=== PATIENT | male | born 1940 | race Caucasian/White ===

== ENCOUNTER 2016-10-07 08:18 | Outpatient (CLI) | payer MEDICARE, OTHER | END 2016-10-07 08:19 | disposition home or self-care (01) | DX: C61 Malignant neoplasm of prostate (principal); C79.51 Secondary malignant neoplasm of bone ==

== ENCOUNTER 2017-02-26 13:52 | Outpatient (CLI) | payer MEDICARE, OTHER ==
[2017-02-26] MEDS ORDERED: ALBUTEROL NEB 2.5 MG/3 ML INH ONE (14:07)
== END 2017-02-26 13:53 | disposition home or self-care (01) ==
LOC: RT 13:52
PROVIDERS: ATTEND Internal Medicine
DX: J45.909 Unspecified asthma, uncomplicated (principal)
CPT/HCPCS: 94060; J7613

== ENCOUNTER 2018-04-28 12:23 | Emergency (ER) | payer MEDICARE, OTHER ==
[2018-04-28 13:50] LABS: BILIRUBIN,URINE NEGATIVE (NEGATIVE); GLUCOSE, URINE (UA) NEGATIVE (NEGATIVE); KETONES,URINE (UA) NEGATIVE (NEGATIVE); LEUKOCYTE ESTERASE, URINE NEGATIVE (NEGATIVE); NITRITE,URINE NEGATIVE (NEGATIVE); OCCULT BLOOD,URINE LARGE (NEGATIVE); PROTEIN,URINE NEGATIVE (NEGATIVE); UROBILINOGEN,URINE 0.2 (NORMAL) E.U./dL (NORMAL)
[2018-04-28 13:52] LABS: CLARITY,URINE CLOUDY (CLEAR)
[2018-04-28 14:04] LABS: BACTERIA,URINE Rare /HPF (None Seen); RBC,URINE TNTC /HPF (0-5); SQUAMOUS EPITHELIAL CELL,UR NONE SEEN (<= Few)
[2018-04-28 14:28] LABS: BASOPHILS % (AUTO) 0.2 %; EOSINOPHILS # (AUTO) 0.7 10^3/uL (0.0-0.7); EOSINOPHILS % (AUTO) 9.5 %; LYMPHOCYTES % (AUTO) 29.6 %; MEAN CORPUSCULAR HEMOGLOBIN 33.1 pg (27.0-31.0); MEAN CORPUSCULAR HGB CONC 35.4 g/dL (32.0-36.0); MEAN CORPUSCULAR VOLUME 93.4 fL (80.0-94.0); MONOCYTES # (AUTO) 0.5 10^3/uL (0.0-1.0); MONOCYTES % (AUTO) 7.1 %; NEUTROPHILS # (AUTO) 3.7 10^3/uL (1.5-6.6); NEUTROPHILS % (AUTO) 53.6 %; PLT - PLATELET COUNT 291 10^3/uL (130-450); RED BLOOD COUNT 4.23 10^6/uL (4.70-6.10); RED CELL DISTRIBUTION WIDTH 13.7 % (12.0-15.0); WHITE BLOOD COUNT 6.9 x10^3/uL (4.8-10.8)
[2018-04-28 14:40] LABS: ALBUMIN 4.2 g/dL (3.2-5.5); ALBUMIN/GLOBULIN RATIO 1.2 (1.0-2.2); BILIRUBIN,TOTAL 0.7 mg/dL (0.2-1.0); CALCIUM 10.3 mg/dL (8.5-10.3); CREATININE 0.9 mg/dL (0.6-1.2); TOTAL PROTEIN 7.6 g/dL (6.7-8.2)
--- NOTE | 2018-04-28 15:35 | ED Physician Documentation ---
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 denies: Dysuria Musculoskeletal: denies: Back pain Endocrine: denies: Easy bruising / bleeding Immunocompromised: denies: Immunocompromised PD PAST MEDICAL HISTORY - Past Medical History Cardiovascular: Hypertension, High cholesterol Respiratory: Asthma Musculoskeletal: Gout - Past Surgical History Past Surgical History: Yes - Present Medications Home Medications: Ambulatory Orders Medication Instructions Recorded Confirmed Travoprost [Travatan Z] 1 drop OP DAILY 12/06/15 02/18/18 Aspirin [Adult Low Dose Aspirin EC] 1 tab PO DAILY 02/18/18 02/18/18 - Allergies Allergies/Adverse Reactions: Allergies Allergy/AdvReac Type Severity Reaction Status Date / Time No Known Drug Allergies Allergy Verified 04/28/18 12:29 - Social History Does the pt smoke?: No Smoking Status: Never smoker Does the pt drink ETOH?: Yes Does the pt have substance abuse?: No - Immunizations Immunizations are current?: Yes PD ED PE NORMAL - Vitals Vital signs reviewed: Yes - Cardiac Cardiac: RRR - Respiratory Respiratory: No respiratory distress - Abdomen Abdomen: Soft, Non tender - Male Male : Other (nl external) - Derm Derm: Normal color - Neuro Neuro: Alert and oriented X 3, No motor deficit Results - Vitals Vitals: Vital Signs - 24 hr 04/28/18 04/28/18 12:25 18:31 Temperature 36.1 C L 36.9 C Heart Rate 92 68 Respiratory 18 24 Rate Blood Pressure 132/87 H 129/80 O2 Saturation 97 96 Oxygen O2 Source Room air - Labs Labs: Laboratory Tests 04/28/18 04/28/18 04/28/18 12:45 14:21 14:21 WBC 6.9 RBC 4.23 L Hgb 14.0 Hct 39.5 L MCV 93.4 MCH 33.1 H MCHC 35.4 RDW 13.7 Plt Count 291 MPV 7.0 L Neut # (Auto) 3.7 Lymph # (Auto) 2.0 Moffat # (Auto) 0.5 Eos # (Auto) 0.7 Baso # (Auto) 0.0 Absolute Nucleated RBC 0.00 Nucleated RBC % 0.0 Sodium 136 Potassium 4.0 Chloride 101 Carbon Dioxide 26 Anion Gap 9.0 BUN 15 Creatinine 0.9 Estimated GFR (MDRD) 82 L Glucose 100 Calcium 10.3 Total Bilirubin 0.7 AST 27 ALT 26 Alkaline Phosphatase 53 Total Protein 7.6 Albumin 4.2 Globulin 3.4 Albumin/Globulin Ratio 1.2 Lipase 31 Urine Color YELLOW Urine Clarity CLOUDY Urine pH 6.0 Ur Specific Sheldon 1.020 Urine Protein NEGATIVE Urine Glucose (UA) NEGATIVE Urine Ketones NEGATIVE Urine Occult Blood LARGE H Urine Nitrite NEGATIVE Urine Bilirubin NEGATIVE Urine Urobilinogen 0.2 (NORMAL) Ur Leukocyte Esterase NEGATIVE Urine RBC TNTC H Urine WBC 0-3 Ur Squamous Epith Cells NONE SEEN Urine Bacteria Rare Ur Microscopic Review INDICATED Urine Culture Comments NOT INDICATED - Rads (name of study) CT AP Radiology: See rad report (aortic valve calcification, 4.5 cm ascedning aortic aneurysm is unchanged, gallstones, no hydro, no renal ureteral stones, no renal masses, renal cysts, lynn, gas in bladder (2/2 lynn placement) diverticulosis , multiple blastic bone lesions again noted, new retroperitoneal lymphadenopathy concerning for mets) PD MEDICAL DECISION MAKING - ED course ED course: cath placed and bladder irrigated clear pt able to urinate CT shows no stones or renal and bladder mass will dc to follow up with [facility] and referral [facility] for consideration of cystoscopy - Sepsis Event Vital Signs: Vital Signs - 24 hr 04/28/18 04/28/18 12:25 18:31 Temperature 36.1 C L 36.9 C Heart Rate 92 68 Respiratory 18 24 Rate Blood Pressure 132/87 H 129/80 O2 Saturation 97 96 Oxygen O2 Source Room air Departure - Departure Disposition: 01 Home, Self Care Clinical Impression: Painless hematuria Condition: Good Instructions: ED Hematuria Follow-Up: ANDREW BROWN [Primary Care Provider] - [facility] [Provider Group] Comments: The urine showed blood but no infection The CT scan did not show any kidney stones or abdominal aneurysm There is a thoracic aortic aneurysm but that is not new and would not cause blood in the urine. The radiologist also noted a calcified heart valve, diverticulosis, gallstones, kidney cysts, and cancer that has spread to the bones and perhaps the lymph nodes. But nothing to clearly explain the blood in the urine. You need to follow up with a urologist for consideration of a scope of your bladder
[2018-04-28] MEDS ORDERED: LIDOCAINE 2% URO-JET 5 ML SYRINGE UR STA (15:54)
[2018-04-28] MEDS ORDERED: IOPAMIDOL-300 100 ML VIAL ONE (16:20)
[2018-04-28] MEDS ORDERED: IOPAMIDOL-300 100 ML VIAL IVP ONE (16:53)
--- NOTE | 2018-04-28 17:19 | CT Report ---
Reason: prostate cancer painless hematuria Procedure Date: 04/28/2018 Accession Number: [id number] / [id number] Procedure: CT - Abdomen/Pelvis W/ CPT Code: FULL RESULT: EXAM: CT ABDOMEN AND PELVIS EXAM DATE: 04/28/2018 04:51 PM. CLINICAL HISTORY: Prostate cancer, painless hematuria. COMPARISONS: Abdomen/pelvis with contrast/ 07/12/2017 10:47 AM. TECHNIQUE: Routine helical CT imaging was performed through the abdomen and pelvis. IV contrast: Isovue 300 100 mL. Enteric contrast: No. Reconstructions: Coronal and sagittal. In accordance with CT protocol optimization, one or more of the following dose reduction techniques were utilized for this exam: automated exposure control, adjustment of mA and/or KV based on patient size, or use of iterative reconstructive technique. FINDINGS: Lung bases: Coronary artery Calcification. Areas of pleural-based calcification seen posteriorly on the right side. Aortic valve calcification. Aneurysmal dilatation of the ascending thoracic aorta measuring 4.5 cm, unchanged. Mild bibasilar scarring or atelectasis. Liver: Fatty liver suspected. Gallbladder: Increased density in the gallbladder, could represent small gallstones versus dense sludge. Bile ducts: Unremarkable. Pancreas: Unremarkable. Spleen: Unremarkable. Adrenals: Unremarkable. Kidneys: No hydronephrosis. No urinary tract calculi are seen. No solid renal masses are seen. Left parapelvic renal cysts. Bowel: Moderate sigmoid and mild descending colon diverticulosis. The appendix appears normal. No free fluid or free air. No acute bowel findings are seen. A couple of calcified nodules are seen anteriorly in the abdomen. Pelvis: The bladder is decompressed with a Sorenson catheter in place. There is gas in the bladder. Prostate has been removed. Small fat-containing left inguinal hernia. Vascular structures: No acute findings. New retroperitoneal periaortic lymphadenopathy with left periaortic lymphadenopathy measuring 1.2 cm at the level of the kidneys. Aortocaval lymphadenopathy measures 1.4 cm at the level of the kidneys. Bones: Multiple blastic bone metastasis are again seen in the pelvic bones, right proximal femur, spine and right rib. IMPRESSION: 1. Aortic valve calcification. Aneurysmal dilatation of the ascending thoracic aorta measuring 4.5 cm, unchanged. 2. Increased density in the gallbladder, could represent small gallstones versus dense sludge. 3. No hydronephrosis. No urinary tract calculi are seen. No solid renal masses are seen. Left parapelvic renal cysts. 4. The bladder is decompressed with Sorenson catheter in place. There is gas in the bladder. 5. Moderate sigmoid and mild descending colon diverticulosis. 6. Multiple blastic bone metastasis again noted. 7. New retroperitoneal lymphadenopathy most concerning for metastasis. 8. See above. RADIA
[2018-04-28 18:32] VITALS: BP 129/80
== END 2018-04-28 18:46 | disposition home or self-care (01) ==
LOC: ED 12:23
DX: R31.9 Hematuria, unspecified (principal); C61 Malignant neoplasm of prostate; C79.51 Secondary malignant neoplasm of bone; R59.0 Localized enlarged lymph nodes; K57.90 Diverticulosis of intestine, part unspecified, without perforation or abscess without bleeding; K80.80 Other cholelithiasis without obstruction; N28.1 Cyst of kidney, acquired; I35.8 Other nonrheumatic aortic valve disorders; I10 Essential (primary) hypertension; E78.00 Pure hypercholesterolemia, unspecified; Z90.79 Acquired absence of other genital organ(s); Z92.3 Personal history of irradiation; Z79.82 Long term (current) use of aspirin
CPT/HCPCS: 36415; 74177; 80053; 81001; 83690; 85025; 99283; Q9967; 81003; 87086

== ENCOUNTER 2018-07-08 07:07 | Outpatient (CLI) | payer MEDICARE, OTHER ==
[2018-07-08] MEDS ORDERED: IOPAMIDOL-300 100 ML VIAL ONE (07:16)
[2018-07-08] MEDS ORDERED: IOPAMIDOL-300 100 ML VIAL IVP ONE (08:18)
--- NOTE | 2018-07-08 13:14 | CT Report ---
Reason: GROSS HEMATURIA Procedure Date: 07/08/2018 Accession Number: [id number] / [id number] Procedure: CT - IVP CPT Code: FULL RESULT: EXAM: CT ABDOMEN AND PELVIS WITHOUT AND WITH CONTRAST (CT IVP) EXAM DATE: 07/08/2018 07:51 AM. CLINICAL HISTORY: Gross hematuria. History of prostate cancer. COMPARISONS: ABDOMEN/PELVIS W/ 04/28/2018 4:47 PM. TECHNIQUE: Routine helical imaging was performed through the kidneys, ureters and bladder in the precontrast, postcontrast and delayed phase. IV Contrast: Isovue 300 100 mL. Reconstructions: Coronal and sagittal. In accordance with CT protocol optimization, one or more of the following dose reduction techniques were utilized for this exam: automated exposure control, adjustment of mA and/or KV based on patient size, or use of iterative reconstructive technique. FINDINGS: Lung Bases: Unremarkable. Right Kidney/Ureter: No stones, hydronephrosis, or masses. Left Kidney/Ureter: The left distal ureter is not opacified from the level of the pelvic inlet to the bladder. At the level of the urethral valve there is mild asymmetric thickening of the left aspect near the bladder trigone. No stones, hydronephrosis. Other Solid Organs: The liver, spleen, pancreas, gallbladder, and adrenal glands are unremarkable.The bile ducts are unremarkable with the exception of small gallbladder calculi versus vicarious contrast excretion. Peritoneal Cavity/Bowel: Normal. No free fluid, free air or adenopathy. No masses. Bowel loops are unremarkable. Pelvic Organs: No bladder calculi are identified. Asymmetric thickening of the bladder wall as described in relation to the left ureteral insertion, see left kidney. Vasculature: Abdominal atherosclerosis as well as coronary vascular calcifications. Bones: Sclerosis of the right hemisacrum, left iliac wing and portions of the right iliac wing and right femoral neck are most compatible with osteoblastic metastases. Similar sclerotic foci also seen in the axial skeleton elsewhere. Other: None. IMPRESSION: Recommend direct visualization of the bladder by cystoscopy to clarify the asymmetric thickening of the left bladder base near the insertion of the left ureter. RADIA
== END 2018-07-08 07:08 | disposition home or self-care (01) ==
LOC: DI 07:07
PROVIDERS: ATTEND Urology
DX: N32.89 Other specified disorders of bladder (principal); R31.0 Gross hematuria
CPT/HCPCS: 74178; Q9967

== ENCOUNTER 2018-08-05 09:19 | Outpatient (CLI) | payer MEDICARE, OTHER ==
--- NOTE | 2018-08-06 08:15 | Nuclear Medicine Report ---
Reason: METASTIC PROSTATE CA Procedure Date: 08/05/2018 Accession Number: [id number] / [id number] Procedure: NM - Bone Whole Body CPT Code: FULL RESULT: EXAM: BONE SCAN EXAM DATE: 08/05/2018 01:34 PM. CLINICAL HISTORY: Metastatic PROSTATE CA. COMPARISON: CHEST W08/04/2018 1:31 PM ABDOMEN/PELVIS W08/04/2018 1:31 PM BONE WHOLE BODY 10/09/2016 12:28 PM ABDOMEN/PELVIS W07/12/2017 10:47 AM. TECHNIQUE: Following the intravenous administration of 29.9 mCi of technetium 99m MDP and an appropriate delay, a whole-body scan was performed in anterior and posterior projections. Site-specific spot views of the region of interest were obtained in various projections. FINDINGS: Normal renal radiotracer uptake and bladder activity. Normal soft tissue activity. Overall normal osseous uptake. There are multiple new skeletal foci suspicious for metastatic disease. Bilateral rib lesions most conspicuous at the left sixth and right ninth ribs posteriorly. There are new foci of uptake in the mid thoracic and lower lumbar spine most conspicuous at T10 and at L4 and L5. There is new multifocal uptake in the right pelvis most conspicuous at the periacetabular ilium, and in the right proximal femur. No focal uptake at the right humeral neck is additionally suspicious for metastatic disease. Previously identified uptake in the left hemipelvis has moderately decreased. There is similar mild uptake at the shoulders and increased uptake at the knees bilaterally and left mid and forefoot likely degenerative. IMPRESSION: 1. There is evidence of interval progression of osseous metastatic disease, as described above. RADIA
== END 2018-08-05 09:20 | disposition home or self-care (01) ==
LOC: DI 09:19
PROVIDERS: ATTEND Internal Medicine
DX: C61 Malignant neoplasm of prostate (principal); C79.51 Secondary malignant neoplasm of bone
CPT/HCPCS: 78306

== ENCOUNTER 2018-09-22 08:44 | Day surgery (SDC) | payer MEDICARE, OTHER ==
[~2018-09-22 08:44] MED LIST: ceFAZolin 2 GM/50 ML 2 GM/50 ML BAG IV ONE
[2018-09-22] MEDS ORDERED: IOTHALAMATE MEGLUMINE 50 ML VIAL IVP ONE ×2 (08:45→12:49)
[2018-09-22] MEDS ORDERED: LACTATED RINGERS 1,000 ML IV ONE ×2 (09:19→12:52)
--- NOTE | 2018-09-22 09:33 | ANESTHESIA ---
Pre-Anesthesia VS, & Labs - Diagnosis metastatic prostate cancer - Procedure portacath placement Vital Signs: Temp Pulse Resp BP Pulse Ox 36.5 C 77 16 136/77 H 98 09/22/18 08:58 09/22/18 08:58 09/22/18 08:58 09/22/18 08:58 09/22/18 08:58 Height 5 ft 11 in Weight (kg) 84.7 kg Body Mass Index 25.8 - NPO >8 hours Home Medications and Allergies Travoprost [Travatan Z] 1 drop OP DAILY 12/06/15 Oxycontin. 1 tab ORAL DAILY PRN 08/12/18 Allergies/Adverse Reactions: Allergies Allergy/AdvReac Type Severity Reaction Status Date / Time No Known Drug Allergies Allergy Verified 04/28/18 12:29 Anes History & Medical History - Medical History Cardiovascular: reports: Hypertension, High cholesterol Pulmonary: reports: Asthma Gastrointestinal: reports: Other Urinary: reports: Other Musculoskeletal: reports: Osteoarthritis, Chronic back pain, Other Skin: reports: None Smoking Status: Never smoker - Surgical History General: Other Urologic: Prostatic surgery Orthopedic: Arthroscopic surgery, Spine surgery Exam General: Alert Dental: WNL Mouth Opening: Greater than 4 Fingerbreadths Neck Mobility: Normal Mallampati classification: II Thyromental Distance: greater than 6 cm Respiratory: Decreased breath sounds Cardiovascular: Regular rate, Normal S1, Normal S2 Mental/Cognitive Status: Alert/Oriented X3 Plan Anesthesia Type: General (backup), MAC Consent for Procedure(s) Verified and Reviewed: Yes Code Status: Attempt Resuscitation ASA classification: 3-Severe systemic disease Is this case an emergency?: No
[2018-09-22] MEDS ORDERED: IPRATROPIUM/ALBUTEROL 3 ML NEB INH ONE (09:39)
[2018-09-22] MEDS ORDERED: BUPIVACAINE 0.5% PF 30 ML VIAL ONE (10:02)
[2018-09-22] MEDS ORDERED: BUPIVACAINE 0.5% PF 30 ML VIAL SUBQ ONE (11:08)
[2018-09-22] MEDS ORDERED: LIDOCAINE-MPF 2% 5 ML VIAL IM ONE (11:37)
[2018-09-22] MEDS ORDERED: KETAMINE 500 MG/10 ML VIAL IVP ONE (11:37)
[2018-09-22] MEDS ORDERED: PROPOFOL 1000 MG/100 ML IV ONE (11:37)
[2018-09-22] MEDS ORDERED: GLYCOPYRROLATE 1 MG/5 ML VIAL IVP ONE (11:37)
[2018-09-22] MEDS ORDERED: SODIUM CHLORIDE 0.9% 10 ML VIAL IV ONE (11:37)
[2018-09-22] MEDS ORDERED: MIDAZOLAM 2 MG/2 ML VIAL IVP ONE (11:37)
[2018-09-22] MEDS ORDERED: HYDROmorphone 0.5 MG/0.5 ML SYRINGE IVP PRN (13:43)
[2018-09-22] MEDS ORDERED: HYDROcod/ACETAM 5/325 MG TABLET PO PRN (13:43)
[2018-09-22] MEDS ORDERED: ONDANSETRON 4 MG/2 ML VIAL IVP PRN (13:43)
--- NOTE | 2018-09-22 14:07 | OPERATIVE REPORT ---
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 - Other Other Information/Narrative: OPERATIVE DESCRIPTION/REPORT: After verbal and written informed consent was obtained detailing the risks of infection, bleeding requiring transfusion with its risks, nerve injury, and , and after I met with the patient confirming the surgery and the site of the surgery, the patient was brought to the operative suite and placed supine on the operating table. Great care was taken to avoid pressure points to prevent pressure necrosis or nerve injury. Monitoring devices were applied along with TEDs and pneumatic compressive stockings (to prevent DVT). The patient received preoperative antibiotics for surgical prophylaxis. Sterling Jesus CRNA sedated and anesthetized the patient for the entire procedure. The patient was prepped and draped in the usual sterile manner. A "time in" then confirmed that the patient was identified with 3 identifiers (name, date and medical record number), the history and physical was in the chart, the signed consent confirming the procedure was in the chart, the patient was in the correct position, the aforementioned prophylactic measures were in place or given, we had the correct personnel and equipment to complete the procedure and that anesthesia, surgery and nursing were given an opportunity to express any concerns. With the agreement of everyone in the room, we proceeded with the ope ration. After the LEFT subclavian region was anesthetized using % marcaine and the patient placed in Trendelenberg position, an [employer] Smartport kit (see operative record for catalog number and lot number) was opened. Numerous passes of the finder needle chest underneath the clavicle in order to minimize the risk of pneumothorax failed to localize the subclavian vein. Of note, the patient had a Port-A-Cath previously placed on the left-hand side. At no point in time did I get any venous return. At this point I obtained an ultrasound to look to see if I could localize the subclavian vein and despite ultrasound guidance I could not. I abandoned the left-hand side as a viable option and switched over to the right-hand side. On the right hand side the finder needle was inserted into the subclavian vein taking great care to place it just under the clavicle in order to minimize the risk of pneumothorax. When good venous blood return was obtained, the wire was placed through the needle and into the vein without difficulty. Despite placing the wire to the normal length, no cardiac irritability was noted. Below and lateral to the needle insertion site, the area was anesthetized again using % marcaine and a transverse incision was made just large enough to accommodate the port. This incision was taken down to the fascia using sharp dissection and the area for the port was created using blunt downward dissection. Meticulous hemostasis was obtained using Bovie electrocautery. A knife was inserted along the wire to widen the insertion site and this was further dilated using a Vera. The port was flushed with heparinized saline and placed in the pouch and the catheter was then passed to the needle opening using the passer. The catheter was then measured against the patients anterior chest and cut so that the tip would lie 2 cm below the manubrial-sternal junction. The port was secured to the fascia using a 3-0 Prolene on the side of the opening of the port. The catheter was then wiped and wrapped with a heparinized soaked 4x4. The dilator and sheath were then carefully inserted over the wire and the dilator and wire withdrawn. Upon removal of the wire it had a odd configuration and I ordered and obtained a chest x-ray which showed that the sheath was doubled back onto itself. This clearly would not allow for placement of the catheter and I called for fluoroscopic guidance. With fluoroscopy the sheath was brought back until it was straight and the wire was reintroduced through the sheath and each manipulation of the wire had the tip of the wire going into the patient's right neck. Despite having the patient's head rotated to the right, having the patient's had lay on his right shoulder, twirling of the wire I was unable to get the wire to go down. To summarize, glidewires, a different kit with different stainless steel wire, an introducer kit with a different wire and needle all could not place the wire down towards the heart/vena cava. To be clear there was no significant difficulty accessing the subclavian vein it was that despite every effort the wire could not be placed into the vena cava. At this point I began a suspect a obstruction or stenosis at the superior vena cava and obtained Conray diluted 50-50 with saline. 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 At this point time I consulted my radiology colleague, Dr. Manuel Wells, who came in to the operating room at which time I repeated placement of the wire, placement of the dilator, and the venogram. 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 I asked Dr. Wells if we had the equipment in order to accomplish this goal and he stated that we do not. Although I considered placement of the Port-A-Cath in the femoral region this is not preferred and I opted to terminate the procedure and send the patient to a hospital setting where they have interventional radiology with endovascular expertise. The port that had been placed was removed as well as the catheter attached to it. The subcutaneous tissue was approximated using 3-0 Vicryl and the skin incisions were approximated with 4-0 Monocryl in a subcuticular fashion. The skin prep was washed off and prepped with benzoin. Steristrips were applied. At this point a time out was performed that confirmed that all the counts were correct, the procedure that was performed, the blood loss, the IV fluids administered, and the patients condition. A dressing was placed on the wound. Having tolerated the procedure well, the patient was taken to short stay in good and stable condition. A chest x-ray was ordered to ensure that there was no pneumothorax. [employer] disclaimer: This document was created in part using voice recognition technology. Because of the inherent limitations of the system ([employer]'s [employer] user manual states that the licensee understands that speech recognition is a statistical process and that recognition errors are inherent in the process), occasional same sounding word substitutions and grammatical errors do occur and persist despite proofreading. Please read this document for context.
--- NOTE | 2018-09-22 14:12 | XRAY Report ---
Reason: rule out pneumothorax Procedure Date: 09/22/2018 Accession Number: [id number] / [id number] Procedure: XR - Chest 1 View X-Ray CPT Code: 02514 FULL RESULT: EXAM: CHEST RADIOGRAPHY EXAM DATE: 09/22/2018 01:41 PM. CLINICAL HISTORY: Rule out pneumothorax. COMPARISON: Chest with contrast 08/04/2018 1:31 PM. TECHNIQUE: 1 view. FINDINGS: Lungs/Pleura: Lungs are emphysematous with a paucity of lung markings at the apices. Exclusion of small pneumothorax at the lung apex is difficult. There is no tension and no large pneumothorax. No pleural effusion. No pulmonary consolidation. Mediastinum: Within exam limitations, the cardiomediastinal contour is normal. Other: There is a thin linear 1.5 cm man-made structure projecting over the medial head of the right clavicle, not seen on prior CT. Contrast is seen in the soft tissues of the right neck. IMPRESSION: No sizable pneumothorax. Correlate 1.5 cm thin linear man-made structure projecting over the medial head of the clavicle to possible items external to the patient to exclude foreign body. CRITICAL RESULT: The findings were discussed with Dr. Chang on 09/22/2018 at 2:10 PM. RADIA
[2018-09-22 14:36] VITALS: BP 126/91
--- NOTE | 2018-09-22 15:32 | XRAY Report ---
Reason: PORTOCATH PLACEMENT Procedure Date: 09/22/2018 Accession Number: [id number] / [id number] Procedure: FL - OR C-Arm Procedure CPT Code: FULL RESULT: EXAM: FLUOROSCOPIC GUIDANCE EXAM DATE: 09/22/2018 01:31 PM. CLINICAL HISTORY: Port-A-Cath placement. COMPARISON: None. 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 IMPRESSION: Fluoroscopic guidance provided for port placement. Total fluoroscopy time: 7 minutes 32 seconds. Number of images: 111. RADIA
== END 2018-09-22 08:45 | disposition home or self-care (01) ==
LOC: SDS 08:44
PROVIDERS: ATTEND Surgery
PROC: 0JH60WZ Insertion of Totally Implantable Vascular Access Device into Chest Subcutaneous Tissue and Fascia, Open Approach (ICD-10-PCS; principal; 2018-09-22 10:00)
DX: C61 Malignant neoplasm of prostate (principal); I87.1 Compression of vein; I10 Essential (primary) hypertension; Z87.891 Personal history of nicotine dependence
CPT/HCPCS: 36561; 71045; C1788; J0690; J7120; Q9961

== ENCOUNTER 2019-01-13 09:08 | Outpatient (CLI) | payer MEDICARE, OTHER ==
[2019-01-13] MEDS ORDERED: IOVERSOL 320 100 ML VIAL IVP ONE (12:21)
[2019-01-13] MEDS ORDERED: IOVERSOL 320 50 ML VIAL PO ONE (12:21)
--- NOTE | 2019-01-13 13:04 | CT Report ---
Reason: PROSTATE CANCER Procedure Date: 01/13/2019 Accession Number: [id number] / [id number] Procedure: CT - CHEST W CPT Code: FULL RESULT: EXAM: CT CHEST EXAM DATE: 01/13/2019 11:11 AM. CLINICAL HISTORY: PROSTATE CANCER. COMPARISONS: CHEST W/ 08/04/2018 1:31 PM. TECHNIQUE: Routine helical CT imaging was performed through the chest. IV contrast: 100 cc of Optiray 320 contrast. Reconstructions: Coronal and sagittal. In accordance with CT protocol optimization, one or more of the following dose reduction techniques were utilized for this exam: automated exposure control, adjustment of mA and/or KV based on patient size, or use of iterative reconstructive technique. FINDINGS: Lungs/Pleura: Stable pattern of bilateral upper lobe panacinar and centrilobular emphysema. No nodules, bronchial thickening, consolidation, or edema. Pulmonary vasculature is normal. No pericardial or pleural effusion. No pneumothorax. Stable thin calcific pleural plaquing both posterior hemithoraces right greater than left. Mediastinum: No adenopathy or masses. Stable three-vessel coronary artery calcium. 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 Stable calcifications of the aortic valve cusps. 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 Majority of existing bony metastases have shown variable increase in extent of metastases, and there are scattered new metastases (reference L1 vertebral body where there are three new 5 mm lesions). Visualized Abdomen: Unremarkable. Abdominal pelvic CT dictated separately. Other: None. IMPRESSION: 1. Interval progression of osseous metastases as described. 2. No evidence of visceral metastases. 3. Stable exam findings of emphysema. 4. Stable fusiform aneurysmal dilatation of the aortic root and diffuse atherosclerotic ectasia of the remaining thoracic aorta. 4. Significant three-vessel coronary artery calcium. RADIA
--- NOTE | 2019-01-13 14:03 | CT Report ---
Reason: PROSTATE CANCER Procedure Date: 01/13/2019 Accession Number: [id number] / [id number] Procedure: CT - Abdomen/Pelvis W CPT Code: FULL RESULT: EXAM: CT ABDOMEN AND PELVIS EXAM DATE: 01/13/2019 11:11 AM. CLINICAL HISTORY: Prostate cancer. COMPARISONS: ABDOMEN/PELVIS W/ 08/04/2018 1:31 PM. TECHNIQUE: Routine helical CT imaging was performed through the abdomen and pelvis. IV contrast: 100 mL of Optiray 320 contrast.. Enteric contrast: 50 mL of Optiray 320 contrast. Reconstructions: Coronal and sagittal. In accordance with CT protocol optimization, one or more of the following dose reduction techniques were utilized for this exam: automated exposure control, adjustment of mA and/or KV based on patient size, or use of iterative reconstructive technique. FINDINGS: Lung Bases: Dictated separately. Emphysema again noted. Liver: Normal. No masses. Gallbladder/Bile Ducts: Stable dependent radiodense fluid-fluid level presumably radiodense sludge or small gravel-like stones. No wall thickening or CT evidence of acute cholecystitis. Spleen: Normal. Pancreas: Normal. Adrenal Glands: Normal. Kidneys: Normal. No masses or hydronephrosis. Peritoneal Cavity/Bowel: Stable appearance to diminished volume in calcified anterior peritoneal nodules, reference series 4 images 34 and 40 respectively. Interval resolution of previously described retroperitoneal adenopathy. Sigmoid colonic diverticulosis without evidence of diverticulitis. No free fluid, free air or adenopathy. No masses or acute inflammatory process. The appendix is well visualized and normal. Pelvic Organs: Normal. The bladder and visualized pelvic organs are within normal limits. Vasculature: No aneurysms or other significant abnormality. Bones: Slight interval progression of extent and number of osteoblastic metastases. Reference: There are 3 new 5 mm metastases in L1. Majority of other previously present osseous metastases have increased slightly in extent/size. Other: Stable fat-containing left inguinal hernia. IMPRESSION: 1. Interval resolution of previous retroperitoneal lymphadenopathy. 2. Mild interval progression of osseous metastases. 3. Stable gravel-like cholelithiasis versus radiodense sludge. No CT evidence of cholecystitis. 4. Sigmoid diverticulosis without evidence of diverticulitis. RADIA
--- NOTE | 2019-01-13 17:54 | Nuclear Medicine Report ---
Reason: PROSTATE CANCER Procedure Date: 01/13/2019 Accession Number: [id number] / [id number] Procedure: NM - Bone Whole Body CPT Code: FULL RESULT: EXAM: BONE SCAN EXAM DATE: 01/13/2019 04:15 PM. CLINICAL HISTORY: PROSTATE CANCER. COMPARISON: BONE SCAN 08/05/2018 12:58 PM ABDOMEN/PELVIS W/ 01/13/2019 11:11 AM CHEST W01/13/2019 11:11 AM. TECHNIQUE: Following the intravenous administration of 30.3 mCi of technetium 99m MDP and an appropriate delay, a whole-body scan was performed in anterior and posterior projections. Site-specific spot views of the region of interest were obtained in various projections. FINDINGS: Normal renal radiotracer uptake and bladder activity. Normal soft tissue activity. Overall normal osseous uptake. As before, there are multiple foci of uptake in the axial and proximal appendicular skeleton, most of which correspond to sclerotic lesions by CT, likely metastatic. Multiple rib lesions are less conspicuous for example at the left posterior sixth rib and right posterior ninth rib. There is increased extent and intensity of uptake at the right posterior ilium and/or sacrum. There is new focal uptake at the right posterior lower lumbar spine approximately L5, suspicious for metastasis. There is similar intensity however increased extent of uptake at the right proximal femur. There is increased extent of uptake at the periacetabular right ilium. IMPRESSION: 1. There is evidence of mixed interval disease progression, as described above. RADIA
== END 2019-01-13 09:09 | disposition home or self-care (01) ==
LOC: DI 09:08
PROVIDERS: ATTEND Orthopaedic Surgery
DX: C61 Malignant neoplasm of prostate (principal); C79.51 Secondary malignant neoplasm of bone; J43.9 Emphysema, unspecified; Q25.43 Congenital aneurysm of aorta; I77.810 Thoracic aortic ectasia; K57.30 Diverticulosis of large intestine without perforation or abscess without bleeding
CPT/HCPCS: 36415; 71260; 74177; 78306; 82565; Q9967

== ENCOUNTER 2019-03-05 14:27 | Emergency (ER) | payer MEDICARE, OTHER ==
--- NOTE | 2019-03-05 14:44 | ED Physician Documentation ---
History of Present Illness - Stated complaint Stated Complaint: PORT COMPLICATIONS - Chief complaint Chief Complaint: General - History obtained from History obtained from: Patient, Family () - History of Present Illness Timing: Yesterday (78-year-old gentleman with metastatic prostate cancer presents with pain and swelling to a right chest wall port that is about 6 months old. No fevers.) Review of Systems Constitutional: denies: Fever, Chills Respiratory: denies: Dyspnea, Cough GI: denies: Abdominal Pain PD PAST MEDICAL HISTORY - Past Medical History Cardiovascular: Hypertension, High cholesterol Respiratory: Asthma GI: Other : Other HEENT: None Psych: Anxiety Musculoskeletal: Osteoarthritis, Chronic back pain, Other Derm: None - Past Surgical History Past Surgical History: Yes General: Other Ortho: Arthroscopic surgery, Spine surgery - Present Medications Home Medications: Ambulatory Orders Medication Instructions Recorded Confirmed Travoprost [Travatan Z] 1 drop OP DAILY 12/06/15 02/17/19 Oxycontin. 1 tab ORAL DAILY PRN 08/12/18 02/17/19 LORazepam [Lorazepam] 0.5 mg PO Q6H PRN #30 tablet 09/21/18 02/17/19 dexAMETHasone [Dexamethasone] 8 mg PO DAILY #30 tablet 09/21/18 02/17/19 Prednisone 5 mg PO DAILY #42 tablet 09/23/18 02/17/19 Gabapentin 100 mg PO DAILY 10/14/18 02/17/19 Lidocaine/Prilocain 2.5% Cream 1 inch TOP PRN PRN #1 tube 10/14/18 02/17/19 [Emla 2.5% Cream] Polyethylene Glycol 3350 [Miralax] 17 gm PO DAILY 10/14/18 02/17/19 Omeprazole 20 mg PO DAILY 10/29/18 02/17/19 Loratadine/Pseudoephedrine 1 tab PO DAILY PRN 01/20/19 02/17/19 [Claritin-D 24 Hour Tablet] Melatonin 1 mg PO DAILY 01/20/19 02/17/19 Oxycodone HCl 10 mg PO Q4H PRN 01/20/19 02/17/19 Cephalexin [Keflex] 500 mg PO Q6H #28 capsule 03/05/19 Sulfamethoxazole/Trimethoprim 1 each PO BID #14 tablet 03/05/19 [Sulfamethoxazole-Tmp Ds Tablet] - Allergies Allergies/Adverse Reactions: Allergies Allergy/AdvReac Type Severity Reaction Status Date / Time No Known Drug Allergies Allergy Verified 03/05/19 14:33 - Social History Does the pt smoke?: No Smoking Status: Never smoker Does the pt drink ETOH?: Yes Does the pt have substance abuse?: No - Immunizations Immunizations are current?: Yes PD ED PE NORMAL - Vitals Vital signs reviewed: Yes - General General: Alert and oriented X 3, No acute distress - Derm Derm: Other (Right chest wall port with pretty clear infection, it looks like a deep kind of purulent blister over it and then about 3 cm of surrounding redness.) - Neuro Neuro: Alert and oriented X 3, Normal speech Results - Vitals Vitals: Vital Signs - 24 hr 03/05/19 03/05/19 14:31 14:51 Temperature 35.7 C L 98.4 C H Heart Rate 78 97 Respiratory 16 17 Rate Blood Pressure 125/83 H 129/81 H O2 Saturation 98 98 Oxygen O2 Source Room air PD MEDICAL DECISION MAKING - ED course ED course: Dr Chang Evaluated the patient and actually felt like it was a chest wall abscess that may or may not be related to the port and his plan was to do an I&D and place him on antibiotics with close follow-up but not to remove the port at this juncture. - Consults Consults: Consulted (name) (Dr Chang personal chef surgeon, will com in to take port out.) Departure - Departure Clinical Impression: Chest wall abscess Condition: Good Record reviewed to determine appropriate education?: Yes Health Concerns: chest wall infection Plan of Treatment: Incision and drainage done by the surgeon. Placed on antibiotics and a culture was obtained. Return in 2 days for wound check. Sooner if worse or if running a fever. Care Goals: improve infection Assessment: as above Instructions: ED Abscess IandD Prescriptions: Cephalexin [Keflex] 500 mg PO Q6H #28 capsule Sulfamethoxazole/Trimethoprim [Sulfamethoxazole-Tmp Ds Tablet] 1 each PO BID #14 tablet
[2019-03-05] MEDS ORDERED: LIDOCAINE 1%-EPI 1:100000 20 ML MDV SUBQ STA (14:46)
[2019-03-05] MEDS ORDERED: cephALEXin 250 MG CAPSULE PO STA (15:36)
[2019-03-05] MEDS ORDERED: SULFAMETH/TRIMETH DS 800/160 MG TABLET PO STA (15:36)
[2019-03-05 16:43] VITALS: BP 125/81
--- NOTE | 2019-03-05 23:17 | CONSULTATION NOTE ---
Referring Provider Name of Referring Provider:: Dr. Donavon Zaldivar Consult Date: 03/05/19 Chief Complaint - Chief Complaint Chief Complaint: Pain, swelling, and drainage on right chest wallI was called for a Port-A- History of Present Illness - Admitted From Admitted From:: Not admitted. - History Obtained From Records Reviewed: Yes History obtained from: Patient, family, chart, Dr. Zaldivar Exam Limitations: None - History of Present Illness HPI Comment/Other: This pleasant 78-year-old male was evaluated in room 9 at [facility]'s emergency department at the request of Dr. Shreyas Zaldivar. He is known to me as he has stage IV prostate cancer and has asked to place a Port-A-Cath placement in him which I was unable to place due to anatomic considerations (central venous stenosis). He was sent I believe to [place] to have interventional radiology place the port. He now presents with pain swelling and drainage from his right chest wall. History - Past Medical History Cardiovascular: reports: Hypertension, High cholesterol Respiratory: reports: Asthma GI: reports: Other : reports: Other HEENT: reports: None Psych: reports: Anxiety Musculoskeletal: reports: Osteoarthritis, Chronic back pain, Other Derm: reports: None MRSA Hx?: No - Past Surgical History General: reports: Other Ortho: reports: Arthroscopic surgery, Spine surgery Meds/Allgy - Home Medications Home Medications: Ambulatory Orders Medication Instructions Recorded Confirmed Travoprost [Travatan Z] 1 drop OP DAILY 12/06/15 02/17/19 Oxycontin. 1 tab ORAL DAILY PRN 08/12/18 02/17/19 LORazepam [Lorazepam] 0.5 mg PO Q6H PRN #30 tablet 09/21/18 02/17/19 dexAMETHasone [Dexamethasone] 8 mg PO DAILY #30 tablet 09/21/18 02/17/19 Prednisone 5 mg PO DAILY #42 tablet 09/23/18 02/17/19 Gabapentin 100 mg PO DAILY 10/14/18 02/17/19 Lidocaine/Prilocain 2.5% Cream 1 inch TOP PRN PRN #1 tube 10/14/18 02/17/19 [Emla 2.5% Cream] Polyethylene Glycol 3350 [Miralax] 17 gm PO DAILY 10/14/18 02/17/19 Omeprazole 20 mg PO DAILY 10/29/18 02/17/19 Loratadine/Pseudoephedrine 1 tab PO DAILY PRN 01/20/19 02/17/19 [Claritin-D 24 Hour Tablet] Melatonin 1 mg PO DAILY 01/20/19 02/17/19 Oxycodone HCl 10 mg PO Q4H PRN 01/20/19 02/17/19 Cephalexin [Keflex] 500 mg PO Q6H #28 capsule 03/05/19 Sulfamethoxazole/Trimethoprim 1 each PO BID #14 tablet 03/05/19 [Sulfamethoxazole-Tmp Ds Tablet] - Allergies Allergies/Adverse Reactions: Allergies Allergy/AdvReac Type Severity Reaction Status Date / Time No Known Drug Allergies Allergy Verified 03/05/19 14:33 Review of Systems - Other Findings Other Findings: I did not perform a review of systems as it is not pertinent to today's issues. Exam - Vital Signs Reviewed Vital Signs: Yes Vital Signs: Vital Signs x48h Temp Pulse Resp BP Pulse Ox 03/05/19 16:42 36.7 C 65 17 125/81 H 96 - Physical Exam General Appearance: positive: No acute distress Eyes Bilateral: positive: No lid inflammation, Conjunctivae nml, No scleral icterus ENT: positive: No signs of dehydration Neck: positive: Thyroid nml Comments/Other: There is no place above to comment on the thorax. There is a pointing abscess with fluctuance in the right chest wall that is approximately 2 inches below his Port-A-Cath. The area of his Port-A-Cath appears to be completely clean without erythema. There is absolutely no relation of this abscess to his Port-A-Cath. It is not from an access site. Incision and drainage of this abscess is clearly indicated although the etiology is unclear. Conclusion/Plan - Diagnosis Diagnosis: Right chest wall abscess that is NOT in continuity with the right Port-A-Cath - Plan Plan: Incision and drainage of the abscess with cultures and packing, afterwards the patient is to be placed on antibiotics that would cover skin mir (likely a combination of Keflex and Bactrim to cover "garden-variety" MRSA) This can and will be done in the emergency room with the patient following up for wound care.
--- NOTE | 2019-03-05 23:27 | OPERATIVE REPORT ---
Operative Report - General Procedure Date: 03/12/19 Planned Procedure: Incision, drainage and culture of right chest wall abscess Pre-Op Diagnosis: Right chest wall abscess Procedure Performed: Incision, drainage, and culture of right chest wall abscess Post Op Diagnosis: Same - Procedure Note Primary Surgeon: Jamar Chang MD Anesthesia Provider: None Anesthesia Technique: Local (10 mL of 1% lidocaine) IV Fluids (mL): 0 Estimated Blood Loss (mL): 0 Drain/Tube Type: Other (The wound was packed with quarter inch gauze soaked in Betadine since iodophor gauze could not be found.) Complications: None. - Other Other Information/Narrative: OPERATIVE DESCRIPTION/REPORT: After verbal and written informed consent was obtained detailing the risks of infection (arguably already present), and , and after I explained exactly what I was about to do, a timein was done to ensure that we had the right patient, equipment, and personnel to perform this procedure. Please note the patient's son was in the room for the procedure. Everyone was given an opportunity to express any concerns. With the agreement of everyone in the room, we proceeded with the procedure. The area overlying the fluctuance and in continuity with the draining purulence was anesthetized using 1% lidocaine. With the area insensate, a transverse incision was made overlying the abscess and dissection down to the abscess cavity was completed using a combination of scalpel and iris scissors. Additional numbing medication needed to be injected. Upon entering the abscess cavity there was copious amount of white pus that was not particularly foul- smelling. A culture was taken of this and sent for aerobic and anaerobic culture. With the pus removed, the wound was explored with a Vera and I could not find any fistula or attachment to the Port-A-Cath site. With the abscess completely drained, I packed the cavity with quarter inch gauze that I soaked in Betadine as quarter inch iodophor gauze was unavailable. Excellent hemostasis was noted. A dressing was applied over this. The patient tolerated the procedure well and was instructed to remove the packing tomorrow and shower at least daily with soap and water having soap and water run through the wound. I would prefer if he washed the area twice a day and I explained this to him. He is to return to the emergency room on Friday for a wound check. Hever disclaimer: This document was created in part using voice recognition technology. Because of the inherent limitations of the system ([employer]'s [employer] user manual states that the licensee understands that speech recognition is a statistical process and that recognition errors are inherent in the process), occasional same sounding word substitutions and grammatical errors do occur and persist despite proofreading. Please read this document for context.
== END 2019-03-05 16:20 | disposition home or self-care (01) ==
LOC: ED 14:27
DX: L02.213 Cutaneous abscess of chest wall (principal); C61 Malignant neoplasm of prostate; C79.9 Secondary malignant neoplasm of unspecified site; I10 Essential (primary) hypertension
CPT/HCPCS: 10061; 87070; 87181; 87205; 99283; 99284

== ENCOUNTER 2019-03-06 07:04 | Outpatient (CLI) | payer MEDICARE, OTHER | END 2019-03-06 07:05 | disposition critical access hospital (66) | LOC: EMS 07:04 | PROVIDERS: ATTEND Surgery | DX: R53.1 Weakness (principal); S00.01XA Abrasion of scalp, initial encounter; W06.XXXA Fall from bed, initial encounter; Y92.003 Bedroom of unspecified non-institutional (private) residence as the place of occurrence of the external cause | CPT/HCPCS: A0425; A0429 ==

== ENCOUNTER 2019-03-06 07:10 | Inpatient (IN) | payer MEDICARE, OTHER ==
[2019-03-06 08:06] LABS: BASOPHILS # (AUTO) 0.1 10^3/uL (0.0-0.1); BASOPHILS % (AUTO) 0.7 %; LYMPHOCYTES # (AUTO) 0.2 10^3/uL (1.5-3.5); LYMPHOCYTES % (AUTO) 1.6 %; MEAN CORPUSCULAR HEMOGLOBIN 31.5 pg (27.0-31.0); MEAN CORPUSCULAR HGB CONC 31.9 g/dL (32.0-36.0); MEAN CORPUSCULAR VOLUME 98.9 fL (80.0-94.0); MEAN PLATELET VOLUME 8.9 fL (7.4-11.4); MONOCYTES # (AUTO) 0.4 10^3/uL (0.0-1.0); MONOCYTES % (AUTO) 3.3 %; NEUTROPHILS # (AUTO) 11.3 10^3/uL (1.5-6.6); NEUTROPHILS % (AUTO) 93.5 %; PLT - PLATELET COUNT 254 10^3/uL (130-450); RED BLOOD COUNT 3.49 10^6/uL (4.70-6.10); RED CELL DISTRIBUTION WIDTH 19.5 % (12.0-15.0); WHITE BLOOD COUNT 12.1 x10^3/uL (4.8-10.8)
[2019-03-06 08:12] LABS: ALBUMIN 3.6 g/dL (3.2-5.5); ALBUMIN/GLOBULIN RATIO 1.2 (1.0-2.2); BILIRUBIN,TOTAL 0.6 mg/dL (0.2-1.0); CALCIUM 8.9 mg/dL (8.5-10.3); CREATININE 1.1 mg/dL (0.6-1.2); TOTAL PROTEIN 6.5 g/dL (6.7-8.2)
[2019-03-06] MEDS ORDERED: SODIUM CHLORIDE 0.9% 1,000 ML IV ONE ×2 (08:21→17:02)
[2019-03-06] MEDS ORDERED: ceFAZolin 2 GM in SODIUM CHLORIDE 0.9% 100ML 100 ML IV STA (08:21)
[2019-03-06] MEDS ORDERED: VANCOMYCIN INJ 1.25 GM in SODIUM CHLORIDE 0.9% 250 ML IV SCH (08:22)
--- NOTE | 2019-03-06 08:25 | XRAY Report ---
Reason: syncope/tachycardia Procedure Date: 03/06/2019 Accession Number: [id number] / [id number] Procedure: XR - Chest 1 View X-Ray CPT Code: 86805 FULL RESULT: EXAM: CHEST RADIOGRAPHY EXAM DATE: 03/06/2019 08:09 AM. CLINICAL HISTORY: Syncope/tachycardia. COMPARISON: CHEST 1 VIEW 09/22/2018 1:41 PM. TECHNIQUE: 1 view. FINDINGS: Lungs/Pleura: Diminished lung volumes with crowding of pulmonary vessels. Right basilar atelectasis. Mediastinum: Atherosclerotic aortic calcifications. Other: Right chest Port-A-Cath with tip overlying cavoatrial junction. [place] overlie right upper lung. IMPRESSION: 1. Poor inspiration with right basilar atelectasis. 2. No pneumothorax. RADIA
[2019-03-06] MEDS ORDERED: IOVERSOL 320 100 ML VIAL IVP ONE ×2 (08:42→09:06)
--- NOTE | 2019-03-06 09:12 | ED Physician Documentation ---
PD HPI ALTERED MENTAL STATUS - Stated complaint Stated Complaint: GLF - Chief complaint Chief Complaint: Neuro - History obtained from History obtained from: Patient, Family (son) - History of Present Illness Timing - onset: Today, Last night (The patient had been up and ambulatory and is typical state of health over the last several days up until yesterday when he was having some redness pain and swelling on the right chest wall. He was seen here in the ER with a incision and drainage of a cutaneous abscess. It was near the site of his IV port on the chest wall. Surgery was consulted and they felt it was not at the port itself had the drainage of it and started on Keflex and Bactrim. The patient's son states the patient became generally weaker last night and more so into today with some confusion and inability to stand or walk on his own. The chest wall area was not draining significantly. There was was feeling of some fever this morning. There is no vomiting or diarrhea. He did f all getting out of bed this morning with abrasions on the left knee in the back of the head. He denies any headache however.) Timing - details: Abrupt onset (just since yesterday), Still present Associated symptoms: Fever, General weakness (just onset last evening into today). No: Dyspnea, Cough, Urinary sx Review of Systems Constitutional: reports: Fever (low grade at home, just overnight and today), Chills, Myalgias Nose: denies: Rhinorrhea / runny nose, Congestion Throat: denies: Sore throat Cardiac: denies: Chest pain / pressure, Palpitations, Pedal edema, Calf pain Respiratory: reports: Dyspnea. denies: Cough, Wheezing GI: denies: Abdominal Pain, Nausea, Vomiting, Diarrhea : denies: Dysuria, Frequency Skin: reports: Rash, Lesions Musculoskeletal: denies: Neck pain, Back pain Neurologic: reports: Generalized weakness, Near syncope, Confused, Head injury. denies: Focal weakness, Numbness, Syncope, Headache Endocrine: denies: Weight loss, Easy bruising / bleeding Immunocompromised: denies: Immunocompromised PD PAST MEDICAL HISTORY - Past Medical History Cardiovascular: Hypertension, High cholesterol Respiratory: Asthma GI: Other : Other HEENT: None Psych: Anxiety Musculoskeletal: Osteoarthritis, Chronic back pain, Other Derm: None - Past Surgical History Past Surgical History: Yes General: Other Ortho: Arthroscopic surgery, Spine surgery - Present Medications Home Medications: Ambulatory Orders Medication Instructions Recorded Confirmed LORazepam [Lorazepam] 0.5 mg PO Q6H PRN #30 tablet 09/21/18 03/06/19 Gabapentin 100 mg PO DAILY 10/14/18 03/06/19 Omeprazole 20 mg PO QDAC 10/29/18 03/06/19 Loratadine/Pseudoephedrine 1 tab PO DAILY PRN 01/20/19 03/06/19 [Claritin-D 24 Hour Tablet] Melatonin 5 mg PO QPM PRN 01/20/19 03/06/19 Cephalexin [Keflex] 500 mg PO Q6H #28 capsule 03/05/19 03/06/19 Hemp Oil 1,000 mg PO . DIRECTED PRN 03/06/19 Ondansetron [Ondansetron Odt] 4 mg PO Q4H PRN 03/06/19 03/06/19 Oxycodone HCl 10 mg PO Q4H PRN 03/06/19 03/06/19 Polyethylene Glycol 3350 [Miralax] 17 gm PO DAILY 03/06/19 03/06/19 Prednisone 5 mg PO [id number] 03/06/19 03/06/19 Prochlorperazine Maleate 10 mg PO Q6H PRN 03/06/19 03/06/19 Sulfamethoxazole/Trimethoprim 1 tab PO [id number] 03/06/19 03/06/19 [Sulfamethoxazole-Tmp Ds Tablet] Travoprost 0.004% Ophth Drops 1 drops EACHEYE QPM 03/06/19 03/06/19 [Travatan Z] dexAMETHasone [Dexamethasone] 8 mg PO Q3D 03/06/19 03/06/19 - Allergies Allergies/Adverse Reactions: Allergies Allergy/AdvReac Type Severity Reaction Status Date / Time No Known Drug Allergies Allergy Verified 03/05/19 14:33 - Living Situation Living Situation: reports: With family Living Arrangement: reports: At home (uses cane or sometimes walker) - Social History Does the pt smoke?: No Smoking Status: Never smoker Does the pt drink ETOH?: Yes Does the pt have substance abuse?: No - Immunizations Immunizations are current?: Yes PD ED PE NORMAL - Vitals Vital signs reviewed: Yes - General General: No acute distress, Well developed/nourished. No: Alert and oriented X 3 (somewhat somnolent and confused; unusual for patient according to son. ) - HEENT HEENT: Pharynx benign, Other (abrasions of scalp with local swelling in occiputal area. ) - Neck Neck: Supple, no meningeal sign, No bony TTP, No adenopathy - Cardiac Cardiac: No murmur, No rub, Strong equal pulses. No: RRR (regular but tachycardic. ) - Respiratory Respiratory: Clear bilaterally - Abdomen Abdomen: Soft, Non tender - Male Male : Deferred - Rectal Rectal: Deferred - Back Back: No CVA TTP, No spinal TTP - Derm Derm: Normal color, Warm and dry, Other (There are right anterior chest wall shows a subcutaneous port in place. Below and slightly lateral to that is a open wound status post incision and drainage with packing in place. The packing is removed and the base of the area is in the subcutaneous tissue without foreign body and no pus at this time. There is minimal surrounding redness. It is minimally tender.) - Extremities Extremities: No tenderness to palpate, Normal ROM s pain, No edema, No calf tenderness / cord - Neuro Neuro: online marketing manager 2-12 intact, No motor deficit, Normal speech Eye Opening: Spontaneous Motor: Obeys Commands Verbal: Confused GCS Score: 14 Results - Vitals Vitals: Vital Signs - 24 hr 03/06/19 03/06/19 03/06/19 07:15 09:12 09:30 Temperature 37.4 C 37.4 C Heart Rate 117 H 117 H 103 H Respiratory 36 H 30 H 28 H Rate Blood Pressure 107/75 118/63 97/63 O2 Saturation 95 03/06/19 03/06/19 10:00 10:30 Temperature Heart Rate 103 H 95 Respiratory 30 H 29 H Rate Blood Pressure 112/60 151/26 H O2 Saturation 96 97 Oxygen O2 Source Room air - Labs Labs: Laboratory Tests 03/06/19 03/06/19 03/06/19 07:35 07:35 07:35 WBC 12.1 H RBC 3.49 L Hgb 11.0 L Hct 34.5 L MCV 98.9 H MCH 31.5 H MCHC 31.9 L RDW 19.5 H Plt Count 254 MPV 8.9 Neut # (Auto) 11.3 H Lymph # (Auto) 0.2 L Hemphill # (Auto) 0.4 Eos # (Auto) 0.0 Baso # (Auto) 0.1 Absolute Nucleated RBC 0.02 Nucleated RBC % 0.2 Sodium 136 Potassium 4.0 Chloride 101 Carbon Dioxide 21 Anion Gap 14.0 H BUN 12 Creatinine 1.1 Estimated GFR (MDRD) 65 L Glucose 158 H Lactic Acid Calcium 8.9 Magnesium Total Bilirubin 0.6 AST 21 ALT 16 Alkaline Phosphatase 70 Troponin I < 0.04 Total Protein 6.5 L Albumin 3.6 Globulin 2.9 Albumin/Globulin Ratio 1.2 Lipase 23 03/06/19 03/06/19 07:35 07:35 WBC RBC Hgb Hct MCV MCH MCHC RDW Plt Count MPV Neut # (Auto) Lymph # (Auto) Hemphill # (Auto) Eos # (Auto) Baso # (Auto) Absolute Nucleated RBC Nucleated RBC % Sodium Potassium Chloride Carbon Dioxide Anion Gap BUN Creatinine Estimated GFR (MDRD) Glucose Lactic Acid 3.6 H* Calcium Magnesium 1.9 Total Bilirubin AST ALT Alkaline Phosphatase Troponin I Total Protein Albumin Globulin Albumin/Globulin Ratio Lipase - Rads (name of study) chest CT Radiology: Prelim report reviewed, Discussed with rads (There are no signs of pneumonia. The chest wall abscess appears adequately drained. There is no surrounding extension of fluid. The radiologist said there is 2 small pulmonary emboli that were actually present on a CT scan from December so seem stable/chronic. Same for small clot present on tip of port catheter. ), See rad report PD MEDICAL DECISION MAKING - ED course Complexity details: reviewed old records, reviewed results (The CT scan was reviewed and I talked with the radiologist about it. No signs of lung abscess or deeper infection aside from the cutaneous abscess drained yesterday. He said he thinks it looks inferior to the port site. He does say there were 2 small pulmonary emboli present that were visible on a CT scan in December. However I looked at the report from December and specifically that the pulmonary vasculature was read as normal at that time so consider the inter-reader reliability. The patient is not on any blood thinners.), re-evaluated patient, considered differential (Consider spread of infection from the abscess to bacteremic with some indications of sepsis given tachycardia and altered mentation and weakness. Will check blood count and lactate. Give some IV fluids. Will give get some blood cultures and he has been on oral antibiotics since yesterday. Consider the possibility of side effects to the antibiotics though it was Keflex and Mike trim and less side effects potential cognitively.), d/w patient Departure - Departure Disposition: 66 [facility] DC/Xfer Clinical Impression: Generalized weakness, Chest wall abscess Sepsis Qualifiers: Sepsis type: sepsis due to unspecified organism Qualified Code(s): A41.9 - Sepsis, unspecified organism Pulmonary embolism Qualifiers: Pulmonary embolism type: unspecified Chronicity: chronic Acute cor pulmonale presence: without acute cor pulmonale Qualified Code(s): I27.82 - Chronic pulmonary embolism Condition: Stable Record reviewed to determine appropriate education?: Yes Discharge Date/Time: 03/06/19 11:20
--- NOTE | 2019-03-06 09:19 | CT Report ---
Reason: fall and struck head this morning Procedure Date: 03/06/2019 Accession Number: [id number] / [id number] Procedure: CT - HEAD WO CPT Code: FULL RESULT: EXAM: CT HEAD EXAM DATE: 03/06/2019 08:50 AM. CLINICAL HISTORY: Fall and struck head this morning. COMPARISON: None. TECHNIQUE: Multiaxial CT images were obtained from the foramen magnum to the vertex. Reformats: Sagittal and coronal. IV contrast: None. In accordance with CT protocol optimization, one or more of the following dose reduction techniques were utilized for this exam: automated exposure control, adjustment of mA and/or KV based on patient size, or use of iterative reconstructive technique. 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 No hemorrhage. Preserved glover-white differentiation. Chronic small vessel ischemic changes. Extraaxial Spaces: Normal for age. No subdural or epidural collections identified. Ventricles: Normal in size and position. Sinuses and Orbits: Cataract extractions. Bones: No evidence of fracture or calvarial defect. Other: None. IMPRESSION: 1. No acute intracranial process. 2. 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
--- NOTE | 2019-03-06 09:36 | CT Report ---
Reason: chest wall abscess around port Procedure Date: 03/06/2019 Accession Number: [id number] / [id number] Procedure: CT - CHEST W CPT Code: FULL RESULT: EXAM: CT CHEST EXAM DATE: 03/06/2019 09:05 AM. CLINICAL HISTORY: Chest wall abscess around port. COMPARISONS: CHEST W/ 01/13/2019 11:11 AM CHEST W/ 08/04/2018 1:31 PM. TECHNIQUE: Routine helical CT imaging was performed through the chest. IV contrast: 80 mL Optiray 320. Reconstructions: Coronal and sagittal. In accordance with CT protocol optimization, one or more of the following dose reduction techniques were utilized for this exam: automated exposure control, adjustment of mA and/or KV based on patient size, or use of iterative reconstructive technique. FINDINGS: Lungs/Pleura: No effusions. Saber-sheath trachea. Airways wall thickening. Severe centrilobular emphysema. Mosaic attenuation. Posterior dependent subsegmental atelectasis. Pleural parenchymal calcifications. Pulmonary embolism present. For example, filling defect/pulmonary embolism in the right lower lobe pulmonary artery, series 3, axial image 30. For example, filling defect/pulmonary embolism in the right upper lobe anterior segmental pulmonary artery, series 3, axial image 27. Mediastinum: 3 vessel coronary artery atherosclerotic calcifications. Aortic valve calcifications. Heart is normal in size. No pericardial effusion. Dilatation of the ascending thoracic aorta measuring 4.8 cm, unchanged. Enlarged main pulmonary artery measuring 3.8 cm. No mediastinal or hilar lymphadenopathy. Right-sided Port-A-Cath with the catheter tip in the superior vena cava. Bones: Widespread blastic osseous metastatic disease, unchanged. Visualized Abdomen: Hepatic steatosis. Small gallstones. Moderate pancreatic atrophy. Subcentimeter left adrenal nodule, stable. Other: Right-sided Port-A-Cath. Inferior to the Port-A-Cath is a large soft tissue defect in the chest wall, series 3, axial image 10, with some surrounding inflammation, without a fluid collection, with the defect extending into the subcutaneous tissues IMPRESSION: 1. Soft tissue defect with surrounding inflammation in the chest wall, inferior to the Port-A-Cath, without an abscess seen, consistent with I and D of abscess. 2. Pulmonary embolism present 3. Stable blastic osseous metastatic disease. 4. Airways disease and emphysema. 5. Stable dilatation of the ascending thoracic aorta. 6. Enlarged main pulmonary artery, can be seen with pulmonary artery hypertension [facility] The call report notification system was initiated by Dr. Aftab Rankin at 09:29 AM on 03/06/2019. The above call report findings were discussed with Jamar Pinto by Dr. Aftab Rankin at 09:35 AM on 03/06/2019. ADDENDUM: 03/06/19 10:09 In addition, some nonocclusive thrombus is seen along the port catheter in the internal jugular vein, series 3, axial image 1, that is similar to prior
[2019-03-06] MEDS ORDERED: VANCOMYCIN INJ 1 GM, VANCOMYCIN INJ 500 MG in SODIUM CHLORIDE 0.9% 500 ML IV ONE (10:00)
[2019-03-06] MEDS ORDERED: ONDANSETRON 4 MG/2 ML VIAL IVP PRN (10:36)
[2019-03-06] MEDS ORDERED: SODIUM CHLORIDE FLUSH 0.9% 10 ML SYRINGE IVP PRN (10:36)
--- NOTE | 2019-03-06 10:38 | HISTORY & PHYSICAL EXAMINATION ---
Chief Complaint - Chief Complaint Chief Complaint: fall, weakness, fevers History of Present Illness - Admitted From Admitted From:: ED - History Obtained From Records Reviewed: yes History obtained from: chart review, patient Exam Limitations: none - History of Present Illness HPI Comment/Other: Genaro Shahid is a 78-year old Jehovah Witness, male with a past medical history of hypertension, hyperlipidemia, low extremity edema, hearing loss, castration- resistant metastatic prostate cancer, TURBT and resection of bladder tumors, hematuria, urinary incontinence, anemia, low back pain, asthma, CVA with slight right sided weakness, osteoarthritis, osteonecrosis of the jaw, aortic valve calcification, 4.5 cm ascending aortic aneurysm, gallstones, diverticulosis, multiple blastic bone lesions, retro-peritoneal lymphadenopathy, status post chemo/radiation treatments, anxiety, and depression. The patient had been up and about, in his typical state of health over the last several days up until yesterday when he was having some redness pain/swelling on the right chest wall. He was seen in the ED for an incision and drainage of a cutaneous abscess. It was located near the site of his chemotherapy IV port on the chest wall. Surgery, Dr. Hernandez, was consulted, who felt it was not at the port itself, performed an I & D, and started on Keflex/Bactrim. The patient's son, Owen, states the patient became generally weaker last night. He also noted more confusion with more difficulty with standing or walking on his own. The patient had the feeling of some fevers with chills this morning at home but denied vomiting, diarrhea, chest pain, hallucinations, syncope, a new rash or shortness of breath. He attempted to get out of bed this morning, and fell on the floor next to the bed, and suffered an abrasion to his left knee, and on the back of the head. He denies any headaches. Upon arrival to the ED, he is tachycardic, with rates in the 120's, increased respiratory rate at 36, initially afebrile, but after arriving to the nursing floor had a temp of 39.1 C and became hypotensive with a blood pressure of 98/54. Labs show an elevated WBC count of 12.1, macrocytic anemia with an H/H of 11.0/34.5, MCV of 98.9, neut # of 11.3, electrolytes show an elevated anion gap of 14.0, GFR 65, glucose 158, normal troponin of 0.04, low protein of 6.5, an elevated lactic acid of 3.6, magnesium of 1.9, with no other lab abnormalities. He has been admitted for inpatient treatment of IV antibiotics, symptom management. I will alert the [facility] oncology clinic on Friday of his hospital stay. 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 He is to [place]. They had 6 boys who were born and raised in [place]. They retired in [place], and moved to [place] when they both were less healthy to be near their children and grandchildren. The patient denies the use of alcohol or illicit drug use. He admit to smoking from age 15- 26. He wishes to be a DNR. - Substance History Use: Uses substance without health or social issues: NONE Abuse: Recurrent use of substance despite neg consequences: NONE Dependence: Experiences withdrawal or developed tolerances: NONE - POLST Patient has POLST: No POLST Status: DNR Meds/Allgy - Home Medications Home Medications: Ambulatory Orders Medication Instructions Recorded Confirmed LORazepam [Lorazepam] 0.5 mg PO Q6H PRN #30 tablet 09/21/18 03/06/19 Gabapentin 100 mg PO DAILY 10/14/18 03/06/19 Omeprazole 20 mg PO QDAC 10/29/18 03/06/19 Loratadine/Pseudoephedrine 1 tab PO DAILY PRN 01/20/19 03/06/19 [Claritin-D 24 Hour Tablet] Melatonin 5 mg PO QPM PRN 01/20/19 03/06/19 Cephalexin [Keflex] 500 mg PO Q6H #28 capsule 03/05/19 03/06/19 Hemp Oil 1,000 mg PO . DIRECTED PRN 03/06/19 Ondansetron [Ondansetron Odt] 4 mg PO Q4H PRN 03/06/19 03/06/19 Oxycodone HCl 10 mg PO Q4H PRN 03/06/19 03/06/19 Polyethylene Glycol 3350 [Miralax] 17 gm PO DAILY 03/06/19 03/06/19 Prednisone 5 mg PO [id number] 03/06/19 03/06/19 Prochlorperazine Maleate 10 mg PO Q6H PRN 03/06/19 03/06/19 Sulfamethoxazole/Trimethoprim 1 tab PO [id number] 03/06/19 03/06/19 [Sulfamethoxazole-Tmp Ds Tablet] Travoprost 0.004% Ophth Drops 1 drops EACHEYE QPM 03/06/19 03/06/19 [Travatan Z] dexAMETHasone [Dexamethasone] 8 mg PO Q3D 03/06/19 03/06/19 - Allergies Allergies/Adverse Reactions: Allergies Allergy/AdvReac Type Severity Reaction Status Date / Time No Known Drug Allergies Allergy Verified 03/05/19 14:33 Review of Systems - Constitutional Constitutional: reports: Fatigue, Fever, Chills, Malaise, Weakness, Poor appetite, Diaphoresis, Weight loss - Eyes Eyes: reports: Vision loss, Corrective lenses - Ears, Nose & Throat Ears, Nose & Throat: reports: Hearing loss, Hearing aids, Postnasal drainage - Cardiovascular Cariovascular: reports: Chest pain, Edema, Lightheadedness, Decr. exercise tolerance, Orthopnea - Respiratory Respiratory: reports: Cough, Snoring, Orthopnea, SOB at rest, SOB with exertion - Gastrointestinal Gastrointestinal: reports: Abdominal distention, Change in bowel habits, Nausea, Reflux/heartburn, Bloating, Poor appetite - Genitourinary Genitourinary: reports: Dysuria, Frequency, Nocturia - Musculoskeletal Musculoskeletal: reports: Stiffness, Limited range of motion, Muscle weakness - Integumentary Integumentary: reports: Lesions, Dryness - Neurological Neurological: reports: General weakness, Numbness, Memory problems, Pre-existing deficit, Abnormal gait, Incoordination - Psychiatric Psychiatric: reports: Depression, Anxiety - Hematologic/Lymphatic Hematologic/Lymphatic: reports: Recurrent infections - All Other Systems All Other Systems: reports: Reviewed and negative Prior Level of Functionality: Independent at home, no recent fall prior to this episode. Minimal use of walker or cane. Exam - Vital Signs Reviewed Vital Signs: Yes Vital Signs: Vital Signs x48h Temp Pulse Resp BP Pulse Ox 03/06/19 09:12 117 H 30 H 118/63 03/06/19 07:15 37.4 C 117 H 36 H 107/75 95 - Physical Exam General Appearance: positive: Moderate distress, Lethargic Eyes Bilateral: positive: No lid inflammation. negative: No scleral icterus ENT: positive: Pharyngeal erythema (pale tongue), Dry mucous membranes Neck: positive: No JVD, Trachea midline, Lymphadenopathy (R), Lymphadenopathy (L), Stiff neck Respiratory: positive: Chest non-tender, No respiratory distress, Other (diminished, with scattered crackles) Cardiovascular: positive: No gallop, Irregularly irregular, Tachycardia, Systolic murmur, Decreased pulse(s) Peripheral Pulses: positive: 1+ Abdomen: positive: Tenderness, Guarding, Hepatomegaly, Abnml bowel sounds, Other (rounded, soft) Back: positive: Nml inspection Skin: positive: No rash, Warm, Dry, Pallor, Other (bronze, pale New open wound to right chest as a consequence of 7/5 I & D) Extremities: positive: Non-tender, Pedal edema, Joint swelling, Other (muscle atrophy, chronic BLE edema) Neurologic/Psychiatric: positive: Disoriented to time, Weakness, Sensory loss, Slurred/abnml speech (Sluggish), Depressed mood/affect, Other (baseline early dementia) Reflexes: Bicep (R): 1+, Bicep (L): 2+ Sepsis Event Note (H) - Evaluation Current Stage of Sepsis: Sepsis Possible source of Sepsis: positive: Skin/soft tissue - Sepsis Criteria Sepsis Criteria: Recorded Temperature greater than 38.3C or Less than 36C, Recorded Heart Rate greater than 90 bpm, Recorded Respiratory Rate greater than 20, Respiratory: Increasing oxygen requirements, WBC count greater than 12,000 or less than 4000, VIDEO SPECIALIST: altered consciousness (unrelated to primary neuro pathology), SBP less than 90 mmHg, Renal: urine output less than 0.5ml/kg/hr for 2 hours or creatinine gr, Metabolic: lactate > 2 mmol/L Conclusion/Plan - Problem List (1) Sepsis Conclusion/Plan: - Patient meets sepsis criteria based on criteria of elevated lactic acid, WBC count, AMS, hypotension, and tachycardia Plan: Continue with NS bolus, continuous IV fluids, Cefepime, vanco, recheck la ctic acid Qualifiers: Sepsis type: sepsis due to unspecified organism Qualified Code(s): A41.9 - Sepsis, unspecified organism (2) Staphylococcus aureus infection Conclusion/Plan: - Preliminary wound culture results from 03/05 are growing staph aureus Plan: Continue to treat in the setting of sepsis based on criteria of elevated lactic acid, WBC count, AMS, hypotension, and tachycardia (3) Chest wall abscess Conclusion/Plan: - Patient was seen in the ED in which a wound culture was obtained - Preliminary results show staph aureus - Was sent home on Keflex/Bactrim Plan: Continue Cefepime, now with the addition of vanco based on sepsis criteria (4) Fall Conclusion/Plan: - Patient and family deny a prior fall before today - Profound weakness with worsening gait in the past 24 hours - Poor appetite, weight loss, mild confusion as per family Plan: PT evaluation prior to discharge, treat illness, fall precautions Qualifiers: Encounter type: initial encounter Qualified Code(s): W19.XXXA - Unspecified fall, initial encounter (5) Fever Conclusion/Plan: - Temp max after arriving to the nursing floor was 39.1 C - Rigors and chills on re-exam - Treating with tylenol, sepsis criteria Plan: Continue to monitor, treat symptoms (6) Generalized weakness Conclusion/Plan: - Worsening weakness, leading to a fall - Contributing factor of acute illness, possible sepsis Plan: Continue with bedrest, PT to evaluate prior to discharge (7) Pulmonary embolism Conclusion/Plan: - Patient was anti-coagulated in the past, but stopped after coughing up blood - Patient does not wish to re-start blood thinners - Imaging on this admission shows stable, chronic PEs Plan: Continue to monitor for worsening SOB, or bleeding Qualifiers: Pulmonary embolism type: unspecified Chronicity: chronic Acute cor pulmonale presence: without acute cor pulmonale Qualified Code(s): I27.82 - Chronic pulmonary embolism (8) Prostate cancer Conclusion/Plan: - Initially diagnosed about 10 years ago - Recent rubia mets - Now on chronic oxycodone at home, continued here Plan: Obtain PSA as per oncology follow up, insert indwelling lynn for sepsis, monitor for hematuria (9) Refusal of blood transfusions as patient is Caodaism Conclusion/Plan: - 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 Plan: - Lab Results Lab results reviewed: Yes Jose Manuel Bones: 03/06/19 07:35 03/06/19 07:35 - Diagnostic Imaging Results Diagnostic Imaging Results: positive: Final report reviewed Core Measures - Anticipated LOS I expect patient to be DC'd or transferred within 96 hours.: Yes - DVT/VTE - Prophylaxis VTE/DVT Device ordered at admit?: Yes VTE/DVT Prophylaxis med ordered at admit?: Yes - Stroke - Rehab Assessment Rehab services assessment to be ordered?: No Not Ordered - Medical Reason: Contraindicated - AMI - Statin at Admit Aspirin Prescribed on Admit: Yes
[2019-03-06] MEDS: SODIUM CHLORIDE 0.9% 1,000 ML IV SCH ×2 (11:51→21:18)
[2019-03-06] MEDS ORDERED: CARBOXYMETHYLCELLULOSE OPHTH DROPS EACHEYE PRN (12:29)
[2019-03-06] MEDS: CEFEPIME 2 GM in SODIUM CHLORIDE 0.9% MINIBAG 100 ML IV SCH (15:41)
[2019-03-06] MEDS: ACETAMINOPHEN 325 MG TABLET PO PRN ×2 (15:42→20:43)
[2019-03-06] MEDS: SACCHAROMYCES BOULARDII 250 MG CAPSULE PO SCH (16:58)
[2019-03-06] MEDS ORDERED: LIDOCAINE 2% URO-JET 5 ML SYRINGE UR PRN (17:02)
[2019-03-06] MEDS: SODIUM CHLORIDE FLUSH 0.9% 10 ML SYRINGE IVP SCH (17:14)
[2019-03-06 17:28] LABS: INR 1.4 (0.8-1.2); PT - PROTHROMBIN TIME 15.5 secs (9.9-12.6)
[2019-03-06 17:47] LABS: BILIRUBIN,URINE NEGATIVE (NEGATIVE); GLUCOSE, URINE (UA) NEGATIVE (NEGATIVE); KETONES,URINE (UA) NEGATIVE (NEGATIVE); LEUKOCYTE ESTERASE, URINE NEGATIVE (NEGATIVE); NITRITE,URINE NEGATIVE (NEGATIVE); OCCULT BLOOD,URINE NEGATIVE (NEGATIVE); PROTEIN,URINE TRACE mg/dL (NEGATIVE); UROBILINOGEN,URINE 0.2 (NORMAL) E.U./dL (NORMAL)
[2019-03-06 17:56] LABS: BACTERIA,URINE None Seen /HPF (None Seen); CLARITY,URINE CLEAR (CLEAR); RBC,URINE None Seen /HPF (0-5); SQUAMOUS EPITHELIAL CELL,UR NONE SEEN (<= Few)
[2019-03-06] MEDS ORDERED: LORazepam 0.5 MG TABLET PO PRN (18:25)
[2019-03-06] MEDS ORDERED: oxyCODONE 5 MG TABLET PO PRN (18:25)
[2019-03-06] MEDS ORDERED: MELATONIN 5 MG PO PRN (18:25)
[2019-03-06] MEDS ORDERED: IBUPROFEN 400 MG TABLET PO PRN (20:57)
[2019-03-06] MEDS: TRAVOPROST 0.004% OPHTH DROPS 2.5 ML EACHEYE SCH (20:59)
[2019-03-06] MEDS ORDERED: APIXABAN 5 MG TABLET PO SCH (21:00)
--- NOTE | 2019-03-06 23:42 | MISCELLANEOUS PROVIDER NOTE ---
Miscellaneous Provider Note - - Note: I was notified by Samara Jackson that this very pleasant 78-year-old male was admitted to the hospital with sepsis following my incision and drainage of his right chest wall abscess last night. I decided to see him urgently and came into the hospital where the CT scan shows that there the abscess has been drained and on physical examination of this is consistent with a drained abscess with the very beginning of granulation tissue. There is no surrounding erythema. There is no surrounding ecchymosis. There is no fluctuance and there is no indication that there is an undrained component of the abscess. This is not contiguous with the Port-A-Cath. I explained to the patient that again the Port-A-Cath may need to be removed but at this point time the abscess appears to be separate from the Port-A-Cath.
[2019-03-07] MEDS ORDERED: ACETAMINOPHEN 1,000 MG/100 ML 100 ML IV ONE (00:08)
[2019-03-07] MEDS: SODIUM CHLORIDE FLUSH 0.9% 10 ML SYRINGE IVP SCH ×3 (03:13→21:26)
[2019-03-07] MEDS: CEFEPIME 2 GM in SODIUM CHLORIDE 0.9% MINIBAG 100 ML IV SCH ×2 (03:39→16:14)
[2019-03-07 05:48] LABS: BASOPHILS % (AUTO) 0.6 %; EOSINOPHILS % (AUTO) 0.1 %; HGB - HEMOGLOBIN 9.5 g/dL (14.0-18.0); LYMPHOCYTES # (AUTO) 0.1 10^3/uL (1.5-3.5); LYMPHOCYTES % (AUTO) 1.2 %; MEAN CORPUSCULAR HGB CONC 31.4 g/dL (32.0-36.0); MONOCYTES # (AUTO) 0.3 10^3/uL (0.0-1.0); MONOCYTES % (AUTO) 3.7 %; NEUTROPHILS # (AUTO) 6.4 10^3/uL (1.5-6.6); NEUTROPHILS % (AUTO) 93.7 %; PLT - PLATELET COUNT 217 10^3/uL (130-450); RED BLOOD COUNT 3.06 10^6/uL (4.70-6.10); WHITE BLOOD COUNT 6.8 x10^3/uL (4.8-10.8)
[2019-03-07 05:51] LABS: INR 1.4 (0.8-1.2); PT - PROTHROMBIN TIME 15.9 secs (9.9-12.6)
[2019-03-07 06:00] LABS: ALBUMIN 2.9 g/dL (3.2-5.5); ALBUMIN/GLOBULIN RATIO 1.1 (1.0-2.2); BILIRUBIN,TOTAL 0.9 mg/dL (0.2-1.0); CALCIUM 7.9 mg/dL (8.5-10.3); CREATININE 0.9 mg/dL (0.6-1.2); MAGNESIUM 1.8 mg/dL (1.7-2.8); TOTAL PROTEIN 5.5 g/dL (6.7-8.2)
[2019-03-07] MEDS ORDERED: ALBUTEROL NEB 2.5 MG/3 ML INH PRN (06:19)
[2019-03-07] MEDS: SODIUM CHLORIDE 0.9% 1,000 ML IV SCH (06:36)
[2019-03-07] MEDS: PANTOPRAZOLE 40 MG TABLET PO SCH (06:48)
[2019-03-07] MEDS ORDERED: IOVERSOL 320 100 ML VIAL IVP ONE (07:28)
[2019-03-07] MEDS: VANCOMYCIN INJ 1 GM, VANCOMYCIN INJ 500 MG in SODIUM CHLORIDE 0.9% 500 ML IV SCH ×2 (08:56→21:18)
[2019-03-07] MEDS: SACCHAROMYCES BOULARDII 250 MG CAPSULE PO SCH ×2 (08:56→16:59)
[2019-03-07] MEDS: POLYETHYLENE GLYCOL 3350 17 GM PACKET PO SCH (08:57)
--- NOTE | 2019-03-07 08:58 | CT Report ---
Reason: Hx of prostate cancer. Assess for mets Procedure Date: 03/07/2019 Accession Number: [id number] / [id number] Procedure: CT - Abdomen/Pelvis W CPT Code: FULL RESULT: EXAM: CT ABDOMEN AND PELVIS EXAM DATE: 03/07/2019 08:28 AM. CLINICAL HISTORY: Hx of prostate cancer. Assess for mets. COMPARISONS: ABDOMEN/PELVIS W/ 01/13/2019 11:11 AM CHEST W/ 03/06/2019 8:54 AM. TECHNIQUE: Routine helical CT imaging was performed through the abdomen and pelvis. IV contrast: OPTI 320 90ML. Enteric contrast: No. Reconstructions: Coronal and sagittal. In accordance with CT protocol optimization, one or more of the following dose reduction techniques were utilized for this exam: automated exposure control, adjustment of mA and/or KV based on patient size, or use of iterative reconstructive technique. FINDINGS: Lung Bases: Subsegmental atelectasis at the lung bases. Small airways wall thickening at the lung bases with small amount of air trapping. Coronary artery atherosclerotic calcifications. Aortic valve calcifications with dilatation of the ascending thoracic aorta measuring 4.8 cm. Liver: Hepatic steatosis. Gallbladder/Bile Ducts: Small cholelithiasis. No gallbladder wall thickening. No surrounding inflammation. Spleen: Normal. Pancreas: Mild atrophy. No ductal dilatation. No mass. Adrenal Glands: Normal. Kidneys: Mild prominence to the left renal pelvis with increased attenuation, suspect related to residual contrast in the collecting system from yesterday's CT. No hydronephrosis. No solid mass. Peritoneal Cavity/Bowel: Colonic diverticulosis. Gas and fluid in the colonic lumen. Pelvic Organs: Prostatectomy. Sorenson in the bladder. Bladder is collapsed. Gas in the bladder lumen is likely iatrogenic. Right Vasectomies seen. Vasculature: No aneurysms or other significant abnormality. Bones: Widespread blastic osseous metastatic disease, unchanged Other: Fat-containing left inguinal hernia. IMPRESSION: 1. Stable widespread blastic osseous metastatic disease. 2. Prostatectomy. 3. Colonic diverticulosis RADIA
[2019-03-07] MEDS ORDERED: POLYETHYLENE GLYCOL 3350 17 GM PACKET PO SCH (09:00)
[2019-03-07] MEDS ORDERED: VANCOMYCIN PER PHARMACY 10 GM in SODIUM CHLORIDE 0.9% 250 ML IV SCH (10:00)
--- NOTE | 2019-03-07 10:57 | ADVANCE CARE PLANNING NOTE ---
Advance Care Planning - Date/Time Date: 03/06/19 Time: 17:00 - Purpose of encounter Text: To establish goals of care while in the hospital, and next site of care which will benefit the whole family. - Parties in attendance Parties in attendance: The patient- Genaro Shahid, his son- Owen, and myself- OPAL Stanley - Decisional capacity Decisional capacity of: The patient is usually decisional, but this evening is has confusion/altered mental status related to this acute illness. His son, Owen (1 of 6 sons) seems to have his best interest in mind and can speak for his father. - Subjective/Patient's story Subjective/Patient's story: Owen, the patient's son helped with this document and spoke for his father: The patient raised his 6 sons in [place] with his Helene, who he still lives with. After [facility], he and Helene moved to [place]. About 10 years ago, he was first diagnosed with Prostate cancer. He has lived on [facility] to be closer to family for the past 3 years to get family support as his cancer progressed. His quality of life lately has been poor. Many days he feels tired, weak, and also does not sleep well. He has not had multiple falls, but yesterday it was the last straw when he fell out of bed. Luckily, his family was visiting out of town and was able to be supportive during the start of this illness, but normally it is just the patient and his . The patient's son, Owen fears that after the family is done with their visit, the support at home will be much less. He states that his mother is in no shape to take on any caretaking responsibilities as she has her own health struggles. Owen is happy to have a meeting on Friday with a tentative time of 0900 AM which will include the patient, some of his siblings and the patient's , Helene with Josie Bhatt if her schedule allows. - Objective/Medical story Objective/Medical Story: Genaro Shahid is a 78-year old Jehovah Witness, male with a past medical history of hypertension, hyperlipidemia, low extremity edema, hearing loss, castration- resistant metastatic prostate cancer, TURBT and resection of bladder tumors, hematuria, urinary incontinence, anemia, low back pain, asthma, CVA with slight right sided weakness, osteoarthritis, osteonecrosis of the jaw, aortic valve calcification, 4.5 cm ascending aortic aneurysm, gallstones, diverticulosis, multiple blastic bone lesions, retro-peritoneal lymphadenopathy, status post chemo/radiation treatments, anxiety, and depression. The patient had been up and about, in his typical state of health over the last several days up until yesterday when he was having some redness pain/swelling on the right chest wall. He was seen in the ED for an incision and drainage of a cutaneous abscess. It was located near the site of his chemotherapy IV port on the chest wall. Surgery, Dr. Hernandez, was consulted, who felt it was not at the port itself, performed an I & D, and started on Keflex/Bactrim. The patient's son, Owen, states the patient became generally weaker last night. He also noted more confusion with more difficulty with standing or walking on his own. The patient had the feeling of some fevers with chills this morning at home but denied vomiting, diarrhea, chest pain, hallucinations, syncope, a new rash or shortness of breath. He attempted to get out of bed this morning, and fell on the floor next to the bed, and suffered an abrasion to his left knee, and on the back of the head. He denies any headaches. Upon arrival to the ED, he is tachycardic, with rates in the 120's, increased respiratory rate at 36, initially afebrile, but after arriving to the nursing floor had a temp of 39.1 C and became hypotensive with a blood pressure of 98/54. Labs show an elevated WBC count of 12.1, macrocytic anemia with an H/H of 11.0/34.5, MCV of 98.9, neut # of 11.3, electrolytes show an elevated anion gap of 14.0, GFR 65, glucose 158, normal troponin of 0.04, low protein of 6.5, an elevated lactic acid of 3.6, magnesium of 1.9, with no other lab abnormalities. He has been admitted for inpatient treatment of IV antibiotics, symptom management. I will alert the [facility] oncology clinic on Friday of his hospital stay. The patient's son Owen confirmed his father's wishes of DNR/DNI including answering 4 questions; Intubation- NO, shocking- NO, CPR/chest compressions- NO, and cardiac medications- NO in response to resuscitation attempts in the event of natural . - Goals of Care Goals of care determinations: If occurs, goals of cares will be altered. If the patient sustains harm from a fall or injury while in the hospital, this may also alter his goals of care. - Plan Plan: Treat acute illness/sepsis Await blood cultures Plan for a Palliative care meeting with a tenative time of 0900 AM on Friday with Josie Bhatt to discuss next best plan of action Obtain a PSA blood level Maintain DNR status - Code Status Code Status: Do Not Attempt Resuscitation - Time Spent on Advance Care Planning Time spent on advance care plannin
--- NOTE | 2019-03-07 11:10 | PROVIDER PROGRESS NOTE ---
Subjective - Prog Note Date Prog Note Date: 03/07/19 Prog Note Time: 11:08 - Subjective Pt reports feeling: Improved Subjective: Genaro has no complaints, and his son, Owen has been given a medical update. Current Medications - Current Medications Current Medications: Active Medications: Acetaminophen (Tylenol) 650 mg PO Q4HR PRN Albuterol 2.5 mg INH RTQ4H PRN Carboxymethylcellulose (Refresh 1% Ophth Drops) 1 drops EACHEYE Q4HR PRN Cefepime HCl 2 gm/ Sodium (Chloride) 100 mls @ 200 mls/hr IV Q12H [facility] Vancomycin HCl 1 gm/Vancomycin HCl 500 mg/ Sodium Chloride 500 mls @ 335 mls/hr IV Q12H CHIP Ibuprofen (Motrin) 400 mg PO Q6HR PRN Lidocaine HCl (Xylocaine Uro-Jet 2%) 2.5 ml UR Q6H PRN Lorazepam (Ativan) 0.5 mg PO Q6H PRN Non-Formulary Medication (Melatonin [Melatonin 5 mg PO QPM PRN Ondansetron HCl (Zofran Inj) 4 mg IVP Q6HR PRN Oxycodone HCl (Roxicodone) 10 mg PO Q4H PRN Pantoprazole Sodium (Protonix) 40 mg PO QDAC CHIP Polyethylene Glycol (Miralax) 17 gm PO DAILY [facility] Saccharomyces Boulardii (Florastor) 250 mg PO BIDWM CHIP Travoprost (Travatan Z) 1 drops EACHEYE QPM [facility] HOME meds: Gabapentin 100 mg PO DAILY 10/14/18 Omeprazole 20 mg PO QDAC 10/29/18 Loratadine/Pseudoephedrine [Claritin-D 24 Hour Tablet] 1 tab PO DAILY PRN 01/20/19 Melatonin 5 mg PO QPM PRN 01/20/19 Hemp Oil 1,000 mg PO . DIRECTED PRN 03/06/19 Ondansetron [Ondansetron Odt] 4 mg PO Q4H PRN 03/06/19 Oxycodone HCl 10 mg PO Q4H PRN 03/06/19 Polyethylene Glycol 3350 [Miralax] 17 gm PO DAILY 03/06/19 Prednisone 5 mg PO QDX21D 03/06/19 Prochlorperazine Maleate 10 mg PO Q6H PRN 03/06/19 Sulfamethoxazole/Trimethoprim [Sulfamethoxazole-Tmp Ds Tablet] 1 tab PO BIDX7D 03/06/19 Travoprost 0.004% Ophth Drops [Travatan Z] 1 drops EACHEYE QPM 03/06/19 dexAMETHasone [Dexamethasone] 8 mg PO Q3D 03/06/19 Objective - Vital Signs/Intake & Output Reviewed Vital Signs: Yes Vital Signs: Vital Signs x48h Temp Pulse Resp BP Pulse Ox 03/07/19 08:41 36.3 C L 91 18 98/57 L 96 03/07/19 05:00 37.3 C 82 16 97/61 97 03/07/19 03:38 37.1 C Intake & Output: Intake & Output 03/04/19 03/05/19 03/06/19 03/07/19 23:59 23:59 23:59 23:59 Intake Total 3785.000 1932.667 Output Total 725 1200 Balance 3060.000 732.667 - Objective General Appearance: positive: Mild distress, Lethargic Eyes: OU Conjunctivae pale ENT: positive: Pharynx nml, Dry mucous membranes, Other ([place]) Neck: positive: Thyroid nml, No JVD Respiratory: positive: Chest non-tender, No respiratory distress, Rhonchi Cardiovascular: positive: No gallop, Irregularly irregular, Systolic murmur, Decreased pulse(s) Peripheral Pulses: 1+ Radial (R), 1+ Radial (L) Abdomen: positive: Non-tender, Nml bowel sounds, Hepatomegaly Back: positive: Nml inspection Skin: positive: No rash, Warm, Dry, Other (bronze) Extremities: positive: Non-tender, Full ROM, Pedal edema, Joint swelling Neurologic/Psychiatric: positive: Disoriented to time, Weakness, Sensory loss, Slurred/abnml speech, Depressed mood/affect, Other (baseline early dementia) Reflexes: Bicep (R): 2+, Bicep (L): 2+ - Lab Results Fish Bones: 03/07/19 05:30 03/07/19 05:30 Other Labs: Lab Results x24hrs 03/07/19 03/07/19 03/07/19 Range/Units 05:30 05:30 05:30 WBC (4.8-10.8) x10^3/uL RBC (4.70-6.10) 10^6/uL Hgb (14.0-18.0) g/dL Hct (42.0-52.0) % MCV (80.0-94.0) fL MCH (27.0-31.0) pg MCHC (32.0-36.0) g/dL RDW (12.0-15.0) % Plt Count (130-450) 10^3/uL MPV (7.4-11.4) fL Neut # (Auto) (1.5-6.6) 10^3/uL Lymph # (Auto) (1.5-3.5) 10^3/uL Crisp # (Auto) (0.0-1.0) 10^3/uL Eos # (Auto) (0.0-0.7) 10^3/uL Baso # (Auto) (0.0-0.1) 10^3/uL Absolute Nucleated RBC x10^3/uL Nucleated RBC % /100WBC PT (9.9-12.6) secs INR (0.8-1.2) Sodium 134 L (135-145) mmol/L Potassium 3.6 (3.5-5.0) mmol/L Chloride 103 (101-111) mmol/L Carbon Dioxide 21 (21-32) mmol/L Anion Gap 10.0 (6-13) BUN 13 (6-20) mg/dL Creatinine 0.9 (0.6-1.2) mg/dL Estimated GFR (MDRD) 82 L (>89) Glucose 117 H (70-100) mg/dL Lactic Acid 1.8 (0.5-2.2) mmol/L Calcium 7.9 L (8.5-10.3) mg/dL Magnesium 1.8 (1.7-2.8) mg/dL Total Bilirubin 0.9 (0.2-1.0) mg/dL AST 42 (10-42) IU/L ALT 21 (10-60) IU/L Alkaline Phosphatase 56 (42-121) IU/L Troponin I (<0.49) ng/mL C-Reactive Protein (0-1.0) mg/dL Total Protein 5.5 L (6.7-8.2) g/dL Albumin 2.9 L (3.2-5.5) g/dL Globulin 2.6 (2.1-4.2) g/dL Albumin/Globulin Ratio 1.1 (1.0-2.2) TSH 0.79 (0.34-5.60) uIU/mL Urine Color Urine Clarity (CLEAR) Urine pH (5.0-7.5) PH Ur Specific Effie (1.002-1.030) Urine Protein (NEGATIVE) mg/dL Urine Glucose (UA) (NEGATIVE) mg/dL Urine Ketones (NEGATIVE) mg/dL Urine Occult Blood (NEGATIVE) Urine Nitrite (NEGATIVE) Urine Bilirubin (NEGATIVE) Urine Urobilinogen (NORMAL) E.U./dL Ur Leukocyte Esterase (NEGATIVE) Urine RBC (0-5) /HPF Urine WBC (0-3) /HPF Ur Squamous Epith Cells (<= Few) Urine Bacteria (None Seen) /HPF Urine Culture Comments 03/07/19 03/07/19 03/06/19 Range/Units 05:30 05:30 22:45 WBC 6.8 (4.8-10.8) x10^3/uL RBC 3.06 L (4.70-6.10) 10^6/uL Hgb 9.5 L (14.0-18.0) g/dL Hct 30.3 L (42.0-52.0) % MCV 99.0 H (80.0-94.0) fL MCH 31.0 (27.0-31.0) pg MCHC 31.4 L (32.0-36.0) g/dL RDW 20.0 H (12.0-15.0) % Plt Count 217 (130-450) 10^3/uL MPV 9.0 (7.4-11.4) fL Neut # (Auto) 6.4 (1.5-6.6) 10^3/uL Lymph # (Auto) 0.1 L (1.5-3.5) 10^3/uL Crisp # (Auto) 0.3 (0.0-1.0) 10^3/uL Eos # (Auto) 0.0 (0.0-0.7) 10^3/uL Baso # (Auto) 0.0 (0.0-0.1) 10^3/uL Absolute Nucleated RBC 0.00 x10^3/uL Nucleated RBC % 0.0 /100WBC PT 15.9 H (9.9-12.6) secs INR 1.4 H (0.8-1.2) Sodium (135-145) mmol/L Potassium (3.5-5.0) mmol/L Chloride (101-111) mmol/L Carbon Dioxide (21-32) mmol/L Anion Gap (6-13) BUN (6-20) mg/dL Creatinine (0.6-1.2) mg/dL Estimated GFR (MDRD) (>89) Glucose (70-100) mg/dL Lactic Acid 1.7 (0.5-2.2) mmol/L Calcium (8.5-10.3) mg/dL Magnesium (1.7-2.8) mg/dL Total Bilirubin (0.2-1.0) mg/dL AST (10-42) IU/L ALT (10-60) IU/L Alkaline Phosphatase (42-121) IU/L Troponin I (<0.49) ng/mL C-Reactive Protein (0-1.0) mg/dL Total Protein (6.7-8.2) g/dL Albumin (3.2-5.5) g/dL Globulin (2.1-4.2) g/dL Albumin/Globulin Ratio (1.0-2.2) TSH (0.34-5.60) uIU/mL Urine Color Urine Clarity (CLEAR) Urine pH (5.0-7.5) PH Ur Specific Effie (1.002-1.030) Urine Protein (NEGATIVE) mg/dL Urine Glucose (UA) (NEGATIVE) mg/dL Urine Ketones (NEGATIVE) mg/dL Urine Occult Blood (NEGATIVE) Urine Nitrite (NEGATIVE) Urine Bilirubin (NEGATIVE) Urine Urobilinogen (NORMAL) E.U./dL Ur Leukocyte Esterase (NEGATIVE) Urine RBC (0-5) /HPF Urine WBC (0-3) /HPF Ur Squamous Epith Cells (<= Few) Urine Bacteria (None Seen) /HPF Urine Culture Comments 03/06/19 03/06/19 03/06/19 Range/Units 22:45 17:30 17:10 WBC (4.8-10.8) x10^3/uL RBC (4.70-6.10) 10^6/uL Hgb (14.0-18.0) g/dL Hct (42.0-52.0) % MCV (80.0-94.0) fL MCH (27.0-31.0) pg MCHC (32.0-36.0) g/dL RDW (12.0-15.0) % Plt Count (130-450) 10^3/uL MPV (7.4-11.4) fL Neut # (Auto) (1.5-6.6) 10^3/uL Lymph # (Auto) (1.5-3.5) 10^3/uL Crisp # (Auto) (0.0-1.0) 10^3/uL Eos # (Auto) (0.0-0.7) 10^3/uL Baso # (Auto) (0.0-0.1) 10^3/uL Absolute Nucleated RBC x10^3/uL Nucleated RBC % /100WBC PT 15.5 H (9.9-12.6) secs INR 1.4 H (0.8-1.2) Sodium (135-145) mmol/L Potassium (3.5-5.0) mmol/L Chloride (101-111) mmol/L Carbon Dioxide (21-32) mmol/L Anion Gap (6-13) BUN (6-20) mg/dL Creatinine (0.6-1.2) mg/dL Estimated GFR (MDRD) (>89) Glucose (70-100) mg/dL Lactic Acid (0.5-2.2) mmol/L Calcium (8.5-10.3) mg/dL Magnesium (1.7-2.8) mg/dL Total Bilirubin (0.2-1.0) mg/dL AST (10-42) IU/L ALT (10-60) IU/L Alkaline Phosphatase (42-121) IU/L Troponin I 0.05 (<0.49) ng/mL C-Reactive Protein (0-1.0) mg/dL Total Protein (6.7-8.2) g/dL Albumin (3.2-5.5) g/dL Globulin (2.1-4.2) g/dL Albumin/Globulin Ratio (1.0-2.2) TSH (0.34-5.60) uIU/mL Urine Color YELLOW Urine Clarity CLEAR (CLEAR) Urine pH 6.0 (5.0-7.5) PH Ur Specific Effie 1.015 (1.002-1.030) Urine Protein TRACE (NEGATIVE) mg/dL Urine Glucose (UA) NEGATIVE (NEGATIVE) mg/dL Urine Ketones NEGATIVE (NEGATIVE) mg/dL Urine Occult Blood NEGATIVE (NEGATIVE) Urine Nitrite NEGATIVE (NEGATIVE) Urine Bilirubin NEGATIVE (NEGATIVE) Urine Urobilinogen 0.2 (NORMAL) (NORMAL) E.U./dL Ur Leukocyte Esterase NEGATIVE (NEGATIVE) Urine RBC None Seen (0-5) /HPF Urine WBC 0-3 (0-3) /HPF Ur Squamous Epith Cells NONE SEEN (<= Few) Urine Bacteria None Seen (None Seen) /HPF Urine Culture Comments NOT INDICATED 03/06/19 03/06/19 03/06/19 Range/Units 17:10 17:10 17:10 WBC (4.8-10.8) x10^3/uL RBC (4.70-6.10) 10^6/uL Hgb (14.0-18.0) g/dL Hct (42.0-52.0) % MCV (80.0-94.0) fL MCH (27.0-31.0) pg MCHC (32.0-36.0) g/dL RDW (12.0-15.0) % Plt Count (130-450) 10^3/uL MPV (7.4-11.4) fL Neut # (Auto) (1.5-6.6) 10^3/uL Lymph # (Auto) (1.5-3.5) 10^3/uL Crisp # (Auto) (0.0-1.0) 10^3/uL Eos # (Auto) (0.0-0.7) 10^3/uL Baso # (Auto) (0.0-0.1) 10^3/uL Absolute Nucleated RBC x10^3/uL Nucleated RBC % /100WBC PT (9.9-12.6) secs INR (0.8-1.2) Sodium (135-145) mmol/L Potassium (3.5-5.0) mmol/L Chloride (101-111) mmol/L Carbon Dioxide (21-32) mmol/L Anion Gap (6-13) BUN (6-20) mg/dL Creatinine (0.6-1.2) mg/dL Estimated GFR (MDRD) (>89) Glucose (70-100) mg/dL Lactic Acid 3.0 H* (0.5-2.2) mmol/L Calcium (8.5-10.3) mg/dL Magnesium (1.7-2.8) mg/dL Total Bilirubin (0.2-1.0) mg/dL AST (10-42) IU/L ALT (10-60) IU/L Alkaline Phosphatase (42-121) IU/L Troponin I 0.06 (<0.49) ng/mL C-Reactive Protein 7.5 H (0-1.0) mg/dL Total Protein (6.7-8.2) g/dL Albumin (3.2-5.5) g/dL Globulin (2.1-4.2) g/dL Albumin/Globulin Ratio (1.0-2.2) TSH (0.34-5.60) uIU/mL Urine Color Urine Clarity (CLEAR) Urine pH (5.0-7.5) PH Ur Specific Effie (1.002-1.030) Urine Protein (NEGATIVE) mg/dL Urine Glucose (UA) (NEGATIVE) mg/dL Urine Ketones (NEGATIVE) mg/dL Urine Occult Blood (NEGATIVE) Urine Nitrite (NEGATIVE) Urine Bilirubin (NEGATIVE) Urine Urobilinogen (NORMAL) E.U./dL Ur Leukocyte Esterase (NEGATIVE) Urine RBC (0-5) /HPF Urine WBC (0-3) /HPF Ur Squamous Epith Cells (<= Few) Urine Bacteria (None Seen) /HPF Urine Culture Comments ABX Reporting Has patient been on IV antibiotics over the past 48 hours?: Yes Sepsis Event Note (H) - Evaluation Current Stage of Sepsis: Resolved Assessment/Plan - Problem List (1) Sepsis Impression: - Patient met sepsis criteria based on criteria of elevated lactic acid, WBC count, AMS, hypotension, and tachycardia- now improved Plan: Continue with gentle IV fluids, now ordered to be capped, Cefepime, vanco, routine labs Qualifiers: Sepsis type: sepsis due to unspecified organism Qualified Code(s): A41.9 - Sepsis, unspecified organism (2) Chest wall abscess Impression: - Patient was seen in the ED in which a wound culture was obtained - Preliminary results show staph aureus - Was sent home on Keflex/Bactrim - Became septic last evening, so started on cefepime/vanco, which continue today Plan: Continue IV antibiotics, await final results (3) Fall Impression: - Patient and family deny a prior fall before today - Profound weakness with worsening gait in the past 24 hours - Poor appetite, weight loss, mild confusion as per family Plan: PT evaluation prior to discharge, treat illness, fall precautions Qualifiers: Encounter type: initial encounter Qualified Code(s): W19.XXXA - Unspecified fall, initial encounter (4) Fever Impression: - Temp max after arriving to the nursing floor was 39.1 C - Rigors and chills resolved today, now afebrile - Treating with tylenol, sepsis criteria- resolved Plan: Continue to monitor, treat symptoms (5) Generalized weakness Impression: - Worsening weakness, leading to a fall - Contributing factor of acute illness, possible sepsis Plan: PT to evaluate prior to discharge (6) Prostate cancer Impression: - Initially diagnosed about 10 years ago - Recent rubia mets - Now on chronic oxycodone at home, continued here Plan: Obtain PSA as per oncology follow up, insert indwelling lynn for sepsis, monitor for hematuria (7) Pulmonary embolism Impression: - Patient was anti-coagulated in the past, but stopped after coughing up blood - Patient does not wish to re-start blood thinners - Imaging on this admission shows stable, chronic PEs Plan: Continue to monitor for worsening SOB, or bleeding Qualifiers: Pulmonary embolism type: unspecified Chronicity: chronic Acute cor pulmonale presence: without acute cor pulmonale Qualified Code(s): I27.82 - Chronic pulmonary embolism (8) Refusal of blood transfusions as patient is Mandaen Impression: - Longstanding gnosticist - Please do not give Albumin, blood products or heparin containing pork etc. Plan: Monitor, treat acute illness (9) Staphylococcus aureus infection Impression: - Preliminary wound culture results from 03/05 are growing staph aureus - General surgery is following, but likely his wound culture will help guide treatment - WBC count much improved, now 6.8 Plan: Continue to treat acute illness, treat symptoms
[2019-03-07] MEDS: ACETAMINOPHEN 325 MG TABLET PO PRN (16:15)
[2019-03-07] MEDS: TRAVOPROST 0.004% OPHTH DROPS 2.5 ML EACHEYE SCH (21:16)
[2019-03-08] MEDS: SODIUM CHLORIDE FLUSH 0.9% 10 ML SYRINGE IVP SCH ×4 (02:07→23:57)
[2019-03-08] MEDS: CEFEPIME 2 GM in SODIUM CHLORIDE 0.9% MINIBAG 100 ML IV SCH ×2 (04:06→21:20)
[2019-03-08 05:55] LABS: BASOPHILS % (AUTO) 0.6 %; EOSINOPHILS % (AUTO) 0.2 %; HGB - HEMOGLOBIN 9.4 g/dL (14.0-18.0); LYMPHOCYTES % (AUTO) 11.1 %; MEAN CORPUSCULAR HEMOGLOBIN 31.5 pg (27.0-31.0); MEAN CORPUSCULAR HGB CONC 32.4 g/dL (32.0-36.0); MEAN CORPUSCULAR VOLUME 97.3 fL (80.0-94.0); MEAN PLATELET VOLUME 9.2 fL (7.4-11.4); MONOCYTES % (AUTO) 4.7 %; PLT - PLATELET COUNT 204 10^3/uL (130-450); RED BLOOD COUNT 2.98 10^6/uL (4.70-6.10); RED CELL DISTRIBUTION WIDTH 19.2 % (12.0-15.0); WHITE BLOOD COUNT 5.1 x10^3/uL (4.8-10.8)
[2019-03-08 06:03] LABS: ABNORMAL LYMPHS % (MANUAL) 0 %; BAND NEUTROPHILS % (MANUAL) 0 %
[2019-03-08 06:09] LABS: ALBUMIN 2.6 g/dL (3.2-5.5); BILIRUBIN,TOTAL 0.6 mg/dL (0.2-1.0); CALCIUM 8.1 mg/dL (8.5-10.3); CREATININE 0.7 mg/dL (0.6-1.2); TOTAL PROTEIN 5.2 g/dL (6.7-8.2)
[2019-03-08] MEDS: PANTOPRAZOLE 40 MG TABLET PO SCH (06:25)
[2019-03-08 06:36] LABS: LYMPHOCYTES # (MANUAL) 0.7 10^3/uL (1.5-3.5); LYMPHOCYTES % (MANUAL) 14 %; NEUTROPHILS # (MANUAL) 4.4 10^3/uL (1.5-6.6); NEUTROPHILS % (MANUAL) 86 %
[2019-03-08 06:40] LABS: RBC MORPHOLOGY (MULTIPLE) 1+ ANISOCYTOSIS (NORMAL)
[2019-03-08 06:41] LABS: DIFFERENTIAL COMMENT MANUAL DIFFERENTIAL; PLATELET ESTIMATE, MANUAL NORMAL (130-450,000) (NORMAL); PLATELET MORPHOLOGY NORMAL APPEARANCE (NORMAL)
[2019-03-08] MEDS: GABAPENTIN 100 MG CAPSULE PO SCH (08:42)
[2019-03-08] MEDS: SACCHAROMYCES BOULARDII 250 MG CAPSULE PO SCH ×2 (08:42→17:27)
[2019-03-08] MEDS: POLYETHYLENE GLYCOL 3350 17 GM PACKET PO SCH (08:42)
[2019-03-08] MEDS: VANCOMYCIN INJ 1 GM, VANCOMYCIN INJ 500 MG in SODIUM CHLORIDE 0.9% 500 ML IV SCH (08:47)
[2019-03-08] MEDS ORDERED: SULFAMETH/TRIMETH DS 800/160 MG TABLET PO SCH (09:00)
[2019-03-08] MEDS: POTASSIUM CHLORIDE 20 MEQ TABLET PO ONE ×2 (10:25→14:39)
[2019-03-08] MEDS ORDERED: POTASSIUM CHLORIDE 10 MEQ CAPSULE PO SCH (11:00)
--- NOTE | 2019-03-08 11:42 | PROVIDER PROGRESS NOTE ---
Subjective - Prog Note Date Prog Note Date: 03/08/19 Prog Note Time: 11:44 - Subjective Pt reports feeling: Improved Subjective: Genaro is tearful this morning and states, "I just want to give up and I have had enough". He denies new chest pain, nausea, vomiting, a new rash, or worsening shortness of breath. A Palliative care meeting took place today with several family members, Josie Bhatt. Current Medications - Current Medications Current Medications: Active Medications: Acetaminophen (Tylenol) 650 mg PO Q4HR PRN Albuterol 2.5 mg INH RTQ4H PRN Carboxymethylcellulose (Refresh 1% Ophth Drops) 1 drops EACHEYE Q4HR PRN Gabapentin (Neurontin) 100 mg PO DAILY [facility] Ibuprofen (Motrin) 400 mg PO Q6HR PRN Lidocaine HCl (Xylocaine Uro-Jet 2%) 2.5 ml UR Q6H PRN Lorazepam (Ativan) 0.5 mg PO Q6H PRN Non-Formulary Medication Melatonin [Melatonin 5 mg PO QPM PRN Ondansetron HCl (Zofran Inj) 4 mg IVP Q6HR PRN Oxycodone HCl (Roxicodone) 10 mg PO Q4H PRN Pantoprazole Sodium (Protonix) 40 mg PO QDAC [facility] Polyethylene Glycol (Miralax) 17 gm PO DAILY [facility] Saccharomyces Boulardii (Florastor) 250 mg PO BIDWM [facility]IP Travoprost (Travatan Z) 1 drops EACHEYE QPM [facility] Trimethoprim/Sulfamethoxazole (Bactrim Ds 800/160) 1 tab PO BID [facility] HOME meds: Gabapentin 100 mg PO DAILY 10/14/18 Omeprazole 20 mg PO QDAC 10/29/18 Loratadine/Pseudoephedrine [Claritin-D 24 Hour Tablet] 1 tab PO DAILY PRN 01/20/19 Melatonin 5 mg PO QPM PRN 01/20/19 Hemp Oil 1,000 mg PO . DIRECTED PRN 03/06/19 Ondansetron [Ondansetron Odt] 4 mg PO Q4H PRN 03/06/19 Oxycodone HCl 10 mg PO Q4H PRN 03/06/19 Polyethylene Glycol 3350 [Miralax] 17 gm PO DAILY 03/06/19 Prednisone 5 mg PO QDX21D 03/06/19 Prochlorperazine Maleate 10 mg PO Q6H PRN 03/06/19 Sulfamethoxazole/Trimethoprim [Sulfamethoxazole-Tmp Ds Tablet] 1 tab PO BIDX7D 03/06/19 Travoprost 0.004% Ophth Drops [Travatan Z] 1 drops EACHEYE QPM 03/06/19 dexAMETHasone [Dexamethasone] 8 mg PO Q3D 03/06/19 Objective - Vital Signs/Intake & Output Reviewed Vital Signs: Yes Vital Signs: Vital Signs x48h Temp Pulse Resp BP BP Pulse Ox 03/08/19 11:26 37 C 79 18 127/74 99 03/08/19 08:09 37.2 C 86 16 111/63 98 03/08/19 04:53 37.3 C 85 20 101/60 96 Intake & Output: Intake & Output 03/05/19 03/06/19 03/07/19 03/08/19 23:59 23:59 23:59 23:59 Intake Total 3785.000 4028.667 650 Output Total 725 2100 1075 Balance 3060.000 1928.667 -425 - Objective General Appearance: positive: No acute distress Eyes Bilateral: positive: PERRL Eyes: OU Conjunctivae pale ENT: positive: Pharynx nml, No signs of dehydration Neck: positive: Thyroid nml, No JVD Respiratory: positive: Chest non-tender, No respiratory distress, Rhonchi Cardiovascular: positive: No gallop, Irregularly irregular, Systolic murmur Peripheral Pulses: 1+ Radial (R), 1+ Radial (L) Abdomen: positive: Non-tender, Nml bowel sounds, Hepatomegaly Back: positive: Nml inspection Skin: positive: No rash, Warm, Dry, Other (bronze toned) Extremities: positive: Non-tender, Full ROM, Pedal edema, Joint swelling, Other (generalized edema) Neurologic/Psychiatric: positive: Oriented x3, CN's nml (2-12), Motor nml, Sensation nml, Depressed mood/affect (tearful today) Reflexes: Bicep (R): 2+, Bicep (L): 2+ - Lab Results Fish Bones: 03/08/19 05:24 03/08/19 05:24 Other Labs: Lab Results x24hrs 03/08/19 03/08/19 03/08/19 Range/Units 05:24 05:24 05:24 WBC 5.1 (4.8-10.8) x10^3/uL RBC 2.98 L (4.70-6.10) 10^6/uL Hgb 9.4 L (14.0-18.0) g/dL Hct 29.0 L (42.0-52.0) % MCV 97.3 H (80.0-94.0) fL MCH 31.5 H (27.0-31.0) pg MCHC 32.4 (32.0-36.0) g/dL RDW 19.2 H (12.0-15.0) % Plt Count 204 (130-450) 10^3/uL MPV 9.2 (7.4-11.4) fL Neut # (Auto) Not Reportable Lymph # (Auto) Not Reportable [place]s # (Auto) Not Reportable Eos # (Auto) Not Reportable Baso # (Auto) Not Reportable Absolute Nucleated RBC Not Reportable Total Counted 100 Band Neuts % (Manual) 0 (0 - 10) % Abnorm Lymph % (Manual) 0 % Nucleated RBC % Not Reportable Neutrophils # (Manual) 4.4 (1.5-6.6) 10^3/uL Lymphocytes # (Manual) 0.7 L (1.5-3.5) 10^3/uL Monocytes # (Manual) 0.0 (0.0-1.0) 10^3/uL Eosinophils # (Manual) 0.0 (0-0.7) 10^3/uL Basophils # (Manual) 0.0 (0-0.1) 10^3/uL Differential Comment MANUAL DIFFERENTIAL WBC Morphology NORMAL APPEARANCE (NORMAL) Platelet Estimate NORMAL (130-450,000) (NORMAL) Platelet Morphology NORMAL APPEARANCE (NORMAL) RBC Morph Micro Appear 1+ ANISOCYTOSIS (NORMAL) Sodium 135 (135-145) mmol/L Potassium 3.3 L (3.5-5.0) mmol/L Chloride 107 (101-111) mmol/L Carbon Dioxide 21 (21-32) mmol/L Anion Gap 7.0 (6-13) BUN 11 (6-20) mg/dL Creatinine 0.7 (0.6-1.2) mg/dL Estimated GFR (MDRD) 109 (>89) Glucose 95 (70-100) mg/dL Calcium 8.1 L (8.5-10.3) mg/dL Total Bilirubin 0.6 (0.2-1.0) mg/dL AST 67 H (10-42) IU/L ALT 29 (10-60) IU/L Alkaline Phosphatase 57 (42-121) IU/L Total Protein 5.2 L (6.7-8.2) g/dL Albumin 2.6 L (3.2-5.5) g/dL Globulin 2.6 (2.1-4.2) g/dL Albumin/Globulin Ratio 1.0 (1.0-2.2) Prostate Specific Ag 57.280 H (0.000-2.000) ng/mL ABX Reporting Has patient been on IV antibiotics over the past 48 hours?: Yes Sepsis Event Note (H) - Evaluation Current Stage of Sepsis: Resolved Assessment/Plan - Problem List (1) Sepsis Impression: - Patient met sepsis criteria based on criteria of elevated lactic acid, WBC count, AMS, hypotension, and tachycardia- now improved - Surgical site of right chest looks no worse, see chart for photos Plan: Continue PO Bactrim based on final culture result, monitor for elevated WBC count, or fevers, routine labs Qualifiers: Sepsis type: sepsis due to unspecified organism Qualified Code(s): A41.9 - Sepsis, unspecified organism (2) Chest wall abscess Impression: - Patient was seen in the ED in which a wound culture was obtained - Wound culture results show staph aureus - Was sent home on Keflex/Bactrim - Became septic on first night of stay, so started on cefepime/vanco, which were stopped this morning - Started on Bactrim based on sensitivity list Plan: Continue PO Bactrim, monitor site for s/s of infection, routine labs (3) Fall Impression: - Patient and family deny a prior history of falls - Profound weakness with worsening gait in the past 24 hours prior to the admission - Poor appetite, weight loss, mild confusion as per family - Newly found moderate aortic stenosis on echo today, which could make for a greater chance of falls, especially in the setting of acute illness - PT recommends SNF verses home with home PT upon discharge Plan: Continue to treat illness, fall precautions Qualifiers: Encounter type: initial encounter Qualified Code(s): W19.XXXA - Unspecified fall, initial encounter (4) Fever Impression: - Temp max after arriving to the nursing floor was 39.1 C - Rigors and chills resolved, now afebrile - Treating with tylenol, sepsis criteria- resolved Plan: Continue to monitor, treat symptoms (5) Generalized weakness Impression: - Worsening weakness, leading to a fall - Contributing factor of acute illness, possible sepsis- now resolved - Newly found LVH and aortic stenosis on echo Plan: PT to evaluate prior to discharge, anticipate discharge to SNF for rehab, proceed with palliative chemo (6) Prostate cancer Impression: - Initially diagnosed about 10 years ago - Recent rubia mets - Now on chronic oxycodone at home, continued here - PSA stable, lower at 57 today, which helped Josie Bhatt determine effectiveness of latest chemo - Grace Tabares is aware of his hospital stay and will keep in the loop as to rehab, next treatment time frame etc. Plan: Orders to remove lynn today, monitor with post void bladder scans (7) Pulmonary embolism Impression: - Patient was anti-coagulated in the past, but stopped after coughing up blood - Patient does not wish to re-start blood thinners - Imaging on this admission shows stable, chronic PEs Plan: Continue to monitor for worsening SOB, or bleeding Qualifiers: Pulmonary embolism type: unspecified Chronicity: chronic Acute cor pulmonale presence: without acute cor pulmonale Qualified Code(s): I27.82 - Chronic pulmonary embolism (8) Refusal of blood transfusions as patient is Protestant Impression: - Longstanding religious - Please do not give Albumin, blood products or heparin containing pork etc. Plan: Monitor, treat acute illness (9) Staphylococcus aureus infection Impression: - Preliminary wound culture results from 03/05 are growing staph aureus - General surgery is following, but likely his wound culture will help guide treatment - WBC count much improved, now 6.8 Plan: Continue to treat acute illness, treat symptoms (10) Moderate aortic stenosis Impression: - Preliminary echo results show a moderate grade aortic stenosis, which may have contributed to his fall - + murmur on exam - Rate control is the treatment for this, and for HTN - He has had light blood pressures for this stay, so no BB has been started, today heart rates are in the 80's Plan: Continue to monitor for falls, anticipate rehab, start BB if needed (11) LVH (left ventricular hypertrophy) Impression: - LVH on echo - Rate control is the primary treatment if blood pressure allows -Blood pressures have been light, so not started on a BB yet Plan: Continue to monitor
--- NOTE | 2019-03-08 14:25 | CONSULTATION NOTE ---
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 Patient's original diagnosis was in 2006, at that point in time he received a radical prostatectomy had done fairly well. He was living in [place] received most of his treatments. He was diagnosed with bone mets in December 2011, and was started on biphosphonate's. Patient has had multiple treatments, including an orchiectomy 11/2012. He has been treated with Provenge, he has had [id number] in January 2018. 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 A CT scan 08/2018 showed new peritoneal nodules and retroperitoneal lymphadenopathy and thus the initiation of docetaxaol and prednisone. Patient has had 8 cycles, the goal is to finish for a full 10 cycles. He has had improvement in his PSA. He also was intermittently neutropenic, and has been on the injector for Neulasta. 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 Patient has been acutely admitted for symptoms of sepsis, this was thought to be related to a recent I&D of his right chest wall abscess. He did present with severe weakness, elevated white count, and confusion. He was admitted for inpatient treatment of a IV antibiotics, and symptom management. Dr. Chang has seen patient, does not think at this point in time he will need to have his Port-A-Cath removed, but they will continue evaluate. Palliative care is been asked to meet with patient and family, regarding goals of care. This is both related to patient's expressed wishes about being tired with the treatment. But also looking at advanced care planning, and transition plan as patient is at a decision point. 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) Respiratory: reports: Asthma Neuro: CVA (right sided weakness- minimal, word finding difficulty) Endocrine/Autoimmune: reports: None GI: reports: GERD, Colon polyps : reports: Benign prostate hypertrophy, Incontinence, Chronic bladder infection, Nocturia, Other (met prostate cancer to bones; low grad paillary urothelial carcinoma of bladder) HEENT: reports: Chronic vision loss, Chronic sinusitis, Chronic hearing loss Psych: reports: Depression, Anxiety Musculoskeletal: reports: Osteoarthritis, Chronic back pain, Other (bone mets from prostate) Derm: reports: None MRSA Hx?: No - Past Surgical History General: reports: Other (portacath) Ortho: reports: Arthroscopic surgery, Spine surgery Cardiovascular: reports: Other (litagated carotid artery left 2010) HEENT: reports: Cataracts Other past surgical history: radical prostectomy 2006; orchiectory 11/2012 - Substance History Use: Uses substance without health or social issues: NONE Dependence: Experiences withdrawal or developed tolerances: NONE Social History - Living Situation Living arrangement: At home Living Situation: With spouse/s.o. Support System: Patient has 5 living children, son Owen from [place] present who does need to return today, son Guzman from [place] he will be here for the week, they have been playing [employer] to assist with help. His Sister Keila does live in [place], and can be of assistance, his mother is also still alive. Family History - Family History Family History: Mother: Alive and Well, Father: , CAD Medications/Allergies - Medications Active Medication List: Active Medications Acetaminophen (Tylenol) 650 mg PO Q4HR PRN PRN Reason: Pain 1 to 4 Last Admin: 03/07/19 16:15 Dose: 650 mg Albuterol () 2.5 mg INH RTQ4H PRN PRN Reason: Wheezing Carboxymethylcellulose (Refresh 1% Ophth Drops) 1 drops EACHEYE Q4HR PRN PRN Reason: Dry Eye Last Admin: 03/06/19 14:34 Dose: 1 drops Gabapentin (Neurontin) 100 mg PO DAILY CHIP Last Admin: 03/08/19 08:42 Dose: 100 mg Ibuprofen (Motrin) 400 mg PO Q6HR PRN PRN Reason: Fever >101 Lidocaine HCl (Xylocaine Uro-Jet 2%) 2.5 ml UR Q6H PRN PRN Reason: PAIN Last Admin: 03/06/19 17:19 Dose: 2.5 ml Lorazepam (Ativan) 0.5 mg PO Q6H PRN PRN Reason: Nausea / Vomiting Non-Formulary Medication (Melatonin [Melatonin]) 5 mg PO QPM PRN PRN Reason: SLEEP Ondansetron HCl (Zofran Inj) 4 mg IVP Q6HR PRN PRN Reason: Nausea / Vomiting Oxycodone HCl (Roxicodone) 10 mg PO Q4H PRN PRN Reason: PAIN Pantoprazole Sodium (Protonix) 40 mg PO QDAC [facility] Last Admin: 03/08/19 06:25 Dose: 40 mg Polyethylene Glycol (Miralax) 17 gm PO DAILY [facility] Last Admin: 03/08/19 08:42 Dose: Not Given Saccharomyces Boulardii (Florastor) 250 mg PO BIDWM [facility] Last Admin: 03/08/19 08:42 Dose: 250 mg Sodium Chloride (Normal Saline Flush 0.9%) 10 ml IVP PRN PRN PRN Reason: NEEDED PER PROVIDER ORDERS Sodium Chloride (Normal Saline Flush 0.9%) 10 ml IVP 0100,0900,1700 [facility] Last Admin: 03/08/19 04:52 Dose: 10 ml Travoprost (Travatan Z) 1 drops EACHEYE QPM [facility] Last Admin: 03/07/19 21:16 Dose: 1 drops Trimethoprim/Sulfamethoxazole (Bactrim Ds 800/160) 1 tab PO BID [facility] Last Admin: 03/08/19 10:26 Dose: 1 tab Gabapentin 100 mg PO DAILY 10/14/18 Omeprazole 20 mg PO QDAC 10/29/18 Loratadine/Pseudoephedrine [Claritin-D 24 Hour Tablet] 1 tab PO DAILY PRN Melatonin 5 mg PO QPM PRN 01/20/19 Hemp Oil 1,000 mg PO . DIRECTED PRN 03/06/19 Ondansetron [Ondansetron Odt] 4 mg PO Q4H PRN 03/06/19 Oxycodone HCl 10 mg PO Q4H PRN 03/06/19 Polyethylene Glycol 3350 [Miralax] 17 gm PO DAILY 03/06/19 Prednisone 5 mg PO [id number] 03/06/19 Prochlorperazine Maleate 10 mg PO Q6H PRN 03/06/19 Sulfamethoxazole/Trimethoprim [Sulfamethoxazole-Tmp Ds Tablet] 1 tab PO [id number] 03/06/19 Travoprost 0.004% Ophth Drops [Travatan Z] 1 drops EACHEYE QPM 03/06/19 dexAMETHasone [Dexamethasone] 8 mg PO Q3D 03/06/19 - Allergies Allergies/Adverse Reactions: Allergies Allergy/AdvReac Type Severity Reaction Status Date / Time No Known Drug Allergies Allergy Verified 03/05/19 14:33 Review of Systems - Constitutional Constitutional: reports: Fatigue, Fever, Chills, Poor appetite, Weight gain - Eyes Eyes: reports: Vision loss - Ears, Nose & Throat Ears, Nose & Throat: reports: Hearing loss (hears better on left), Dry mouth - Cardiovascular Cardiovascular: reports: Decr. exercise tolerance. denies: Chest pain - Respiratory Respiratory: reports: SOB with exertion. denies: SOB at rest - Gastrointestinal Gastrointestinal: reports: Early satiety - Genitourinary Genitourinary: reports: Incontinence - Musculoskeletal Musculoskeletal: reports: Back pain, Limited range of motion, Muscle weakness, Assistive devices (walker) - Integumentary Integumentary: reports: Dryness - Neurological Neurological: reports: General weakness, Memory problems - Psychiatric Psychiatric: reports: Depression - Hematologic/Lymphatic Hematologic/Lymphatic: reports: Anemia, Recurrent infections - All Other Systems All Other Systems: reports: Other (limited ROS) Physical Exam - Vital Signs Vital Signs: Vital Signs x48h Temp Pulse Resp BP Pulse Ox 03/08/19 11:26 37 C 79 18 127/74 99 03/08/19 08:09 37.2 C 86 16 111/63 98 - Physical Exam General Appearance: positive: No acute distress Eyes Bilateral: positive: Normal inspection Neck: positive: No JVD, Trachea midline Respiratory: positive: No respiratory distress Abdomen: positive: Soft, Distended Skin: positive: Dryness Extremities: positive: Pedal edema (trace) Neurologic/Psychiatric: positive: Oriented x3, Weakness, Depressed mood/affect, Flat affect Palliative Care - POLST Patient has POLST: No POLST Status: DNR Pain: Pain unchanged, Location (Patient reports with slight peripheral n europathy using gabapentin 100 mg twice daily, using OxyContin 15 mg extended release at bedtime, and oxycodone 10 mg in the a.m. and occasionally in the middle the day. He reports he gets "crabby" when he begins to get uncomfortable, is mostly with weightbearing, low-grade low back and muscle pain. He is not using the long-acting in the morning as he does not feel like he needs it at this point in time. But would like to get back on his regular schedule.) Tiredness/Fatigue: Severe (7-10) Drowsiness/Sedation: Moderate (4-6) Nausea: None Depression: Severe (7-10) Anxiety: Mild (1-3) Dyspnea: Moderate (4-6) Anorexia: Mild (1-3) Sleep: Variable sleep pattern Constipation: Intermittent constipation Feelings of wellbeing/Perceived Quality of Life: Poor, Worsening Performance Status: Patient though admits to functional decline, with less energy and more fatigue impacting his ability for activities of daily living. He has had a few falls, but has been functional up to this point, his fatigue is most prominent the week after his chemotherapy. With his acute hospitalization, and infection, he has deteriorated and has become more deconditioned. Patient's goal is to be able to ambulate independently, and improve his strength. is very fearful with patient not able to manage independently, he will not be able to be at home. She is quite frail would not be able to provide any personal assistance or help with transfers or if he had a fall. - Palliative Care Discussion: Family meeting included patient, his Helene, his son Owen from [place], and his son Guzman from [place] as well as his Sister Keila. His elderly mother was actually present, but was unable to hear the conversation. Patient does understand the seriousness of his illness, His treatment is palliative in nature. He was started on yet another line of treatment, chemotherapy in ry though the goal is palliative in nature, his metastatic prostate cancer is to the bones only and not any major organ. His last CT scan though in August did show some new peritoneal nodules and retroperitoneal lymph nodes as well. Patient is receiving a fairly toxic regimen, despite his age is done fairly well, but now is been hospitalized and presents with functional decline. Patient has expressed depressive feelings regarding his ongoing treatment, and wondering about the future and his decline. Counseling provided to the patient and family, they are to continuum of care is to explore at this point in time. The first was addressing her questions regarding hospice, the patient stopped treatment, he would qualify as he does have metastatic disease, and has failed multiple treatments so would meet hospice criteria. We discussed though this would mean no further treatment, focus on comfort, and not return to the hospital. Patient most likely with months, if were to stop treatment. He has actually had a decrease in his PSA, though is having high symptom burden related most likely to a combination of his therapy and his disease. Patient also has the option particularly if focus is on continuing treatment, to choose rehab, to improve his conditioning and functional status. He does understand given his difficulty currently, it would be difficult for them to manage without increased support in the home setting. He would then continue on treatment with palliative intent, and could be followed by palliative care for symptom management and advanced care planning and transition to hospice when appropriate. Patient and family given opportunity to ask multiple questions, patient actually decided he would like to move forward with rehab, with the focus to improve his functional status, and return to finish his last 2 treatments when he is stronger and infection resolved. Patient will need to be evaluated by physical therapy for the appropriateness of the SNF placement, also the option to consider support through home health or outpatient PT. Family expressed concern though on mobility for the patient and to manage independently at this point in time unless patient improved. Patient is a no code, does not have any advanced care planning documents, will address further at tomorrow's visit. Results - Lab Results Lab results reviewed: Yes Fish Bones: 03/08/19 05:24 03/08/19 05:24 Lab and Imaging Results: Lab Results x24hrs 03/08/19 03/08/19 03/08/19 Range/Units 05:24 05:24 05:24 WBC 5.1 (4.8-10.8) x10^3/uL RBC 2.98 L (4.70-6.10) 10^6/uL Hgb 9.4 L (14.0-18.0) g/dL Hct 29.0 L (42.0-52.0) % MCV 97.3 H (80.0-94.0) fL MCH 31.5 H (27.0-31.0) pg MCHC 32.4 (32.0-36.0) g/dL RDW 19.2 H (12.0-15.0) % Plt Count 204 (130-450) 10^3/uL MPV 9.2 (7.4-11.4) fL Neut # (Auto) Not Reportable Lymph # (Auto) Not Reportable [place] # (Auto) Not Reportable Eos # (Auto) Not Reportable Baso # (Auto) Not Reportable Absolute Nucleated RBC Not Reportable Total Counted 100 Band Neuts % (Manual) 0 (0 - 10) % Abnorm Lymph % (Manual) 0 % Nucleated RBC % Not Reportable Neutrophils # (Manual) 4.4 (1.5-6.6) 10^3/uL Lymphocytes # (Manual) 0.7 L (1.5-3.5) 10^3/uL Monocytes # (Manual) 0.0 (0.0-1.0) 10^3/uL Eosinophils # (Manual) 0.0 (0-0.7) 10^3/uL Basophils # (Manual) 0.0 (0-0.1) 10^3/uL Differential Comment MANUAL DIFFERENTIAL WBC Morphology NORMAL APPEARANCE (NORMAL) Platelet Estimate NORMAL (130-450,000) (NORMAL) Platelet Morphology NORMAL APPEARANCE (NORMAL) RBC Morph Micro Appear 1+ ANISOCYTOSIS (NORMAL) Sodium 135 (135-145) mmol/L Potassium 3.3 L (3.5-5.0) mmol/L Chloride 107 (101-111) mmol/L Carbon Dioxide 21 (21-32) mmol/L Anion Gap 7.0 (6-13) BUN 11 (6-20) mg/dL Creatinine 0.7 (0.6-1.2) mg/dL Estimated GFR (MDRD) 109 (>89) Glucose 95 (70-100) mg/dL Calcium 8.1 L (8.5-10.3) mg/dL Total Bilirubin 0.6 (0.2-1.0) mg/dL AST 67 H (10-42) IU/L ALT 29 (10-60) IU/L Alkaline Phosphatase 57 (42-121) IU/L Total Protein 5.2 L (6.7-8.2) g/dL Albumin 2.6 L (3.2-5.5) g/dL Globulin 2.6 (2.1-4.2) g/dL Albumin/Globulin Ratio 1.0 (1.0-2.2) Prostate Specific Ag 57.280 H (0.000-2.000) ng/mL Impression and Recommendations - Palliative Care Impression: This a 78-year-old gentleman who presents with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 Patient presents moderate symptom burden, of fatigue, depression, pain of neoplastic origin, and functional decline. Palliative care to provide support regarding pain and symptom management, advanced care planning, and anticipatory guidance for defining current goals of care related to discharge planning. Recommendations/Counseling Done: 1. Pain of neoplastic origin. Patient with bone mets, most likely exacerbated with fall. Patient at home regimen was gabapentin 100 mg twice daily, OxyContin 15 mg extended release at bedtime, and using oxycodone 10 mg in the day 1 to do dosing. Patient was satisfied with his current regimen. We will communicate this to the hospitalist for transition plan. Patient most likely also benefited from his prednisone 5 mg daily he was receiving in conjunction with his chemotherapeutic agent. Will need to be restarted on this as patient is choosing to move forward with treatment. 2. Fatigue this is most likely multifactorial in origin, including acute infection, dehydration, cumulative effects of chemotherapy as well as anemia. Patient has been less active, but most likely will benefit from further conditioning and support. Reviewed with family patient will need a physical therapy evaluation and recommendation from rehab therapy regarding SNF placement. 3. Metastatic prostate cancer. Patient is progressed through several lines of treatment, currently receiving chemotherapy Docetaxol and prednisone, last treatment 02/17, was due for treatment this week. Patient does understand treatment is palliative in nature, was received 10 total treatments. He has had improvement in his PSA. After weighing benefits and burdens of moving forward hospice versus continued treatment, Like to continue to focus on extending both quality and quantity of life. This is communicated to the [facility] for future planning. 4. Depression. Patient does present with depressive symptoms, most likely multifactorial in origin. Will explore in the future if patient may benefit from antidepressant support. 5. Advanced care planning. Counseling provided regarding the role of palliative care, palliative care versus hospice, family conference regarding patient's goals of care, but also the role of hospice in the future. Addressed questions and concerns, at this point in time patient to move forward with goal to continue palliative treatment and declines hospice at this time. Counseling provided regarding the role of SNF, Medicare, hiring a private care/senior care care and expect patients moving forward Thank you OPAL Gaytan for the palliative care consult service to be involved in care of your patient, I will follow-up tomorrow regarding advanced care documents, continue to establish rapport, and will follow up on outpatient referral for wound patient returns home. Time Spent: 60 minutes with greater than 50% of this done in counseling regarding palliative care versus hospice, pain and symptom management, anticipatory guidance, coordination of care with [facility]/hosptialist. Patient would like local care home related to 's health issues either [facility] or [facility] if possible.
[2019-03-08] MEDS: TRAVOPROST 0.004% OPHTH DROPS 2.5 ML EACHEYE SCH (21:20)
[2019-03-09] MEDS: ACETAMINOPHEN 325 MG TABLET PO PRN (05:02)
[2019-03-09 05:11] LABS: BASOPHILS % (AUTO) 0.5 %; HGB - HEMOGLOBIN 9.2 g/dL (14.0-18.0); LYMPHOCYTES % (AUTO) 2.8 %; MEAN CORPUSCULAR HEMOGLOBIN 30.7 pg (27.0-31.0); MEAN CORPUSCULAR HGB CONC 32.6 g/dL (32.0-36.0); MEAN PLATELET VOLUME 8.6 fL (7.4-11.4); NEUTROPHILS % (AUTO) 94.2 %; PLT - PLATELET COUNT 172 10^3/uL (130-450)
[2019-03-09 05:20] LABS: ABNORMAL LYMPHS % (MANUAL) 0 %
[2019-03-09 05:25] LABS: ALBUMIN 2.9 g/dL (3.2-5.5); ALBUMIN/GLOBULIN RATIO 1.2 (1.0-2.2); BILIRUBIN,TOTAL 0.7 mg/dL (0.2-1.0); CALCIUM 8.1 mg/dL (8.5-10.3); CREATININE 0.8 mg/dL (0.6-1.2); TOTAL PROTEIN 5.3 g/dL (6.7-8.2)
[2019-03-09 05:51] LABS: BAND NEUTROPHILS % (MANUAL) 1 %; BASOPHILS % (MANUAL) 1 %; LYMPHOCYTES # (MANUAL) 0.1 10^3/uL (1.5-3.5); LYMPHOCYTES % (MANUAL) 2 %; NEUTROPHILS # (MANUAL) 3.9 10^3/uL (1.5-6.6); NEUTROPHILS % (MANUAL) 96 %
[2019-03-09 05:52] LABS: RBC MORPHOLOGY (MULTIPLE) 1+ MICROCYTOSIS (NORMAL)
[2019-03-09 05:53] LABS: DIFFERENTIAL COMMENT MANUAL DIFFERENTIAL; PLATELET ESTIMATE, MANUAL NORMAL (130-450,000) (NORMAL); PLATELET MORPHOLOGY NORMAL APPEARANCE (NORMAL)
[2019-03-09] MEDS: PANTOPRAZOLE 40 MG TABLET PO SCH (06:35)
[2019-03-09] MEDS: SODIUM CHLORIDE 0.9% 1,000 ML IV SCH ×2 (08:55→18:56)
[2019-03-09] MEDS: CEFEPIME 2 GM in SODIUM CHLORIDE 0.9% MINIBAG 100 ML IV SCH ×2 (08:56→20:11)
[2019-03-09] MEDS: SACCHAROMYCES BOULARDII 250 MG CAPSULE PO SCH ×2 (08:57→16:10)
[2019-03-09] MEDS: POLYETHYLENE GLYCOL 3350 17 GM PACKET PO SCH (08:58)
[2019-03-09] MEDS ORDERED: VANCOMYCIN PER PHARMACY 1 GM in SODIUM CHLORIDE 0.9% 250 ML IV SCH (09:00)
[2019-03-09] MEDS: GABAPENTIN 100 MG CAPSULE PO SCH (09:09)
[2019-03-09] MEDS: SODIUM CHLORIDE FLUSH 0.9% 10 ML SYRINGE IVP SCH ×2 (09:10→16:10)
[2019-03-09] MEDS ORDERED: POTASSIUM CHLORIDE 20 MEQ TABLET PO ONE (09:10)
--- NOTE | 2019-03-09 12:26 | PROVIDER PROGRESS NOTE ---
Subjective - Prog Note Date Prog Note Date: 03/09/19 - Subjective Pt reports feeling: No change Subjective: pt report he had fever on last night, now he feels better. He denies chest pain, cough, shortness of breath. I called ID on MED CON. ID recommend continue Cefepime, not need Vancomycin per wound culture, pt may be given Kflex when pt is d/c. pt has wound with approximately 1 cm deep and 1.5X0.5 cm size wound at right chest. Wound is opened and still has white color drainage. The wound locate at approximately 4-5 cm inferior to the Port. Current Medications - Current Medications Current Medications: Active Medications Acetaminophen (Tylenol) 650 mg PO Q4HR PRN PRN Reason: Pain 1 to 4 Last Admin: 03/09/19 05:02 Dose: 650 mg Albuterol () 2.5 mg INH RTQ4H PRN PRN Reason: Wheezing Carboxymethylcellulose (Refresh 1% Ophth Drops) 1 drops EACHEYE Q4HR PRN PRN Reason: Dry Eye Last Admin: 03/06/19 14:34 Dose: 1 drops Gabapentin (Neurontin) 100 mg PO DAILY [facility] Last Admin: 03/09/19 09:09 Dose: 100 mg Cefepime HCl 2 gm/ Sodium (Chloride) 100 mls @ 200 mls/hr IV BID [facility] Last Infusion: 03/09/19 09:30 Dose: Infused Sodium Chloride (Normal Saline 0.9%) 1,000 mls @ 100 mls/hr IV .Q10H CHIP Stop: 03/10/19 04:59 Last Admin: 03/09/19 08:55 Dose: 100 mls/hr Ibuprofen (Motrin) 400 mg PO Q6HR PRN PRN Reason: Fever >101 Last Admin: 03/08/19 19:10 Dose: 400 mg Lidocaine HCl (Xylocaine Uro-Jet 2%) 2.5 ml UR Q6H PRN PRN Reason: PAIN Last Admin: 03/06/19 17:19 Dose: 2.5 ml Lorazepam (Ativan) 0.5 mg PO Q6H PRN PRN Reason: Nausea / Vomiting Non-Formulary Medication (Melatonin [Melatonin]) 5 mg PO QPM PRN PRN Reason: SLEEP Ondansetron HCl (Zofran Inj) 4 mg IVP Q6HR PRN PRN Reason: Nausea / Vomiting Oxycodone HCl (Roxicodone) 10 mg PO Q4H PRN PRN Reason: PAIN Pantoprazole Sodium (Protonix) 40 mg PO QDAC [facility] Last Admin: 03/09/19 06:35 Dose: 40 mg Polyethylene Glycol (Miralax) 17 gm PO DAILY [facility] Last Admin: 03/09/19 08:58 Dose: 17 gm Saccharomyces Boulardii (Florastor) 250 mg PO BIDWM [facility] Last Admin: 03/09/19 08:57 Dose: 250 mg Sodium Chloride (Normal Saline Flush 0.9%) 10 ml IVP PRN PRN PRN Reason: NEEDED PER PROVIDER ORDERS Sodium Chloride (Normal Saline Flush 0.9%) 10 ml IVP 0100,0900,1700 [facility] Last Admin: 03/09/19 09:10 Dose: 10 ml Travoprost (Travatan Z) 1 drops EACHEYE QPM [facility] Last Admin: 03/08/19 21:20 Dose: 1 drops Gabapentin 100 mg PO DAILY 10/14/18 Omeprazole 20 mg PO QDAC 10/29/18 Loratadine/Pseudoephedrine [Claritin-D 24 Hour Tablet] 1 tab PO DAILY PRN 01/20/19 Melatonin 5 mg PO QPM PRN 01/20/19 Hemp Oil 1,000 mg PO . DIRECTED PRN 03/06/19 Ondansetron [Ondansetron Odt] 4 mg PO Q4H PRN 03/06/19 Oxycodone HCl 10 mg PO Q4H PRN 03/06/19 Polyethylene Glycol 3350 [Miralax] 17 gm PO DAILY 03/06/19 Prednisone 5 mg PO QDX21D 03/06/19 Prochlorperazine Maleate 10 mg PO Q6H PRN 03/06/19 Sulfamethoxazole/Trimethoprim [Sulfamethoxazole-Tmp Ds Tablet] 1 tab PO BIDX7D 03/06/19 Travoprost 0.004% Ophth Drops [Travatan Z] 1 drops EACHEYE QPM 03/06/19 dexAMETHasone [Dexamethasone] 8 mg PO Q3D 03/06/19 Objective - Vital Signs/Intake & Output Reviewed Vital Signs: Yes Vital Signs: Vital Signs x48h Temp Pulse Resp BP BP Pulse Ox 03/09/19 08:44 38.0 C H 91 18 113/52 L 98 03/09/19 06:37 36.9 C 03/09/19 04:57 39.3 C H 90 20 130/66 95 Intake & Output: Intake & Output 03/06/19 03/07/19 03/08/19 03/09/19 23:59 23:59 23:59 23:59 Intake Total 3785.000 4028.667 1330 600 Output Total 725 2100 2050 225 Balance 3060.000 1928.667 720 375 - Objective General Appearance: positive: No acute distress, Alert. negative: Lethargic Eyes Bilateral: positive: Normal inspection, PERRL, No lid inflammation, Conjunctivae nml ENT: positive: ENT inspection nml, Pharynx nml, No signs of dehydration. negative: Purulent nasal drainage, Pharyngeal erythema, Oral lesions Neck: positive: Nml inspection, Thyroid nml, No JVD, Trachea midline. negative: Thyromegaly, Lymphadenopathy (R), Lymphadenopathy (L), Stiff neck, Swelling/bruising, Tracheal deviation Respiratory: positive: Chest non-tender, No respiratory distress, Breath sounds nml. negative: Wheezes, Rales, Rhonchi Cardiovascular: positive: Regular rate & rhythm, No murmur, No gallop. negative: Irregularly irregular, Extrasystoles, Tachycardia, Bradycardia, JVD present, Systolic murmur, Diastolic murmur Peripheral Pulses: 2+ Radial (R), 2+ Radial (L), 2+ Dorsalis pedis (R), 2+ Dorsalis pedis (L) Abdomen: positive: Non-tender, No organomegaly, Nml bowel sounds, No distention. negative: Tenderness, Guarding, Rebound Back: positive: Nml inspection. negative: CVA tenderness (R), CVA tenderness (L) Skin: positive: Color nml, No rash, Warm, Dry, Laceration (cm). negative: Cyano sis, Diaphoresis, Pallor Extremities: positive: Non-tender, Full ROM, Nml appearance. negative: Calf tenderness, Joint swelling, Raphael's sign/cords Neurologic/Psychiatric: positive: Oriented x3, Sensation nml, Mood/affect nml. negative: Weakness, Sensory loss, Facial droop, Slurred/abnml speech, Depressed mood/affect - Lab Results Fish Bones: 03/09/19 05:00 03/09/19 05:00 Other Labs: Lab Results x24hrs 03/09/19 03/09/19 03/09/19 Range/Units 08:56 05:00 05:00 WBC 4.0 L (4.8-10.8) x10^3/uL RBC 3.00 L (4.70-6.10) 10^6/uL Hgb 9.2 L (14.0-18.0) g/dL Hct 28.2 L (42.0-52.0) % MCV 94.0 (80.0-94.0) fL MCH 30.7 (27.0-31.0) pg MCHC 32.6 (32.0-36.0) g/dL RDW 19.0 H (12.0-15.0) % Plt Count 172 (130-450) 10^3/uL MPV 8.6 (7.4-11.4) fL Neut # (Auto) Not Reportable Lymph # (Auto) Not Reportable Mcmullen # (Auto) Not Reportable Eos # (Auto) Not Reportable Baso # (Auto) Not Reportable Absolute Nucleated RBC Not Reportable Total Counted 100 Band Neuts % (Manual) 1 (0 - 10) % Abnorm Lymph % (Manual) 0 % Nucleated RBC % Not Reportable Neutrophils # (Manual) 3.9 (1.5-6.6) 10^3/uL Lymphocytes # (Manual) 0.1 L (1.5-3.5) 10^3/uL Monocytes # (Manual) 0.0 (0.0-1.0) 10^3/uL Eosinophils # (Manual) 0.0 (0-0.7) 10^3/uL Basophils # (Manual) 0.0 (0-0.1) 10^3/uL Differential Comment MANUAL DIFFERENTIAL WBC Morphology NORMAL APPEARANCE (NORMAL) Platelet Estimate NORMAL (130-450,000) (NORMAL) Platelet Morphology NORMAL APPEARANCE (NORMAL) RBC Morph Micro Appear 1+ MICROCYTOSIS (NORMAL) Sodium 131 L (135-145) mmol/L Potassium 3.4 L (3.5-5.0) mmol/L Chloride 103 (101-111) mmol/L Carbon Dioxide 18 L (21-32) mmol/L Anion Gap 10.0 (6-13) BUN 11 (6-20) mg/dL Creatinine 0.8 (0.6-1.2) mg/dL Estimated GFR (MDRD) 94 (>89) Glucose 101 H (70-100) mg/dL Lactic Acid 2.0 (0.5-2.2) mmol/L Calcium 8.1 L (8.5-10.3) mg/dL Total Bilirubin 0.7 (0.2-1.0) mg/dL AST 53 H (10-42) IU/L ALT 28 (10-60) IU/L Alkaline Phosphatase 64 (42-121) IU/L Total Protein 5.3 L (6.7-8.2) g/dL Albumin 2.9 L (3.2-5.5) g/dL Globulin 2.4 (2.1-4.2) g/dL Albumin/Globulin Ratio 1.2 (1.0-2.2) ABX Reporting Has patient been on IV antibiotics over the past 48 hours?: Yes Sepsis Event Note (H) - Evaluation Current Stage of Sepsis: Resolved Possible source of Sepsis: positive: Skin/soft tissue - Sepsis Criteria Sepsis Criteria: Recorded Temperature greater than 38.3C or Less than 36C, Recorded Heart Rate greater than 90 bpm, Recorded Respiratory Rate greater than 20, Respiratory: Increasing oxygen requirements, WBC count greater than 12,000 or less than 4000, PHOTOVOLTAIC PANEL INSTALLER: altered consciousness (unrelated to primary neuro pathology), SBP less than 90 mmHg, Renal: urine output less than 0.5ml/kg/hr for 2 hours or creatinine gr, Metabolic: lactate > 2 mmol/L Assessment/Plan - Problem List (1) Sepsis Impression: (1) Sepsis Impression: pt had fever at 39.3 on last night, today morning her fever is down to 38 degree. blood culture, would culture, wound consult change PO Augmentin to IV of Cefepime, according to would culture study and ID recommendation consult with surgeon for the wound and if pt's port need to be removed, due to if co-infection with port vital monitor. pt's BP is normal now. IVF of NS at 100 cc for 2 bag (2) Chest wall abscess Impression: opened wound with white drainage consult with surgeon continue with Cefepime wound consult and wound culture (3) Fall Impression: Continue to treat illness, fall precautions. consult with PT/OT (4) Fever Impression: fever again at 39.3 degree on last night treated with underline wound infection and possible port infection, per surgeon' evaluation to determine if pull out the port. antibiotics continue with Cefepime IVF of NS (5) Generalized weakness Impression: Worsening weakness, leading to a fall PT to evaluate prior to discharge, anticipate discharge to SNF for rehab, proceed with palliative chemo, per palliative consulted (6) Prostate cancer Impression: followup pt's oncologist consult with palliative care, followup (7) Pulmonary embolism Impression: Patient had anti-coagulated in the past, but stopped after coughing up blood. Pt does not wish to re-start blood thinners Imaging on this admission shows stable, chronic PEs Continue to monitor for worsening SOB, or bleeding (8) Refusal of blood transfusions as patient is [place] Impression: Longstanding pentecostalism. recognize it is pt's rights and choice. Qualifiers: Sepsis type: sepsis due to unspecified organism Qualified Code(s): A41.9 - Sepsis, unspecified organism
[2019-03-09] MEDS: TRAVOPROST 0.004% OPHTH DROPS 2.5 ML EACHEYE SCH (20:11)
[2019-03-10] MEDS: SODIUM CHLORIDE FLUSH 0.9% 10 ML SYRINGE IVP SCH ×3 (03:32→21:40)
[2019-03-10 05:14] LABS: BASOPHILS % (AUTO) 0.9 %; EOSINOPHILS % (AUTO) 0.3 %; HGB - HEMOGLOBIN 8.3 g/dL (14.0-18.0); LYMPHOCYTES % (AUTO) 28.8 %; MEAN CORPUSCULAR HEMOGLOBIN 29.7 pg (27.0-31.0); MEAN CORPUSCULAR HGB CONC 31.3 g/dL (32.0-36.0); MEAN PLATELET VOLUME 8.5 fL (7.4-11.4); MONOCYTES % (AUTO) 8.3 %; NEUTROPHILS % (AUTO) 60.6 %; PLT - PLATELET COUNT 154 10^3/uL (130-450); RED BLOOD COUNT 2.79 10^6/uL (4.70-6.10); RED CELL DISTRIBUTION WIDTH 18.9 % (12.0-15.0); WHITE BLOOD COUNT 3.5 x10^3/uL (4.8-10.8)
[2019-03-10 05:15] LABS: ABNORMAL LYMPHS % (MANUAL) 0 %; BAND NEUTROPHILS % (MANUAL) 0 %
[2019-03-10 05:26] LABS: ALBUMIN 2.6 g/dL (3.2-5.5); ALBUMIN/GLOBULIN RATIO 1.2 (1.0-2.2); BILIRUBIN,TOTAL 0.7 mg/dL (0.2-1.0); CREATININE 0.7 mg/dL (0.6-1.2); TOTAL PROTEIN 4.8 g/dL (6.7-8.2)
[2019-03-10 06:03] LABS: LYMPHOCYTES % (MANUAL) 28 %; MONOCYTES # (MANUAL) 0.2 10^3/uL (0.0-1.0); NEUTROPHILS # (MANUAL) 2.3 10^3/uL (1.5-6.6); NEUTROPHILS % (MANUAL) 65 %
[2019-03-10 06:04] LABS: PLATELET ESTIMATE, MANUAL NORMAL (130-450,000) (NORMAL); PLATELET MORPHOLOGY NORMAL APPEARANCE (NORMAL); RBC MORPHOLOGY (MULTIPLE) 1+ ANISOCYTOSIS (NORMAL)
[2019-03-10] MEDS ORDERED: POTASSIUM CHLORIDE 20 MEQ TABLET PO ONE (06:11)
[2019-03-10] MEDS: PANTOPRAZOLE 40 MG TABLET PO SCH (06:47)
[2019-03-10] MEDS ORDERED: POTASSIUM CHLORIDE 20 MEQ TABLET PO SCH (07:21)
[2019-03-10] MEDS: POLYETHYLENE GLYCOL 3350 17 GM PACKET PO SCH (08:20)
[2019-03-10] MEDS: GABAPENTIN 100 MG CAPSULE PO SCH ×2 (08:21→22:03)
[2019-03-10] MEDS: SACCHAROMYCES BOULARDII 250 MG CAPSULE PO SCH ×2 (08:21→21:39)
[2019-03-10] MEDS: CEFEPIME 2 GM in SODIUM CHLORIDE 0.9% MINIBAG 100 ML IV SCH (08:21)
[2019-03-10] MEDS: POTASSIUM CHLOR 10 MEQ/100 ML 10 MEQ/100 ML BAG IV SCH ×3 (09:13→10:19)
[2019-03-10] MEDS ORDERED: PROCHLORPERAZINE 5 MG TABLET PO PRN (09:14)
[2019-03-10] MEDS ORDERED: FUROSEMIDE 20 MG TABLET PO ONE (10:00)
[2019-03-10] MEDS ORDERED: PSEUDOEPHEDRINE 30 MG TABLET PO PRN (10:08)
--- NOTE | 2019-03-10 11:56 | CONSULTATION NOTE ---
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 Please see HPI on for complete history. Patient has been acutely hospitalized for infection on his chest wall. He had been having decreased functional status, and altered mental status leading to acute hospitalization. He did spike a temp, but now is responding well to his antibiotics. There continues to be some question whether to be remove the Port-A-Cath or not, but does appear to be doing better. He is receiving wound care. In follow-up, patient has not been restarted on his regular medications. He reports he feels "crappy". He is unable to really be descriptive about his pain, though does admit to bilateral hip pain, increased discomfort with walking, and overall generalized feeling of distress. 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 He did not understand he needed to ask for his pain medication. We did discuss his current home medication regimen that has been working, and consulted with the hospitalist to restart as soon as possible. Patient feels like he would feel better as well as be able to participate better in activity if he had his oxycodone on board. Patient's goals include returning home, is hopeful with his pain medication on board he will be more participatory and able to be more independent. Patient is hoping for an extended quality of life as well as quantity of life, and is currently in active treatment for his metastatic prostate cancer with Docetaxol, but has been having cumulative effects of fatigue, functional decline, and depression. Social History - Living Situation Living arrangement: At home Living Situation: With spouse/s.o. Support System: Patient has a very supportive family, but they do live alone. His Helene is somewhat frail as well. Patient would need to be independent in his ADLs. Medications/Allergies - Medications Active Medication List: Active Medications Acetaminophen (Tylenol) 650 mg PO Q4HR PRN PRN Reason: Pain 1 to 4 Last Admin: 03/09/19 05:02 Dose: 650 mg Albuterol () 2.5 mg INH RTQ4H PRN PRN Reason: Wheezing Carboxymethylcellulose (Refresh 1% Ophth Drops) 1 drops EACHEYE Q4HR PRN PRN Reason: Dry Eye Last Admin: 03/06/19 14:34 Dose: 1 drops Gabapentin (Neurontin) 100 mg PO BID [facility] Cefepime HCl 2 gm/ Sodium (Chloride) 100 mls @ 200 mls/hr IV BID [facility] Last Infusion: 03/10/19 09:13 Dose: Infused Ibuprofen (Motrin) 400 mg PO Q6HR PRN PRN Reason: Fever >101 Last Admin: 03/08/19 19:10 Dose: 400 mg Lidocaine HCl (Xylocaine Uro-Jet 2%) 2.5 ml UR Q6H PRN PRN Reason: PAIN Last Admin: 03/06/19 17:19 Dose: 2.5 ml Loratadine (Claritin) 10 mg PO DAILY PRN PRN Reason: CONGESTION Lorazepam (Ativan) 0.5 mg PO Q6H PRN PRN Reason: Nausea / Vomiting Non-Formulary Medication (Melatonin [Melatonin]) 5 mg PO QPM PRN PRN Reason: SLEEP Ondansetron HCl (Zofran Inj) 4 mg IVP Q6HR PRN PRN Reason: Nausea / Vomiting Oxycodone HCl (Roxicodone) 10 mg PO Q4H PRN PRN Reason: PAIN Last Admin: 03/10/19 10:26 Dose: 10 mg Oxycodone HCl (Oxycontin) 10 mg PO DAILY [facility] Oxycodone HCl (Roxicodone) 10 mg PO BID [facility] Pantoprazole Sodium (Protonix) 40 mg PO QDAC [facility] Last Admin: 03/10/19 06:47 Dose: 40 mg Polyethylene Glycol (Miralax) 17 gm PO DAILY [facility] Last Admin: 03/10/19 08:20 Dose: 17 gm Prochlorperazine Maleate (Compazine) 10 mg PO Q6H PRN PRN Reason: NAUSEA/VOMITING Pseudoephedrine HCl (Sudafed) 30 mg PO DAILY PRN PRN Reason: CONGESTION Saccharomyces Boulardii (Florastor) 250 mg PO BIDWM [facility] Last Admin: 03/10/19 08:21 Dose: 250 mg Sodium Chloride (Normal Saline Flush 0.9%) 10 ml IVP PRN PRN PRN Reason: NEEDED PER PROVIDER ORDERS Sodium Chloride (Normal Saline Flush 0.9%) 10 ml IVP 0100,0900,1700 [facility] Last Admin: 03/10/19 08:21 Dose: 10 ml Travoprost (Travatan Z) 1 drops EACHEYE QPM [facility] Last Admin: 03/09/19 20:11 Dose: 1 drops Gabapentin 100 mg PO DAILY 10/14/18 Omeprazole 20 mg PO QDAC 10/29/18 Loratadine/Pseudoephedrine [Claritin-D 24 Hour Tablet] 1 tab PO DAILY PRN 01/20/19 Melatonin 5 mg PO QPM PRN 01/20/19 Hemp Oil 1,000 mg PO . DIRECTED PRN 03/06/19 Ondansetron [Ondansetron Odt] 4 mg PO Q4H PRN 03/06/19 Oxycodone HCl 10 mg PO Q4H PRN 03/06/19 Polyethylene Glycol 3350 [Miralax] 17 gm PO DAILY 03/06/19 Prednisone 5 mg PO QDX21D 03/06/19 Prochlorperazine Maleate 10 mg PO Q6H PRN 03/06/19 Sulfamethoxazole/Trimethoprim [Sulfamethoxazole-Tmp Ds Tablet] 1 tab PO BIDX7D 03/06/19 Travoprost 0.004% Ophth Drops [Travatan Z] 1 drops EACHEYE QPM 03/06/19 dexAMETHasone [Dexamethasone] 8 mg PO Q3D 03/06/19 - Allergies Allergies/Adverse Reactions: Allergies Allergy/AdvReac Type Severity Reaction Status Date / Time No Known Drug Allergies Allergy Verified 03/05/19 14:33 Review of Systems - Constitutional Constitutional: reports: Fatigue, Poor appetite (did do better today). denies: Fever, Chills - Eyes Eyes: reports: Vision loss - Ears, Nose & Throat Ears, Nose & Throat: reports: Hearing loss, Hearing aids - Cardiovascular Cardiovascular: reports: Exertional dyspnea, Decr. exercise tolerance. denies: Chest pain - Respiratory Respiratory: reports: SOB with exertion. denies: Cough, SOB at rest - Gastrointestinal Gastrointestinal: reports: Early satiety. denies: Constipation, Nausea - Genitourinary Genitourinary: reports: Incontinence - Musculoskeletal Musculoskeletal: reports: Back pain, Muscle aches, Stiffness, Muscle weakness, Assistive devices (uses walker) - Integumentary Integumentary: reports: Other (chest wall wound) - Neurological Neurological: reports: General weakness, Memory problems (mild as result of CVA), Abnormal gait - Psychiatric Psychiatric: reports: Depression (very tearful with conversation) - Hematologic/Lymphatic Hematologic/Lymphatic: reports: Anemia - All Other Systems All Other Systems: reports: Reviewed and negative Physical Exam - Vital Signs Vital Signs: Vital Signs x48h Temp Pulse Pulse Resp BP Pulse Ox 03/10/19 10:50 73 16 03/10/19 08:07 36.4 C L 69 20 111/63 95 - Physical Exam General Appearance: positive: Alert, Mild distress ("feeling crappy") Eyes Bilateral: positive: Normal inspection ENT: positive: No signs of dehydration Neck: positive: No JVD, Trachea midline Cardiovascular: positive: Regular rate & rhythm Respiratory: positive: No respiratory distress, Breath sounds nml, Diminished in bases. negative: Wheezes, Rales, Rhonchi Abdomen: positive: Soft Skin: positive: Wound (with dressing intact) Extremities: positive: Pedal edema (trace) Neurologic/Psychiatric: positive: Oriented x3, Weakness, Depressed mood/affect, Flat affect Palliative Care - POLST Patient has POLST: No POLST Status: DNR Pain: Pain worsening (see HPI) Tiredness/Fatigue: Severe (7-10) Drowsiness/Sedation: Mild (1-3) Nausea: None Depression: Severe (7-10) Anxiety: Mild (1-3) Dyspnea: Moderate (4-6) Anorexia: Moderate (4-6), Weight loss Sleep: Variable sleep pattern Constipation: No Performance Status: Patient continues to be weak, he has been transferring the chair. He has not felt well enough to participate in physical therapy. At baseline he is ambulatory, is no longer driving but has been able to manage his own ADLs. He is hopeful with prolonged hospitalization, to be able to return to the point of independence, but willing to continue to entertain SNF if needs a bridge before going home. Reviewed would need to participate with physical therapy, and they will make the final recommendations. - Palliative Care Discussion: Met with patient alone, he remains quite tearful. He reports he does have an advanced directive, he keeps it in his wallet tells what he does want or doesn't want. He does not believe it is a copy of the POLST. He is hopeful to be able to continue with treatment, though does express overwhelming distress over the cumulative effects of his chemotherapy. He is wondering if there is "anything else" after he completes this. At this point in time he has been responding, though has had severe side effects.His Helene has already been there today, he reports to have good relationship and quite supportive of each other. He is very thankful for his family. Currently he does have family visiting, he very much enjoys his grandchildren. 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 He reports he is still quite active, but is not allowed any visitors as he has felt fairly poorly. Agreed we would wait and speak further about different forms to strengthen his advanced directives when we are able to review what he currently has. Results - Lab Results Lab results reviewed: Yes Fish Bones: 03/10/19 04:55 03/10/19 04:55 Lab and Imaging Results: Lab Results x24hrs 03/10/19 03/10/19 Range/Units 04:55 04:55 WBC 3.5 L (4.8-10.8) x10^3/uL RBC 2.79 L (4.70-6.10) 10^6/uL Hgb 8.3 L (14.0-18.0) g/dL Hct 26.5 L (42.0-52.0) % MCV 95.0 H (80.0-94.0) fL MCH 29.7 (27.0-31.0) pg MCHC 31.3 L (32.0-36.0) g/dL RDW 18.9 H (12.0-15.0) % Plt Count 154 (130-450) 10^3/uL MPV 8.5 (7.4-11.4) fL Neut # (Auto) [employer] Lymph # (Auto) [employer]ER Stark # (Auto) [employer] Eos # (Auto) [employer] Baso # (Auto) [employer] Absolute Nucleated RBC [employer] Total Counted 100 Band Neuts % (Manual) 0 (0 - 10) % Abnorm Lymph % (Manual) 0 % Nucleated RBC % [employer] Neutrophils # (Manual) 2.3 (1.5-6.6) 10^3/uL Lymphocytes # (Manual) 1.0 L (1.5-3.5) 10^3/uL Monocytes # (Manual) 0.2 (0.0-1.0) 10^3/uL Eosinophils # (Manual) 0.0 (0-0.7) 10^3/uL Basophils # (Manual) 0.0 (0-0.1) 10^3/uL Platelet Estimate NORMAL (130-450,000) (NORMAL) Platelet Morphology NORMAL APPEARANCE (NORMAL) RBC Morph Micro Appear 1+ ANISOCYTOSIS (NORMAL) Sodium 135 (135-145) mmol/L Potassium 3.1 L (3.5-5.0) mmol/L Chloride 105 (101-111) mmol/L Carbon Dioxide 20 L (21-32) mmol/L Anion Gap 10.0 (6-13) BUN 8 (6-20) mg/dL Creatinine 0.7 (0.6-1.2) mg/dL Estimated GFR (MDRD) 109 (>89) Glucose 91 (70-100) mg/dL Calcium 8.0 L (8.5-10.3) mg/dL Total Bilirubin 0.7 (0.2-1.0) mg/dL AST 48 H (10-42) IU/L ALT 31 (10-60) IU/L Alkaline Phosphatase 57 (42-121) IU/L Total Protein 4.8 L (6.7-8.2) g/dL Albumin 2.6 L (3.2-5.5) g/dL Globulin 2.3 (2.1-4.2) g/dL Albumin/Globulin Ratio 1.2 (1.0-2.2) Impression and Recommendations - Palliative Care Impression: This is a 78-year-old gentleman who presents with 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 Patient has been receiving chemotherapy, with cumulative effects of fatigue, neutropenia, anemia, and some functional decline. Patient now acutely hospitalized with infection/sepsis which is resolving. Palliative care to provide support regarding pain and sympt om management, advanced care planning, and anticipatory guidance. Recommendations/Counseling Done: 1. Metastatic prostate cancer with bone mets. Follow-up with [facility] regarding patient's next treatment, patient would need to be recovered from his infection, off antibiotics, and the wound completely healed. Patient will go to SNF, would not need treatment or appointments until discharge. As patient would need to be stabilized medically. If patient is to go home, would recommend setting up appointment with [facility] as soon as possible, given the volume and need to reestabli sh with new oncologist. 2. Pain of neoplastic origin. Reviewed with hospitalist patient's previous pain care plan, reviewed with patient needing to ask for medications for breakthrough pain and will go ahead and schedule his previous dosing. Patient does feel he would be more able if he were more comfortable, and not feeling as poorly to participate in therapy. Patient may have also been experiencing some withdrawal symptoms off of his oxycodone. 3. Anorexia. Patient does report some increased appetite this morning, is trying to improve his intake, as he has had poor appetite, and presented on admit with dehydration. He is aware it is important to maximize his nutritional support, if patient's goals are to continue with treatment. 4. Depression. Patient is quite tearful, is feeling somewhat overwhelmed, and worried about future treatment and treatment options. Counseling provided regarding normalizing feelings of uncertainty, grief, and loss. Will explore further if patient interested in initiating treatment for depression, patient would benefit from mirtazapine 7.5 mg for both appetite and depression. 5. Advanced care planning. Patient at this point does not have any advanced care planning documents on file, he is can have his bring in what he has. He is a DO NOT RESUSCITATE, will follow up with patient and regarding solidifying documents to reflect patient's wishes at visit tomorrow. Time Spent: Time spent 30 minutes with greater than 50% of this done in counseling regarding pain and symptom management, goals of care, coordination of care with the [facility]/oncology and hospitalist and clinical staff
--- NOTE | 2019-03-10 12:05 | PROVIDER PROGRESS NOTE ---
Subjective - Subjective Pt reports feeling: Improved Subjective: pt report he has no more fever or chill, no cough, no chest pain. pt report he has "water pills" at home, he feel "fluid overload". He also report he has pain on his back. Josie Saunders recommend bone metastasis pain management for pt: Oxycodone ER 15 mg QHS, Oxycodone 10 mg bid, plus oxycodone PRN, and Gabapentin 100mg Bid. Current Medications - Current Medications Current Medications: Active Medications Acetaminophen (Tylenol) 650 mg PO Q4HR PRN PRN Reason: Pain 1 to 4 Last Admin: 03/09/19 05:02 Dose: 650 mg Albuterol () 2.5 mg INH RTQ4H PRN PRN Reason: Wheezing Carboxymethylcellulose (Refresh 1% Ophth Drops) 1 drops EACHEYE Q4HR PRN PRN Reason: Dry Eye Last Admin: 03/06/19 14:34 Dose: 1 drops Gabapentin (Neurontin) 100 mg PO BID CHIP Cefepime HCl 2 gm/ Sodium (Chloride) 100 mls @ 200 mls/hr IV BID CHIP Last Infusion: 03/10/19 09:13 Dose: Infused Ibuprofen (Motrin) 400 mg PO Q6HR PRN PRN Reason: Fever >101 Last Admin: 03/08/19 19:10 Dose: 400 mg Lidocaine HCl (Xylocaine Uro-Jet 2%) 2.5 ml UR Q6H PRN PRN Reason: PAIN Last Admin: 03/06/19 17:19 Dose: 2.5 ml Loratadine (Claritin) 10 mg PO DAILY PRN PRN Reason: CONGESTION Lorazepam (Ativan) 0.5 mg PO Q6H PRN PRN Reason: Nausea / Vomiting Non-Formulary Medication (Melatonin [Melatonin]) 5 mg PO QPM PRN PRN Reason: SLEEP Ondansetron HCl (Zofran Inj) 4 mg IVP Q6HR PRN PRN Reason: Nausea / Vomiting Oxycodone HCl (Roxicodone) 10 mg PO Q4H PRN PRN Reason: PAIN Last Admin: 03/10/19 10:26 Dose: 10 mg Oxycodone HCl (Oxycontin) 10 mg PO DAILY CHIP Oxycodone HCl (Roxicodone) 10 mg PO BID CHIP Pantoprazole Sodium (Protonix) 40 mg PO QDAC [facility] Last Admin: 03/10/19 06:47 Dose: 40 mg Polyethylene Glycol (Miralax) 17 gm PO DAILY [facility] Last Admin: 03/10/19 08:20 Dose: 17 gm Prochlorperazine Maleate (Compazine) 10 mg PO Q6H PRN PRN Reason: NAUSEA/VOMITING Pseudoephedrine HCl (Sudafed) 30 mg PO DAILY PRN PRN Reason: CONGESTION Saccharomyces Boulardii (Florastor) 250 mg PO BIDWM [facility] Last Admin: 03/10/19 08:21 Dose: 250 mg Sodium Chloride (Normal Saline Flush 0.9%) 10 ml IVP PRN PRN PRN Reason: NEEDED PER PROVIDER ORDERS Sodium Chloride (Normal Saline Flush 0.9%) 10 ml IVP 0100,0900,1700 [facility] Last Admin: 03/10/19 08:21 Dose: 10 ml Travoprost (Travatan Z) 1 drops EACHEYE QPM [facility] Last Admin: 03/09/19 20:11 Dose: 1 drops Gabapentin 100 mg PO DAILY 10/14/18 Omeprazole 20 mg PO QDAC 10/29/18 Loratadine/Pseudoephedrine [Claritin-D 24 Hour Tablet] 1 tab PO DAILY PRN 01/20/19 Melatonin 5 mg PO QPM PRN 01/20/19 Hemp Oil 1,000 mg PO . DIRECTED PRN 03/06/19 Ondansetron [Ondansetron Odt] 4 mg PO Q4H PRN 03/06/19 Oxycodone HCl 10 mg PO Q4H PRN 03/06/19 Polyethylene Glycol 3350 [Miralax] 17 gm PO DAILY 03/06/19 Prednisone 5 mg PO QDX21D 03/06/19 Prochlorperazine Maleate 10 mg PO Q6H PRN 03/06/19 Sulfamethoxazole/Trimethoprim [Sulfamethoxazole-Tmp Ds Tablet] 1 tab PO BIDX7D 03/06/19 Travoprost 0.004% Ophth Drops [Travatan Z] 1 drops EACHEYE QPM 03/06/19 dexAMETHasone [Dexamethasone] 8 mg PO Q3D 03/06/19 Objective - Vital Signs/Intake & Output Reviewed Vital Signs: Yes Vital Signs: Vital Signs x48h Temp Pulse Pulse Resp BP Pulse Ox 03/10/19 11:56 36.8 C 77 22 127/71 99 03/10/19 10:50 73 16 03/10/19 08:07 36.4 C L 69 20 111/63 95 Intake & Output: Intake & Output 03/07/19 03/08/19 03/09/19 03/10/19 23:59 23:59 23:59 23:59 Intake Total 4028.667 1330 2070 1756 Output Total 2100 2049 625 Balance 1928.667 -720 1445 1756 - Objective General Appearance: positive: No acute distress, Alert. negative: Lethargic Eyes Bilateral: positive: Normal inspection, PERRL, No lid inflammation, Conjunctivae nml ENT: positive: ENT inspection nml, Pharynx nml, No signs of dehydration. negative: Purulent nasal drainage, Pharyngeal erythema, Oral lesions Neck: positive: Nml inspection, Thyroid nml, No JVD, Trachea midline. negative: Thyromegaly, Lymphadenopathy (R), Lymphadenopathy (L), Stiff neck, Swelling/bruising, Tracheal deviation Respiratory: positive: Chest non-tender, No respiratory distress, Breath sounds nml. negative: Wheezes, Rales, Rhonchi Cardiovascular: positive: Regular rate & rhythm, No murmur, No gallop. negative: Irregularly irregular, Extrasystoles, Tachycardia, Bradycardia, JVD present, Systolic murmur, Diastolic murmur Peripheral Pulses: 2+ Radial (R), 2+ Radial (L), 2+ Dorsalis pedis (R), 2+ Dorsalis pedis (L) Abdomen: positive: Non-tender, No organomegaly, Nml bowel sounds, No distention. negative: Tenderness, Guarding, Rebound Back: positive: Nml inspection. negative: CVA tenderness (R), CVA tenderness (L) Skin: positive: Color nml, No rash, Warm, Dry. negative: Cyanosis, Diaphoresis, Pallor Extremities: positive: Non-tender, Nml appearance. negative: Calf tenderness, Joint swelling, Raphael's sign/cords Neurologic/Psychiatric: positive: Oriented x3, Sensation nml, Mood/affect nml. negative: Weakness, Sensory loss, Facial droop, Slurred/abnml speech, Depressed mood/affect - Lab Results Fish Bones: 03/10/19 04:55 03/10/19 04:55 Other Labs: Lab Results x24hrs 03/10/19 03/10/19 Range/Units 04:55 04:55 WBC 3.5 L (4.8-10.8) x10^3/uL RBC 2.79 L (4.70-6.10) 10^6/uL Hgb 8.3 L (14.0-18.0) g/dL Hct 26.5 L (42.0-52.0) % MCV 95.0 H (80.0-94.0) fL MCH 29.7 (27.0-31.0) pg MCHC 31.3 L (32.0-36.0) g/dL RDW 18.9 H (12.0-15.0) % Plt Count 154 (130-450) 10^3/uL MPV 8.5 (7.4-11.4) fL Neut # (Auto) MORGUE TECHNICIAN Lymph # (Auto) MORGUE TECHNICIAN [place] # (Auto) MORGUE TECHNICIAN Eos # (Auto) MORGUE TECHNICIAN Baso # (Auto) MORGUE TECHNICIAN Absolute Nucleated RBC MORGUE TECHNICIAN Total Counted 100 Band Neuts % (Manual) 0 (0 - 10) % Abnorm Lymph % (Manual) 0 % Nucleated RBC % MORGUE TECHNICIAN Neutrophils # (Manual) 2.3 (1.5-6.6) 10^3/uL Lymphocytes # (Manual) 1.0 L (1.5-3.5) 10^3/uL Monocytes # (Manual) 0.2 (0.0-1.0) 10^3/uL Eosinophils # (Manual) 0.0 (0-0.7) 10^3/uL Basophils # (Manual) 0.0 (0-0.1) 10^3/uL Platelet Estimate NORMAL (130-450,000) (NORMAL) Platelet Morphology NORMAL APPEARANCE (NORMAL) RBC Morph Micro Appear 1+ ANISOCYTOSIS (NORMAL) Sodium 135 (135-145) mmol/L Potassium 3.1 L (3.5-5.0) mmol/L Chloride 105 (101-111) mmol/L Carbon Dioxide 20 L (21-32) mmol/L Anion Gap 10.0 (6-13) BUN 8 (6-20) mg/dL Creatinine 0.7 (0.6-1.2) mg/dL Estimated GFR (MDRD) 109 (>89) Glucose 91 (70-100) mg/dL Calcium 8.0 L (8.5-10.3) mg/dL Total Bilirubin 0.7 (0.2-1.0) mg/dL AST 48 H (10-42) IU/L ALT 31 (10-60) IU/L Alkaline Phosphatase 57 (42-121) IU/L Total Protein 4.8 L (6.7-8.2) g/dL Albumin 2.6 L (3.2-5.5) g/dL Globulin 2.3 (2.1-4.2) g/dL Albumin/Globulin Ratio 1.2 (1.0-2.2) ABX Reporting Has patient been on IV antibiotics over the past 48 hours?: Yes Sepsis Event Note (H) - Evaluation Current Stage of Sepsis: Resolved Possible source of Sepsis: positive: Skin/soft tissue - Sepsis Criteria Sepsis Criteria: Recorded Temperature greater than 38.3C or Less than 36C, Recorded Heart Rate greater than 90 bpm, Recorded Respiratory Rate greater than 20, Respiratory: Increasing oxygen requirements, WBC count greater than 12,000 or less than 4000, SOCCER REFEREE: altered consciousness (unrelated to primary neuro pathology), SBP less than 90 mmHg, Renal: urine output less than 0.5ml/kg/hr for 2 hours or creatinine gr, Metabolic: lactate > 2 mmol/L Assessment/Plan - Problem List (1) Sepsis Impression: 03/10, pt has no fever or chill on last night. Wound provider also saw pt and did dress change for pt. wound culture and blood culture are pending. continue antibiotics dress change per wound provider pt had fever at 39.3 on last night, today morning her fever is down to 38 degree. blood culture, would culture, wound consult change PO Augmentin to IV of Cefepime, according to would culture study and ID recommendation consult with surgeon for the wound and if pt's port need to be removed, due to if co-infection with port vital monitor. pt's BP is normal now. IVF of NS at 100 cc for 2 bag (2) Chest wall abscess Impression: 03/10 opened wound, status post of I/D drainage continue antibiotics. Dr. Hernandez already was consulted for chest wall abscess. he assess "at this point time the abscess appears to be separate from the Port-A-Cath." continue pain control opened wound with white drainage consult with surgeon continue with Cefepime wound consult and wound culture (3) Fall Impression: Continue to treat illness, fall precautions. consult with PT/OT (4) Fever Impression: 03/10 resolved now fever again at 39.3 degree on last night treated with underline wound infection and possible port infection, per surgeon' evaluation to determine if pull out the port. antibiotics continue with Cefepime IVF of NS (5) Generalized weakness Impression: pt was recommended by PT to SNF. after his infection is controlled, plan to be SNF Worsening weakness, leading to a fall PT to evaluate prior to discharge, anticipate discharge to SNF for rehab, proceed with palliative chemo, per palliative consulted (6) Prostate cancer Impression: followup pt's oncologist consult with palliative care, followup (7) Pulmonary embolism Impression: Patient had anti-coagulated in the past, but stopped after coughing up blood. Pt does not wish to re-start blood thinners Imaging on this admission shows stable, chronic PEs Continue to monitor for worsening SOB, or bleeding (8) Refusal of blood transfusions as patient is Buddhism Impression: Longstanding oriental orthodox. recognize it is pt's rights and choice. (9) pain from bone metastasis followup palliative care management, pain control as above management plan Oxycodone ER 15 mg QHS, Oxycodone 10 mg bid, plus oxycodone PRN, and Gabapentin 100mg Bid. Qualifiers: Sepsis type: sepsis due to unspecified organism Qualified Code(s): A41.9 - Sepsis, unspecified organism
[2019-03-10] MEDS: oxyCODONE 5 MG TABLET PO SCH ×2 (13:59→21:07)
[2019-03-10] MEDS ORDERED: oxyCODONE ER 10 MG TABLET PO SCH (21:00)
[2019-03-10] MEDS: TRAVOPROST 0.004% OPHTH DROPS 2.5 ML EACHEYE SCH (21:45)
[2019-03-10] MEDS: CIPROFLOXACIN 250 MG TABLET PO SCH (22:06)
[2019-03-11] MEDS: SODIUM CHLORIDE FLUSH 0.9% 10 ML SYRINGE IVP SCH ×2 (02:28→08:22)
[2019-03-11 05:11] LABS: ALBUMIN 2.6 g/dL (3.2-5.5); BILIRUBIN,TOTAL 0.4 mg/dL (0.2-1.0); CALCIUM 8.5 mg/dL (8.5-10.3); CREATININE 0.7 mg/dL (0.6-1.2); TOTAL PROTEIN 5.1 g/dL (6.7-8.2)
[2019-03-11 05:12] LABS: EOSINOPHILS % (AUTO) 1.5 %; HGB - HEMOGLOBIN 8.9 g/dL (14.0-18.0); LYMPHOCYTES % (AUTO) 53.2 %; MEAN CORPUSCULAR HEMOGLOBIN 31.4 pg (27.0-31.0); MEAN CORPUSCULAR HGB CONC 32.6 g/dL (32.0-36.0); MEAN CORPUSCULAR VOLUME 96.5 fL (80.0-94.0); MEAN PLATELET VOLUME 9.4 fL (7.4-11.4); MONOCYTES % (AUTO) 7.6 %; PLT - PLATELET COUNT 175 10^3/uL (130-450); RED BLOOD COUNT 2.83 10^6/uL (4.70-6.10); WHITE BLOOD COUNT 6.1 x10^3/uL (4.8-10.8)
[2019-03-11 05:18] LABS: ABNORMAL LYMPHS % (MANUAL) 0 %; BAND NEUTROPHILS % (MANUAL) 0 %
[2019-03-11] MEDS: PANTOPRAZOLE 40 MG TABLET PO SCH (05:53)
[2019-03-11 06:15] LABS: BASOPHILS # (MANUAL) 0.1 10^3/uL (0-0.1); BASOPHILS % (MANUAL) 1 %; DIFFERENTIAL COMMENT MANUAL DIFFERENTIAL; LYMPHOCYTES % (MANUAL) 66 %; MONOCYTES # (MANUAL) 0.1 10^3/uL (0.0-1.0); NEUTROPHILS % (MANUAL) 32 %; PLATELET ESTIMATE, MANUAL NORMAL (130-450,000) (NORMAL); RBC MORPHOLOGY (MULTIPLE) NORMAL APPEARANCE (NORMAL)
[2019-03-11 07:23] VITALS: BP 125/50
[2019-03-11] MEDS ORDERED: POTASSIUM CHLORIDE 20 MEQ TABLET PO ONE (07:45)
[2019-03-11] MEDS: GABAPENTIN 100 MG CAPSULE PO SCH (08:21)
[2019-03-11] MEDS: oxyCODONE 5 MG TABLET PO SCH (08:21)
[2019-03-11] MEDS: CIPROFLOXACIN 250 MG TABLET PO SCH (08:21)
[2019-03-11] MEDS: SACCHAROMYCES BOULARDII 250 MG CAPSULE PO SCH (08:21)
[2019-03-11] MEDS: POLYETHYLENE GLYCOL 3350 17 GM PACKET PO SCH (08:22)
[2019-03-11] MEDS ORDERED: LORATADINE 10 MG TABLET PO PRN (09:00)
--- NOTE | 2019-03-11 13:08 | Discharge Plan ---
Discharge Plan Problem Reviewed?: Yes Disposition: Home, Self Care Condition: Poor Prescriptions: Saccharomyces Boulardii [Florastor] 250 mg PO DAILY #7 capsule Diet: Regular Activity Restrictions: Activity as Tolerated Shower Restrictions: No (fall precaution) Instruction Topics: Cephalexin tablets or capsules, Sulfamethoxazole Trimethoprim SMX-TMP tablets Health Concerns: wound infection Plan of Treatment: continue home antibiotics prescribed by your surgeon, followup your surgeon in one week to check your wound Care Goals: control your infection and healing of your wound Assessment: as above wound infection Additional Instructions or Follow Up instructions: you may followup your PCP, your surgeon in one week to check your wound, and followup [facility] for wound care, followup your oncologist as your schedule. you decline to have IV of antibiotics, should your symptoms return or worsen, you may present ER or call 911 or your PCP for help. Follow-Up Care: Outpatient Rehab - PT, [facility] - Wound/Ostomy No Smoking: If you smoke, Please STOP! Call for help. Follow-up with: Greg Keating MD [Primary Care Provider] -
--- NOTE | 2019-03-11 13:17 | DISCHARGE SUMMARY ---
Discharge Summary Discharge Date: 03/11/19 Discharging Provider: TAM Primary Care Provider: Greg Keating Condition at Discharge: Poor Discharge Disposition: 01 Home, Self Care Discharge Facility Name: home - DIAGNOSES Admission Diagnoses: (1) Sepsis (2) Staphylococcus aureus infection (3) Chest wall abscess (4) Fall (5) Fever (6) Generalized weakness (7) Pulmonary embolism (8) Prostate cancer (9) Refusal of blood transfusions as patient is Islam Discharge Diagnoses with Status of Each Condition: (1) Sepsis resolved. pt had fever, elevated WBC, tachycardia, and transient hypotension in admission. pt has been treated with antibiotics. after treated, pt has no more fever, WBC is normal, tachycardia was resolved, BP became normative. pt became strong. SNF d/c is cancelled. pt had antibiotics prescribed by surgeon. ID was consulted. pt is advised he continue to use antibiotics prescribed by surgeon. (2) Chest wall abscess pt had I/D done by surgeon before pt was admitted. Chest wall begin healing. New wound culture is no growth of bacterial. pt is advised to followup surgeon and [facility] for wound care (3) Fall great improved. PT recommend pt go home with out-pt PT (4) Fever resolved. blood culture is negative for bacterial (5) Generalized weakness great improved. PT recommend pt go home with out-pt PT (6) Prostate cancer followup pt's oncologist consult with palliative care, followup (7) Pulmonary embolism Impression: Patient had anti-coagulated in the past, but stopped after coughing up blood. Pt does not wish to re-start blood thinners Imaging on this admission shows stable, chronic PEs Continue to monitor for worsening SOB, or bleeding (8) Refusal of blood transfusions as patient is Islam Impression: Longstanding uatsdin. recognize it is pt's rights and choice. (9) pain from bone metastasis followup palliative care management, pain control (10) advance palliative care pt has palliative consult. followup palliative care provider - [facility] History of Present Illness: refer from Ms. Jackson's HPI on 03/06/19 Genaro Shahid is a 78-year old Jehovah Witness, male with a past medical history of hypertension, hyperlipidemia, low extremity edema, hearing loss, castration- resistant metastatic prostate cancer, TURBT and resection of bladder tumors, hematuria, urinary incontinence, anemia, low back pain, asthma, CVA with slight right sided weakness, osteoarthritis, osteonecrosis of the jaw, aortic valve calcification, 4.5 cm ascending aortic aneurysm, gallstones, diverticulosis, multiple blastic bone lesions, retro-peritoneal lymphadenopathy, status post chemo/radiation treatments, anxiety, and depression. The patient had been up and about, in his typical state of health over the last several days up until yesterday when he was having some redness pain/swelling on the right chest wall. He was seen in the ED for an incision and drainage of a cutaneous abscess. It was located near the site of his chemotherapy IV port on the chest wall. Surgery, Dr. Hernandez, was consulted, who felt it was not at the port itself, performed an I & D, and started on Keflex/Bactrim. The patient's son, Owen, states the patient became generally weaker last night. He also noted more confusion with more difficulty with standing or walking on his own. The patient had the feeling of some fevers with chills this morning at home but denied vomiting, diarrhea, chest pain, hallucinations, syncope, a new rash or shortness of breath. He attempted to get out of bed this morning, and fell on the floor next to the bed, and suffered an abrasion to his left knee, and on the back of the head. He denies any headaches. Upon arrival to the ED, he is tachycardic, with rates in the 120's, increased respiratory rate at 36, initially afebrile, but after arriving to the nursing floor had a temp of 39.1 C and became hypotensive with a blood pressure of 98/54. Labs show an elevated WBC count of 12.1, macrocytic anemia with an H/H of 11.0/34.5, MCV of 98.9, neut # of 11.3, electrolytes show an elevated anion gap of 14.0, GFR 65, glucose 158, normal troponin of 0.04, low protein of 6.5, an elevated lactic acid of 3.6, magnesium of 1.9, with no other lab abnormalities. He has been admitted for inpatient treatment of IV antibiotics, symptom management. I will alert the [facility] [place] on Friday of his hospital stay. - HOSPITAL COURSE Hospital Course: pt was admitted for fever and weakness after he had I/D done by surgeon for his chest wall infection. pt was found to have elevated WBC, tachycardia, and transient hypotension in admission. pt has been treated with antibiotics. after treated with two day IV of antibiotics, then pt was changed to PO antibiotics. However pt developed fever again. ID was consulted. after treated, followup ID instruction, pt has no more fever, WBC is normal, tachycardia was resolved, BP became normative. pt became strong. SNF d/c is cancelled. pt had antibiotics prescribed by surgeon. ID was consulted. pt is advised he continue to use antibiotics prescribed by surgeon. pt was advised by surgeon to followup him after discharge. Wound care consulted for pt and dressing change for pt as well. pt is also advised to followup [facility]. pt declined to have IV of antibiotics from yesterday and requested to be d/c to home today - ALLERGIES Allergies/Adverse Reactions: Allergies Allergy/AdvReac Type Severity Reaction Status Date / Time No Known Drug Allergies Allergy Verified 03/05/19 14:33 - MEDICATIONS Home Medications: Ambulatory Orders Medication Instructions Recorded Confirmed LORazepam [Lorazepam] 0.5 mg PO Q6H PRN #30 tablet 09/21/18 03/06/19 Gabapentin 100 mg PO DAILY 10/14/18 03/06/19 Omeprazole 20 mg PO QDAC 10/29/18 03/06/19 Loratadine/Pseudoephedrine 1 tab PO DAILY PRN 01/20/19 03/06/19 [Claritin-D 24 Hour Tablet] Melatonin 5 mg PO QPM PRN 01/20/19 03/06/19 Cephalexin [Keflex] 500 mg PO Q6H #28 capsule 03/05/19 03/06/19 Hemp Oil 1,000 mg PO . DIRECTED PRN 03/06/19 03/07/19 Ondansetron [Ondansetron Odt] 4 mg PO Q4H PRN 03/06/19 03/06/19 Oxycodone HCl 10 mg PO Q4H PRN 03/06/19 03/06/19 Polyethylene Glycol 3350 [Miralax] 17 gm PO DAILY 03/06/19 03/06/19 Prednisone 5 mg PO QDX21D 03/06/19 03/06/19 Prochlorperazine Maleate 10 mg PO Q6H PRN 03/06/19 03/06/19 Sulfamethoxazole/Trimethoprim 1 tab PO BIDX7D 03/06/19 03/06/19 [Sulfamethoxazole-Tmp Ds Tablet] Travoprost 0.004% Ophth Drops 1 drops EACHEYE QPM 03/06/19 03/06/19 [Travatan Z] dexAMETHasone [Dexamethasone] 8 mg PO Q3D 03/06/19 03/06/19 Saccharomyces Boulardii [Florastor] 250 mg PO DAILY #7 capsule 03/11/19 - PHYSICAL EXAM AT DISCHARGE General Appearance: positive: No acute distress, Alert. negative: Lethargic Eyes Bilateral: positive: Normal inspection, PERRL, No lid inflammation, Conjunctivae nml ENT: positive: ENT inspection nml, Pharynx nml, No signs of dehydration. negative: Purulent nasal drainage, Pharyngeal erythema, Oral lesions Neck: positive: Nml inspection, Thyroid nml, No JVD, Trachea midline. negative: Thyromegaly, Lymphadenopathy (R), Lymphadenopathy (L), Stiff neck, Swellin g/bruising, Tracheal deviation Respiratory: positive: Chest non-tender, No respiratory distress, Breath sounds nml. negative: Wheezes, Rales, Rhonchi Cardiovascular: positive: Regular rate & rhythm, No murmur, No gallop. negative: Irregularly irregular, Extrasystoles, Tachycardia, Bradycardia, JVD present, Systolic murmur, Diastolic murmur Peripheral Pulses: positive: 2+ Abdomen: positive: Non-tender, No organomegaly, Nml bowel sounds, No distention. negative: Tenderness, Guarding, Rebound Back: positive: Nml inspection. negative: CVA tenderness (R), CVA tenderness (L) Skin: positive: No rash, Warm, Dry, Laceration (cm) (wound left at right chest wall is healing process). negative: Cyanosis, Diaphoresis, Pallor Extremities: positive: Non-tender, Full ROM, Nml appearance. negative: Calf tenderness, Raphael's sign/cords Neurologic/Psychiatric: positive: Oriented x3, Motor nml, Sensation nml, Mood/affect nml. negative: Weakness, Sensory loss, Facial droop, Slurred/abnml speech, Depressed mood/affect - LABS Result Diagrams: 03/11/19 04:25 03/11/19 04:25 - SEPSIS Current Stage of Sepsis: Resolved Possible source of Sepsis: Skin/soft tissue Sepsis Criteria: Recorded Temperature greater than 38.3C or Less than 36C, Recorded Heart Rate greater than 90 bpm, Recorded Respiratory Rate greater than 20, Respiratory: Increasing oxygen requirements, WBC count greater than 12,000 or less than 4000, TRAVOGRAPH OPERATOR: altered consciousness (unrelated to primary neuro pathology), SBP less than 90 mmHg, Renal: urine output less than 0.5ml/kg/hr for 2 hours or creatinine gr, Metabolic: lactate > 2 mmol/L - FOLLOW UP Follow Up: you may followup your PCP, your surgeon in one week to check your wound, and followup [facility] for wound care, followup your oncologist as your schedule. you decline to have IV of antibiotics, should your symptoms return or worsen, you may present ER or call 911 or your PCP for help. - TIME SPENT Time Spent in Discharge (Minutes): 55
--- NOTE | 2019-03-11 17:44 | CONSULTATION NOTE ---
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 Please see HPI on for complete history. Patient is continued to improve from his acute infection of his right mid clavicular chest wound, secondary to an abscess. He has been afebrile, is doing much better on his regular pain medications, does show significant improvement in his functional status as well as cognitive status. He reports his pain is well controlled, his appetite is improved, and he is looking forward to going home. We had agreed to meet today, to finish his advanced care documents, unfortunately his Helene is not available. But we are meeting with his 2 sons and [id number]. Social History - Living Situation Living arrangement: At home Living Situation: With spouse/s.o. Support System: His spouse who is quite frail as well. They have been shifts have children coming in taking time out, to provide support. Guzman will be leaving tomorrow, and his brother just arrived from [place]. He is quite pleased that he is feeling well enough to be able to return home, he will have support from family. He also has a large community from his druze. He will be following up with the [facility] for wound care, and oncology with the understanding he will not be appropriate for chemotherapy until his chest wound is healed. Medications/Allergies - Medications Active Medication List: Gabapentin 100 mg PO DAILY 10/14/18 Omeprazole 20 mg PO QDAC 10/29/18 Loratadine/Pseudoephedrine [Claritin-D 24 Hour Tablet] 1 tab PO DAILY PRN 01/20/19 Melatonin 5 mg PO QPM PRN 01/20/19 Hemp Oil 1,000 mg PO . DIRECTED PRN 03/06/19 Ondansetron [Ondansetron Odt] 4 mg PO Q4H PRN 03/06/19 Oxycodone HCl 10 mg PO Q4H PRN 03/06/19 Polyethylene Glycol 3350 [Miralax] 17 gm PO DAILY 03/06/19 Prednisone 5 mg PO QDX21D 03/06/19 Prochlorperazine Maleate 10 mg PO Q6H PRN 03/06/19 Sulfamethoxazole/Trimethoprim [Sulfamethoxazole-Tmp Ds Tablet] 1 tab PO BIDX7D 03/06/19 Travoprost 0.004% Ophth Drops [Travatan Z] 1 drops EACHEYE QPM 03/06/19 dexAMETHasone [Dexamethasone] 8 mg PO Q3D 03/06/19 - Allergies Allergies/Adverse Reactions: Allergies Allergy/AdvReac Type Severity Reaction Status Date / Time No Known Drug Allergies Allergy Verified 03/05/19 14:33 Review of Systems - Constitutional Constitutional: reports: Fatigue. denies: Fever, Chills - Eyes Eyes: reports: Vision loss, Corrective lenses - Ears, Nose & Throat Ears, Nose & Throat: reports: Hearing loss, Hearing aids - Cardiovascular Cardiovascular: reports: Decr. exercise tolerance - Respiratory Respiratory: reports: SOB with exertion. denies: SOB at rest - Gastrointestinal Gastrointestinal: reports: Early satiety (appetite improved). denies: Co nstipation, Nausea - Genitourinary Genitourinary: reports: Incontinence - Musculoskeletal Musculoskeletal: reports: Stiffness, Muscle weakness, Assistive devices (has walker at home; doing well with ambulation) - Integumentary Integumentary: reports: Dryness, Other (wound right chest wall) - Neurological Neurological: reports: General weakness, Memory problems (much improved) - Psychiatric Psychiatric: reports: Depression (remains tearful but mood improved), Anxiety (regarding future) - Hematologic/Lymphatic Hematologic/Lymphatic: reports: Anemia, Recurrent infections - All Other Systems All Other Systems: reports: Reviewed and negative Physical Exam - Physical Exam General Appearance: positive: Alert Eyes Bilateral: positive: Normal inspection ENT: positive: No signs of dehydration Neck: positive: No JVD, Trachea midline Cardiovascular: positive: Regular rate & rhythm Respiratory: positive: No respiratory distress Abdomen: positive: Soft Skin: positive: Pallor, Dryness Extremities: positive: No pedal edema Neurologic/Psychiatric: positive: Oriented x3, Mood/affect nml, Weakness, Flat affect Palliative Care - POLST Patient has POLST: Yes POLST Status: DNR, Selective Treatment (completed at visit) Pain: Pain improved, Location (Patient currently on scheduled oxycodone 10 mg a.m. and afternoon, and OxyContin 15 g extended release at bedtime. He reports he is feeling much better, more easily engaged, able to ambulate with less distress. His pain is mostly through his pelvic area, lower back, and some overall discomfort which currently is controlled. He reports he does have prescriptions at home, does not need any opioid prescriptions for discharge.) Tiredness/Fatigue: Moderate (4-6) Drowsiness/Sedation: None Nausea: None Depression: Mild (1-3) Anxiety: Mild (1-3) Dyspnea: Moderate (4-6) Anorexia: Mild (1-3) Sleep: Sleep improved Constipation: No Feelings of wellbeing/Perceived Quality of Life: Fair, Improved Performance Status: Patient has been ambulating down the halls with the nurses, as well as working with physical therapy. He does feel like he is actually improved from his baseline, will not need SNF. Main concern was for him to be able to toilet and take care of his own ADLs, as his is quite frail. He will have support from family and transition. And he will be getting home health physical therapy. - Palliative Care Discussion: Patient did bring his advanced care planning document. It was actually form from his [employer]. Which did review and particularly about his D[employer]. This identifies his Helene Shahid [phone] and his alternative healthcare agent as Owen Shahid [phone]. It also reviews that he does not want blood transfusions, except plasma proteins, immunoglobulin and albumin, and hemodilution and filtering of his blood only. He does not want to have his life prolonged if there is a certain degree of situation is hopeless. We did discuss in the context of translating his goals on a POLST. Given patient's fragile status, this would serve as communication to the healthcare system. Reviewed his goals which are to focus on quality of life, spending time with family, he is currently wanting to treat reversible conditions, but at end of life he does want to be at home. He s elected DNA R/allow natural and selective treatment. He would accept antibiotics at this point in time, and as far as medical nutrition he would report depends on the situation he does not want his suffering prolonged and no heroics. This was translated into a POLST, questions were solicited from family, patient feels quite confident that this is reflective of his goals and signed. Given POLST form as well as copies, with instruction to post on refrigerator and carry a copy in his wallet with his other D THEA. He does feel like Helene is in agreement with this, as they have had discussions before, but will make myself available to body in the future if there is any questions. Results - Lab Results Lab results reviewed: Yes Fish Bones: 03/11/19 04:25 03/11/19 04:25 Lab and Imaging Results: Lab Results x24hrs 03/11/19 03/11/19 Range/Units 04:25 04:25 WBC 6.1 (4.8-10.8) x10^3/uL RBC 2.83 L (4.70-6.10) 10^6/uL Hgb 8.9 L (14.0-18.0) g/dL Hct 27.3 L (42.0-52.0) % MCV 96.5 H (80.0-94.0) fL MCH 31.4 H (27.0-31.0) pg MCHC 32.6 (32.0-36.0) g/dL RDW 19.0 H (12.0-15.0) % Plt Count 175 (130-450) 10^3/uL MPV 9.4 (7.4-11.4) fL Neut # (Auto) Not Reportable Lymph # (Auto) Not Reportable [place] # (Auto) Not Reportable Eos # (Auto) Not Reportable Baso # (Auto) Not Reportable Absolute Nucleated RBC Not Reportable Total Counted 100 Band Neuts % (Manual) 0 (0 - 10) % Abnorm Lymph % (Manual) 0 % Nucleated RBC % Not Reportable Neutrophils # (Manual) 2.0 (1.5-6.6) 10^3/uL Lymphocytes # (Manual) 4.0 H (1.5-3.5) 10^3/uL Monocytes # (Manual) 0.1 (0.0-1.0) 10^3/uL Eosinophils # (Manual) 0.0 (0-0.7) 10^3/uL Basophils # (Manual) 0.1 (0-0.1) 10^3/uL Differential Comment MANUAL DIFFERENTIAL Platelet Estimate NORMAL (130-450,000) (NORMAL) RBC Morph Micro Appear NORMAL APPEARANCE (NORMAL) Sodium 139 (135-145) mmol/L Potassium 3.2 L (3.5-5.0) mmol/L Chloride 104 (101-111) mmol/L Carbon Dioxide 23 (21-32) mmol/L Anion Gap 12.0 (6-13) BUN 8 (6-20) mg/dL Creatinine 0.7 (0.6-1.2) mg/dL Estimated GFR (MDRD) 109 (>89) Glucose 96 (70-100) mg/dL Calcium 8.5 (8.5-10.3) mg/dL Total Bilirubin 0.4 (0.2-1.0) mg/dL AST 42 (10-42) IU/L ALT 32 (10-60) IU/L Alkaline Phosphatase 57 (42-121) IU/L Total Protein 5.1 L (6.7-8.2) g/dL Albumin 2.6 L (3.2-5.5) g/dL Globulin 2.5 (2.1-4.2) g/dL Albumin/Globulin Ratio 1.0 (1.0-2.2) Impression and Recommendations - Palliative Care Impression: This is a 78-year-old gentleman who presents with 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 He is currently been receiving chemotherapy, now experiencing cumulative effects of fatigue, neutropenia, anemia, and some functional decline. He is now acutely hospitalized with infection/sepsis which is resolving. Patient's pain is currently controlled on his current regimen, he does have improvement in his functional status, he is looking forward to transitioning home. Palliative care will continue to follow him on outpatient basis for pain and symptom management and anticipatory guidance. Recommendations/Counseling Done: 1. Pain of neoplastic origin. Patient pain is currently controlled on his home regimen, patient does report he has adequate prescriptions at home. Does not feel like this needs to be titrated this point in time his current regimen is oxycodone 10 mg twice daily scheduled, as well as use for breakthrough pain. And OxyContin 50 mg extended release at bedtime. Gabapentin 100 mg twice daily for mild symptoms of peripheral neuropathy. 2. Metastatic prostate cancer with bone mets. Contact oncology clinic, for follow-up appointment. Patient will not be able to receive treatment until his wound is healed and infection resolved. We will go ahead and get him scheduled, as he is quite anxious to know his next steps. 3. Advanced care planning. Patient completed POLST, lengthy discussion with he and his family regarding his goals of care. Patient would like to continue with palliative care, do have outpatient referral already, will follow him on outpatient basis for pain and symptom management and anticipatory guidance. Time Spent: 45 minutes with greater than 50% of this done in counseling regarding advanced care planning, goals of care, pain management, and coordination of care with hospitalist and hospitalist team.
== END 2019-03-11 14:06 | disposition home or self-care (01) | DRG 872 ==
LOC: EDUNIT# → ED 07:10 → MS2 10:36
PROVIDERS: ADMIT Nurse Practitioner; ATTEND Nurse Practitioner Gerontology
DX: A41.9 Sepsis, unspecified organism (principal); A41.01 Sepsis due to Methicillin susceptible Staphylococcus aureus; L02.213 Cutaneous abscess of chest wall; I27.82 Chronic pulmonary embolism; C79.51 Secondary malignant neoplasm of bone; I69.951 Hemiplegia and hemiparesis following unspecified cerebrovascular disease affecting right dominant side; E87.2 Acidosis; M87.88 Other osteonecrosis, other site; E78.00 Pure hypercholesterolemia, unspecified; C61 Malignant neoplasm of prostate; G89.3 Neoplasm related pain (acute) (chronic); S00.01XA Abrasion of scalp, initial encounter; G89.29 Other chronic pain; M54.9 Dorsalgia, unspecified; S80.212A Abrasion, left knee, initial encounter; W06.XXXA Fall from bed, initial encounter; Y92.003 Bedroom of unspecified non-institutional (private) residence as the place of occurrence of the external cause; I11.9 Hypertensive heart disease without heart failure; F03.90 Unspecified dementia, unspecified severity, without behavioral disturbance, psychotic disturbance, mood disturbance, and anxiety; F41.9 Anxiety disorder, unspecified; F32.9 Major depressive disorder, single episode, unspecified; M19.90 Unspecified osteoarthritis, unspecified site; M54.5 Low back pain; E78.5 Hyperlipidemia, unspecified; I69.928 Other speech and language deficits following unspecified cerebrovascular disease; R60.0 Localized edema; N40.1 Benign prostatic hyperplasia with lower urinary tract symptoms; R35.1 Nocturia; R32 Unspecified urinary incontinence; R30.0 Dysuria; D53.9 Nutritional anemia, unspecified; J45.909 Unspecified asthma, uncomplicated; J32.9 Chronic sinusitis, unspecified; I35.0 Nonrheumatic aortic (valve) stenosis; R26.89 Other abnormalities of gait and mobility; I71.9 Aortic aneurysm of unspecified site, without rupture; R53.83 Other fatigue; R63.0 Anorexia; Z68.27 Body mass index [BMI] 27.0-27.9, adult; K80.80 Other cholelithiasis without obstruction; K57.90 Diverticulosis of intestine, part unspecified, without perforation or abscess without bleeding; K21.9 Gastro-esophageal reflux disease without esophagitis; R59.0 Localized enlarged lymph nodes; Z51.5 Encounter for palliative care; H54.7 Unspecified visual loss; H91.90 Unspecified hearing loss, unspecified ear; Z53.1 Procedure and treatment not carried out because of patient's decision for reasons of belief and group pressure; Z66 Do not resuscitate; Z79.891 Long term (current) use of opiate analgesic; Z79.52 Long term (current) use of systemic steroids; Z92.3 Personal history of irradiation; Z90.79 Acquired absence of other genital organ(s); Z92.21 Personal history of antineoplastic chemotherapy; Z87.440 Personal history of urinary (tract) infections; Z87.891 Personal history of nicotine dependence; Z85.51 Personal history of malignant neoplasm of bladder
CPT/HCPCS: 36415; 70450; 71045; 71260; 74177; 80053; 81001; 83605; 83690; 83735; 84153; 84443; 84484; 85025; 85610; 86140; 87040; 93005; 93306; 96365; 96367; 97161; 97530; 99222; 99232; 99284; 99285; A9270; J0131; J3370; Q9967; 80202; 87070; 87086; 87205; 99233

== ENCOUNTER 2019-03-13 03:49 | Outpatient (CLI) | payer MEDICARE, OTHER | END 2019-03-13 03:50 | disposition critical access hospital (66) | LOC: EMS 03:49 | PROVIDERS: ATTEND Surgery | DX: R53.1 Weakness (principal) | CPT/HCPCS: A0425; A0429 ==

== ENCOUNTER 2019-03-13 03:56 | Inpatient (IN) | payer MEDICARE, OTHER ==
--- NOTE | 2019-03-13 04:03 | ED Physician Documentation ---
History of Present Illness - Stated complaint Stated Complaint: WEAKNESS - Chief complaint Chief Complaint: Neuro - History obtained from History obtained from: Family - History of Present Illness Timing: Prior to arrival - Additonal information Additional information: This is a 78-year-old man who is unable to provide me any historyOther than he is "weak". So his provides the history that he was just discharged 2 days ago he been admitted because he had an infection in the site of his chemotherapy port but they said that the port itself was not infected. He was weak at the time he was discharged but he refused rehab he went home refuses to use his walker and then this morning she heard him fall at 3 AM in his room. They called 911 at that point. Apparently he gets very confused and agitated at home but if he takes OxyContin then those symptoms resolve. To the 's knowledge she has not had a fever, passed out, been vomiting. He has been urinating. He has a port because he has prostate cancer and receives chemotherapy. 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 He also was diagnosed with a pulmonary embolus but is not anticoagulated for unknown reasons. The family does not know what antibiotics he was prescribed. Patient does have a DNR request with limited resuscitation. 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 : Other, Incontinence, Chronic bladder infection, Nocturia, Other HEENT: None, Chronic sinusitis, Chronic hearing loss Psych: Anxiety, Anxiety Musculoskeletal: Osteoarthritis, Chronic back pain, Other (bone mets from prostate) Derm: None - Past Surgical History Past Surgical History: Yes General: Other (portacath) Ortho: Arthroscopic surgery, Spine surgery Cardiovascular: Other HEENT: Cataracts - Present Medications Home Medications: Ambulatory Orders Medication Instructions Recorded Confirmed LORazepam [Lorazepam] 0.5 mg PO Q6H PRN #30 tablet 09/21/18 03/06/19 Gabapentin 100 mg PO DAILY 10/14/18 03/06/19 Omeprazole 20 mg PO QDAC 10/29/18 03/06/19 Loratadine/Pseudoephedrine 1 tab PO DAILY PRN 01/20/19 03/06/19 [Claritin-D 24 Hour Tablet] Melatonin 5 mg PO QPM PRN 01/20/19 03/06/19 Cephalexin [Keflex] 500 mg PO Q6H #28 capsule 03/05/19 03/06/19 Hemp Oil 1,000 mg PO . DIRECTED PRN 03/06/19 03/07/19 Ondansetron [Ondansetron Odt] 4 mg PO Q4H PRN 03/06/19 03/06/19 Oxycodone HCl 10 mg PO Q4H PRN 03/06/19 03/06/19 Polyethylene Glycol 3350 [Miralax] 17 gm PO DAILY 03/06/19 03/06/19 Prednisone 5 mg PO QDX21D 03/06/19 03/06/19 Prochlorperazine Maleate 10 mg PO Q6H PRN 03/06/19 03/06/19 Sulfamethoxazole/Trimethoprim 1 tab PO BIDX7D 03/06/19 03/06/19 [Sulfamethoxazole-Tmp Ds Tablet] Travoprost 0.004% Ophth Drops 1 drops EACHEYE QPM 03/06/19 03/06/19 [Travatan Z] dexAMETHasone [Dexamethasone] 8 mg PO Q3D 03/06/19 03/06/19 Saccharomyces Boulardii [Florastor] 250 mg PO DAILY #7 capsule 03/11/19 - Allergies Allergies/Adverse Reactions: Allergies Allergy/AdvReac Type Severity Reaction Status Date / Time No Known Drug Allergies Allergy Verified 03/13/19 05:29 - Social History Does the pt smoke?: No Smoking Status: Never smoker Does the pt drink ETOH?: Yes Does the pt have substance abuse?: No - Immunizations Immunizations are current?: Yes - POLST Patient has POLST: Yes POLST Status: DNR PD ED PE NORMAL - Vitals Vital signs reviewed: Yes - General General: Other (Patient is sleepy.) - HEENT HEENT: PERRL, Other (There is an abrasion on the upper lip. His left maxillary lateral incisor is a little loose but he denies pain. His teeth do not appear to be chipped. There is an abrasion on the top of his posterior aspect of his head that his says was from when he fell before his prior admission.) - Neck Neck: No adenopathy - Cardiac Cardiac: No murmur, Other (Mild tachycardia) - Respiratory Respiratory: No respiratory distress, Clear bilaterally - Abdomen Abdomen: Normal bowel sounds, Soft, Non tender - Derm Derm: Other (There is a bandage over his port site in the right subclavian region. I pulled it down and he has a open wound that has gauze packing in it apparently left to heal by secondary intention. There is no surrounding erythema.) - Extremities Extremities: Other (There is bilateral pretibial edema 1+) - Neuro Neuro: Other (There are no gross neurological deficits he did pull himself up to a seated position so I could listen to his lungs although he clearly was not happy about having to do that.) Results - Vitals Vitals: Vital Signs - 24 hr 03/13/19 03/13/19 03/13/19 03:56 04:05 04:56 Temperature 39.4 C H Heart Rate 106 H 104 H 102 H Respiratory 27 H 28 H Rate Blood Pressure 122/77 119/74 O2 Saturation 96 92 95 03/13/19 03/13/19 05:00 05:41 Temperature Heart Rate 91 85 Respiratory 21 25 H Rate Blood Pressure 118/66 106/62 O2 Saturation 95 91 L Oxygen O2 Source Room air - Labs Labs: Laboratory Tests 03/13/19 03/13/19 03/13/19 04:45 05:00 05:00 WBC 10.1 RBC 3.09 L Hgb 9.3 L Hct 29.4 L MCV 95.1 H MCH 30.1 MCHC 31.6 L RDW 19.4 H Plt Count 258 MPV 9.3 Neut # (Auto) 8.5 H Lymph # (Auto) 0.7 L [place] # (Auto) 0.8 Eos # (Auto) 0.0 Baso # (Auto) 0.1 Absolute Nucleated RBC 0.00 Nucleated RBC % 0.0 PT 15.1 H INR 1.3 H APTT 27.4 Sodium Potassium Chloride Carbon Dioxide Anion Gap BUN Creatinine Estimated GFR (MDRD) Glucose Lactic Acid Calcium Total Bilirubin AST ALT Alkaline Phosphatase Total Protein Albumin Globulin Albumin/Globulin Ratio Lipase Urine Color YELLOW Urine Clarity CLEAR Urine pH 5.5 Ur Specific Dag[place] >=1.030 H Urine Protein NEGATIVE Urine Glucose (UA) NEGATIVE Urine Ketones NEGATIVE Urine Occult Blood NEGATIVE Urine Nitrite NEGATIVE Urine Bilirubin NEGATIVE Urine Urobilinogen 0.2 (NORMAL) Ur Leukocyte Esterase NEGATIVE Ur Microscopic Review NOT INDICATED Urine Culture Comments NOT INDICATED 03/13/19 03/13/19 05:00 05:00 WBC RBC Hgb Hct MCV MCH MCHC RDW Plt Count MPV Neut # (Auto) Lymph # (Auto) [place] # (Auto) Eos # (Auto) Baso # (Auto) Absolute Nucleated RBC Nucleated RBC % PT INR APTT Sodium 132 L Potassium 3.7 Chloride 98 L Carbon Dioxide 22 Anion Gap 12.0 BUN 8 Creatinine 0.9 Estimated GFR (MDRD) 82 L Glucose 125 H Lactic Acid 1.7 Calcium 8.2 L Total Bilirubin 0.8 AST 34 ALT 33 Alkaline Phosphatase 62 Total Protein 5.7 L Albumin 2.9 L Globulin 2.8 Albumin/Globulin Ratio 1.0 Lipase 25 Urine Color Urine Clarity Urine pH Ur Specific [place] Urine Protein Urine Glucose (UA) Urine Ketones Urine Occult Blood Urine Nitrite Urine Bilirubin Urine Urobilinogen Ur Leukocyte Esterase Ur Microscopic Review Urine Culture Comments PD MEDICAL DECISION MAKING - ED course Complexity details: reviewed old records, reviewed results, re-evaluated patient, d/w patient, d/w family ED course: Patient had fever has an indwelling port. Has a chest wall abscess but there does not appear to be cellulitis associated with it.Hemoglobin is mildly low at 9.3 Is normal at 10.1. Electrolytes are essentially normal. Initial lactic was normal. Chest x-ray does not show an infiltrate. Patient was given Tylenol and I went ahead and medicated with Zosyn and Vanco IV On initial presentation because of my concern for sepsis. Have discussed with the hospitalist and the patient will be admitted. Departure - Departure Disposition: 66 [facility] DC/Xfer Clinical Impression: Generalized weakness, Chest wall abscess Fever Qualifiers: Fever type: unspecified Qualified Code(s): R50.9 - Fever, unspecified Fall Qualifiers: Encounter type: initial encounter Qualified Code(s): W19.XXXA - Unspecified fall, initial encounter Condition: Good
[2019-03-13] MEDS ORDERED: PIPERACILLIN/TAZOBACTAM 3.375 GM in SODIUM CHLORIDE 0.9% MINIBAG 100 ML IV STA (04:29)
[2019-03-13] MEDS ORDERED: VANCOMYCIN INJ 1 GM in SODIUM CHLORIDE 0.9% 500 ML IV STA (04:29)
[2019-03-13] MEDS ORDERED: ACETAMINOPHEN 325 MG TABLET PO STA (04:30)
--- NOTE | 2019-03-13 04:43 | XRAY Report ---
Reason: Wheezing Procedure Date: 03/13/2019 Accession Number: [id number] / [id number] Procedure: XR - Chest 1 View X-Ray CPT Code: 85280 FULL RESULT: EXAM: CHEST RADIOGRAPHY EXAM DATE: 03/13/2019 04:34 AM. CLINICAL HISTORY: Wheezing. Fever and weakness. Fell. COMPARISON: CHEST 1 VIEW 03/06/2019 7:54 AM. TECHNIQUE: 1 view. FINDINGS: Lungs/Pleura: Mild bilateral atelectasis or infiltrate. Minimal if any pleural fluid. Bronchial wall thickening. No pneumothorax. Mediastinum: Within exam limitations, heart is mildly enlarged. Other: Right side a PowerPort with the tip at the cavoatrial junction. IMPRESSION: 1. Mild cardiomegaly with mild bibasilar atelectasis or infiltrate. 2. Bronchial wall thickening. This can be seen with bronchitis or reactive airways disease. RADIA
[2019-03-13 05:05] LABS: BASOPHILS # (AUTO) 0.1 10^3/uL (0.0-0.1); BASOPHILS % (AUTO) 0.5 %; EOSINOPHILS % (AUTO) 0.1 %; HGB - HEMOGLOBIN 9.3 g/dL (14.0-18.0); LYMPHOCYTES # (AUTO) 0.7 10^3/uL (1.5-3.5); LYMPHOCYTES % (AUTO) 7.2 %; MEAN CORPUSCULAR HEMOGLOBIN 30.1 pg (27.0-31.0); MEAN CORPUSCULAR HGB CONC 31.6 g/dL (32.0-36.0); MEAN CORPUSCULAR VOLUME 95.1 fL (80.0-94.0); MEAN PLATELET VOLUME 9.3 fL (7.4-11.4); MONOCYTES # (AUTO) 0.8 10^3/uL (0.0-1.0); MONOCYTES % (AUTO) 7.8 %; NEUTROPHILS # (AUTO) 8.5 10^3/uL (1.5-6.6); PLT - PLATELET COUNT 258 10^3/uL (130-450); RED BLOOD COUNT 3.09 10^6/uL (4.70-6.10); RED CELL DISTRIBUTION WIDTH 19.4 % (12.0-15.0); WHITE BLOOD COUNT 10.1 x10^3/uL (4.8-10.8)
[2019-03-13 05:05] LABS: BILIRUBIN,URINE NEGATIVE (NEGATIVE); GLUCOSE, URINE (UA) NEGATIVE (NEGATIVE); KETONES,URINE (UA) NEGATIVE (NEGATIVE); LEUKOCYTE ESTERASE, URINE NEGATIVE (NEGATIVE); NITRITE,URINE NEGATIVE (NEGATIVE); OCCULT BLOOD,URINE NEGATIVE (NEGATIVE); PH,URINE 5.5 PH (5.0-7.5); PROTEIN,URINE NEGATIVE (NEGATIVE); UROBILINOGEN,URINE 0.2 (NORMAL) E.U./dL (NORMAL)
[2019-03-13 05:07] LABS: CLARITY,URINE CLEAR (CLEAR)
[2019-03-13 05:15] LABS: INR 1.3 (0.8-1.2); PT - PROTHROMBIN TIME 15.1 secs (9.9-12.6)
[2019-03-13 05:17] LABS: ALBUMIN 2.9 g/dL (3.2-5.5); BILIRUBIN,TOTAL 0.8 mg/dL (0.2-1.0); CALCIUM 8.2 mg/dL (8.5-10.3); CREATININE 0.9 mg/dL (0.6-1.2); TOTAL PROTEIN 5.7 g/dL (6.7-8.2)
[2019-03-13 05:22] LABS: PARTIAL THROMBOPLASTIN TIME 27.4 secs (24.9-33.3)
[2019-03-13] MEDS ORDERED: ACETAMINOPHEN 325 MG TABLET PO PRN (06:15)
--- NOTE | 2019-03-13 06:27 | HISTORY & PHYSICAL EXAMINATION ---
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 Most of the history is obtained from the spouse as the patient is lethargic and answering questions with short answers. He keeps repeating "I am weak and that is why I fell." He was just discharged about two days ago after being admitted for a chest wall abscess that was drained. He was discharged on Keflex after receiving IV antibiotics during the hospitalization. His spouse tells me that he did not want to go to a SNF although she is concerned about him being at home. Last night he went to sleep early and then attempted to get out of bed early this morning to go to the bathroom when he fell. He recalls falling and that he scraped his mouth. He denies chest pain, palpitations, syncope, fevers, headache, blurry vision. Both he and his spouse report decreased oral intake over the last two days. The spouse tells me that he also prefers not to ambulate with a walker when he is at home and attempts to get around by himself. In the emergency department, he was found to febrile, tachycardic, and tachypnic. Initial labs showed mild leukocytosis and hyponatremia. His urinalysis and chest x-ray were relatively unremarkable. 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: None : reports: Incontinence, Chronic bladder infection, Nocturia, Other (Prostate cancer with mets to the bone) HEENT: reports: None, Chronic hearing loss Psych: reports: Anxiety, Anxiety Musculoskeletal: reports: Osteoarthritis, Chronic back pain, Other (bone mets from prostate) Derm: reports: None MRSA Hx?: No - Past Surgical History General: reports: Other (portacath) Ortho: reports: Arthroscopic surgery, Spine surgery /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 Currently resides at home here on [facility] with his spouse. - Substance History Use: Uses substance without health or social issues: NONE - POLST Patient has POLST: Yes POLST Status: DNR Meds/Allgy - Home Medications Home Medications: Ambulatory Orders Medication Instructions Recorded Confirmed LORazepam [Lorazepam] 0.5 mg PO Q6H PRN #30 tablet 09/21/18 03/06/19 Gabapentin 100 mg PO DAILY 10/14/18 03/06/19 Omeprazole 20 mg PO QDAC 10/29/18 03/06/19 Loratadine/Pseudoephedrine 1 tab PO DAILY PRN 01/20/19 03/06/19 [Claritin-D 24 Hour Tablet] Melatonin 5 mg PO QPM PRN 01/20/19 03/06/19 Cephalexin [Keflex] 500 mg PO Q6H #28 capsule 03/05/19 03/06/19 Hemp Oil 1,000 mg PO . DIRECTED PRN 03/06/19 03/07/19 Ondansetron [Ondansetron Odt] 4 mg PO Q4H PRN 03/06/19 03/06/19 Oxycodone HCl 10 mg PO Q4H PRN 03/06/19 03/06/19 Polyethylene Glycol 3350 [Miralax] 17 gm PO DAILY 03/06/19 03/06/19 Prednisone 5 mg PO QDX21D 03/06/19 03/06/19 Prochlorperazine Maleate 10 mg PO Q6H PRN 03/06/19 03/06/19 Sulfamethoxazole/Trimethoprim 1 tab PO BIDX7D 03/06/19 03/06/19 [Sulfamethoxazole-Tmp Ds Tablet] Travoprost 0.004% Ophth Drops 1 drops EACHEYE QPM 03/06/19 03/06/19 [Travatan Z] dexAMETHasone [Dexamethasone] 8 mg PO Q3D 03/06/19 03/06/19 Saccharomyces Boulardii [Florastor] 250 mg PO DAILY #7 capsule 03/11/19 - Allergies Allergies/Adverse Reactions: Allergies Allergy/AdvReac Type Severity Reaction Status Date / Time No Known Drug Allergies Allergy Verified 03/13/19 05:29 Review of Systems - Constitutional Constitutional: reports: Fatigue, Weakness. denies: Fever, Chills - Cardiovascular Cariovascular: reports: Edema. denies: Chest pain, Lightheadedness, Syncope - Gastrointestinal Gastrointestinal: denies: Abdominal pain, Nausea - Genitourinary Genitourinary: denies: Dysuria, Urgency - Musculoskeletal Musculoskeletal: denies: Muscle pain, Back pain - Neurological Neurological: reports: General weakness. denies: Focal weakness, Dizziness Prior Level of Functionality: Ambulates with walker. Declining functional status. Requires assistance with some ADL's. Exam - Vital Signs Reviewed Vital Signs: Yes Vital Signs: Vital Signs x48h Temp Pulse Resp BP Pulse Ox 03/13/19 06:05 37.3 C 85 20 111/67 95 03/13/19 05:41 85 25 H 106/62 91 L 03/13/19 05:00 91 21 118/66 95 03/13/19 04:56 102 H 28 H 119/74 95 03/13/19 04:05 104 H 92 03/13/19 03:56 39.4 C H 106 H 27 H 122/77 96 - Physical Exam General Appearance: positive: No acute distress, Lethargic Eyes Bilateral: positive: Normal inspection ENT: positive: Other (Laceration with dry blood noted on his lower lip.) Neck: positive: Nml inspection Respiratory: positive: No respiratory distress, Breath sounds nml Cardiovascular: positive: Regular rate & rhythm, Tachycardia, Systolic murmur, Other (Dressing is in place over chest wall port. No erythema or tenderess or fluid collection appreciated.) Abdomen: positive: Non-tender, No distention. negative: Guarding, Rebound Skin: positive: Warm, Dry, Laceration (cm) (1cm over lower lip with dry blood noted.) Extremities: positive: Full ROM, Pedal edema Neurologic/Psychiatric: positive: Oriented x3, Weakness Sepsis Event Note (H) - Evaluation Current Stage of Sepsis: Sepsis Possible source of Sepsis: positive: Unknown - Sepsis Criteria Sepsis Criteria: Recorded Temperature greater than 38.3C or Less than 36C, Recorded Heart Rate greater than 90 bpm, Recorded Respiratory Rate greater than 20 Conclusion/Plan - Problem List (1) Sepsis Conclusion/Plan: He presents with fevers, tachycardia, and tachypnea. He does have relative leukocytosis compared to his labs from discharge a few days ago. His x-ray and urinalysis are not suggestive of infection. The site of his prior incision inferior to the chest wall port does not appear erythematous but there is concern that this is still the likely source. - Continue broad spectrum antibiotics with Vancomcin and Zosyn IV - Follow up cultures - Will discuss with surgery regarding removal of the chest wall catheter. (2) Fall Conclusion/Plan: His fall appears to be mechanical in nature likely secondary to dehydration and sepsis. He does have a history of aortic stenosis but it is moderate in nature and his history is not consistent with syncope. His EKG showed sinus rhythm with a prolonged QTc of 510. 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 He has been most recently receiving Docetaxel. Currently on Oxycodone for pain control. He does have a POLST form which she states he is DNR. I discussed this again with the patient and his spouse and both state that this continues to be his wishes. - Outpatient follow up with Oncology - Consider Palliative consult again (4) Pulmonary embolism Conclusion/Plan: Most recent imaging shows stable, chronic PE's. He has declined anticoagulation. - Monitor at this time Qualifiers: (5) Moderate aortic stenosis Conclusion/Plan: Evident on Echocardiogram from earlier this month. This does not appear to be the etiology of his fall. - Monitor at this time (6) Refusal of blood transfusions as patient is Yarsani Conclusion/Plan: He declines transfusion of blood products. - Lab Results Fish Bones: 03/13/19 05:00 03/13/19 05:00
[2019-03-13] MEDS ORDERED: LACTATED RINGERS 1,000 ML IV ONE (08:00)
[2019-03-13] MEDS ORDERED: LORazepam 0.5 MG TABLET PO PRN (08:17)
[2019-03-13] MEDS: LACTATED RINGERS 1,000 ML IV SCH ×2 (08:34→19:24)
[2019-03-13] MEDS: PIPERACILLIN/TAZOBACTAM 3.375 GM in SODIUM CHLORIDE 0.9% MINIBAG 100 ML IV SCH ×2 (09:52→16:07)
[2019-03-13] MEDS: ENOXAPARIN 40 MG/0.4 ML SYRINGE SUBQ SCH (09:55)
[2019-03-13] MEDS: SACCHAROMYCES BOULARDII 250 MG CAPSULE PO SCH (10:00)
[2019-03-13] MEDS: oxyCODONE ER 10 MG TABLET PO SCH ×2 (10:00→22:20)
[2019-03-13] MEDS: GABAPENTIN 100 MG CAPSULE PO SCH (10:00)
[2019-03-13] MEDS: SODIUM CHLORIDE FLUSH 0.9% 10 ML SYRINGE IVP SCH ×2 (10:03→17:58)
--- NOTE | 2019-03-13 11:56 | CONSULTATION NOTE ---
Referring Provider Name of Referring Provider:: Martinez Consult Date: 03/13/19 Chief Complaint - Chief Complaint Chief Complaint: Chest wall infection History of Present Illness - Admitted From Admitted From:: Emergency Department - History Obtained From Records Reviewed: Past admission notes, ER records, provider notes. History obtained from: Physicain, patient, patient's spouse Exam Limitations: None - History of Present Illness HPI Comment/Other: Mr. Shahid is a pleasant and unfortunate man who was admitted from the ED last evening after a fall at home. He has multiple medical problems including metastatic prostate cancer and aortic stenosis. He has recently undergone I and D of a chest wall abscess very near to his port. He was placed on Keflex at the time of discharge and has been home only 2 days. At the time of the original I and D, there was discussion of removing the port. The port was very difficult to place and therefore every attempt has been made to salvage it. Unfortunately, it appears to be part of the infectious process and the patient and family have now agreed to have it removed. Culture at the time of I and D grew MSSA. History - Past Medical History Cardiovascular: reports: Hypertension, High cholesterol, Murmur, Other Respiratory: reports: Asthma Neuro: reports: CVA Endocrine/Autoimmune: reports: None GI: reports: Other, Colon polyps HEALTH ADVOCATE: reports: None : reports: Incontinence, Chronic bladder infection, Nocturia, Other (Prostate cancer with mets to the bone) HEENT: reports: None, Chronic hearing loss Psych: reports: Anxiety, Anxiety Musculoskeletal: reports: Osteoarthritis, Chronic back pain, Other (bone mets from prostate) Derm: reports: None MRSA Hx?: No - Past Surgical History General: reports: Other (portacath) Ortho: reports: Arthroscopic surgery, Spine surgery /HEALTH ADVOCATE: reports: Other (Prostatectomy) Cardiovascular: reports: Other HEENT: reports: Cataracts - Family & Social History Family History: Mother: Alive and Well, Father: , CAD Living arrangement: At home Living Situation: With spouse/s.o. 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 Currently resides at home here on [facility] with his spouse. - Substance History Use: Uses substance without health or social issues: NONE - POLST Patient has POLST: Yes POLST Status: DNR Meds/Allgy - Home Medications Home Medications: Ambulatory Orders Medication Instructions Recorded Confirmed LORazepam [Lorazepam] 0.5 mg PO Q6H PRN #30 tablet 09/21/18 03/13/19 Gabapentin 100 mg PO DAILY 10/14/18 03/13/19 Omeprazole 20 mg PO QDAC 10/29/18 03/13/19 Loratadine/Pseudoephedrine 1 tab PO DAILY PRN 01/20/19 03/13/19 [Claritin-D 24 Hour Tablet] Melatonin 5 mg PO QPM PRN 01/20/19 03/13/19 Hemp Oil 1,000 mg PO . DIRECTED PRN 03/06/19 03/13/19 Ondansetron [Ondansetron Odt] 4 mg PO Q4H PRN 03/06/19 03/13/19 Oxycodone HCl 10 mg PO Q4H PRN 03/06/19 03/13/19 Polyethylene Glycol 3350 [Miralax] 17 gm PO DAILY 03/06/19 03/13/19 Prednisone 5 mg PO QDX21D 03/06/19 03/13/19 Prochlorperazine Maleate 10 mg PO Q6H PRN 03/06/19 03/13/19 Travoprost 0.004% Ophth Drops 1 drops EACHEYE QPM 03/06/19 03/13/19 [Travatan Z] dexAMETHasone [Dexamethasone] 8 mg PO Q3D 03/06/19 03/13/19 Saccharomyces Boulardii [Florastor] 250 mg PO DAILY #7 capsule 03/11/19 03/13/19 Oxycodone HCl [Oxycontin] 15 mg PO BID 03/13/19 03/13/19 - Allergies Allergies/Adverse Reactions: Allergies Allergy/AdvReac Type Severity Reaction Status Date / Time No Known Drug Allergies Allergy Verified 03/13/19 05:29 Review of Systems - Constitutional Constitutional: reports: Fatigue, Fever, Weakness, Poor appetite - Eyes Eyes: denies: Pain, Irritation, Blurred vision - Ears, Nose & Throat Ears, Nose & Throat: denies: Tinnitus - Cardiovascular Cariovascular: reports: Lightheadedness. denies: Chest pain, Edema - Respiratory Respiratory: reports: Cough, Sputum production, Orthopnea, SOB with exertion - Gastrointestinal Gastrointestinal: denies: Abdominal pain - Genitourinary Genitourinary: denies: Dysuria, Frequency - Musculoskeletal Musculoskeletal: reports: Muscle pain, Back pain, Muscle aches, Stiffness - Integumentary Integumentary: denies: Rash - Neurological Neurological: reports: General weakness Exam - Vital Signs Reviewed Vital Signs: Yes Vital Signs: Vital Signs x48h Temp Pulse Pulse Resp BP BP Pulse Ox 03/13/19 11:38 37 C 76 24 101/57 L 97 03/13/19 08:00 37.1 C 74 22 110/65 93 03/13/19 07:07 80 20 112/77 93 03/13/19 06:05 37.3 C 85 20 111/67 95 03/13/19 05:41 85 25 H 106/62 91 L 03/13/19 05:00 91 21 118/66 95 03/13/19 04:56 102 H 28 H 119/74 95 03/13/19 04:05 104 H 92 03/13/19 03:56 39.4 C H 106 H 27 H 122/77 96 - Physical Exam General Appearance: positive: No acute distress Eyes Bilateral: positive: Normal inspection ENT: positive: ENT inspection nml Neck: positive: Nml inspection Respiratory: positive: No respiratory distress, Rhonchi Cardiovascular: positive: Regular rate & rhythm. negative: Crepitus Skin: positive: Other (Port site is the right chest wall. There is an open wound approximately 2 cm inferior to the port. Minimal erythema of both sites and no grossly purulent drainage.) Conclusion/Plan - Diagnosis Diagnosis: Infection of right chest wall port site. - Plan Plan: I agree with the need to remove this port. I have discussed this with the patient and his family and he is in agreement. It has been scheduled for 0800 tomorrow as the patient has been eating today and he desires not to be NPO for long. - Lab Results Fish Bones: 03/13/19 05:00 03/13/19 05:00 - Diagnostic Imaging Results Diagnostic Imaging Results: positive: Final report reviewed Diagnostic Imaging Results Comments: Brochial wall thickening consistent with bronchitis. Port is still in good pos ition and there is no visible air tracking around it.
[2019-03-13] MEDS: CEFEPIME 2 GM in SODIUM CHLORIDE 0.9% MINIBAG 100 ML IV SCH (17:24)
[2019-03-13] MEDS: VANCOMYCIN INJ 1 GM in SODIUM CHLORIDE 0.9% 250 ML IV SCH (17:58)
[2019-03-13] MEDS: oxyCODONE 5 MG TABLET PO PRN (19:21)
[2019-03-13] MEDS: TRAVOPROST 0.004% OPHTH DROPS 2.5 ML EACHEYE SCH (22:25)
[2019-03-14] MEDS: SODIUM CHLORIDE FLUSH 0.9% 10 ML SYRINGE IVP SCH ×3 (00:49→17:53)
[2019-03-14] MEDS: oxyCODONE 5 MG TABLET PO PRN ×4 (03:14→20:24)
[2019-03-14] MEDS: VANCOMYCIN INJ 1 GM in SODIUM CHLORIDE 0.9% 250 ML IV SCH ×2 (05:02→17:53)
[2019-03-14] MEDS: SODIUM CHLORIDE FLUSH 0.9% 10 ML SYRINGE IVP PRN (05:02)
[2019-03-14] MEDS: CEFEPIME 2 GM in SODIUM CHLORIDE 0.9% MINIBAG 100 ML IV SCH ×2 (05:02→17:11)
[2019-03-14 06:44] LABS: BASOPHILS % (AUTO) 0.3 %; EOSINOPHILS # (AUTO) 0.1 10^3/uL (0.0-0.7); EOSINOPHILS % (AUTO) 1.7 %; HGB - HEMOGLOBIN 7.7 g/dL (14.0-18.0); LYMPHOCYTES # (AUTO) 0.7 10^3/uL (1.5-3.5); LYMPHOCYTES % (AUTO) 10.3 %; MEAN CORPUSCULAR HEMOGLOBIN 29.8 pg (27.0-31.0); MEAN CORPUSCULAR HGB CONC 30.8 g/dL (32.0-36.0); MEAN CORPUSCULAR VOLUME 96.9 fL (80.0-94.0); MEAN PLATELET VOLUME 9.4 fL (7.4-11.4); MONOCYTES # (AUTO) 0.8 10^3/uL (0.0-1.0); MONOCYTES % (AUTO) 12.7 %; NEUTROPHILS # (AUTO) 4.8 10^3/uL (1.5-6.6); NEUTROPHILS % (AUTO) 74.7 %; PLT - PLATELET COUNT 266 10^3/uL (130-450); RED BLOOD COUNT 2.58 10^6/uL (4.70-6.10); RED CELL DISTRIBUTION WIDTH 19.4 % (12.0-15.0); WHITE BLOOD COUNT 6.5 x10^3/uL (4.8-10.8)
[2019-03-14 06:52] LABS: CALCIUM 7.8 mg/dL (8.5-10.3); CREATININE 0.8 mg/dL (0.6-1.2)
[2019-03-14] MEDS: LACTATED RINGERS 1,000 ML IV SCH (07:26)
--- NOTE | 2019-03-14 07:33 | ANESTHESIA ---
Pre-Anesthesia VS, & Labs - Diagnosis Diagnosis Infection of right chest wall port site. - Procedure R chest wall port removal Vital Signs: Temp Pulse Resp BP Pulse Ox 36.8 C 87 16 106/57 L 94 03/14/19 06:08 03/14/19 06:08 03/14/19 06:08 03/14/19 03:13 03/14/19 06:08 Height 5 ft 10 in Weight (kg) 90 kg Body Mass Index 28.3 - NPO >8 hours - Lab Results Current Lab Results: Laboratory Tests 03/14/19 06:20: Sodium 134 L, Potassium 3.7, Chloride 100 L, Carbon Dioxide 26, Anion Gap 8.0, BUN 10, Creatinine 0.8, Estimated GFR (MDRD) 94, Glucose 98, Ca lcium 7.8 L 03/14/19 06:20: WBC 6.5, RBC 2.58 L, Hgb 7.7 L, Hct 25.0 L, MCV 96.9 H, MCH 29.8, MCHC 30.8 L, RDW 19.4 H, Plt Count 266, MPV 9.4, Neut # (Auto) 4.8, Lymph # (Auto) 0.7 L, [place]berry # (Auto) 0.8, Eos # (Auto) 0.1, Baso # (Auto) 0.0, Absolute Nucleated RBC 0.00, Nucleated RBC % 0.0 03/13/19 07:44: Magnesium 1.7 03/13/19 07:44: Troponin I < 0.04 03/13/19 05:00: Lactic Acid 1.7 03/13/19 05:00: Sodium 132 L, Potassium 3.7, Chloride 98 L, Carbon Dioxide 22, Anion Gap 12.0, BUN 8, Creatinine 0.9, Estimated GFR (MDRD) 82 L, Glucose 125 H, Calcium 8.2 L, Total Bilirubin 0.8, AST 34, ALT 33, Alkaline Phosphatase 62, Total Protein 5.7 L, Albumin 2.9 L, Globulin 2.8, Albumin/Globulin Ratio 1.0, Lipase 25 03/13/19 05:00: PT 15.1 H, INR 1.3 H, APTT 27.4 03/13/19 05:00: WBC 10.1, RBC 3.09 L, Hgb 9.3 L, Hct 29.4 L, MCV 95.1 H, MCH 30.1, MCHC 31.6 L, RDW 19.4 H, Plt Count 258, MPV 9.3, Neut # (Auto) 8.5 H, Lymph # (Auto) 0.7 L, Newberry # (Auto) 0.8, Eos # (Auto) 0.0, Baso # (Auto) 0.1, Absolute Nucleated RBC 0.00, Nucleated RBC % 0.0 Lab results reviewed: Yes Fish Bones: 03/14/19 06:20 03/14/19 06:20 Home Medications and Allergies Home Medications: Ambulatory Orders Oxycodone HCl [Oxycontin] 15 mg PO BID 03/13/19 Active Medications Acetaminophen (Tylenol) 650 mg PO Q6HR PRN PRN Reason: Pain 1 to 4 Enoxaparin Sodium (Lovenox) 40 mg SUBQ DAILY [facility] Last Admin: 03/13/19 09:55 Dose: 40 mg Gabapentin (Neurontin) 100 mg PO DAILY [facility] Last Admin: 03/13/19 10:00 Dose: 100 mg Lactated Ringer's (Lr) 1,000 mls @ 100 mls/hr IV .Q10H [facility] Last Admin: 03/14/19 07:26 Dose: 100 mls/hr Vancomycin HCl 1 gm/ Sodium (Chloride) 250 mls @ 167 mls/hr IV Q12H [facility] Last Infusion: 03/14/19 06:47 Dose: Infused Cefepime HCl 2 gm/ Sodium (Chloride) 100 mls @ 200 mls/hr IV Q12H [facility] Last Infusion: 03/14/19 06:01 Dose: Infused Lorazepam (Ativan) 0.5 mg PO Q6H PRN PRN Reason: Nausea / Vomiting Oxycodone HCl (Roxicodone) 10 mg PO Q4HR PRN PRN Reason: PAIN Last Admin: 03/14/19 03:14 Dose: 10 mg Oxycodone HCl (Oxycontin) 10 mg PO BID [facility] Last Admin: 03/13/19 22:20 Dose: 10 mg Saccharomyces Boulardii (Florastor) 250 mg PO DAILY [facility] Last Admin: 03/13/19 10:00 Dose: 250 mg Sodium Chloride (Normal Saline Flush 0.9%) 10 ml IVP PRN PRN PRN Reason: NEEDED PER PROVIDER ORDERS Last Admin: 03/14/19 05:02 Dose: 10 ml Sodium Chloride (Normal Saline Flush 0.9%) 10 ml IVP 0100,0900,1700 [facility] Last Admin: 03/14/19 00:49 Dose: 10 ml Travoprost (Travatan Z) 1 drops EACHEYE QPM [facility] Last Admin: 03/13/19 22:25 Dose: 1 drops Gabapentin 100 mg PO DAILY 10/14/18 Omeprazole 20 mg PO QDAC 10/29/18 Loratadine/Pseudoephedrine [Claritin-D 24 Hour Tablet] 1 tab PO DAILY PRN 01/20/19 Melatonin 5 mg PO QPM PRN 01/20/19 Hemp Oil 1,000 mg PO . DIRECTED PRN 03/06/19 Ondansetron [Ondansetron Odt] 4 mg PO Q4H PRN 03/06/19 Oxycodone HCl 10 mg PO Q4H PRN 03/06/19 Polyethylene Glycol 3350 [Miralax] 17 gm PO DAILY 03/06/19 Prednisone 5 mg PO QDX21D 03/06/19 Prochlorperazine Maleate 10 mg PO Q6H PRN 03/06/19 Travoprost 0.004% Ophth Drops [Travatan Z] 1 drops EACHEYE QPM 03/06/19 dexAMETHasone [Dexamethasone] 8 mg PO Q3D 03/06/19 Oxycodone HCl [Oxycontin] 15 mg PO BID 03/13/19 Allergies/Adverse Reactions: Allergies Allergy/AdvReac Type Severity Reaction Status Date / Time No Known Drug Allergies Allergy Verified 03/13/19 05:29 Anes History & Medical History - Anesthetic History Anesthesia Complications: reports: No previous complications Family history of Anesthesia Complications: Denies Family history of Malignant Hyperthermia: Denies - Medical History Cardiovascular: reports: Hypertension, High cholesterol, Murmur, Other Pulmonary: reports: Asthma Gastrointestinal: reports: Other, Colon polyps Urinary: reports: Incontinence, Chronic bladder infection, Nocturia, Other (Prostate cancer with mets to the bone) Neuro: reports: CVA (residual L sided weakness) Musculoskeletal: reports: Osteoarthritis, Chronic back pain, Other (bone mets from prostate) Endocrine/Autoimmune: reports: None Blood Disorders: reports: None Skin: reports: None Smoking Status: Former smoker - Surgical History General: Other (portacath) Eyes Ears Nose Throat (EENT): Cataracts Cardiothoracic: Other Urologic: Prostatic surgery Gynecologic: Other (Prostatectomy) Orthopedic: Arthroscopic surgery, Spine surgery Exam General: Alert, Oriented x3, Cooperative Dental: WNL, Other (new loose tooth at back lower left after fall per pt) Respiratory: No respiratory distress, Decreased breath sounds, Wheezing, Expiration Cardiovascular: Regular rate Neurological: Normal speech Mental/Cognitive Status: Alert/Oriented X3, Normal for patient Cognitive Status: Within normal limits Plan Anesthesia Type: MAC Consent for Procedure(s) Verified and Reviewed: Yes Code Status: Do Not Attempt Resuscitation ASA classification: 3-Severe systemic disease Is this case an emergency?: No
[2019-03-14 07:48] LABS: ABSOLUTE RETICS # AUTO 0.066 10^6/uL (0.020-0.110); RED BLOOD COUNT 2.54 10^6/uL (4.70-6.10)
[2019-03-14] MEDS ORDERED: PROPOFOL 200 MG/20 ML VIAL IVP ONE (07:50)
[2019-03-14] MEDS ORDERED: MIDAZOLAM 2 MG/2 ML VIAL IVP ONE (07:50)
[2019-03-14] MEDS ORDERED: KETAMINE 500 MG/10 ML VIAL IVP ONE (07:50)
[2019-03-14] MEDS ORDERED: CALCIUM GLUCONATE 1,000 MG in SODIUM CHLORIDE 0.9% 50 ML IV ONE (08:00)
[2019-03-14] MEDS ORDERED: BUPIVACAINE 0.5%-EPI 1:200000 PF 30 ML VIAL ONE (08:01)
[2019-03-14] MEDS ORDERED: LIDOCAINE 1% 50 ML MDV ONE (08:01)
[2019-03-14 08:13] LABS: IRON < 6 ug/dL (45-182); TOTAL IRON BINDING CAPACITY 164 ug/dL (250-450); TRANSFERRIN 117 mg/dL (180-329)
[2019-03-14] MEDS ORDERED: LACTATED RINGERS 1,000 ML IV ONE (08:25)
[2019-03-14 08:35] LABS: FERRITIN 335.4 ng/mL (23.9-336.2)
[2019-03-14] MEDS ORDERED: BUPIVACAINE 0.5%-EPI 1:200000 PF 30 ML VIAL SUBQ ONE (08:49)
[2019-03-14] MEDS ORDERED: LIDOCAINE 1% 50 ML MDV SUBQ ONE ×2 (08:49)
--- NOTE | 2019-03-14 08:59 | OPERATIVE REPORT ---
Operative Report - General Admit Date: 03/13/19 Procedure Date: 03/14/19 Planned Procedure: Removal of right chest wall port Pre-Op Diagnosis: Right chest wall infection Procedure Performed: Removal of right chest wall port Post Op Diagnosis: Right chest wall infection - Procedure Note Primary Surgeon: Perri Anesthesia Provider: Sterling Anesthesia Technique: Local, MAC Estimated Blood Loss (mL): 2 Findings: Port removed in one piece. Complications: None apparent - Other Other Information/Narrative: After obtaining informed consent, the patient is brought to the operating room and placed in the supine position on the operating table. Following successful induction of sedation per anesthesia, the right chest wall was prepped and draped in the standard surgical fashion. A timeout was held per LAOAP protocol. Following infiltration with local anesthetic to create a field block, the existing port incision was opened and carried down through the skin is of cutaneous tissue. The port was identified. The tubing was grasped gently and delivered into the field. No backbleeding was noted. The port was then liberated from the pocket sharply and passed from the table as a specimen. It was sent to microbiology for culture.The wound was then checked for hemostasis. It was irrigated with warm water. It was closed with a single interrupted 4-0 nylon suture centrally and packed on either side with Betadine soaked quarter inch Nu Gauze. The lower incision which was opened after incision and drainage earlier, was irrigated in the same way and closed with a single nylon suture centrally. It was also packed on either side with Iodine soaked gauze.All sponge, needle, and instrument counts were correct at the conclusion of the case. The patient was allowed awaken from anesthesia without difficulty And returned to his room in satisfactory condition.
[2019-03-14] MEDS: oxyCODONE ER 10 MG TABLET PO SCH ×2 (09:17→21:54)
[2019-03-14] MEDS: GABAPENTIN 100 MG CAPSULE PO SCH (09:17)
[2019-03-14] MEDS: SACCHAROMYCES BOULARDII 250 MG CAPSULE PO SCH (09:17)
[2019-03-14] MEDS: ENOXAPARIN 40 MG/0.4 ML SYRINGE SUBQ SCH (09:20)
[2019-03-14] MEDS ORDERED: FERRIC GLUCONATE 125 MG in SODIUM CHLORIDE 0.9% 100ML 100 ML IV ONE (12:01)
[2019-03-14] MEDS ORDERED: MIDODRINE 2.5 MG TABLET PO PRN (12:10)
--- NOTE | 2019-03-14 12:15 | PROVIDER PROGRESS NOTE ---
Subjective - Prog Note Date Prog Note Date: 03/14/19 - Subjective Pt reports feeling: Improved Subjective: pt's port is removed today morning. pt had fever on last night. Pt developed mild shortness of breath after he had the procedure of removal of his port. CXR is ordered now. pt denies chest pain, denies fever now. pt request to have diet. the diet is ordered for pt. pt refused to go to SNF at the last admission. 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 Current Medications - Current Medications Current Medications: Active Medications Acetaminophen (Tylenol) 650 mg PO Q6HR PRN PRN Reason: Pain 1 to 4 Enoxaparin Sodium (Lovenox) 40 mg SUBQ DAILY [facility] Last Admin: 03/14/19 09:20 Dose: 40 mg Ferrous Sulfate (Feosol) 325 mg PO BIDWM [facility] Gabapentin (Neurontin) 100 mg PO DAILY [facility] Last Admin: 03/14/19 09:17 Dose: 100 mg Vancomycin HCl 1 gm/ Sodium (Chloride) 250 mls @ 167 mls/hr IV Q12H [facility] Last Infusion: 03/14/19 06:47 Dose: Infused Cefepime HCl 2 gm/ Sodium (Chloride) 100 mls @ 200 mls/hr IV Q12H [facility] Last Infusion: 03/14/19 06:01 Dose: Infused Lorazepam (Ativan) 0.5 mg PO Q6H PRN PRN Reason: Nausea / Vomiting Midodrine () 5 mg PO TID PRN PRN Reason: hypotension Oxycodone HCl (Roxicodone) 10 mg PO Q4HR PRN PRN Reason: PAIN Last Admin: 03/14/19 12:15 Dose: 10 mg Oxycodone HCl (Oxycontin) 10 mg PO BID [facility] Last Admin: 03/14/19 09:17 Dose: 10 mg Saccharomyces Boulardii (Florastor) 250 mg PO DAILY [facility] Last Admin: 03/14/19 09:17 Dose: 250 mg Sodium Chloride (Normal Saline Flush 0.9%) 10 ml IVP PRN PRN PRN Reason: NEEDED PER PROVIDER ORDERS Last Admin: 03/14/19 05:02 Dose: 10 ml Sodium Chloride (Normal Saline Flush 0.9%) 10 ml IVP 0100,0900,1700 [facility] Last Admin: 03/14/19 09:23 Dose: Not Given Travoprost (Travatan Z) 1 drops EACHEYE QPM CHIP Last Admin: 03/13/19 22:25 Dose: 1 drops Gabapentin 100 mg PO DAILY 10/14/18 Omeprazole 20 mg PO QDAC 10/29/18 Loratadine/Pseudoephedrine [Claritin-D 24 Hour Tablet] 1 tab PO DAILY PRN 01/20/19 Melatonin 5 mg PO QPM PRN 01/20/19 Hemp Oil 1,000 mg PO . DIRECTED PRN 03/06/19 Ondansetron [Ondansetron Odt] 4 mg PO Q4H PRN 03/06/19 Oxycodone HCl 10 mg PO Q4H PRN 03/06/19 Polyethylene Glycol 3350 [Miralax] 17 gm PO DAILY 03/06/19 Prednisone 5 mg PO QDX21D 03/06/19 Prochlorperazine Maleate 10 mg PO Q6H PRN 03/06/19 Travoprost 0.004% Ophth Drops [Travatan Z] 1 drops EACHEYE QPM 03/06/19 dexAMETHasone [Dexamethasone] 8 mg PO Q3D 03/06/19 Oxycodone HCl [Oxycontin] 15 mg PO BID 03/13/19 Objective - Vital Signs/Intake & Output Reviewed Vital Signs: Yes Vital Signs: Vital Signs x48h Temp Pulse Pulse Resp BP BP Pulse Ox 03/14/19 11:52 37.0 C 74 18 96/52 L 94 03/14/19 09:09 37.8 C H 80 18 99/54 L 93 03/14/19 07:30 37.3 C 86 20 99/55 L 93 03/14/19 06:08 36.8 C 87 16 94 Intake & Output: Intake & Output 03/11/19 03/12/19 03/13/19 03/14/19 23:59 23:59 23:59 23:59 Intake Total 3067 1890 Output Total 4969 425 Balance 567 1465 - Objective General Appearance: positive: No acute distress, Alert. negative: Lethargic Eyes Bilateral: positive: Normal inspection, PERRL, No lid inflammation, Conjunctivae nml ENT: positive: ENT inspection nml, Pharynx nml, No signs of dehydration. negative: Purulent nasal drainage, Pharyngeal erythema, Oral lesions Neck: positive: Nml inspection, Thyroid nml, No JVD. negative: Trachea midline, Thyromegaly, Lymphadenopathy (R), Lymphadenopathy (L), Stiff neck, Swelling/bruising, Tracheal deviation Respiratory: positive: Chest non-tender, No respiratory distress, Wheezes. negative: Rales, Rhonchi Cardiovascular: positive: Regular rate & rhythm, No murmur, No gallop. negative: Irregularly irregular, Extrasystoles, Tachycardia, Bradycardia, JVD present, Systolic murmur, Diastolic murmur Peripheral Pulses: 2+ Radial (R), 2+ Radial (L), 2+ Dorsalis pedis (R), 2+ Dorsalis pedis (L) Abdomen: positive: Non-tender, No organomegaly, Nml bowel sounds, No distention. negative: Tenderness, Guarding, Rebound Back: positive: Nml inspection. negative: CVA tenderness (R), CVA tenderness (L) Skin: positive: Color nml, No rash, Warm, Dry. negative: Cyanosis, Diaphoresis, Pallor Extremities: positive: Non-tender, Nml appearance. negative: Calf tenderness, Joint swelling, Raphael's sign/cords Neurologic/Psychiatric: positive: Oriented x3, Sensation nml, Mood/affect nml. negative: Weakness, Sensory loss, Facial droop, Slurred/abnml speech, Depressed mood/affect - Lab Results Fish Bones: 03/14/19 06:20 03/14/19 06:20 Other Labs: Lab Results x24hrs 03/14/19 03/14/19 03/14/19 Range/Units 06:20 06:20 06:20 WBC (4.8-10.8) x10^3/uL RBC (4.70-6.10) 10^6/uL Hgb (14.0-18.0) g/dL Hct (42.0-52.0) % MCV (80.0-94.0) fL MCH (27.0-31.0) pg MCHC (32.0-36.0) g/dL RDW (12.0-15.0) % Plt Count (130-450) 10^3/uL MPV (7.4-11.4) fL Reticulocyte % (Auto) (0.5-2.3) % Neut # (Auto) (1.5-6.6) 10^3/uL Lymph # (Auto) (1.5-3.5) 10^3/uL Alfalfa # (Auto) (0.0-1.0) 10^3/uL Eos # (Auto) (0.0-0.7) 10^3/uL Baso # (Auto) (0.0-0.1) 10^3/uL Absolute Nucleated RBC x10^3/uL Nucleated RBC % /100WBC Absolute Retic (0.020-0.110) 10^6/uL Sodium (135-145) mmol/L Potassium (3.5-5.0) mmol/L Chloride (101-111) mmol/L Carbon Dioxide (21-32) mmol/L Anion Gap (6-13) BUN (6-20) mg/dL Creatinine (0.6-1.2) mg/dL Estimated GFR (MDRD) (>89) Glucose (70-100) mg/dL Calcium (8.5-10.3) mg/dL Iron < 6 L (45-182) ug/dL TIBC 164 L (250-450) ug/dL Transferrin 117 L (180-329) mg/dL Ferritin 335.4 (23.9-336.2) ng/mL Lactate Dehydrogenase 169 (91-225) IU/L Vitamin B12 1215 H (180-914) pg/mL 03/14/19 03/14/19 03/14/19 Range/Units 06:20 06:20 06:20 WBC 6.5 (4.8-10.8) x10^3/uL RBC 2.54 L 2.58 L (4.70-6.10) 10^6/uL Hgb 7.7 L (14.0-18.0) g/dL Hct 25.0 L (42.0-52.0) % MCV 96.9 H (80.0-94.0) fL MCH 29.8 (27.0-31.0) pg MCHC 30.8 L (32.0-36.0) g/dL RDW 19.4 H (12.0-15.0) % Plt Count 266 (130-450) 10^3/uL MPV 9.4 (7.4-11.4) fL Reticulocyte % (Auto) 2.58 H (0.5-2.3) % Neut # (Auto) 4.8 (1.5-6.6) 10^3/uL Lymph # (Auto) 0.7 L (1.5-3.5) 10^3/uL Alfalfa # (Auto) 0.8 (0.0-1.0) 10^3/uL Eos # (Auto) 0.1 (0.0-0.7) 10^3/uL Baso # (Auto) 0.0 (0.0-0.1) 10^3/uL Absolute Nucleated RBC 0.00 x10^3/uL Nucleated RBC % 0.0 /100WBC Absolute Retic 0.066 (0.020-0.110) 10^6/uL Sodium 134 L (135-145) mmol/L Potassium 3.7 (3.5-5.0) mmol/L Chloride 100 L (101-111) mmol/L Carbon Dioxide 26 (21-32) mmol/L Anion Gap 8.0 (6-13) BUN 10 (6-20) mg/dL Creatinine 0.8 (0.6-1.2) mg/dL Estimated GFR (MDRD) 94 (>89) Glucose 98 (70-100) mg/dL Calcium 7.8 L (8.5-10.3) mg/dL Iron (45-182) ug/dL TIBC (250-450) ug/dL Transferrin (180-329) mg/dL Ferritin (23.9-336.2) ng/mL Lactate Dehydrogenase (91-225) IU/L Vitamin B12 (180-914) pg/mL ABX Reporting Has patient been on IV antibiotics over the past 48 hours?: Yes Sepsis Event Note (H) - Evaluation Current Stage of Sepsis: Sepsis Possible source of Sepsis: positive: Unknown - Sepsis Criteria Sepsis Criteria: Recorded Temperature greater than 38.3C or Less than 36C, Recorded Heart Rate greater than 90 bpm, Recorded Respiratory Rate greater than 20 Assessment/Plan - Problem List (1) Sepsis Impression: (1) Sepsis pt still has fever on last night, but his WBC is normal. pt has no fever today. pt's Port A-cath was removed today, status post surgery today. incentive spiromenter continue antibiotics Cefepime and Vancomycin. pt is sensitive to Cefepime antibiotics on the last wound culture. pt's BP is boardline low BP. Pt also present wheezing now. hold IVF of NS now blood culture is negative (2) Fall Conclusion/Plan: His fall appears to be mechanical in nature, likely secondary to dehydration and sepsis. He does have a history of aortic stenosis but it is moderate in nature His EKG showed sinus rhythm with a prolonged QTc of 510. ECHO on last admission reveals unremarkable gently hydration, PT/OT. tele and vital monitor (3) Prostate cancer Conclusion/Plan: pt had palliative consult, pt chose to continue treatment plan (4) Pulmonary embolism Conclusion/Plan: Most recent imaging shows stable, chronic PE's. He has declined anticoagulation. Monitor with vital and tele at this time (5) Moderate aortic stenosis Conclusion/Plan: hx of aortic stenosis moderate. Monitor with tele and vital at this time (6) Refusal of blood transfusions as patient is [employer] Conclusion/Plan: He declines transfusion of blood products.
--- NOTE | 2019-03-14 13:54 | XRAY Report ---
Reason: SOB and wheezing Procedure Date: 03/14/2019 Accession Number: [id number] / [id number] Procedure: XR - Chest 1 View X-Ray CPT Code: 37795 FULL RESULT: EXAM: CHEST RADIOGRAPHY EXAM DATE: 03/14/2019 12:22 PM. CLINICAL HISTORY: SOB and wheezing. COMPARISON: CHEST 1 VIEW 03/13/2019 4:19 AM. TECHNIQUE: Semi-upright AP view. FINDINGS: Lungs/Pleura: Lung volumes are low normal. As before, there is mild peribronchial cuffing and wispy airspace opacity in both lung bases. No confluent consolidation. No interstitial abnormality. No pneumothorax or pleural fluid is identified. Mediastinum: Within exam limitations, the cardiomediastinal contour is normal. There is minimal aortic arch calcification. Other: None. IMPRESSION: Persistent mild bibasilar peribronchial cuffing and wispy airspace opacity which could reflect bronchitis or atelectasis. RADIA
[2019-03-14 16:38] LABS: VANCOMYCIN,TROUGH 9.9 ug/mL (10.0-20.0)
[2019-03-14] MEDS: FERROUS SULFATE 325 MG TABLET PO SCH (17:11)
[2019-03-14] MEDS: TRAVOPROST 0.004% OPHTH DROPS 2.5 ML EACHEYE SCH (21:54)
[2019-03-15] MEDS: oxyCODONE 5 MG TABLET PO PRN ×3 (00:24→21:02)
[2019-03-15] MEDS: SODIUM CHLORIDE FLUSH 0.9% 10 ML SYRINGE IVP SCH ×3 (04:32→17:05)
[2019-03-15] MEDS: CEFEPIME 2 GM in SODIUM CHLORIDE 0.9% MINIBAG 100 ML IV SCH ×2 (04:32→17:05)
[2019-03-15] MEDS: VANCOMYCIN INJ 1 GM in SODIUM CHLORIDE 0.9% 250 ML IV SCH ×2 (05:27→18:03)
[2019-03-15 05:28] LABS: BASOPHILS % (AUTO) 0.4 %; LYMPHOCYTES # (AUTO) 0.8 10^3/uL (1.5-3.5); LYMPHOCYTES % (AUTO) 14.3 %; MEAN CORPUSCULAR HEMOGLOBIN 30.2 pg (27.0-31.0); MEAN CORPUSCULAR HGB CONC 31.3 g/dL (32.0-36.0); MEAN CORPUSCULAR VOLUME 96.6 fL (80.0-94.0); MONOCYTES % (AUTO) 19.1 %; NEUTROPHILS # (AUTO) 3.5 10^3/uL (1.5-6.6); PLT - PLATELET COUNT 298 10^3/uL (130-450); RED BLOOD COUNT 2.65 10^6/uL (4.70-6.10); RED CELL DISTRIBUTION WIDTH 19.1 % (12.0-15.0); WHITE BLOOD COUNT 5.3 x10^3/uL (4.8-10.8)
[2019-03-15 05:36] LABS: CALCIUM 8.1 mg/dL (8.5-10.3); CREATININE 0.7 mg/dL (0.6-1.2)
[2019-03-15] MEDS: FERROUS SULFATE 325 MG TABLET PO SCH ×2 (08:26→17:05)
[2019-03-15] MEDS: ENOXAPARIN 40 MG/0.4 ML SYRINGE SUBQ SCH (08:26)
[2019-03-15] MEDS: GABAPENTIN 100 MG CAPSULE PO SCH (08:26)
[2019-03-15] MEDS: oxyCODONE ER 10 MG TABLET PO SCH ×2 (08:26→21:02)
[2019-03-15] MEDS: SACCHAROMYCES BOULARDII 250 MG CAPSULE PO SCH (08:26)
[2019-03-15] MEDS ORDERED: ALBUTEROL NEB 2.5 MG/3 ML INH PRN (08:34)
[2019-03-15] MEDS ORDERED: IPRATROPIUM/ALBUTEROL 3 ML NEB INH PRN (08:35)
[2019-03-15] MEDS ORDERED: Loratadine/Pseudoephedrine [Claritin-D 24 Hour Tablet] PO PRN (08:46)
[2019-03-15] MEDS ORDERED: FUROSEMIDE 20 MG TABLET PO SCH (09:27)
[2019-03-15] MEDS: predniSONE 5 MG TABLET PO SCH (11:40)
--- NOTE | 2019-03-15 12:27 | PROVIDER PROGRESS NOTE ---
Subjective - Prog Note Date Prog Note Date: 03/15/19 - Subjective Pt reports feeling: Improved Subjective: pt has no fever on last night. blood culture is negative for bacteria. pt report he had a good sleep on last night pt still present mild to moderate wheezing at the rest. pt denies chest pain, headache. Current Medications - Current Medications Current Medications: Active Medications Acetaminophen (Tylenol) 650 mg PO Q6HR PRN PRN Reason: Pain 1 to 4 Albuterol () 2.5 mg INH RTQ4H PRN PRN Reason: Wheezing Albuterol/Ipratropium (Duoneb) 3 ml INH RTQID PRN PRN Reason: Shortness of Air/Wheezing Enoxaparin Sodium (Lovenox) 40 mg SUBQ DAILY [facility] Last Admin: 03/15/19 08:26 Dose: 40 mg Ferrous Sulfate (Feosol) 325 mg PO BIDWM [facility] Last Admin: 03/15/19 08:26 Dose: 325 mg Gabapentin (Neurontin) 100 mg PO DAILY [facility] Last Admin: 03/15/19 08:26 Dose: 100 mg Vancomycin HCl 1 gm/ Sodium (Chloride) 250 mls @ 167 mls/hr IV Q12H [facility] Last Infusion: 03/15/19 07:28 Dose: Infused Cefepime HCl 2 gm/ Sodium (Chloride) 100 mls @ 200 mls/hr IV Q12H [facility] Last Infusion: 03/15/19 05:10 Dose: Infused Lorazepam (Ativan) 0.5 mg PO Q6H PRN PRN Reason: Nausea / Vomiting Midodrine () 5 mg PO TID PRN PRN Reason: hypotension Non-Formulary Medication (Loratadine/Pseudoephedrine [Claritin-D 24 Hour Tablet]) 1 tab PO DAILY PRN PRN Reason: Nasal Congestion Oxycodone HCl (Roxicodone) 10 mg PO Q4HR PRN PRN Reason: PAIN Last Admin: 03/15/19 00:24 Dose: 10 mg Oxycodone HCl (Oxycontin) 10 mg PO BID [facility] Last Admin: 03/15/19 08:26 Dose: 10 mg Prednisone (Deltasone) 5 mg PO DAILYWM [facility] Stop: 04/04/19 08:01 Last Admin: 03/15/19 11:40 Dose: 5 mg Saccharomyces Boulardii (Florastor) 250 mg PO DAILY [facility] Last Admin: 03/15/19 08:26 Dose: 250 mg Sodium Chloride (Normal Saline Flush 0.9%) 10 ml IVP PRN PRN PRN Reason: NEEDED PER PROVIDER ORDERS Last Admin: 03/14/19 05:02 Dose: 10 ml Sodium Chloride (Normal Saline Flush 0.9%) 10 ml IVP 0100,0900,1700 [facility] Last Admin: 03/15/19 08:26 Dose: 10 ml Travoprost (Travatan Z) 1 drops EACHEYE QPM [facility] Last Admin: 03/14/19 21:54 Dose: 1 drops Gabapentin 100 mg PO DAILY 10/14/18 Omeprazole 20 mg PO QDAC 10/29/18 Loratadine/Pseudoephedrine [Claritin-D 24 Hour Tablet] 1 tab PO DAILY PRN 01/20/19 Melatonin 5 mg PO QPM PRN 01/20/19 Hemp Oil 1,000 mg PO . DIRECTED PRN 03/06/19 Ondansetron [Ondansetron Odt] 4 mg PO Q4H PRN 03/06/19 Oxycodone HCl 10 mg PO Q4H PRN 03/06/19 Polyethylene Glycol 3350 [Miralax] 17 gm PO DAILY 03/06/19 Prednisone 5 mg PO QDX21D 03/06/19 Prochlorperazine Maleate 10 mg PO Q6H PRN 03/06/19 Travoprost 0.004% Ophth Drops [Travatan Z] 1 drops EACHEYE QPM 03/06/19 dexAMETHasone [Dexamethasone] 8 mg PO Q3D 03/06/19 Oxycodone HCl [Oxycontin] 15 mg PO BID 03/13/19 Objective - Vital Signs/Intake & Output Reviewed Vital Signs: Yes Vital Signs: Vital Signs x48h Temp Pulse Resp BP Pulse Ox 03/15/19 08:00 37.0 C 82 18 114/58 L 95 03/15/19 05:00 37.2 C 79 18 105/61 94 Intake & Output: Intake & Output 03/12/19 03/13/19 03/14/19 03/15/19 23:59 23:59 23:59 23:59 Intake Total 3067 4070 704 Output Total 8169 7135 2200 Balance 567 1495 -1496 - Objective General Appearance: positive: No acute distress, Alert. negative: Lethargic Eyes Bilateral: positive: Normal inspection, PERRL, No lid inflammation, Conjunctivae nml ENT: positive: ENT inspection nml, Pharynx nml, No signs of dehydration. negat christopher: Purulent nasal drainage, Pharyngeal erythema, Oral lesions Neck: positive: Nml inspection, Thyroid nml, No JVD, Trachea midline. negative: Thyromegaly, Lymphadenopathy (R), Lymphadenopathy (L), Stiff neck, Swelling/bruising, Tracheal deviation Respiratory: positive: Chest non-tender, No respiratory distress, Wheezes. negative: Rales, Rhonchi Cardiovascular: positive: Regular rate & rhythm, No murmur, No gallop. ne gative: Irregularly irregular, Extrasystoles, Tachycardia, Bradycardia, JVD present, Systolic murmur, Diastolic murmur Peripheral Pulses: 2+ Radial (R), 2+ Radial (L), 2+ Dorsalis pedis (R), 2+ Dorsalis pedis (L) Abdomen: positive: Non-tender, No organomegaly, Nml bowel sounds, No distention. negative: Tenderness, Guarding, Rebound Back: positive: Nml inspection. negative: CVA tenderness (R), CVA tenderness (L) Skin: positive: No rash, Warm, Dry. negative: Cyanosis, Diaphoresis, Pallor Extremities: positive: Non-tender, Nml appearance. negative: Calf tenderness, Joint swelling, Raphael's sign/cords Neurologic/Psychiatric: positive: Oriented x3, Sensation nml, Mood/affect nml. negative: Weakness, Sensory loss, Facial droop, Slurred/abnml speech, Depressed mood/affect - Lab Results Fish Bones: 03/15/19 05:10 03/15/19 05:10 Other Labs: Lab Results x24hrs 03/15/19 03/15/19 03/14/19 Range/Units 05:10 05:10 16:20 WBC 5.3 (4.8-10.8) x10^3/uL RBC 2.65 L (4.70-6.10) 10^6/uL Hgb 8.0 L (14.0-18.0) g/dL Hct 25.6 L (42.0-52.0) % MCV 96.6 H (80.0-94.0) fL MCH 30.2 (27.0-31.0) pg MCHC 31.3 L (32.0-36.0) g/dL RDW 19.1 H (12.0-15.0) % Plt Count 298 (130-450) 10^3/uL MPV 9.0 (7.4-11.4) fL Neut # (Auto) 3.5 (1.5-6.6) 10^3/uL Lymph # (Auto) 0.8 L (1.5-3.5) 10^3/uL Crosby # (Auto) 1.0 (0.0-1.0) 10^3/uL Eos # (Auto) 0.0 (0.0-0.7) 10^3/uL Baso # (Auto) 0.0 (0.0-0.1) 10^3/uL Absolute Nucleated RBC 0.00 x10^3/uL Nucleated RBC % 0.0 /100WBC Sodium 133 L (135-145) mmol/L Potassium 3.7 (3.5-5.0) mmol/L Chloride 99 L (101-111) mmol/L Carbon Dioxide 25 (21-32) mmol/L Anion Gap 9.0 (6-13) BUN 7 (6-20) mg/dL Creatinine 0.7 (0.6-1.2) mg/dL Estimated GFR (MDRD) 109 (>89) Glucose 96 (70-100) mg/dL Calcium 8.1 L (8.5-10.3) mg/dL Dose 250 Last Dose Date 03/14/19 Last Dose Time 0647 Vancomycin Trough 9.9 L (10.0-20.0) ug/mL ABX Reporting Has patient been on IV antibiotics over the past 48 hours?: Yes Sepsis Event Note (H) - Evaluation Current Stage of Sepsis: Sepsis Possible source of Sepsis: positive: Unknown - Sepsis Criteria Sepsis Criteria: Recorded Temperature greater than 38.3C or Less than 36C, Recorded Heart Rate greater than 90 bpm, Recorded Respiratory Rate greater than 20 Assessment/Plan - Problem List (1) Sepsis Impression: 03/15 pt has no fever on last night continue antibiotics. This is day one after pt has high fever (39.3) pt still has fever on last night, but his WBC is normal. pt has no fever today. pt's Port A-cath was removed today, status post surgery today. incentive spiromenter continue antibiotics Cefepime and Vancomycin. pt is sensitive to Cefepime antibiotics on the last wound culture. pt's BP is boardline low BP. Pt also present wheezing now. hold IVF of NS now blood culture is negative (2) Fall Conclusion/Plan: 03/15 pt report he feel better, continue PT. His fall appears to be mechanical in nature, likely secondary to dehydration and sepsis. He does have a history of aortic stenosis but it is moderate in nature His EKG showed sinus rhythm with a prolonged QTc of 510. ECHO on last admission reveals unremarkable gently hydration, PT/OT. tele and vital monitor (3) Prostate cancer Conclusion/Plan: pt had palliative consult, pt chose to continue treatment plan (4) Pulmonary embolism Conclusion/Plan: Most recent imaging shows stable, chronic PE's. He has declined anticoagulation. Monitor with vital and tele at this time (5) Moderate aortic stenosis Conclusion/Plan: hx of aortic stenosis moderate. 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
[2019-03-15] MEDS: TRAVOPROST 0.004% OPHTH DROPS 2.5 ML EACHEYE SCH (21:04)
[2019-03-16] MEDS: SODIUM CHLORIDE FLUSH 0.9% 10 ML SYRINGE IVP SCH ×3 (00:43→16:38)
[2019-03-16] MEDS: oxyCODONE 5 MG TABLET PO PRN ×4 (02:27→17:16)
[2019-03-16] MEDS: CEFEPIME 2 GM in SODIUM CHLORIDE 0.9% MINIBAG 100 ML IV SCH ×2 (05:22→16:37)
[2019-03-16] MEDS: SODIUM CHLORIDE FLUSH 0.9% 10 ML SYRINGE IVP PRN ×2 (05:23→17:02)
[2019-03-16 05:47] LABS: BASOPHILS % (AUTO) 0.5 %; HGB - HEMOGLOBIN 8.1 g/dL (14.0-18.0); LYMPHOCYTES # (AUTO) 0.9 10^3/uL (1.5-3.5); LYMPHOCYTES % (AUTO) 20.8 %; MEAN CORPUSCULAR HEMOGLOBIN 29.7 pg (27.0-31.0); MEAN CORPUSCULAR HGB CONC 30.5 g/dL (32.0-36.0); MEAN CORPUSCULAR VOLUME 97.4 fL (80.0-94.0); MEAN PLATELET VOLUME 9.2 fL (7.4-11.4); MONOCYTES # (AUTO) 0.6 10^3/uL (0.0-1.0); MONOCYTES % (AUTO) 14.3 %; NEUTROPHILS # (AUTO) 2.8 10^3/uL (1.5-6.6); NEUTROPHILS % (AUTO) 64.2 %; PLT - PLATELET COUNT 369 10^3/uL (130-450); RED BLOOD COUNT 2.73 10^6/uL (4.70-6.10); RED CELL DISTRIBUTION WIDTH 18.7 % (12.0-15.0); WHITE BLOOD COUNT 4.3 x10^3/uL (4.8-10.8)
[2019-03-16 05:54] LABS: CALCIUM 8.4 mg/dL (8.5-10.3); CREATININE 0.6 mg/dL (0.6-1.2)
[2019-03-16] MEDS: VANCOMYCIN INJ 1 GM in SODIUM CHLORIDE 0.9% 250 ML IV SCH ×2 (05:54→17:16)
[2019-03-16] MEDS: FERROUS SULFATE 325 MG TABLET PO SCH (09:26)
[2019-03-16] MEDS: GABAPENTIN 100 MG CAPSULE PO SCH (09:26)
[2019-03-16] MEDS: ENOXAPARIN 40 MG/0.4 ML SYRINGE SUBQ SCH (09:27)
[2019-03-16] MEDS: SACCHAROMYCES BOULARDII 250 MG CAPSULE PO SCH (09:27)
[2019-03-16] MEDS: oxyCODONE ER 10 MG TABLET PO SCH ×2 (09:27→21:12)
[2019-03-16] MEDS: predniSONE 5 MG TABLET PO SCH (09:27)
[2019-03-16] MEDS ORDERED: MELATONIN 5 MG PO PRN (12:39)
[2019-03-16] MEDS ORDERED: HEMP OIL PO PRN (12:39)
--- NOTE | 2019-03-16 12:45 | PROVIDER PROGRESS NOTE ---
Subjective - Prog Note Date Prog Note Date: 03/16/19 Prog Note Time: 12:44 - Subjective Pt reports feeling: Improved Subjective: Genaro continues to complain of profound lethargy and weakness. He denies chest pain, increased right chest soreness, or a new cough. Current Medications - Current Medications Current Medications: Active Medications: Acetaminophen (Tylenol) 650 mg PO Q6HR PRN Albuterol 2.5 mg INH RTQ4H PRN Albuterol/Ipratropium (Duoneb) 3 ml INH RTQID PRN Enoxaparin Sodium (Lovenox) 40 mg SUBQ DAILY [facility] Ferrous Gluconate (Fergon) 324 mg PO BIDWM [facility] Gabapentin (Neurontin) 100 mg PO DAILY [facility] Vancomycin HCl 1 gm/ Sodium (Chloride) 250 mls @ 167 mls/hr IV Q12H [facility] Cefepime HCl 2 gm/ Sodium (Chloride) 100 mls @ 200 mls/hr IV Q12H [facility] Lorazepam (Ativan) 0.5 mg PO Q6H PRN Metoprolol Succinate (Toprol Xl) 12.5 mg PO BIDWM [facility] Midodrine 2.5 mg PO TIDWM [facility] Oxycodone HCl (Roxicodone) 10 mg PO Q4HR PRN Oxycodone HCl (Oxycontin) 10 mg PO BID [facility] Loratadine/Pseudoephedrine [ Claritin-D 24 Hour Tablet] 1 each PO DAILY PRN Melatonin Melatonin (5 Mg) 1 each PO QPM PRN Prednisone (Deltasone) 5 mg PO DAILYWM [facility] Saccharomyces Boulardii (Florastor) 250 mg PO DAILY [facility] Travoprost (Travatan Z) 1 drops EACHEYE QPM [facility] HOME meds: Gabapentin 100 mg PO DAILY 10/14/18 Omeprazole 20 mg PO QDAC 10/29/18 Loratadine/Pseudoephedrine [Claritin-D 24 Hour Tablet] 1 tab PO DAILY PRN 01/20/19 Melatonin 5 mg PO QPM PRN 01/20/19 Hemp Oil 1,000 mg PO . DIRECTED PRN 03/06/19 Ondansetron [Ondansetron Odt] 4 mg PO Q4H PRN 03/06/19 Oxycodone HCl 10 mg PO Q4H PRN 03/06/19 Polyethylene Glycol 3350 [Miralax] 17 gm PO DAILY 03/06/19 Prednisone 5 mg PO QDX21D 03/06/19 Prochlorperazine Maleate 10 mg PO Q6H PRN 03/06/19 Travoprost 0.004% Ophth Drops [Travatan Z] 1 drops EACHEYE QPM 03/06/19 dexAMETHasone [Dexamethasone] 8 mg PO Q3D 03/06/19 Oxycodone HCl [Oxycontin] 15 mg PO BID 03/13/19 Objective - Vital Signs/Intake & Output Reviewed Vital Signs: Yes Vital Signs: Vital Signs x48h Temp Pulse Pulse Resp BP BP Pulse Ox 03/16/19 10:52 36.5 C 80 18 100 03/16/19 09:45 90 18 03/16/19 07:47 36.5 C 68 18 110/64 95 03/16/19 05:30 36.4 C L 68 18 123/67 96 Intake & Output: Intake & Output 03/13/19 03/14/19 03/15/19 03/16/19 23:59 23:59 23:59 23:59 Intake Total 3067 4070 1354 650 Output Total 2500 2575 4650 3475 Balance 567 0129 -8212 -5292 - Objective General Appearance: positive: No acute distress, Alert Eyes Bilateral: positive: PERRL Eyes: OU Conjunctivae pale ENT: positive: Pharynx nml, No signs of dehydration, Other ([place]) Neck: positive: Thyroid nml, No JVD, Trachea midline Respiratory: positive: Chest non-tender, No respiratory distress, Breath sounds nml Cardiovascular: positive: No gallop, Tachycardia, Systolic murmur Peripheral Pulses: 1+ Radial (R), 1+ Radial (L) Abdomen: positive: Non-tender, Nml bowel sounds, Other (rounded, soft) Back: positive: Nml inspection Skin: positive: No rash, Warm, Dry Extremities: positive: Non-tender, Full ROM, Nml appearance, Pedal edema (dependent edema to BLEs, abdominal edema) Neurologic/Psychiatric: positive: Oriented x3, CN's nml (2-12), Motor nml, Sensation nml Reflexes: Bicep (R): 3+, Bicep (L): 3+ - Lab Results Fish Bones: 03/17/19 05:34 03/17/19 05:34 Other Labs: Lab Results x24hrs 03/16/19 03/16/19 Range/Units 05:21 05:21 WBC 4.3 L (4.8-10.8) x10^3/uL RBC 2.73 L (4.70-6.10) 10^6/uL Hgb 8.1 L (14.0-18.0) g/dL Hct 26.6 L (42.0-52.0) % MCV 97.4 H (80.0-94.0) fL MCH 29.7 (27.0-31.0) pg MCHC 30.5 L (32.0-36.0) g/dL RDW 18.7 H (12.0-15.0) % Plt Count 369 (130-450) 10^3/uL MPV 9.2 (7.4-11.4) fL Neut # (Auto) 2.8 (1.5-6.6) 10^3/uL Lymph # (Auto) 0.9 L (1.5-3.5) 10^3/uL [place] # (Auto) 0.6 (0.0-1.0) 10^3/uL Eos # (Auto) 0.0 (0.0-0.7) 10^3/uL Baso # (Auto) 0.0 (0.0-0.1) 10^3/uL Absolute Nucleated RBC 0.00 x10^3/uL Nucleated RBC % 0.0 /100WBC Sodium 138 (135-145) mmol/L Potassium 3.6 (3.5-5.0) mmol/L Chloride 101 (101-111) mmol/L Carbon Dioxide 28 (21-32) mmol/L Anion Gap 9.0 (6-13) BUN 6 (6-20) mg/dL Creatinine 0.6 (0.6-1.2) mg/dL Estimated GFR (MDRD) 131 (>89) Glucose 100 (70-100) mg/dL Calcium 8.4 L (8.5-10.3) mg/dL ABX Reporting Has patient been on IV antibiotics over the past 48 hours?: Yes Sepsis Event Note (H) - Evaluation Current Stage of Sepsis: Resolved Assessment/Plan - Problem List (1) Chest wall abscess Impression: - Initially came to the ED on 03/05 and underwent an I & D of a right chest wall abscess - Admitted for sepsis from 03/06-03/11 - Failed outpatient antibiotics, fell at home, so re-admitted from 03/13- currently - Now status post removal of right chest port that was completed in the OR during this admission Plan: Continue to await new wound cultures, continue IV antibiotics, and a wound care consult (2) Fall Impression: - Prior to the patient's last admission ~03/06, he fell at home - Now another fall, leading to this admission - Increasingly difficult for his to care for him Plan: Continue with daily PT, await placement at SNF for rehab, continue fall precautions Qualifiers: Encounter type: initial encounter Qualified Code(s): W19.XXXA - Unspecified fall, initial encounter (3) Generalized weakness Impression: - This is the second admission in a short time, and both times he fell at home - No falls while in the hospital - Getting up to the chair for meals with staff - PT recommends senior care for rehab - Today he complains of dizziness, so changing to a BB and midodrine to slow down his heart, and prevent hypotension Plan: Continue meds, continue to encourage activity, await SNF discharge (4) LVH (left ventricular hypertrophy) Impression: - LVH on echo - Rate control is the primary treatment if blood pressure allows, so started low dose midodrine to avoid hypotension - Continue low dose BB- metoprolol succinate 12.5 mg PO BID Plan: Continue to monitor (5) Moderate aortic stenosis Impression: - Moderate aortic stenosis with an average peak velocity of 3.5 m/second, with peak/mean pressure gradient of AV max PG 50/ AV mean PG 35 - Started on BB and midodrine to prevent dizziness Plan: Continue to monitor for improved symptoms (6) Prostate cancer metastatic to bone Impression: - Initially diagnosed about 10 years ago - Recent rubia mets, causing chronic back pain/hip pain - Now on chronic oxycodone at home, continued here - PSA stable, lower at 57 when checked last - Grace Tabares has been aware of both of his hospital stays and will keep in the loop as to rehab, next treatment time frame etc. - Ongoing urinary retention, so leaving indwelling lynn Plan: Maintain indwelling lynn, consider Flomax (7) Iron deficiency anemia Impression: - H/H today 8.09/26.6 - No recent bleeding - Continues on iron supplement Plan: Continue to monitor, no blood thinners, encourage PO intake Qualifiers: Iron deficiency anemia type: unspecified iron deficiency Qualified Code(s): D50.9 - Iron deficiency anemia, unspecified (8) Urinary retention due to benign prostatic hyperplasia Impression: - Recent illness and weakness - Failed a voiding trial Plan: Continue indwelling lynn, consider Flomax (9) Refusal of blood transfusions as patient is Roman Catholic Impression: - Longstanding synagogue - Please do not give Albumin, blood products or heparin containing pork etc. Plan: Monitor, treat acute illness
[2019-03-16] MEDS ORDERED: dexAMETHasone 4 MG TABLET PO SCH (13:00)
[2019-03-16] MEDS: METOPROLOL SUCCINATE 25 MG TABLET PO SCH (16:58)
[2019-03-16] MEDS: FERROUS GLUCONATE 324 MG TABLET PO SCH (16:59)
[2019-03-16] MEDS: MIDODRINE 2.5 MG TABLET PO SCH (16:59)
[2019-03-16] MEDS: TRAVOPROST 0.004% OPHTH DROPS 2.5 ML EACHEYE SCH (21:14)
[2019-03-17] MEDS: SODIUM CHLORIDE FLUSH 0.9% 10 ML SYRINGE IVP SCH ×2 (00:46→05:23)
[2019-03-17] MEDS: oxyCODONE 5 MG TABLET PO PRN ×2 (02:13→06:27)
[2019-03-17] MEDS: CEFEPIME 2 GM in SODIUM CHLORIDE 0.9% MINIBAG 100 ML IV SCH (04:38)
[2019-03-17] MEDS: VANCOMYCIN INJ 1 GM in SODIUM CHLORIDE 0.9% 250 ML IV SCH (05:21)
[2019-03-17 06:04] LABS: BASOPHILS % (AUTO) 0.3 %; HGB - HEMOGLOBIN 8.1 g/dL (14.0-18.0); LYMPHOCYTES # (AUTO) 1.1 10^3/uL (1.5-3.5); LYMPHOCYTES % (AUTO) 26.6 %; MEAN CORPUSCULAR HEMOGLOBIN 30.9 pg (27.0-31.0); MEAN CORPUSCULAR HGB CONC 30.9 g/dL (32.0-36.0); MEAN PLATELET VOLUME 9.3 fL (7.4-11.4); MONOCYTES # (AUTO) 0.5 10^3/uL (0.0-1.0); MONOCYTES % (AUTO) 12.8 %; NEUTROPHILS # (AUTO) 2.4 10^3/uL (1.5-6.6); NEUTROPHILS % (AUTO) 59.8 %; PLT - PLATELET COUNT 407 10^3/uL (130-450); RED BLOOD COUNT 2.62 10^6/uL (4.70-6.10)
[2019-03-17 06:14] LABS: CALCIUM 8.2 mg/dL (8.5-10.3); CREATININE 0.7 mg/dL (0.6-1.2)
[2019-03-17] MEDS: FERROUS GLUCONATE 324 MG TABLET PO SCH (07:54)
[2019-03-17] MEDS: GABAPENTIN 100 MG CAPSULE PO SCH (07:55)
[2019-03-17] MEDS: predniSONE 5 MG TABLET PO SCH (07:55)
[2019-03-17] MEDS: SACCHAROMYCES BOULARDII 250 MG CAPSULE PO SCH (07:55)
[2019-03-17] MEDS: METOPROLOL SUCCINATE 25 MG TABLET PO SCH (07:55)
[2019-03-17] MEDS: ENOXAPARIN 40 MG/0.4 ML SYRINGE SUBQ SCH (07:56)
[2019-03-17] MEDS: MIDODRINE 2.5 MG TABLET PO SCH (07:59)
--- NOTE | 2019-03-17 09:29 | Discharge Plan ---
"Discharge Plan for SNF / [facility] - Discharge Plan And Transition Orders Problem Reviewed?: Yes Disposition: 03 SNF DC/Xfer Condition: Good Allergies and Adverse Reactions: Allergies Allergy/AdvReac Type Severity Reaction Status Date / Time No Known Drug Allergies Allergy Verified 03/13/19 05:29 Health Concerns: Palliative Prostate cancer with bone mets- treatments Sepsis d/t soft tissue infection Status post right port removal Right chest wall wound Weakness Urinary retention Plan of Treatment: Continue antibiotics to cure infection Continue beta hallie for treatment of aortic stenosis with LVH, very low dose midodrine to allow for beta hallie Undergo rehab to return home for independence Undergo voiding trials, consider starting Flomax Care Goals: Avoid hospital stays Become strong enough to return home with your , independently Prevent infection with taking PO antibiotics and good wound care to right chest Assessment: You were re-admitted to the hospital for ongoing septic shock, which resolved after aggressive IV antibiotics, which will continue for several more days at the care home. You were found to have symptoms of dizziness which was most likely related to your soft blood pressures and fast heart rate influenced by your moderate aortic stenosis and LVH. You were started on very low dose midodrine to allow for an extended release beta hallie to appropriately treat these conditions. This has improved your symptoms of dizziness. These episodes of sepsis were the result of your right chest port which has been removed by general surgery during this hospital stay. Consequently, this has left you with a right chest wound which has required some packing by our wound care team. Please see below for more specific instructions. Please follow up with your PCP within one week of discharge from nursing rehab. - SNF / [facility] Transition Orders Admit to (Facility): Care Age Under the care of (Name): Greg Keating/Dr. Maria Teresa Garrido Discharge Diagnosis: Chest wall abscess- improved, now internal chest port has been removed, wound care instructions, and PO antibiotics are to continue Fall- 2nd fall in a short period of time, rehab is recommended Generalized weakness- Continue rehab at [facility] Age with PT/OT LVH (left ventricular hypertrophy)- Found on echo from 03/08/2019 Moderate aortic stenosis- Found on echo from 03/08, continue midodrine and BB Prostate cancer metastatic to bone- stable, Oncology manages with recent Palliative chemo, now on hold Refusal of blood transfusions as patient is Restorationism- life long, no blood products, no albumin, no heparin Iron deficiency anemia- Continue on iron supplement Sepsis- resolved Hx pulmonary embolism- not a candidate for anticoagulation due to GI bleeding and inability to receive blood products d/t lutheran Urinary retention due to BPH- ongoing, will be discharged with an indwelling lynn, consider Flomax Medicare Certification Statement: I certify that [facility] care is medically necessary on a continuing basis for any of the conditions for which she/he is receiving care during hospitalization. Weight on admission and: Weekly House Bowel Program: Yes Additional Bowel Program Orders: If no BM after 2 days, nurse may give M.O.M. 30ml PO PRN and/or ducolax Supp 1 WA and/or BEN 250mg P.O., and/or senna 1-2 tabs PO. On day 3 nurse may give repeat above order until residents constipation is resolved. Annual Influenza Vaccine (between May 02 and November 29): Yes Two-step PPD per [facility] [id number] or approved exception documents: Yes Treatments & Other Orders: Pt will require continued wound care for this full- thickness wound. - Rinse wound with NS. - periwound protected with skin prep. - wound filled with slightly mositened AG hydrofiber ribbon. - cover with bordered foam dressing. - Change every 7 days and PRN soiling or 25% strikethrough. - Wound should be re-evaluated by surgeon every 1-2 weeks and orders adjusted based on healing progress. Medication Orders: PLEASE REFER TO THE DISCHARGE MEDICATION LIST. Insulin Orders?: No - Medications New Prescriptions: Clindamycin HCl [Clindamycin 300MG CAP] 300 mg PO QID 10 Days #30 capsule Ferrous Gluconate 240 mg PO BID #60 tablet Metoprolol Succinate [Toprol Xl] 12.5 mg PO BIDWM #30 tablet Midodrine 2.5 mg PO TIDWM #90 tablet Oxycodone HCl 10 mg PO Q4H PRN #30 tablet PRN Reason: Pain Oxycodone HCl [Oxycontin] 15 mg PO BID #60 tab.er.12h - Diet Type: Geriatric Texture: Regular Liquids: Thin May have monthly special meal: Yes - Therapies | Activity Therapy: Evaluation | Treat if indicated: Speech, PT, OT Rehabilitation Potential: Maximize functional status, Return to independent living Activity: Activity as Tolerated Weight Bearing: Full Weight Assistance Devices: Walker Additional Instructions: Maintain indwelling Lynn, consider starting Flomax prior to next voiding trial."
[2019-03-17] MEDS: oxyCODONE ER 10 MG TABLET PO SCH (09:58)
--- NOTE | 2019-03-17 10:05 | DISCHARGE SUMMARY ---
Discharge Summary Admit Date: 03/13/19 Discharge Date: 03/17/19 Discharging Provider: OPAL Stanley Code Status: Do Not Attempt Resuscitation Condition at Discharge: Good Discharge Disposition: SNF DC/Xfer Discharge Facility Name: Care Age - DIAGNOSES Admission Diagnoses: Sepsis Fall Prostate cancer metastatic to bone Pulmonary embolism Moderate aortic stenosis Refusal of blood transfusions as patient is Zoroastrian Discharge Diagnoses with Status of Each Condition: Chest wall abscess Fall Generalized weakness LVH (left ventricular hypertrophy) Moderate aortic stenosis Prostate cancer metastatic to bone Refusal of blood transfusions as patient is Zoroastrian Iron deficiency anemia Sepsis Hx pulmonary embolism Urinary retention due to BPH - HPI History of Present Illness: HPI per Dr. Floyd: This is a 78 year old male with a past medical history significant for prostate cancer with mets to the bone, moderate aortic stenosis, and recent admission for sepsis secondary to a chest wall abscess who presents from home after having a fall. Most of the history is obtained from the spouse as the patient is lethargic and answering questions with short answers. He keeps repeating "I am weak and that is why I fell." He was just discharged about two days ago after being admitted for a chest wall abscess that was drained. He was discharged on Keflex after receiving IV antibiotics during the hospitalization. His spouse tells me that he did not want to go to a SNF although she is concerned about him being at home. Last night he went to sleep early and then at tempted to get out of bed early this morning to go to the bathroom when he fell. He recalls falling and that he scraped his mouth. He denies chest pain, palpitations, syncope, fevers, headache, blurry vision. Both he and his spouse report decreased oral intake over the last two days. The spouse tells me that he also prefers not to ambulate with a walker when he is at home and attempts to get around by himself. In the emergency department, he was found to febrile, tachycardic, and tachypnic. Initial labs showed mild leukocytosis and hyponatremia. His urinalysis and chest x-ray were relatively unremarkable. - CONSULTS | PROCEDURES Consultations: Surgery, WCON Procedures: Removal of right chest wall port - HOSPITAL COURSE Hospital Course: (1) Chest wall abscess- - Initially came to the ED on 03/05 and underwent an I & D of a right chest wall abscess - Admitted for sepsis from 03/06-03/11 - Failed outpatient antibiotics, fell at home, so re-admitted from 03/13- currently - Now status post removal of right chest port that was completed in the OR during this admission - Continue Clindamycin for the next 10 days, since his sepsis was recurrent (2) Fall- - Prior to the patient's last admission ~03/06, he fell at home - Now another fall, leading to this admission - Increasingly difficult for his to care for him -Continue with daily PT, continue fall precautions (3) Generalized weakness- - This is the second admission in a short time, and both times he fell at home - No falls while in the hospital - Getting up to the chair for meals with staff - PT recommends [facility] for [facility]hab - Today his complaints of dizziness have improved, so he has been continued on both BB and midodrine to slow down his heart, and prevent hypotension (4) LVH (left ventricular hypertrophy)- - LVH on echo - Rate control is the primary treatment if blood pressure allows, so started low dose midodrine to avoid hypotension - Continue low dose BB- metoprolol succinate 12.5 mg PO BID (5) Moderate aortic stenosis- - Moderate aortic stenosis with an average peak velocity of 3.5 m/second, with peak/mean pressure gradient of AV max PG 50/ AV mean PG 35 - Started on BB and midodrine to prevent dizziness, which has improved his symptoms upon discharge today (6) Prostate cancer metastatic to bone- - Initially diagnosed about 10 years ago - Recent rubia mets, causing chronic back pain/hip pain - Now on chronic oxycodone at home, continued here - PSA stable, lower at 57 when checked last - Gracemo Tabares has been aware of both of his hospital stays and will keep in the loop as to rehab, next treatment time frame etc. - Ongoing urinary retention, so leaving indwelling lynn - Continue to maintain indwelling lynn, consider Flomax (7) Iron deficiency anemia- - H/H today 8.1/.2 - No recent bleeding - Continues on iron supplement -Continue to monitor, no blood thinners, encourage PO intake (8) Urinary retention due to benign prostatic hyperplasia- - Recent illness and weakness - Failed a voiding trial - Continue indwelling lynn, consider Flomax (9) Refusal of blood transfusions as patient is Zoroastrian- - Longstanding jewish - Please do not give Albumin, blood products or heparin containing pork etc. Disposition: The patient was medically stable and transported via W/C van to [facility] to undergo further rehab * Blood cultures and wound cultures obtained in the OR for this hospital stay were all no growth to date. * Sepsis has been resolved, present on admission, but the patient did not sustain end organ damage as a consequence of this syndrome. - ALLERGIES Allergies/Adverse Reactions: Allergies Allergy/AdvReac Type Severity Reaction Status Date / Time No Known Drug Allergies Allergy Verified 03/13/19 05:29 - MEDICATIONS Home Medications: Ambulatory Orders Medication Instructions Recorded Confirmed LORazepam [Lorazepam] 0.5 mg PO Q6H PRN #30 tablet 09/21/18 03/13/19 Gabapentin 100 mg PO DAILY 10/14/18 03/13/19 Omeprazole 20 mg PO QDAC 10/29/18 03/13/19 Loratadine/Pseudoephedrine 1 tab PO DAILY PRN 01/20/19 03/13/19 [Claritin-D 24 Hour Tablet] Melatonin 5 mg PO QPM PRN 01/20/19 03/13/19 Hemp Oil 1,000 mg PO . DIRECTED PRN 03/06/19 03/13/19 Ondansetron [Ondansetron Odt] 4 mg PO Q4H PRN 03/06/19 03/13/19 Polyethylene Glycol 3350 [Miralax] 17 gm PO DAILY 03/06/19 03/13/19 Prednisone 5 mg PO QDX21D 03/06/19 03/13/19 Prochlorperazine Maleate 10 mg PO Q6H PRN 03/06/19 03/13/19 Travoprost 0.004% Ophth Drops 1 drops EACHEYE QPM 03/06/19 03/13/19 [Travatan Z] dexAMETHasone [Dexamethasone] 8 mg PO Q3D 03/06/19 03/13/19 Clindamycin HCl [Clindamycin 300MG 300 mg PO QID 10 Days #30 capsule 03/17/19 CAP] Ferrous Gluconate 240 mg PO BID #60 tablet 03/17/19 Metoprolol Succinate [Toprol Xl] 12.5 mg PO BIDWM #30 tablet 03/17/19 Midodrine 2.5 mg PO TIDWM #90 tablet 03/17/19 Oxycodone HCl 10 mg PO Q4H PRN #30 tablet 03/17/19 Oxycodone HCl [Oxycontin] 15 mg PO BID #60 tab.er.12h 03/17/19 Saccharomyces Boulardii [Florastor] 250 mg PO DAILY #60 capsule 03/17/19 03/13/19 - PHYSICAL EXAM AT DISCHARGE General Appearance: positive: No acute distress, Alert Eyes Bilateral: positive: PERRL ENT: positive: Pharynx nml, No signs of dehydration Neck: positive: Thyroid nml, No JVD, Trachea midline Respiratory: positive: Chest non-tender, No respiratory distress Cardiovascular: positive: No gallop, Irregularly irregular, Systolic murmur Peripheral Pulses: positive: 1+ Abdomen: positive: Non-tender, Nml bowel sounds Back: positive: Nml inspection Skin: positive: No rash, Warm, Dry, Other (bronze skin tone) Extremities: positive: Non-tender, Pedal edema (dependent edema), Joint swelling Neurologic/Psychiatric: positive: Oriented x3, CN's nml (2-12), Motor nml, Weakness, Sensory loss, Depressed mood/affect, Other (baseline early dementia) Reflexes: Bicep (R): 2+, Bicep (L): 2+ - LABS Result Diagrams: 03/17/19 05:34 03/17/19 05:34 - DIAGNOSTIC IMAGING Diagnostic Imaging Results: Final report reviewed Diagnostic Imaging Results Comments: EXAM: CHEST RADIOGRAPHY EXAM DATE: 03/14/2019 12:22 PM IMPRESSION: Persistent mild bibasilar peribronchial cuffing and wispy airspace opacity which could reflect bronchitis or atelectasis. - SEPSIS Current Stage of Sepsis: Resolved - FOLLOW UP Follow Up: See PCP within one week following discharge from rehab - TIME SPENT Time Spent in Discharge (Minutes): 60
[2019-03-17 13:12] VITALS: BP 109/67
== END 2019-03-17 14:06 | DRG 314 ==
LOC: EDUNIT# → ED 03:56 → MS2 06:15
PROVIDERS: ADMIT Internal Medicine; ATTEND Nurse Practitioner
PROC: 02PY33Z Removal of Infusion Device from Great Vessel, Percutaneous Approach (ICD-10-PCS; 2019-03-14)
PROC: 0JPT0WZ Removal of Totally Implantable Vascular Access Device from Trunk Subcutaneous Tissue and Fascia, Open Approach (ICD-10-PCS; principal; 2019-03-14 08:00)
DX: R50.9 Fever, unspecified (principal); R53.1 Weakness; T80.211A Bloodstream infection due to central venous catheter, initial encounter; Z95.828 Presence of other vascular implants and grafts; S00.511A Abrasion of lip, initial encounter; K08.89 Other specified disorders of teeth and supporting structures; A41.01 Sepsis due to Methicillin susceptible Staphylococcus aureus; L02.213 Cutaneous abscess of chest wall; S00.01XD Abrasion of scalp, subsequent encounter; C79.51 Secondary malignant neoplasm of bone; E87.1 Hypo-osmolality and hyponatremia; D64.9 Anemia, unspecified; I27.82 Chronic pulmonary embolism; I95.9 Hypotension, unspecified; I10 Essential (primary) hypertension; R42 Dizziness and giddiness; R06.02 Shortness of breath; I35.0 Nonrheumatic aortic (valve) stenosis; I11.9 Hypertensive heart disease without heart failure; C61 Malignant neoplasm of prostate; G89.3 Neoplasm related pain (acute) (chronic); N40.1 Benign prostatic hyperplasia with lower urinary tract symptoms; R33.8 Other retention of urine; R35.1 Nocturia; D50.9 Iron deficiency anemia, unspecified; S01.511A Laceration without foreign body of lip, initial encounter; Z86.73 Personal history of transient ischemic attack (TIA), and cerebral infarction without residual deficits; W06.XXXA Fall from bed, initial encounter; Y92.003 Bedroom of unspecified non-institutional (private) residence as the place of occurrence of the external cause; F03.90 Unspecified dementia, unspecified severity, without behavioral disturbance, psychotic disturbance, mood disturbance, and anxiety; J45.909 Unspecified asthma, uncomplicated; F41.9 Anxiety disorder, unspecified; I45.81 Long QT syndrome; H91.90 Unspecified hearing loss, unspecified ear; Y84.8 Other medical procedures as the cause of abnormal reaction of the patient, or of later complication, without mention of misadventure at the time of the procedure; Z66 Do not resuscitate; Z51.5 Encounter for palliative care; Z19.2 Hormone resistant malignancy status; Z79.891 Long term (current) use of opiate analgesic; Z91.81 History of falling; Z90.79 Acquired absence of other genital organ(s); Z79.899 Other long term (current) drug therapy
CPT/HCPCS: 36415; 51702; 71045; 80048; 80053; 80202; 81003; 82607; 82728; 83540; 83605; 83615; 83690; 83735; 84466; 84484; 85025; 85044; 85610; 85730; 87040; 93005; 96365; 96368; 97161; 97167; 97530; 99283; 99285; A9270; J1650; J2916; J3370; J7040; J7120; J7512; 81001; 87086

== ENCOUNTER 2019-04-20 09:56 | Outpatient (CLI) | payer MEDICARE, OTHER ==
--- NOTE | 2019-04-20 16:53 | CONSULTATION NOTE ---
Palliative Care Follow Up - Referral Referring Provider: Dr. Greg Keating Time of Visit: 07-13 Referral setting: 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 He does have mets to his bones, peritoneal cavity, and retroperitoneal lymph nodes. He has been on multiple lines of therapy. His original diagnosis was in 2006, at that point time he had received a radical prostatectomy had done fairly well. I had met him on his first hospitalization, regarding goals of care, patient had done poorly on his latest treatment of Taxotere, and was weighing benefits of burdens of continuing. Patient did present with sepsis to [facility] 03/06 to 03/11 and presented with a fall at home. He did fail outpatient antibiotics and fortunately, was readmitted /. He did have a removal of his right chest port at that time, and was discharged to the SNF for strengthening. He did very well at the SNF, meeting his goals and is ambulatory, has increased his strength, and currently his counts have recovered to hemoglobin 12.1 and hematocrit 38.9. Unfortunately given the month off of treatment, his PSA has increased from 66.43 to 78.42. He has had his Port-A-Cath replaced on this last Friday, his right chest area is healing, though he does have a 3 x 3 cm area of thin red skin with some hyper granulation from 12-2 o'clock. He remains quite skittish about this, appropriately so. But no open areas or drainage or pockets of fluid palpated. Patient does present with moderate symptom burden, he does have fluctuating pain, most of this is concentrated in his left hip and thigh area. He currently is using oxycodone 10 mg 1-2 times during the day, and 15 mg of OxyContin at bedtime. When asked why he is not using it twice daily, it is the cost factor, will continue to monitor as it may be of benefit. Patient's most uncomfortable pain actually is his feet, with sharp shooting pains, worsening with increased pressure and at night. He currently is on gabapentin 100 mg twice daily. Patient does report some weight loss of about 5 pounds, continues with high levels of fatigue, and presents with intermittent tearfulness through our visit and depressive symptoms. He continues with high anxiety and anxious about his future and end of life, is quite candid and open with palliative care practitioner regarding his fears and concerns. Social History - Living Situation Living arrangement: At home Living Situation: With spouse/s.o. Support System: She lives at home with his , who is quite frail as well. They are managing currently, their children check on their frequently but are not available to physically assist. Patient currently is managing his ADLs with minimal assist. remains quite fearful of being able to meet his needs are his falling in the future. Medications/Allergies - Medications Home Medications: Ambulatory Orders Medication Instructions Recorded Confirmed Gabapentin 100 mg PO QDBREAKFAST 10/14/18 04/20/19 Omeprazole 20 mg PO QDAC 10/29/18 04/20/19 Hemp Oil 1,000 mg PO . DIRECTED PRN 03/06/19 04/20/19 Prednisone 5 mg PO DAILY 03/06/19 04/20/19 Travoprost 0.004% Ophth Drops 1 drops EACHEYE QPM 03/06/19 04/20/19 [Travatan Z] Oxycodone HCl 10 mg PO Q4H PRN #30 tablet 03/17/19 04/20/19 Saccharomyces Boulardii [Florastor] 250 mg PO DAILY #60 capsule 03/17/19 04/20/19 Gabapentin 200 mg PO QPM 04/20/19 04/20/19 Oxycodone HCl [Oxycontin] 15 mg PO ACHS 04/20/19 04/20/19 - Allergies Allergies/Adverse Reactions: Allergies Allergy/AdvReac Type Severity Reaction Status Date / Time No Known Drug Allergies Allergy Verified 04/20/19 10:21 Review of Systems - Constitutional Constitutional: reports: Fatigue, Weight loss. denies: Fever, Chills - Ears, Nose & Throat Ears, Nose & Throat: reports: Hearing loss, Hearing aids, Dry mouth. denies: Mouth lesions - Cardiovascular Cardiovascular: reports: Exertional dyspnea, Decr. exercise tolerance - Respiratory Respiratory: reports: SOB with exertion. denies: SOB at rest - Gastrointestinal Gastrointestinal: reports: Early satiety. denies: Constipation, Nausea - Genitourinary Genitourinary: reports: Urgency, Incontinence (mild), Other (Patient did have catheter removed at SNF, has been working on every 2 hours voidings to better manage incontinence and urgency. This does become problematic at bedtime, but is feeling like it is improving. He is due to see the urologist on 826 for cystoscopy and follow-up on his bladder cancer.) - Musculoskeletal Musculoskeletal: reports: Muscle pain (left leg), Back pain, Stiffness, Muscle weakness, Assistive devices (walker in am) - Integumentary Integumentary: reports: Dryness, Other (healing abcess wound right chest) - Neurological Neurological: reports: General weakness, Dizziness (occasionally with standing), Memory problems (mild) - Psychiatric Psychiatric: reports: Depression, Anxiety - Hematologic/Lymphatic Hematologic/Lymphatic: reports: Anemia (improved off chemo) - All Other Systems All Other Systems: reports: Reviewed and negative Physical Exam - Vital Signs Temperature: 36.8 C Pulse Rate: 80 Respiratory Rate: 18 Blood Pressure: 127/72 - Physical Exam General Appearance: positive: No acute distress, Alert, Anxious Eyes Bilateral: positive: Normal inspection ENT: positive: No signs of dehydration. negative: Pharyngeal erythema, Oral lesions Neck: positive: No JVD, Trachea midline Cardiovascular: positive: Regular rate & rhythm Respiratory: positive: No respiratory distress, Breath sounds nml. negative: Wheezes, Rales, Rhonchi Abdomen: positive: Soft, Nml bowel sounds Skin: positive: Pallor, Wound (see hpi) Extremities: positive: No pedal edema Neurologic/Psychiatric: positive: Oriented x3, Weakness, Depressed mood/affect, Flat affect Palliative Care - POLST Patient has POLST: Yes POLST Status: DNR, Selective Treatment Pain: Pain worsening, Location (see HPI; 10/11 at visit; had taken oxycodone previous to arrival; worsening pain in neuropathy in feet) Tiredness/Fatigue: Moderate (4-6) Drowsiness/Sedation: Moderate (4-6) Nausea: None Depression: Mild (1-3) Anxiety: Mild (1-3) Dyspnea: Mild (1-3) Anorexia: None Sleep: Sleeps poorly (up every 2 hours to void/anxiety at night) Constipation: Opoid induced, Managed (no bowel meds) Feelings of wellbeing/Perceived Quality of Life: Good, Acceptable, Improved Performance Status: Patient's functional status much improved with the SNF stay, is ambulatory, only needs walker in the morning when his balance is more problematic. He is able to bathe independently, he is quite distressed that he is not allowed to drive. He is taking a walk daily of 15 to 20 minutes, does have to pace himself, and does take frequent rests. His does perceive he is sleeping a lot, he does take a nap early evening. - Palliative Care Discussion: Patient does get easily overwhelmed with the thought of his decline in the future, he is hopeful he will tolerate the treatment well, as he had a very distressful series of unfortunate events these last couple of months. Is weighing the benefits and burdens of continuing, if he continues to feel poorly. He feels quite well with his recent SNF stay, his strength is up, and his blood counts are normalizing. He does understand the seriousness of his illness, and that he is running out of options. He is anxious for his , as his care needs increased, counseling provided regarding the role of palliative care and anticipatory guidance and support in helping with this decision making and transition points. Patient does present with depressive symptoms, fairly persistent, does discuss thoughts of suicidality though would not do that given his restorationist, and also admits to anxiety. Did initiate conversation about possible antidepressant trial in the future. Results - Lab Results Lab results reviewed: Yes Impression and Recommendations - Palliative Care Impression: This is a rikki 78-year-old gentleman with metastatic prostate cancer castration resistant, metastatic to the bones, peritoneal cavity, and retroperitoneal nodes. He is currently on low-dose Taxotere starting today, has had a series of unfortunate events including hospitalization for right chest wall abscess, sepsis, and recent SNF stay. Patient presents with moderate to high symptom burden relating to pain, anxiety, insomnia and fatigue. Palliative care to provide support for pain and symptom management and anticipatory guidance. Recommendations/Counseling Done: 1. Pain of neoplastic origin. Patient presents with multifactorial pain, is currently on OxyContin 50 mg at bedtime, and oxycodone 10 mg every 4 hours during the day. He is supported by prednisone 5 mg for his cancer treatment, also helpful in management of his bone pain. He does present with increasing and uncomfortable lower extremity neuropathies, will need to continue to monitor given his Taxotere dosing, he is on gabapentin 100 mg twice daily, counseling provided regarding the treatment of neuropathic pain and he is willing to titrate up the gabapentin, will start very slowly though given his balance issues and he will add a second gabapentin at bedtime for a total of 200 mg. 2. Generalized weakness. We did discuss if patient would like to continue with outpatient physical therapy, as he did find therapy very helpful at the SNF. He is going to check out "the equipment" both the [facility] as well as [email or web address], and let me know if one seems like a good fit or if he would like to pursue. Counseling with regarding patient's fall risk, discussed patient fall, she does need to call 911 and ask for lift assist. Instructed to present EMS with POLST, and they can refuse hospitalization but given his frailty it is good to have him checked out and follow EMS advised 3. Depression. Patient does present with persistent and identifiable depressive symptoms, counseling provided regarding the role of antidepressants. Patient does have a fairly comprehensive john community, and does find his relationship with God helpful. He also identified his is a source of good support. Agreed to continue to explore this. did share later patient is quite irritable, and often has a difficult time if gets overwhelmed. 4. Weight loss. Patient reports 5 pound weight loss, denies GERD, nausea, feels like he is just eating less portions. We did discuss in the context of his current weight and BMI, will continue to watch but no concerns currently. 5. Bladder urethral carcinoma. He is due to follow-up with urology, he is somewhat anxious as he did have a friend recently from bladder cancer. We did discuss local treatment and monitoring versus severe metastatic disease. He is "curious" if his treatment has helped his bladder cancer. We did discuss there are providers from the [facility], now seeing patients in [place]. Transportation and travel is difficult as has to drive, they will explore this with Dr. Clay when they see her. 6. Urinary incontinence. Patient currently does feel like he is emptying his bladder, his urgency is improving, he is toileting every 2 hours. Counseling provided regarding incontinent products, and management does feel like they are currently doing okay with some improved. Does feel like he is emptying his bladder only symptom is urgency, and no dysuria. 7. Advanced care planning. Patient does POLST in place with DNA R/selective treatments. He does have a D POA which identifies his Helene Shahid [phone] and his alternative healthcare agent as Owen Shahid [phone]. It is complicated in the context is a Jehovah witness, and main side effect for his treatment is anemia for which he did not tolerate very well with his previous few months of treatment with full taxotere. He is hoping this will be gentler, and better tolerated at the weekly dosing. He at this point in time would like to continue treatment, he has been treated for several years, but is continuing to weigh benefits and burdens and explore quality of life issues. Palliative care to continue to provide support with anticipatory guidance. Time Spent: 60 minutes with getting 50% of this done in counseling regarding pain and symptom management, discussion of goals of care, and anticipatory guidance. Plan to follow-up next week for continued titration of gabapentin, then will see alternative weeks to oncology team.
== END 2019-04-20 09:57 | disposition home or self-care (01) ==
LOC: PC 09:56
PROVIDERS: ATTEND Nurse Practitioner Adult Health
DX: Z51.5 Encounter for palliative care (principal); G89.3 Neoplasm related pain (acute) (chronic); R53.1 Weakness; C79.51 Secondary malignant neoplasm of bone; C61 Malignant neoplasm of prostate; C77.2 Secondary and unspecified malignant neoplasm of intra-abdominal lymph nodes; C78.6 Secondary malignant neoplasm of retroperitoneum and peritoneum; G62.9 Polyneuropathy, unspecified; F32.9 Major depressive disorder, single episode, unspecified; G47.00 Insomnia, unspecified; R63.4 Abnormal weight loss; C67.9 Malignant neoplasm of bladder, unspecified; R32 Unspecified urinary incontinence; Z95.828 Presence of other vascular implants and grafts; Z79.899 Other long term (current) drug therapy; Z79.891 Long term (current) use of opiate analgesic; Z79.52 Long term (current) use of systemic steroids; Z66 Do not resuscitate; Z86.19 Personal history of other infectious and parasitic diseases; Z91.81 History of falling
CPT/HCPCS: 99215

== ENCOUNTER 2019-05-04 12:45 | Outpatient (CLI) | payer MEDICARE, OTHER ==
--- NOTE | 2019-05-04 20:36 | CONSULTATION NOTE ---
Palliative Care Follow Up - Referral Referring Provider: Dr. rGeg Keating Time of Visit: [id number] Referral setting: [facility] Referral Reason: Pain of neoplastic origin/peripheral neuropathy - Information Sources Records reviewed: Previous records reviewed History/Review of Systems obtained from: Patient, Family ( Jameson) Exam limitations: No limitations - History of Present Illness Update Brief HPI Update: Please see visit for further H and P. This is a level is 78-year-old gentleman who is a Yazidism, who presents with metastatic castration resistant prostate cancer with mets to the bone, peritoneal cavity, and retroperitoneal nodes. Patient is getting weekly Taxotere, which she is pleased that he is tolerating better. He continues with fairly high levels of fatigue, he reports he did get some improvement with a small increase in gabapentin, but had a significantly painful night last night, with acute exacerbation of the pain and poor sleep. He is looking forward going [place] the [place], reports his mood continues to fluctuate, he continues with persistent depressive and anxiety symptoms. Social History - Living Situation Living arrangement: At home Living Situation: With spouse/s.o. Support System: He lives at home with his , who is frail as well. Currently they are continuing to manage, patient currently can still manage his ADLs. He has been using his scooter to get around and remains somewhat discontent he cannot drive. Medications/Allergies - Medications Home Medications: Ambulatory Orders Medication Instructions Recorded Confirmed Gabapentin 100 mg PO QDBREAKFAST MDD on taper 10/14/18 05/04/19 stop 05/06 Omeprazole 20 mg PO QDAC 10/29/18 05/04/19 Hemp Oil 1,000 mg PO . DIRECTED PRN 03/06/19 05/04/19 Prednisone 5 mg PO DAILY 03/06/19 05/04/19 Travoprost 0.004% Ophth Drops 1 drops EACHEYE QPM 03/06/19 05/04/19 [Travatan Z] Oxycodone HCl 10 mg PO Q4H PRN #30 tablet 03/17/19 05/04/19 Saccharomyces Boulardii [Florastor] 250 mg PO DAILY #60 capsule 03/17/19 05/04/19 Gabapentin 100 mg PO QPM MDD on taper stop 05/0804/20/19 05/04/19 DULoxetine [Cymbalta] 20 mg PO ACHS MDD to start 05/0905/04/19 05/04/19 Polyethylene Glycol 3350 [Miralax] 17 gm PO DAILY PRN 05/04/19 05/04/19 - Allergies Allergies/Adverse Reactions: Allergies Allergy/AdvReac Type Severity Reaction Status Date / Time No Known Drug Allergies Allergy Verified 05/04/19 12:16 Review of Systems - Constitutional Constitutional: reports: Fatigue, Night sweats, Weight stable. denies: Fever, Chills - Eyes Eyes: reports: Vision loss, Corrective lenses - Ears, Nose & Throat Ears, Nose & Throat: reports: Hearing loss, Hearing aids. denies: Mouth lesions - Cardiovascular Cardiovascular: reports: Decr. exercise tolerance - Gastrointestinal Gastrointestinal: reports: Early satiety. denies: Constipation, Diarrhea, Nausea, Vomiting - Genitourinary Genitourinary: reports: Incontinence (improving) - Musculoskeletal Musculoskeletal: reports: Stiffness, Muscle weakness, Assistive devices - Integumentary Integumentary: reports: Dryness - Neurological Neurological: reports: General weakness, Numbness (bilateral feet;hands), Memory problems (mild) - Psychiatric Psychiatric: reports: Depression, Anxiety - Hematologic/Lymphatic Hematologic/Lymphatic: reports: Anemia. denies: Recurrent infections (chest healed) Physical Exam - Physical Exam General Appearance: positive: Alert, Mild distress Eyes Bilateral: positive: Normal inspection ENT: positive: No signs of dehydration Neck: positive: Trachea midline Respiratory: positive: No respiratory distress Skin: positive: Pallor, Dryness Extremities: positive: No pedal edema Neurologic/Psychiatric: positive: Oriented x3, Mood/affect nml, Weakness, Flat affect Palliative Care - POLST Patient has POLST: Yes POLST Status: DNR, Selective Treatment Pain: Pain worsening (Patient has been taking OxyContin 15 mg at bedtime. He does not want this renewed as he does not want to do co-pay. He would prefer to continue with the oxycodone 10 mg 2-3 times a day. Reports his pain fluctuates, though did have an acute exacerbation of his neuropathic pain discomfort last night. He did report he noticed some improvement with the small increase in gabapentin but open to trying alternate treatment of medication today.) Tiredness/Fatigue: Moderate (4-6) Drowsiness/Sedation: Mild (1-3) Nausea: None Depression: Mild (1-3) Anxiety: Mild (1-3) Constipation: Yes, Opoid induced, Managed Performance Status: Patient still ambulatory with his walker, still able to attend to his ADLs. He has been using a scooter to get around. He is still interested sit in further follow-up regarding physical therapy. He did check out [facility] in [place], plans to follow up with at end of visit. Is looking for supportive equipment he feels he would like. - Palliative Care Discussion: Patient continues to express concern regarding his current status and "waiting to ". Does admit that he does do better if he has goals, very much look forward to the fair. We did discuss this may be something to continue to explore about setting both short-term and long-term goals. Results - Lab Results Lab results reviewed: Yes Impression and Recommendations - Palliative Care Impression: Is a rikki 78-year-old gentleman with metastatic prostate cancer/castration resistant, metastatic disease to the bones, peritoneal cavity and retroperitoneal nodes. He has tolerated low-dose Taxotere, he will be receiving this weekly. He continues to present with moderate symptom burden, palliative care to continue provide support for pain and symptom management and anticipatory guidance. Recommendations/Counseling Done: 1. Pain of neoplastic origin. Patient presents with multifactorial pain, patient would like to discontinue the OxyContin 15 mg at bedtime, though he does understand the concept of time-released, he does not want to pay the co-pay. We did discuss he could use his oxycodone 1 tablet but time, and could repeat if needed if awakens and discomfort. New We did discuss the management of his peripheral neuropathy, he has long-term been on gabapentin, we did increase his gabapentin to 200 mg at bedtime with the idea of a slow increase secondary to his high risk for falls and poor balance. He did fill 200 at bedtime did help, but had an acute exacerbation last night, and conversation with his oncology nurse practitioner will go ahead and initiate duloxetine. Will taper quickly patient's gabapentin, written out schedule, with goal to start duloxetine by Friday at 20 mg at bedtime. Will monitor patient's side effects and increase slowly. 2. Generalized weakness. Patient did explore some options, he is encouraged to continue with his daily walks. Again offered physical therapy referral, he will check at [facility] and let me know tomorrow. 3. Depression. Patient does present with persistent and identifiable depressive symptoms, this will hopefully be of benefit to initiate the duloxetine as he was not interested in starting an antidepressant. We will co susanna to provide psychosocial support and cognitive behavioral therapy in the context of setting goals. 4. Weight loss. Patient reports no weight loss this week, currently no concerns. 5. Metastatic prostate cancer. Patient pleased to be able to tolerating the Taxotere better, does have some fatigue. Will watch for progressive peripheral neuropathy symptoms. Time Spent: Minutes with greater than 50% of this done in counseling regarding pain medications. Patient counseled on taper of gabapentin, written down a patient able to verbalize back. Prescription given for duloxetine 20 mg, as well as oxycodone 10 mg tabs, patient to use as needed and will discontinue his OxyContin 15 mg at bedtime when he runs out.
== END 2019-05-04 12:46 | disposition home or self-care (01) ==
LOC: PC 12:45
PROVIDERS: ATTEND Nurse Practitioner Adult Health
DX: Z51.5 Encounter for palliative care (principal); C61 Malignant neoplasm of prostate; C79.51 Secondary malignant neoplasm of bone; G89.3 Neoplasm related pain (acute) (chronic); G62.9 Polyneuropathy, unspecified; C77.2 Secondary and unspecified malignant neoplasm of intra-abdominal lymph nodes; C79.89 Secondary malignant neoplasm of other specified sites; R53.1 Weakness; F32.9 Major depressive disorder, single episode, unspecified; R63.4 Abnormal weight loss; H54.7 Unspecified visual loss; H91.90 Unspecified hearing loss, unspecified ear; R32 Unspecified urinary incontinence; F41.9 Anxiety disorder, unspecified; Z79.52 Long term (current) use of systemic steroids; Z66 Do not resuscitate; Z79.891 Long term (current) use of opiate analgesic; Z79.899 Other long term (current) drug therapy
CPT/HCPCS: 99214

== ENCOUNTER 2019-05-18 17:49 | Outpatient (CLI) | payer MEDICARE, OTHER ==
--- NOTE | 2019-05-18 18:00 | CONSULTATION NOTE ---
Palliative Care Follow Up - Referral Referring Provider: Dr. Greg Keating Time of Visit: [id number] Referral setting: [facility] [place] Referral Reason: Pain of neoplastic origin/Met Prostate Cancer - Information Sources Records reviewed: Previous records reviewed History/Review of Systems obtained from: Patient Exam limitations: No limitations - History of Present Illness Update Brief HPI Update: This is a rikki 78-year-old gentleman who has metastatic prostate cancer/castration resistant. He has known mets to the bone, peritoneal cavity, and retroperitoneal nodes. He is getting weekly Taxotere, which he is pleased he is tolerating better. Two weeks ago he had titrate him down off his gabapentin and initiated duloxetine 20 mg, this was in response to an acute increase in his peripheral neuropathy pain in his feet. Unfortunately had fairly significant side effects of dizziness, increased difficulty with balance, naus ea, and tolerated the duloxetine poorly. In conversation in follow-up last week, he reports no increase in his neuropathic pain and so agreed to stay off both gabapentin and duloxetine and we would follow-up today. Today he reports he is doing actually fairly well, the symptoms have resolved, as well as he is found that using the heating pad on low heat has solved his discomfort problems. Reports overall most of his pain is in his left hip and bone/thigh area, exacerbates with increased weightbearing or fatigue. He is using just plain oxycodone 10 mg intermittently with satisfactory results. Feels like he is doing fairly well overall, he denies exacerbation of his anxiety or depressive symptoms. He does report sometimes he can "go there" as far as sadness, but has been finding other distractions. He has actually been able to participate more in his Jehovah witness activities, which brings him comfort and yordy. He reports no further decline in his functional status, he continues with fatigue, his appetite is good, and feels like things are fairly stable. His chest is well-healed, has had no fever or chills, and continues to be quite hopeful for ongoing response to his treatment, his PSA is due next visit. Social History - Living Situation Living arrangement: At home Living Situation: With spouse/s.o. Support System: They are currently managing fairly well, patient not driving which is a significant loss for him. reports no falls or concerns at this point in time. I checked in with her at the end of visit, patient and I met independently today Medications/Allergies - Medications Home Medications: Ambulatory Orders Medication Instructions Recorded Confirmed Omeprazole 20 mg PO QDAC 10/29/18 05/19/19 Hemp Oil 1,000 mg PO . DIRECTED PRN 03/06/19 05/19/19 Prednisone 5 mg PO DAILY 03/06/19 05/19/19 Travoprost 0.004% Ophth Drops 1 drops EACHEYE QPM 03/06/19 05/19/19 [Travatan Z] Oxycodone HCl 10 mg PO Q4H PRN #30 tablet 03/17/19 05/19/19 Saccharomyces Boulardii [Florastor] 250 mg PO DAILY #60 capsule 03/17/19 05/19/19 Polyethylene Glycol 3350 [Miralax] 17 gm PO DAILY PRN 05/19/19 05/19/19 - Allergies Allergies/Adverse Reactions: Allergies Allergy/AdvReac Type Severity Reaction Status Date / Time No Known Drug Allergies Allergy Verified 05/04/19 12:16 Review of Systems - Constitutional Constitutional: reports: Fatigue. denies: Fever, Chills - Eyes Eyes: reports: Vision loss, Corrective lenses - Ears, Nose & Throat Ears, Nose & Throat: reports: Hearing loss, Hearing aids, Dry mouth. denies: Mouth lesions - Cardiovascular Cardiovascular: reports: Decr. exercise tolerance - Respiratory Respiratory: denies: SOB at rest - Gastrointestinal Gastrointestinal: denies: Constipation - Genitourinary Genitourinary: reports: Incontinence, Other (Reports had met with the urologist regarding his bladder cancer, things appear to be quite stable right now. He does not have any further follow-up until 6 months. He still continues to struggle with incontinence but is finding it manageable.) - Musculoskeletal Musculoskeletal: reports: Muscle aches, Stiffness, Muscle weakness, Assistive devices (walker) - Integumentary Integumentary: reports: Dryness - Neurological Neurological: reports: General weakness, Memory problems (mild but improved) - Psychiatric Psychiatric: reports: Depression (improved), Anxiety (improved) - Hematologic/Lymphatic Hematologic/Lymphatic: reports: Anemia (hgb 12.6). denies: Recurrent infections - All Other Systems All Other Systems: reports: Reviewed and negative Physical Exam - Physical Exam General Appearance: positive: No acute distress Eyes Bilateral: positive: Normal inspection ENT: positive: No signs of dehydration Neck: positive: No JVD, Trachea midline Cardiovascular: positive: Regular rate & rhythm Respiratory: positive: No respiratory distress Abdomen: positive: Non-tender, Soft, Nml bowel sounds Skin: positive: Pallor, Dryness. negative: Wound Extremities: positive: No pedal edema Neurologic/Psychiatric: positive: Oriented x3, Mood/affect nml, Flat affect Palliative Care - POLST Patient has POLST: Yes POLST Status: DNR, Selective Treatment Pain: Pain improved, Location (see HPI) Tiredness/Fatigue: Moderate (4-6) Drowsiness/Sedation: Mild (1-3) Nausea: None Depression: Mild (1-3) Anxiety: Mild (1-3) Dyspnea: Mild (1-3) Anorexia: Mild (1-3) Sleep: Sleep improved Constipation: Yes, Opoid induced, Managed Feelings of wellbeing/Perceived Quality of Life: Good, Acceptable, Improved - Palliative Care Discussion: Patient remains quite hopeful, that can continue on weekly Taxotere. He still wants to "manage his disease", though does understand he is receiving treatment that is palliative in nature. Patient though at baseline, has not had significant symptoms related to his cancer other than the bone mets, which at this time are presenting with some intermittent pain but manageable. He does a ppear less anxious and less depressed today, willing to engage in share with palliative IT LEAD regarding concerns and fears. Patient does have POLST in place with DNA R/selective treatment. He continues to make short-term plans and enjoy his family and gnosticist. Results - Lab Results Lab results reviewed: Yes Impression and Recommendations - Palliative Care Impression: This is a rikki 78-year-old gentleman with metastatic castration resistant prostate cancer, with metastatic disease to the bones, peritoneal cavity, and retroperitoneal nodes. He did have a poor reaction to the duloxetine, currently is off any neuropathic meds and doing fine with just heat pad at night. Palliative care to continue provide support for pain and symptom management and anticipatory guidance. Recommendations/Counseling Done: 1. Pain of neoplastic origin. Patient presents with multifactorial pain, he is only needing the Oxycodone 10 mg 1-2 times a day, and using it for intermittent exacerbation of pain. He is currently satisfied with regimen. Patient did not tolerate initiation of duloxetine with side effects, he is currently off his gabapentin as well. He feels like his neuropathic pain has improved, and he is using heating pad at night with good results. Counseling provided can resume gabapentin and titrate to higher dose if does become more problematic. Patient quite happy to have less medication. 2. Generalized weakness. Patient continuing to walk on a regular basis, he does have a scooter so he can get around. He has not wanted to move forward on physical therapy referral, though I suspect this would be of help. 3. Depression. 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 4. Metastatic prostate cancer. Patient continues to be pleased tolerating Taxotere better, though is anxious as last PSA had increased. He is looking forward results of next week's labs, and continues to be hopeful for management of his disease.
== END 2019-05-18 17:50 | disposition home or self-care (01) ==
LOC: PC 17:49
PROVIDERS: ATTEND Nurse Practitioner Adult Health
DX: Z51.5 Encounter for palliative care (principal); G89.3 Neoplasm related pain (acute) (chronic); C61 Malignant neoplasm of prostate; C77.2 Secondary and unspecified malignant neoplasm of intra-abdominal lymph nodes; C78.6 Secondary malignant neoplasm of retroperitoneum and peritoneum; C79.51 Secondary malignant neoplasm of bone; Z19.2 Hormone resistant malignancy status; Z79.899 Other long term (current) drug therapy; Z79.891 Long term (current) use of opiate analgesic; Z66 Do not resuscitate; F41.9 Anxiety disorder, unspecified; F32.9 Major depressive disorder, single episode, unspecified; R53.1 Weakness
CPT/HCPCS: 99214

== ENCOUNTER 2019-06-09 10:51 | Emergency (ER) | payer MEDICARE, OTHER ==
[2019-06-09 12:17] LABS: BASOPHILS # (AUTO) 0.1 10^3/uL (0.0-0.1); BASOPHILS % (AUTO) 0.8 %; EOSINOPHILS % (AUTO) 0.5 %; HGB - HEMOGLOBIN 12.2 g/dL (14.0-18.0); LYMPHOCYTES # (AUTO) 0.6 10^3/uL (1.5-3.5); LYMPHOCYTES % (AUTO) 7.9 %; MEAN CORPUSCULAR HEMOGLOBIN 31.4 pg (27.0-31.0); MEAN CORPUSCULAR HGB CONC 33.6 g/dL (32.0-36.0); MEAN CORPUSCULAR VOLUME 93.3 fL (80.0-94.0); MEAN PLATELET VOLUME 8.9 fL (7.4-11.4); MONOCYTES # (AUTO) 0.6 10^3/uL (0.0-1.0); MONOCYTES % (AUTO) 7.1 %; NEUTROPHILS # (AUTO) 6.4 10^3/uL (1.5-6.6); NEUTROPHILS % (AUTO) 82.9 %; PLT - PLATELET COUNT 313 10^3/uL (130-450); RED BLOOD COUNT 3.89 10^6/uL (4.70-6.10); RED CELL DISTRIBUTION WIDTH 16.2 % (12.0-15.0); WHITE BLOOD COUNT 7.7 x10^3/uL (4.8-10.8)
--- NOTE | 2019-06-09 12:32 | XRAY Report ---
Reason: cough/copngestion Procedure Date: 06/09/2019 Accession Number: [id number] / [id number] Procedure: XR - Chest 2 View X-Ray CPT Code: 23654 FULL RESULT: EXAM: CHEST RADIOGRAPHY EXAM DATE: 06/09/2019 12:05 PM. CLINICAL HISTORY: Cough/congestion. COMPARISON: CHEST 1 VIEW 03/14/2019 12:07 PM. CHEST 1 VIEW 03/13/2019 4:19 AM. CHEST W/ 03/06/2019 8:54 AM. TECHNIQUE: 2 views. FINDINGS: Lungs/Pleura: Patchy subsegmental left posterior basal opacity indeterminate between atelectasis versus small infiltrate. No significant effusion and no extraventilatory air. Stable minor right basilar scarring and/or atelectasis with bilateral upper lobe emphysema, greater on the right. Mediastinum: Heart and mediastinal contours are unremarkable. Other: Left-sided Port-A-Cath tip is in the middle third SVC. IMPRESSION: Nonspecific subsegmental left basilar opacity could be atelectasis or early infiltrate. No edema or effusion. RADIA
[2019-06-09 12:33] LABS: ALBUMIN 3.5 g/dL (3.2-5.5); ALBUMIN/GLOBULIN RATIO 0.9 (1.0-2.2); BILIRUBIN,TOTAL 0.8 mg/dL (0.2-1.0); CREATININE 0.9 mg/dL (0.6-1.2); TOTAL PROTEIN 7.2 g/dL (6.7-8.2)
[2019-06-09] MEDS ORDERED: levoFLOXacin 250 MG TABLET PO STA (13:19)
--- NOTE | 2019-06-09 13:21 | ED Physician Documentation ---
PD HPI DYSPNEA - Stated complaint Stated Complaint: CONGESTION/COUGHING - Chief complaint Chief Complaint: Resp - History obtained from History obtained from: Patient - History of Present Illness Timing - onset: Other (78-year-old gentleman on chemotherapy for prostate cancer presents with 1.5 weeks of productive cough that is slowly worsening associated with mild shortness of breath. There is no associated fevers or chills. No pedal edema. 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 DIRECTED PRN 03/06/19 05/19/19 Prednisone 5 mg PO DAILY 03/06/19 05/19/19 Travoprost 0.004% Ophth Drops 1 drops EACHEYE QPM 03/06/19 05/19/19 [Travatan Z] Oxycodone HCl 10 mg PO Q4H PRN #30 tablet 03/17/19 05/19/19 Saccharomyces Boulardii [Florastor] 250 mg PO DAILY #60 capsule 03/17/19 05/19/19 Polyethylene Glycol 3350 [Miralax] 17 gm PO DAILY PRN 05/19/19 05/19/19 Levofloxacin [Levaquin] 750 mg PO DAILY #6 tablet 06/09/19 - Allergies Allergies/Adverse Reactions: Allergies Allergy/AdvReac Type Severity Reaction Status Date / Time No Known Drug Allergies Allergy Verified 06/09/19 11:14 - Social History Does the pt smoke?: No Smoking Status: Former smoker Does the pt drink ETOH?: Yes Does the pt have substance abuse?: No - Immunizations Immunizations are current?: Yes - POLST Patient has POLST: Yes POLST Status: DNR PD ED PE NORMAL - Vitals Vital signs reviewed: Yes - General General: Alert and oriented X 3, No acute distress - HEENT HEENT: Pharynx benign - Neck Neck: Supple, no meningeal sign, No bony TTP - Cardiac Cardiac: RRR, No murmur - Respiratory Respiratory: Other (Rhonchorous at both bases left worse than right, good air motion. Nonlabored breathing.) - Abdomen Abdomen: Non tender - Back Back: No CVA TTP, No spinal TTP - Extremities Extremities: No edema, No calf tenderness / cord - Neuro Neuro: Alert and oriented X 3, Normal speech Results - Vitals Vitals: Vital Signs - 24 hr 06/09/19 06/09/19 11:11 13:36 Temperature 36.5 C Heart Rate 88 76 Respiratory 20 18 Rate Blood Pressure 117/80 107/76 O2 Saturation 97 95 Oxygen O2 Source Room air - Labs Labs: Laboratory Tests 06/09/19 06/09/19 12:05 12:05 WBC 7.7 RBC 3.89 L Hgb 12.2 L Hct 36.3 L MCV 93.3 MCH 31.4 H MCHC 33.6 RDW 16.2 H Plt Count 313 MPV 8.9 Neut # (Auto) 6.4 Lymph # (Auto) 0.6 L Bleckley # (Auto) 0.6 Eos # (Auto) 0.0 Baso # (Auto) 0.1 Absolute Nucleated RBC 0.00 Nucleated RBC % 0.0 Sodium 133 L Potassium 4.3 Chloride 98 L Carbon Dioxide 25 Anion Gap 10.0 BUN 12 Creatinine 0.9 Estimated GFR (MDRD) 82 L Glucose 157 H Calcium 9.0 Total Bilirubin 0.8 AST 23 ALT 20 Alkaline Phosphatase 62 Total Protein 7.2 Albumin 3.5 Globulin 3.7 Albumin/Globulin Ratio 0.9 L Lipase 24 - Rads (name of study) 2v chest Radiology: EMP read contemporaneously (Mild left basilar pneumonia) PD MEDICAL DECISION MAKING - ED course ED course: This is a 78-year-old gentleman who presents with a productive cough and is found to have a left basilar pneumonia. He is treated with levofloxacin. His respiratory status labs and vital signs suggest that he would be a good candidate for outpatient treatment. Departure - Departure Disposition: 01 Home, Self Care Clinical Impression: Pneumonia Qualifiers: Pneumonia type: due to unspecified organism Laterality: left Lung location: lower lobe of lung Qualified Code(s): J18.1 - Lobar pneumonia, unspecified organism Condition: Good Record reviewed to determine appropriate education?: Yes Instructions: Pneumonia Dc Prescriptions: Levofloxacin [Levaquin] 750 mg PO DAILY #6 tablet Comments: Return for new or worsening symptoms. Follow-up with your doctor on Friday or Friday for recheck. Call the [facility] clinic, they may want to delay the next round of chemotherapy based on new active pneumonia. Discharge Date/Time: 06/09/19 13:47
[2019-06-09 13:37] VITALS: BP 107/76
== END 2019-06-09 13:47 | disposition home or self-care (01) ==
LOC: ED 10:51
DX: J18.9 Pneumonia, unspecified organism (principal); J45.909 Unspecified asthma, uncomplicated; C61 Malignant neoplasm of prostate; C79.51 Secondary malignant neoplasm of bone; I10 Essential (primary) hypertension; Z87.891 Personal history of nicotine dependence; Z66 Do not resuscitate
CPT/HCPCS: 36415; 71046; 80053; 83690; 85025; 93005; 99283; A9270

== ENCOUNTER 2019-06-16 11:15 | Outpatient (CLI) | payer MEDICARE, OTHER ==
--- NOTE | 2019-06-16 13:27 | CONSULTATION NOTE ---
Palliative Care Follow Up - Referral Referring Provider: Dr. Greg Keating Time of Visit: 11:30-12 Referral setting: [facility] [place] Referral Reason: Pain of neoplastic origin/Met Prostate CA/Anxiety - Information Sources Records reviewed: Previous records reviewed History/Review of Systems obtained from: Patient, Family ( Helene @ visit) Exam limitations: No limitations (very [place]) - History of Present Illness Update Brief HPI Update: This is a rikki 78-year-old gentleman with Metastatic castration resistant prostate cancer, he has known mets to the bone, peritoneal cavity, and retroperitoneal nodes. He has had increasing PSA, and most recently presented to the ER in 9 with pneumonia. He is currently just finishing up his Levaquin, is having some diarrhea, increased fatigue, and taste changes as a result. Reports still productive cough, clear sputum, shortness of breath, and feeling weak. His chemotherapy as suspected, is put on hold, in fact will be revisiting for new formulation in 2 weeks after scans completed. Patient reports his pain at 3 out of 10 today, he has been taking 20 mg of oxycodone 4 times a day, with good relief. His pain is fairly persistent, no pain with sitting, some with ambulation, and worsening with laying down. He has just seen oncology, they are going to do a CT scan and MRI of his spine, as well as urgent referral to [facility] for possibility of radiation therapy. His bony lesions have been responsive in the past. He is feeling somewhat anxious and depressed with the progression of his disease, he is somewhat withdrawn and trying to process this. He has been long- term on therapy, as his original diagnosis was in 2006 where he received most his treatment in [place]. 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 He has had multiple lines of hormonal and chemotherapeutic treatment. Social History - Living Situation Living arrangement: At home Living Situation: With spouse/s.o. Support System: Patient lives with his Helene, who also has significant health problems. She is feeling depressed, overwhelmed, and worried about her 's health. Did offer her palliative care social media director for support, at this point she is turned it down but encouraged her to accept. They do have supportive sons, at this point are managing independently, but she is concerned in the future if he needs more physical help or if he she finds he has had a fall how best this is going to be managed. Medications/Allergies - Medications Home Medications: Ambulatory Orders Medication Instructions Recorded Confirmed Omeprazole 20 mg PO QDAC 10/29/18 06/16/19 Hemp Oil 1,000 mg PO . DIRECTED PRN 03/06/19 06/16/19 Prednisone 5 mg PO DAILY 03/06/19 06/16/19 Travoprost 0.004% Ophth Drops 1 drops EACHEYE QPM 03/06/19 06/16/19 [Travatan Z] Saccharomyces Boulardii [Florastor] 250 mg PO DAILY #60 capsule 03/17/19 06/16/19 Polyethylene Glycol 3350 [Miralax] 17 gm PO DAILY PRN 05/19/19 06/16/19 Oxycodone HCl 20 mg PO Q4H PRN 06/16/19 06/16/19 - Allergies Allergies/Adverse Reactions: Allergies Allergy/AdvReac Type Severity Reaction Status Date / Time No Known Drug Allergies Allergy Verified 06/16/19 09:52 Review of Systems - Constitutional Constitutional: reports: Fatigue, Weight stable. denies: Fever, Chills - Eyes Eyes: reports: Vision loss, Corrective lenses - Ears, Nose & Throat Ears, Nose & Throat: reports: Hearing loss, Hearing aids - Cardiovascular Cardiovascular: reports: Lightheadedness, Exertional dyspnea, Decr. exercise tolerance - Respiratory Respiratory: reports: Cough (clear), Sputum production (c), SOB at rest, SOB with exertion. denies: Wheezing - Gastrointestinal Gastrointestinal: reports: Diarrhea (improved this am), Early satiety (taste changes; eating 50%). denies: Nausea - Genitourinary Genitourinary: reports: Frequency, Incontinence - Musculoskeletal Musculoskeletal: reports: Back pain, Stiffness, Muscle weakness - Integumentary Integumentary: reports: Dryness - Neurological Neurological: reports: General weakness - Psychiatric Psychiatric: reports: Depression, Anxiety - Hematologic/Lymphatic Hematologic/Lymphatic: reports: Recurrent infections (dx with pneumonia 06/09) - All Other Systems All Other Systems: reports: Reviewed and negative Physical Exam - Vital Signs Temperature: 36.3 C Pulse Rate: 79 Respiratory Rate: 18 Blood Pressure: 107/64 - Physical Exam General Appearance: positive: No acute distress, Alert Eyes Bilateral: positive: Normal inspection ENT: positive: No signs of dehydration Neck: positive: No JVD, Trachea midline Cardiovascular: positive: Regular rate & rhythm Respiratory: positive: No respiratory distress, Diminished in bases, Rales (fine crackles LLL) Abdomen: positive: Soft, Nml bowel sounds Skin: positive: Pallor, Dryness Extremities: positive: No pedal edema Neurologic/Psychiatric: positive: Oriented x3, Weakness, Depressed mood/affect, Flat affect Palliative Care - POLST Patient has POLST: Yes POLST Status: DNR, Selective Treatment Pain: Pain worsening, Location (mid thoracic back/higher lumbar spine), Severity (/10) Tiredness/Fatigue: Moderate (4-6) Drowsiness/Sedation: Mild (1-3) Nausea: None Depression: Moderate (4-6) Anxiety: Moderate (4-6) Dyspnea: Moderate (4-6) Anorexia: Mild (1-3) Sleep: Sleeps well Constipation: Yes, Intermittent constipation Performance Status: Patient is sleeping more, is somewhat wiped out with his new diagnosis of pneumonia. He has been using increased pain medications also adding to his fatigue. His ambulatory with his walker. He is able to manage his own ADLs, he has less able to participate in house hold tasks. Noting increased breathlessness and decreased activity tolerance. - Palliative Care Discussion: Patient does have underlying depression and anxiety, is not surprised but is disappointed in the news his PSA is increasing. He is going to get a break, is understanding there are other treatment options. continues to be quite anxious about patient's health. He is planning and hoping to be able to take a trip to [place] to see his son over Thanksgiving, this evidently brightens him up. Patient finds his loss of independence and declining health overwhelming at times. He reports he uses his "brothers" from Jehovah witnesses as someone to share his distress with. He is worried about his , she does expressed persistent depressive symptoms as well. Encouraged to accept palliative care social media director, she will let me know.Patient often takes time to process information, encouraged to call back if he had any further questions or concerns. Results - Lab Results Lab results reviewed: Yes Impression and Recommendations - Palliative Care Impression: This is a rikki 78-year-old gentleman with metastatic castration resistant prostate cancer with metastatic disease to the bones, peritoneal cavity, and retroperitoneal nodes. He does have progression of disease with increased PSA, and increasing back pain. He did have pneumonia diagnosed on his ED visit on 9, he had had increased breathlessness and feeling poorly. He is beginning to recover, but is still dealing with the sequela of his illness. Palliative care to continue provide support for pain and symptom management and anticipatory guidance. Recommendations/Counseling Done: 1. Pain of neoplastic origin. Patient does present with increasing pain and opioid use for his mid thoracic higher lumbar pain, has been more persistent and worsening at night. He does get good relief with oxycodone 20 mg, is using up to 4 times a day. We did discuss in the context of initiating MS Contin, will defer for now as patient does have fluctuating pain levels to the day regarding to his activity. Oncology also make a referral for radiation, as well as CT scan and MRI to further define any concern for spinal cord compression and/or worsening disease. 2. Peripheral neuropathy. This continues to be controlled with just using heat at night. No worsening or discomfort at rest. 3. Anorexia. I suspect this is multifactorial in origin, including he just fin ished his Levaquin. Encouraged to continue to push fluids, small frequent meals, patient usually at baseline has good appetite. Patient does not present with any weight loss. 4. Depression/anxiety. Patient does fluctuate with his mood, he is feeling somewhat overwhelmed though he suspected progression of disease. Time spent in exploring counseling normalizing feelings of grief and loss. Patient's goals are currently to continue with treatment, he still perceives his quality of life is acceptable. He has had a short-term goal of visiting his son in [place] at [facility], positive reinforcement given. 5. Caregiver fatigue. Helene continues to be quite anxious, she has her own underlying health issues. Did encourage her given her description of her depressive feelings to accept her medical palliative care social media director, she will consider, but declined at time of visit. 6. Advanced care planning. Patient does have POLST in place, DNA R and selective treatment. He continues to wake treatment decisions as they arise weighing benefits and burdens of moving forward. Patient has been treated for an extended period of time over a decade, he does have some fatigue regarding this, but remains hopeful for ongoing quality and quantity of life. Time Spent: 30 minutes with greater than 50% of this done in counseling regarding pain and symptom management adjusting to illness, anticipatory guidance, coordination of care with oncology team. Plan will be to follow-up after scans done, continue with recommendations regarding pain and symptom management.
== END 2019-06-16 11:16 | disposition home or self-care (01) ==
LOC: PC 11:15
PROVIDERS: ATTEND Nurse Practitioner Adult Health
DX: Z51.5 Encounter for palliative care (principal); G89.3 Neoplasm related pain (acute) (chronic); G62.9 Polyneuropathy, unspecified; R63.0 Anorexia; C61 Malignant neoplasm of prostate; C78.6 Secondary malignant neoplasm of retroperitoneum and peritoneum; C77.2 Secondary and unspecified malignant neoplasm of intra-abdominal lymph nodes; C79.51 Secondary malignant neoplasm of bone; R97.21 Rising PSA following treatment for malignant neoplasm of prostate; F32.9 Major depressive disorder, single episode, unspecified; F41.9 Anxiety disorder, unspecified; H91.93 Unspecified hearing loss, bilateral; Z19.2 Hormone resistant malignancy status; Z79.899 Other long term (current) drug therapy; Z79.891 Long term (current) use of opiate analgesic; Z92.3 Personal history of irradiation; Z66 Do not resuscitate; Z87.01 Personal history of pneumonia (recurrent)
CPT/HCPCS: 99214

== ENCOUNTER 2019-06-23 07:53 | Outpatient (CLI) | payer MEDICARE, OTHER ==
[2019-06-23] MEDS ORDERED: IOVERSOL 320 100 ML VIAL IVP ONE ×2 (08:10→15:02)
[2019-06-23] MEDS ORDERED: IOVERSOL 320 50 ML VIAL ONE (08:10)
[2019-06-23] MEDS ORDERED: GADOBUTROL 10 MMOL/10 ML VIAL ONE (09:28)
[2019-06-23] MEDS ORDERED: GADOBUTROL 10 MMOL/10 ML VIAL IVP ONE (11:26)
[2019-06-23] MEDS ORDERED: IOVERSOL 320 50 ML VIAL PO ONE (15:02)
--- NOTE | 2019-06-24 09:05 | MRI Report ---
Reason: METS PROSTATE CA, METS TO SPINE Procedure Date: 06/23/2019 Accession Number: [id number] / [id number] Procedure: MRI - Cervical Spine W/WO CPT Code: FULL RESULT: EXAM: MRI CERVICAL SPINE WITHOUT AND WITH CONTRAST EXAM DATE: 06/23/2019 10:00 AM. CLINICAL HISTORY: Mets prostate CA, mets to spine. COMPARISON: BONE SCAN 01/13/2019 12:44 PM BONE WHOLE BODY 10/09/2016 12:28 PM BONE SCAN 08/05/2018 12:58 PM. TECHNIQUE: Multiplanar, multisequence T1-weighted and fluid-sensitive sequences of the cervical spine before and after administration of intravenous contrast. Other: None. IV contrast: 8.5 cc Gadavist. FINDINGS: Neurologic Structures: The visualized posterior fossa structures are unremarkable. No signal abnormality in the visualized spinal cord. Alignment: 3 mm posterior subluxation C3 on C4. Otherwise normal alignment. Bone Marrow: Mild superior endplate wedge compression fractures at the T1 and T2 levels. Small amount of associated marrow edema. These could represent subacute or chronic compression fractures. Question of mild compression deformity at the T3 upper endplate as well. Sclerotic lesions are present at the upper T1 vertebral body on the right, likely the upper T2 vertebral body, the posterior left second rib. Interspace Levels/Facets: C1-C2: Unremarkable. C2-C3: Small broad-based right foraminal disk protrusion and osteophyte formation with uncinate hypertrophy. Mild right foraminal stenosis. C3-C4: Retrolisthesis. Annular disk bulge and osteophyte formation. Broad-based right paracentral and foraminal disk protrusion and osteophyte and mild to moderate facet arthropathy. Mild central canal stenosis. Severe right foraminal stenosis. C4-C5: Slight annular disk bulge. Moderate bilateral degenerative facet arthropathy. Mild bilateral foraminal stenosis. C5-C6: Disk height loss. Annular disk bulge and osteophyte formation. Broad-based right greater than left paracentral and foraminal protrusions with osteophyte formation. Ligamenta flava buckling. Mild central canal stenosis. Mild left and moderate right foraminal stenosis. C6-C7: Disk height loss. Annular disk bulge with broad-based right paracentral protrusion. Mild central canal stenosis. No significant foraminal stenosis. C7-T1: Left paracentral and subarticular zone disk protrusion and osteophyte formation. Mild central canal stenosis. No significant foraminal stenosis. Spinal Canal: No enhancing lesions within the spinal canal. No epidural abscess. Musculature: Normal. No edema, enhancement, or fatty atrophy. Other: The paravertebral and prevertebral soft tissues are normal. IMPRESSION: 1. Mild T1 and T2 and possibly T3 superior endplate compression fractures with small amount of associated marrow edema representing subacute or chronic compression fractures, possibly pathologic. 2. Sclerotic lesions consistent with metastatic foci at the T1 and probably T2 upper vertebral bodies as well as the left posterior second rib. 3. Multilevel cervical degenerative disk and facet arthropathy. RADIA
--- NOTE | 2019-06-24 09:27 | MRI Report ---
Reason: METS PROSTATE CA, METS TO SPINE Procedure Date: 06/23/2019 Accession Number: [id number] / [id number] Procedure: MRI - Thoracic Spine W/WO CPT Code: FULL RESULT: EXAM: MRI THORACIC SPINE WITHOUT AND WITH CONTRAST EXAM DATE: 06/23/2019 09:10 AM. CLINICAL HISTORY: Metastatic prostate cancer, metastatic to spine. COMPARISONS: BONE SCAN 01/13/2019 12:44 PM CERVICAL SPINE W/WO 06/23/2019 8:29 AM. TECHNIQUE: Multiplanar, multisequence T1-weighted and fluid-sensitive sequences of the thoracic spine from C7 to L1 before and after administration of intravenous contrast. Other: None. IV contrast: 8.5 cc Gadavist. FINDINGS: Spinal Cord: No signal abnormality in the visualized spinal cord. Alignment: Normal thoracic vertebral body alignment. No spondylolisthesis. Bone Marrow: Mild T1 and T2 superior endplate compression fractures. Slight degree of marrow edema. Question slight degree of superior endplate deformity at the T3 level. Slight wedge compression deformity at the T7 level. Questionable slight superior endplate compression at the T6 level. Mixed signal intensity bone lesions and contrast enhancement consistent with metastatic lesions at the upper T1 and T2 vertebral bodies, throughout the T6, T7 vertebral bodies, T7 posterior elements, left anterior aspect of the T9 vertebral body, left-sided T10 pedicle and posterior elements, anterior T11 vertebral body. Smaller sclerotic lesion at the L1 vertebral body. No significant bone retropulsion or expansile bone lesion. Disk Levels/Facets: Mild degenerative disk and facet arthropathy throughout the thoracic spine. Patency of the canal and foramina as follows: C7-T1: Left paracentral protrusion. Minimal canal stenosis. T1-T2: Mild bilateral foraminal stenosis. T2-T3: Unremarkable. T3-T4: Unremarkable. T4-T5: Unremarkable. T5-T6: Unremarkable. T6-T7: Unremarkable. T7-T8: Unremarkable. T8-T9: Uncinate hypertrophy. Mild right foraminal stenosis. T9-T10: Degenerative facet arthropathy. Mild bilateral foraminal stenosis. T10-T11: Right side degenerative facet arthropathy. Mild right foraminal stenosis. T11-T12: Facet arthropathy. Mild right foraminal stenosis. T12-L1: Unremarkable. Spinal Canal: No enhancing masses within the spinal canal. No epidural abscess. Musculature: Normal. No edema, enhancement, or fatty atrophy. Other: Unremarkable. IMPRESSION: 1. Multifocal bony metastatic disease. Largest lesions at the T6, T7 and anterior T11 vertebral bodies. 2. Prominent marrow edema at the T6 and T7 levels with possibility of slight superior endplate compressions. 3. Mild subacute or chronic-appearing T1 and T2 superior endplate compressions. Possible slight compression at the T3 upper endplate. RADIA
--- NOTE | 2019-06-24 15:57 | CT Report ---
Reason: METS PROSTATE CA, METS TO SPINE Procedure Date: 06/23/2019 Accession Number: [id number] / [id number] Procedure: CT - CHEST W CPT Code: FULL RESULT: EXAM: CT CHEST EXAM DATE: 06/23/2019 11:22 AM. CLINICAL HISTORY: METS PROSTATE CA, METS TO SPINE. COMPARISONS: CHEST W/ 03/06/2019 8:54 AM THORACIC SPINE W/WO 06/23/2019 9:00 AM. TECHNIQUE: Routine helical CT imaging was performed through the chest. IV contrast: 100 Cc Optiray 320. Reconstructions: Coronal and sagittal. In accordance with CT protocol optimization, one or more of the following dose reduction techniques were utilized for this exam: automated exposure control, adjustment of mA and/or KV based on patient size, or use of iterative reconstructive technique. FINDINGS: Lungs/Pleura: Stable emphysematous changes. Pleural and parenchymal calcifications. Mosaic attenuation. New soft tissue nodularity bilateral lower lobes, largest left 1.2 cm's 3/214 and largest right 2.2 cm's 3/2-1 consider infection, atelectasis, tumor, infarct, mucous plugging. No large pleural effusion or pneumothorax. Persistent pulmonary emboli, for example right upper lobe pulmonary artery 2/56, right lower lobe 2/64, left lower lobe 2/66. Mediastinum: No pathologic adenopathy or masses. Stable dilatation ascending aorta 4.8 cm. Decreased main pulmonary artery Currently 3.2 cm, previous 3.8 cm. Bones: Nonprogressive widespread blastic metastatic disease to bone. V included upper Abdomen: Unchanged hepatic steatosis.. Other: Left Port-A-Cath now in place. Previously seen right Port-A-Cath has been removed.. IMPRESSION: 1. Right Port-A-Cath has been removed. Left Port-A-Cath now in place. 2. Persistent filling defects within the pulmonary arterial tree, question residual from prior known emboli versus recurrence. 3. Non-progressive widespread blastic metastatic to bone. 4. Stable 4.8 cm ascending aorta. 5. Main pulmonary artery size decreased. 6. Emphysematous changes. 7. New nodular densities bilateral lower lobes. Differential includes infection, atelectasis, tumor, infarct, mucous plugging, etc. Suggest follow-up CT 3-4 months. RADIA
--- NOTE | 2019-06-24 16:23 | CT Report ---
Reason: METS PROSTATE CA, METS TO SPINE Procedure Date: 06/23/2019 Accession Number: [id number] / [id number] Procedure: CT - Abdomen/Pelvis W CPT Code: FULL RESULT: EXAM: CT ABDOMEN AND PELVIS EXAM DATE: 06/23/2019 11:22 AM. CLINICAL HISTORY: METS PROSTATE CA, METS TO SPINE. COMPARISONS: ABDOMEN/PELVIS W/ 03/07/2019 8:14 AM ABDOMEN/PELVIS W/ 01/13/2019 11:11 AM ABDOMEN/PELVIS W/ 07/12/2017 10:47 AM ABDOMEN/PELVIS W/ 04/28/2018 4:47 PM. TECHNIQUE: Routine helical CT imaging was performed through the abdomen and pelvis. IV contrast: OPTI 320 100ML. Enteric contrast: No. Reconstructions: Coronal and sagittal. In accordance with CT protocol optimization, one or more of the following dose reduction techniques were utilized for this exam: automated exposure control, adjustment of mA and/or KV based on patient size, or use of iterative reconstructive technique. FINDINGS: Lung Bases: See separate chest CT report Liver: Fatty infiltration. No masses. Gallbladder/Bile Ducts: Layering sludge/debris Spleen: Normal. Pancreas: Normal. Adrenal Glands: Normal. Kidneys: Normal. No masses or hydronephrosis. Peritoneal Cavity/Bowel: No free fluid, free air or adenopathy. No masses or acute inflammatory process. Diverticulosis without diverticulitis. The appendix is seen and normal. Pelvic Organs: Prostatectomy. Decompressed bladder. Vasectomy clips. Fat-containing left inguinal hernia. Vasculature: No aneurysms or other significant abnormality. Bones: Widespread blastic metastatic disease to bone. Compared with 04/28/2018 to areas of involvement are seen in several vertebral bodies where as other previously seen areas are less apparent. Compared with 03/07/2019 pattern of metastasis appears similar Other: Asymmetric rectus abdominis muscles, thicker on the right. Asymmetric thickening left iliacus muscle 3.1 cm 3/ versus 1.8 cm on the right, similar to previous. Slightly thickened left psoas muscle. IMPRESSION: 1. Widespread blastic metastatic disease to bone, similar to 03/07/2019 with more pronounced variation compared with 04/28/2018. 2. Stable layering sludge/stones/debris within the gallbladder. 3. Stable changes of hepatic steatosis, prostatectomy, vasectomy, colonic diverticulosis. 4. No pathologic adenopathy appreciated. 5. Stable although not previously described asymmetric thickening left iliacus muscle. RADIA
== END 2019-06-23 07:54 | disposition home or self-care (01) ==
LOC: DI 07:53
PROVIDERS: ATTEND Internal Medicine
DX: C61 Malignant neoplasm of prostate (principal); C79.51 Secondary malignant neoplasm of bone; I77.810 Thoracic aortic ectasia; R91.8 Other nonspecific abnormal finding of lung field; J43.9 Emphysema, unspecified; K76.0 Fatty (change of) liver, not elsewhere classified; K57.30 Diverticulosis of large intestine without perforation or abscess without bleeding; M50.21 Other cervical disc displacement, high cervical region; M47.812 Spondylosis without myelopathy or radiculopathy, cervical region; M50.31 Other cervical disc degeneration, high cervical region; M48.02 Spinal stenosis, cervical region; M43.12 Spondylolisthesis, cervical region; M47.814 Spondylosis without myelopathy or radiculopathy, thoracic region; M43.8X4 Other specified deforming dorsopathies, thoracic region; Z90.79 Acquired absence of other genital organ(s)
CPT/HCPCS: 71260; 72156; 72157; 74177; A9585; Q9967

== ENCOUNTER 2019-06-25 08:52 | Outpatient (CLI) | payer MEDICARE, OTHER ==
[2019-06-25] MEDS ORDERED: GADOBUTROL 10 MMOL/10 ML VIAL ONE (09:36)
[2019-06-25] MEDS ORDERED: GADOBUTROL 10 MMOL/10 ML VIAL IVP ONE (09:59)
--- NOTE | 2019-06-25 15:03 | MRI Report ---
Reason: METS PROSTATE CA, METS TO SPINE Procedure Date: 06/25/2019 Accession Number: [id number] / [id number] Procedure: MRI - Lumbar Spine W/WO CPT Code: FULL RESULT: EXAM: MRI LUMBAR SPINE WITHOUT AND WITH CONTRAST EXAM DATE: 06/25/2019 10:12 AM. CLINICAL HISTORY: Metastatic prostate carcinoma, metastases to spine. COMPARISONS: ABDOMEN/PELVIS W/ 06/23/2019 11:08 AM BONE SCAN 01/13/2019 12:44 PM ABDOMEN/PELVIS W/ 01/13/2019 11:11 AM. TECHNIQUE: Multiplanar, multisequence T1-weighted and fluid-sensitive sequences of the lumbar spine from T12 to S4 before and after administration of intravenous contrast. Other: None. IV contrast: 10 cc Gadavist. FINDINGS: Neurologic Structures: The conus terminates at L1-L2. The conus medullaris and cauda equina are unremarkable. Alignment: Minimal, 3 mm, spondylolisthesis is seen at L4-L5. Bone Marrow: Five [id number] lumbar vertebral bodies are assumed. Extensive bony metastatic disease is once again seen throughout lumbar spine and visualized sacrum. Moderately extensive bone marrow replacement is seen in the S1, S2, and S3 vertebrae. Moderate bone marrow replacement is seen in the L5, L4, and L3 vertebral bodies. Punctate foci of bone marrow replacement are noted in the L1 vertebral body. Hypointense bone marrow replacement is seen involving partially visualized posteromedial left iliac bone. Metastatic lesions are seen involving partially visualized inferior pelvis at the partially visualized posterior margin of hip joints as well. Given differences in technique between CT and MRI, no significant interval change is appreciated. No pathologic fracture has developed. Disk Levels/Facets: T12-L1: Unremarkable. L1-L2: Unremarkable. L2-L3: Unremarkable. L3-L4: Unremarkable. Mild degenerative facet change is seen. L4-L5: Moderate to marked hypertrophic degenerative facet change. Thickening of the ligamentum flavum. Minimal spondylolisthesis. Mild effacement of exiting right L4 nerve root is seen with mild right foraminal stenosis. L5-S1: Unremarkable. Mild degenerative facet change. Spinal Canal: No enhancing masses within the spinal canal. No epidural abscess. The spinal canal is capacious. Musculature: Mild asymmetric fullness and signal abnormality is seen involving partially visualized left iliacus muscle within the iliac fossa. No edema, abnormal enhancement, or fatty atrophy. Other: The visualized retroperitoneum is unremarkable. IMPRESSION: 1. Extensive bony metastatic disease seen throughout the visualized lumbar spine, sacrum, and posterior pelvis. This is not significantly changed. No pathologic fracture is seen. 2. Mild spondylosis in the mid and lower lumbar spine as noted above. No canal or lateral recess stenosis. -L4-L5: Minimal spondylotic spondylolisthesis. Right mild foraminal stenosis. 3. Enlargement and signal abnormality involving partially visualized left iliacus muscle within the left iliac fossa. Comment: The following findings are so common in adults without low back pain that while we report their presence, they must be interpreted with caution and in the context of the clinical situation. (Reference Kurtk et al, Spine 2001) Prevalence of findings in patients without low back pain: Disk degeneration (any evidence): 92% Disk desiccation/T2 signal loss: 83% Disk height loss: 56% Disk bulge: 64% Disk protrusion: 32% Annular tear/high intensity zone: 38% RADIA
== END 2019-06-25 08:53 | disposition home or self-care (01) ==
LOC: DI 08:52
PROVIDERS: ATTEND Internal Medicine
DX: C61 Malignant neoplasm of prostate (principal); C79.51 Secondary malignant neoplasm of bone; M47.816 Spondylosis without myelopathy or radiculopathy, lumbar region; M43.16 Spondylolisthesis, lumbar region
CPT/HCPCS: 72158; A9585

== ENCOUNTER 2019-07-07 12:39 | Outpatient (CLI) | payer MEDICARE, OTHER ==
--- NOTE | 2019-07-07 16:26 | CONSULTATION NOTE ---
Palliative Care Follow Up - Referral Referring Provider: Dr. 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 He has been through multiple lines of treatment, since his initial diagnosis in 2006. Currently as he understands that he is on his last palliative chemotherapeutic treatment of cabazitaxel, is receiving his first dose today. He is to see radiation therapy tomorrow, to see if there is anything they can do to assist with his pain management. His pain is been steadily escalating over this last week, and presented with bright severe pain in his right ischial hip area in intensity, this is new. It has backed off some, but he is needing increased doses of his oxycodone, he is taking 20 mg about every 4 hours. It does increase with pain and weightbearing, he also has pain in his sacral area as well as his left ischum and hip area. He does feel a little bit more fuzzy on the pain meds, but has had to awaken and take some in the middle the night. He does feel he is ready to initiate some long-acting pain medication, and is hopeful radiation has something to offer him. His pain does correlate with his recent scans, but he has had radiation in the past, with good relief, so hopeful if a candidate to get some relief. Patient does report some increased shortness of breath, and some mild wheezing, has been on albuterol inhaler in the past. 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 Social History - Living Situation Living arrangement: At home Living Situation: With spouse/s.o. Support System: Patient lives at home with his Helene, they live in a single level trailer down in [place]. He does have a scooter to get around, his is quite frail as well. They do have 5 living children, reports his sons are coming in shifts into the future, is looking forward to some support from them. Patient is [employer], has a very strong and supportive denominational community. Medications/Allergies - Medications Home Medications: Ambulatory Orders Medication Instructions Recorded Confirmed Omeprazole 20 mg PO QDAC 10/29/18 07/08/19 Hemp Oil 1,000 mg PO . DIRECTED PRN 03/06/19 06/30/19 Prednisone 10 mg PO DAILY 03/06/19 06/30/19 Travoprost 0.004% Ophth Drops 1 drops EACHEYE QPM 03/06/19 07/08/19 [Travatan Z] Saccharomyces Boulardii [Florastor] 250 mg PO DAILY #60 capsule 03/17/19 07/08/19 Polyethylene Glycol 3350 [Miralax] 17 gm PO DAILY PRN 05/19/19 07/08/19 Oxycodone HCl 20 mg PO Q4H PRN 06/16/19 07/08/19 Morphine Sulfate ER [Ms Contin] 30 mg PO BID 07/08/19 07/08/19 Ondansetron [Ondansetron Odt] 4 mg PO Q6HR PRN 07/08/19 07/08/19 - Allergies Allergies/Adverse Reactions: Allergies Allergy/AdvReac Type Severity Reaction Status Date / Time No Known Drug Allergies Allergy Verified 06/30/19 09:30 Review of Systems - Constitutional Constitutional: reports: Fatigue, Weakness, Poor appetite, Weight stable. denies: Fever, Chills - Eyes Eyes: reports: Vision loss, Corrective lenses - Ears, Nose & Throat Ears, Nose & Throat: reports: Hearing loss, Hearing aids, Dry mouth - Cardiovascular Cardiovascular: reports: Exertional dyspnea, Decr. exercise tolerance. denies: Edema - Respiratory Respiratory: reports: Cough (occasional in AM), Wheezing (requesting inhaler), SOB with exertion - Gastrointestinal Gastrointestinal: reports: Constipation (controlled with miralax), Early satiety (eats small frequent amount). denies: Nausea, Reflux/heartburn - Genitourinary Genitourinary: reports: Incontinence - Musculoskeletal Musculoskeletal: reports: Back pain, Stiffness, Muscle weakness, Assistive devices (using walker for balance and pain management/off loading) - Integumentary Integumentary: reports: Dryness - Neurological Neurological: reports: General weakness, Memory problems (more STM issues with increased use of opioids), Abnormal gait (right knee OA/ now presenting with acute pain in right ischium), Other (peripheral neuropathy in feet; controlled currently with heat at night) - Psychiatric Psychiatric: reports: Depression, Anxiety - Hematologic/Lymphatic Hematologic/Lymphatic: reports: Anemia (hgb 11.7; patient Yarsanism and will not want to accept blood products) - All Other Systems All Other Systems: reports: Reviewed and negative Physical Exam - Vital Signs Temperature: 36.5 C Pulse Rate: 77 Respiratory Rate: 18 Blood Pressure: 118/72 - Physical Exam General Appearance: positive: Alert, Mild distress ENT: positive: No signs of dehydration Neck: positive: No JVD, Trachea midline Cardiovascular: positive: Regular rate & rhythm Respiratory: positive: No respiratory distress, Diminished in bases, Wheezes (expiratory RLL wheeze;). negative: Rales, Rhonchi Abdomen: positive: Non-tender, Soft, Nml bowel sounds Skin: positive: Pallor, Dryness Extremities: positive: No pedal edema, Other (gait difficutly) Neurologic/Psychiatric: positive: Oriented x3, Mood/affect nml, Weakness, Flat affect Palliative Care - POLST Patient has POLST: Yes POLST Status: DNR, Selective Treatment Pain: Pain worsening, Location (see HPI), Severity (4/10) Tiredness/Fatigue: Moderate (4-6) Drowsiness/Sedation: Moderate (4-6) Nausea: Mild (1-3) Depression: Moderate (4-6) Anxiety: Moderate (4-6) Dyspnea: Mild (1-3) Anorexia: Mild (1-3) Sleep: Variable sleep pattern Constipation: Yes, Opoid induced, Managed Feelings of wellbeing/Perceived Quality of Life: Fair, Acceptable, Worsening Performance Status: He has been more limited by his pain, particularly early in the week, he is reporting this is leading up some. He is using his walker in his trailer, is able to attend his ADLs, but finding this more difficult. - Palliative Care Discussion: Patient is aware he is coming to the end of his treatment line, he feels still well enough to continue with trying yet another round, he is very hopeful regarding the radiation to relieve his pain and discomfort. He remains quite anxious and easily tearful regarding conversations around end of life, he tries to stay positive. He does have a POLST in place with DNA R and selective treatment, his D POA is his Helene [phone]. Results - Lab Results Lab results reviewed: Yes Impression and Recommendations - Palliative Care Impression: This is a rikki 78-year-old gentleman with metastatic castration resistant prostate cancer with metastatic disease to the bones, peritoneal cavity, and retroperitoneal nodes. He does present with escalating pain, needing more frequent oxycodone dosing, feels ready to transition to LA pain medication. Patient to meet with radiation oncologist tomorrow, hopeful for ability to treat for relief of pain. Patient currently on his palliative chemotherapy, receiving his first dose of cabazitaxel today. Of care to continue to provide support regarding pain and symptom management, advanced care planning, and anticipatory guidance. Recommendations/Counseling Done: 1. Pain of neoplastic origin. Patient will be started on MS Contin 30 mg extended release twice a day. Patient has been instructed to take with food, also provided prescription for our ondansetron, instructed if have any nausea to use, education provided regarding side effects, opioid safety, and instructed to continue use oxycodone for breakthrough pain as needed. Patient is using his walker to offload some pressure, with some help. He is awakening in pain, so is appropriate at this point in time to look at time release medication. Patient is meeting with radiation oncologist tomorrow, is hopeful and may have an area to treat, as he does have quite localized pain. 2. Constipation. Patient is titrating his bowel program accordingly, he has been instructed most likely will need increased senna with initiation of increased opioids. He has been using MiraLAX, but is having some increased mild constipation. 3. Peripheral neuropathy this continues to be controlled with just use of heat at night, no worsening or increased discomfort at rest. 4. Anorexia. He is not had any further weight loss, is eating small frequent meals, does have some early satiety. Does not see this currently as problematic. 5. Depression/anxiety. Patient's current goals are to continue with treatment, he does have family coming to provide both he and his some support. Patient does have some increased cognitive slowing and is frustrating for him, he does attribute this to most probably appropriately to his use increased use of oxycodone codon. 6. Advanced care planning. Patient does have POLST in place, DNA R and selective treatment. He continues to weigh benefits of burdens of treatment decisions, still perceives good quality of life despite increasing symptom burden. Time Spent: 45 minutes with getting 50% of this done in counseling regarding pain and symptom management, goals of care, and anticipatory guidance coordination with oncology team
== END 2019-07-07 12:40 | disposition home or self-care (01) ==
LOC: PC 12:39
PROVIDERS: ATTEND Nurse Practitioner Adult Health
DX: Z51.5 Encounter for palliative care (principal); G89.3 Neoplasm related pain (acute) (chronic); C79.51 Secondary malignant neoplasm of bone; C77.2 Secondary and unspecified malignant neoplasm of intra-abdominal lymph nodes; C78.6 Secondary malignant neoplasm of retroperitoneum and peritoneum; C61 Malignant neoplasm of prostate; F41.8 Other specified anxiety disorders; R68.81 Early satiety; G62.9 Polyneuropathy, unspecified; R06.02 Shortness of breath; K59.03 Drug induced constipation; T40.2X5A Adverse effect of other opioids, initial encounter; D64.9 Anemia, unspecified; Z79.899 Other long term (current) drug therapy; Z79.891 Long term (current) use of opiate analgesic; Z66 Do not resuscitate
CPT/HCPCS: 99215

== ENCOUNTER 2019-07-28 09:42 | Outpatient (CLI) | payer MEDICARE, OTHER ==
--- NOTE | 2019-07-28 10:14 | CONSULTATION NOTE ---
Palliative Care Follow Up - Referral Referring Provider: Dr. 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 He has been through multiple lines of treatment since his initial diagnosis in 2017. Currently he does understand he is on his last palliative chemotherapeutic treatment of cabazitaxel, He has had some neutropenia with this, as well as significant fatigue. He did have his last dose reduced, and may consider growth factor support. Patient presents with his pain well controlled, he is currently taking the MS 30 mg at bedtime, still has some residual hallucinations with this, but finds his ability to sleep through the night a good trade off. He is using oxycodone 20 mg first thing in the morning and then through the day, with good response. He reports it makes him "feel better" and in a better mood. We did discuss his pain most likely is feeling better as well and he is better able to move with better energy when he is taking his medication. Patient's pain is actually localized to his perirectal area, pattern around the sacrum, and with some intermittent exacerbation in his right hip. He did get his radiation to his spine, one dose, with what he feels with improvement in that area. He has had a moist upper airway cough, he does have underlying COPD, he was prescribed an inhaler last time has not been using that consistently. He denies any fever or chills, any increase from his baseline shortness of breath, and his only other symptom is fairly persistent fatigue. He has had some intermittent nausea, but this is improved with taking his pills with food. 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 Social History - Living Situation Living arrangement: At home Living Situation: With spouse/s.o. Support System: She lives at home with his Helene, his is quite frail as well. 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 Medications/Allergies - Medications Home Medications: Ambulatory Orders Medication Instructions Recorded Confirmed Omeprazole 20 mg PO QDAC 10/29/18 07/28/19 Hemp Oil 1,000 mg PO . DIRECTED PRN 03/06/19 07/28/19 Prednisone 10 mg PO DAILY 03/06/19 07/28/19 Travoprost 0.004% Ophth Drops 1 drops EACHEYE QPM 03/06/19 07/28/19 [Travatan Z] Polyethylene Glycol 3350 [Miralax] 17 gm PO DAILY PRN 05/19/19 07/28/19 Oxycodone HCl 20 mg PO Q4H PRN 06/16/19 07/28/19 Morphine Sulfate ER [Ms Contin] 30 mg PO ACHS 07/08/19 07/28/19 Ondansetron [Ondansetron Odt] 4 mg PO Q6HR PRN 07/08/19 07/28/19 Albuterol Sulfate [Proair Hfa 2 puffs INH Q4HR PRN 07/28/19 07/28/19 Inhaler] - Allergies Allergies/Adverse Reactions: Allergies Allergy/AdvReac Type Severity Reaction Status Date / Time No Known Drug Allergies Allergy Verified 06/30/19 09:30 Review of Systems - Constitutional Constitutional: reports: Fatigue (somewhat more pronounced but tolerable), Weight stable. denies: Fever, Chills, Poor appetite - Eyes Eyes: reports: Vision loss, Corrective lenses - Ears, Nose & Throat Ears, Nose & Throat: reports: Hearing loss, Hearing aids - Cardiovascular Cardiovascular: reports: Decr. exercise tolerance. denies: Chest pain, Edema - Respiratory Respiratory: reports: Cough, Sputum production (unable to expectorate), Wheezing (occasional). denies: SOB at rest - Gastrointestinal Gastrointestinal: reports: Nausea (occasional if takes meds empty stomach), Early satiety, Good appetite. denies: Constipation (using meds appropriately) - Genitourinary Genitourinary: reports: Frequency, Nocturia (improved) - Musculoskeletal Musculoskeletal: reports: Stiffness, Muscle weakness - Integumentary Integumentary: reports: Dryness. denies: Rash - Neurological Neurological: reports: General weakness, Memory problems (occasional STM baseline from stroke), Pre-existing deficit, Abnormal gait. denies: Headache - Psychiatric Psychiatric: reports: Hallucinations (occasional with MS at night; recognizes as SE not bothersome;). denies: Depression, Anxiety - Hematologic/Lymphatic Hematologic/Lymphatic: reports: Anemia. denies: Recurrent infections - All Other Systems All Other Systems: reports: Reviewed and negative Physical Exam - Vital Signs Temperature: 36.2 C Pulse Rate: 80 Respiratory Rate: 18 Blood Pressure: 114/71 - Physical Exam General Appearance: positive: No acute distress, Alert Eyes Bilateral: positive: Normal inspection ENT: positive: Pharynx nml, No signs of dehydration Neck: positive: No JVD, Trachea midline Cardiovascular: positive: Regular rate & rhythm Respiratory: positive: Diminished in bases, Other (moist upper airway cough; clears with cough). negative: Wheezes, Rales, Rhonchi Abdomen: positive: Non-tender, Soft, Nml bowel sounds Skin: positive: Pallor, Dryness Extremities: positive: No pedal edema Neurologic/Psychiatric: positive: Oriented x3, Mood/affect nml, Flat affect Palliative Care - POLST Patient has POLST: Yes POLST Status: DNR, Selective Treatment Pain: Pain improved, Location (rectal area; right ischium; MS Contin at bedtime lasting until AM; Oxycodone 20 mg 3-4 x a day; feels radiaion has help with back pain) Tiredness/Fatigue: Moderate (4-6) Drowsiness/Sedation: Mild (1-3) Nausea: None Anorexia: Mild (1-3) Dyspnea: Mild (1-3) Depression: Mild (1-3) Anxiety: Moderate (4-6) Feelings of wellbeing/Perceived Quality of Life: Fair, Acceptable, No change Sleep: Sleeps well, Sleep improved Constipation: Yes, Opoid induced, Managed Performance Status: Patient is able to manage his own ADLs, he does use a walker when he gets too tired. He has been going out some, has found with his chemo he has had more fatigue and less likely to go out. Some of this is just getting dressed and getting going. His of course is concerned when he becomes weaker and needs more assistance, they do have very supportive children, but this will need to be addressed and long-term planning. - Palliative Care Discussion: Patient does understand the seriousness of his illness, he does worry that if he was not to continue with treatment that he would have 6 months. He also understands his life is limited and this is his last treatment option, he does get somewhat anxious and tearful about this. He does have a strong john, and does feel like he knows where he is going so this is not the hard part, it is just thinking about that transition. Patient encouraged expresses fears and anxieties as they arise, does feel like he can ask any questions if needed. He does venture out tenderly at times with what if's, will continue to provide ongoing support. Results - Lab Results Lab results reviewed: Yes Impression and Recommendations - Palliative Care Impression: This is a rikki 78-year-old gentleman with metastatic castration resistant prostate cancer with metastatic disease to the bones, peritoneal cavity, and retroperitoneal nodes. He has received some relief from his radiation, and is currently pleased with his current pain regimen. Patient is tolerating his current palliative chemotherapy, with only some fatigue and neutropenia. Palliative care to continue provide support regarding pain and symptom management, advanced care planning and anticipatory guidance. Recommendations/Counseling Done: 1. Pain of neoplastic origin. Patient is only taking the MS Contin 30 mg at bedtime, is using oxycodone through the day. He has had some relief with his radiation and is pleased. Patient managing his pain with current regimen, no changes made. Prescription provided for oxycodone, does not need one yet for MS Contin as using only daily. 2. Constipation. Patient is titrating his bowel appropriately. 3. Cough. This is most likely multi-factorial in origin. Patient encouraged to use his inhaler 2-3 times a day, to help loosen secretions. Counseling provided regarding signs or symptoms of progressive upper respiratory infection. 4. Depression/anxiety. Patient's current goals are to continue with treatment, he continues to have fluctuating anxiety regarding around end of life issues. Continue to explore at patient's pace, providing psychosocial support. 5. Advanced care planning. Patient does have POLST in place, DNA R and selective treatment. He continues to weigh benefits and burdens of treatment decisions, still perceives he has good quality of life. Patient's ultimate goal is to have his end-of-life event at home, but does worry about support for his , family has been quite supportive overall. Time Spent: 35 minutes with greater than 50% of this done in counseling regarding pain and symptom management and anticipatory guidance.
== END 2019-07-28 09:43 | disposition home or self-care (01) ==
LOC: PC 09:42
PROVIDERS: ATTEND Nurse Practitioner Adult Health
DX: Z51.5 Encounter for palliative care (principal); G89.3 Neoplasm related pain (acute) (chronic); K59.03 Drug induced constipation; T40.2X5D Adverse effect of other opioids, subsequent encounter; R05 Cough; F41.8 Other specified anxiety disorders; J44.9 Chronic obstructive pulmonary disease, unspecified; C61 Malignant neoplasm of prostate; C79.51 Secondary malignant neoplasm of bone; C79.89 Secondary malignant neoplasm of other specified sites; C77.2 Secondary and unspecified malignant neoplasm of intra-abdominal lymph nodes; Z79.899 Other long term (current) drug therapy; Z79.891 Long term (current) use of opiate analgesic; Z19.2 Hormone resistant malignancy status
CPT/HCPCS: 99214

== ENCOUNTER 2019-09-29 12:14 | Outpatient (CLI) | payer MEDICARE, OTHER ==
--- NOTE | 2019-09-29 13:18 | CONSULTATION NOTE ---
Palliative Care Follow Up - Referral Referring Provider: Dr. 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 He has been through multiple lines of treatment since his initial diagnosis in 2016. Currently he and understands he is on his last palliative chemotherapeutic regimen of cabazitaxel. He is having worsening cytopenias, and is receiving Neulasta. Patient does understand the seriousness of his illness, but has been tolerating the treatment to an acceptable level for him. He does report he is twine with weighing benefits and burdens of each treatment now as they come up. He discussed he is having good and bad days, bad days have more to do with his fatigue, and ongoing functional decline. Patient symptom burden overall is fairly well controlled. He does report persistent pain in his lower back, this initially improved with 1 hyper fraction in July, but reports it is starting to escalate again. He also has persistent pain in his left buttock cheek anal area. He has been able to control his pain on MS Contin 30 mg at night, and oxycodone 20 mg 2-3 times space through the day. He reports he was awakening in fairly intense pain, and doubled his MS Contin at night with some good relief. He denies any increase in hallucinations, though does have some intermittent nausea that persists beyond his chemotherapy. He is controlling this with ondansetron twice a day, his bowels have been adequate, he does have some increasing mood changes with some persistent depression and anxiety. He has found a new distraction, with mechanical puzzles, and finds this adds to his quality of life and passing his days. Social History - Living Situation Living arrangement: At home Living Situation: With spouse/s.o. Support System: Patient lives at home with his rikki Helene. She does have her own health problems and is quite frail. They are managing, with support of their 5 living children, that do [place] through. Particular over the holidays. She also has assistance from his sister Keila who lives in [place], his mother is also alive. Medications/Allergies - Medications Home Medications: Ambulatory Orders Medication Instructions Recorded Confirmed Omeprazole 20 mg PO QDAC 10/29/18 09/29/19 Prednisone 10 mg PO DAILY 03/06/19 09/29/19 Travoprost 0.004% Ophth Drops 1 drops EACHEYE QPM 03/06/19 09/29/19 [Travatan Z] polyethylene glycoL 3350 [Miralax] 17 gm PO BID 05/19/19 09/29/19 Oxycodone HCl 20 mg PO Q4H PRN 06/16/19 09/29/19 Albuterol Sulfate [Proair Hfa 2 puffs INH Q4HR PRN 07/28/19 09/29/19 Inhaler] Ondansetron [Ondansetron Odt] 4 mg PO Q6HR PRN #120 tab.rapdis 08/11/19 09/29/19 Morphine Sulfate ER [Ms Contin] 60 mg PO QPM 09/29/19 09/29/19 Senna [Senokot] 1 - 2 tab PO DAILY PRN 09/29/19 09/29/19 - Allergies Allergies/Adverse Reactions: Allergies Allergy/AdvReac Type Severity Reaction Status Date / Time No Known Drug Allergies Allergy Verified 09/29/19 09:11 Review of Systems - Constitutional Constitutional: reports: Fatigue (fluctuates), Weight stable - Eyes Eyes: reports: Vision loss - Ears, Nose & Throat Ears, Nose & Throat: reports: Hearing loss, Hearing aids - Cardiovascular Cardiovascular: reports: Decr. exercise tolerance. denies: Chest pain - Respiratory Respiratory: reports: Cough (baseline; uses inhalers about once a day), SOB with exertion. denies: SOB at rest - Gastrointestinal Gastrointestinal: reports: Nausea (persistent; uses ondansetron BID), Early satiety. denies: Constipation, Vomiting, Reflux/heartburn - Musculoskeletal Musculoskeletal: reports: Muscle aches, Stiffness, Muscle weakness, Assistive devices (has walker) - Integumentary Integumentary: reports: Dryness - Neurological Neurological: reports: General weakness - Psychiatric Psychiatric: reports: Depression, Anxiety - Hematologic/Lymphatic Hematologic/Lymphatic: reports: Anemia (10.5). denies: Recurrent infections - All Other Systems All Other Systems: reports: Reviewed and negative Physical Exam - Vital Signs Pulse Rate: 92 Respiratory Rate: 18 Blood Pressure: 96/58 - Physical Exam General Appearance: positive: No acute distress, Alert Eyes Bilateral: positive: Normal inspection ENT: positive: No signs of dehydration. negative: Pharyngeal erythema, Oral lesions Neck: positive: Trachea midline Cardiovascular: positive: Regular rate & rhythm Respiratory: positive: No respiratory distress, Diminished in bases. negative: Wheezes, Rales, Rhonchi Abdomen: positive: Non-tender, Soft Skin: positive: Pallor, Dryness Extremities: positive: No pedal edema Neurologic/Psychiatric: positive: Oriented x3, Mood/affect nml, Weakness, Flat affect Palliative Care - POLST Patient has POLST: Yes POLST Status: DNR, Selective Treatment Pain: Pain worsening, Location (see HPI) Tiredness/Fatigue: Mild (1-3) Drowsiness/Sedation: Mild (1-3) Nausea: Moderate (4-6) Anorexia: Mild (1-3) Dyspnea: Mild (1-3) Depression: Moderate (4-6) Anxiety: Moderate (4-6) Feelings of wellbeing/Perceived Quality of Life: Good, Acceptable, Worsening Sleep: Sleep improved Constipation: Yes, Opoid induced, Managed - Palliative Care Discussion: Patient reports fluctuating good and bad days, has found some distraction with his new mechanical puzzles. does try and get him out, did decrease his isolation. They have had family coming and going, he is reflecting on weighing benefits and burdens of moving forward, though the side effects have been tolerable thus far. He does recognize the seriousness of his illness, does have some anxiety and depression regarding this. Currently feels his quality of life is still at a point he will continue treatment. Patient does have good family support, does have POLST in place, as well as support from his [employer] and john. is quite anxious regarding patient's "anemia", reviewed yes it is trending down, but he is no where close where we would consider for person who would accept transfusions transfusing, this was reassuring to her. We did though discuss the impact on his fatigue. 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 He has had some increasing pain, with good response with titration of medication. Patient is tolerating his current palliative chemotherapy, but is exhibiting some ongoing fatigue. Palliative care continue advised support regarding pain and symptom management, advanced care planning, and anticipatory guidance. Recommendations/Counseling Done: 1. Pain of neoplastic origin. Discussion related to dosing, MS Contin available and 60, we did decide though to give patient some flexibility, including twice daily dosing, will prescribe 30 mg tabs #60. Prescription provided for oxycodone, 20 mg tablets. He does feel he wants to continue to control his dosing during the day, as his pain does fluctuates. 2. Constipation. Patient is titrating his bowel program appropriately, no further adjustments needed. 3. Cough. Patient currently using his inhaler about once daily, no increased concerns for wheezing tightness are progressive symptoms. 4. Depression/anxiety. Patient continues to struggle with weighing benefits and burdens of treatment moving forward, currently is continuing. Counseling and psychosocial support and exploring his feelings regarding this. Patient does have a lot of anxiety around end of life, feels like he is in a good space right now. Continue to focus on quality of life issues, and decreasing isolation. 5. Advance care planning. Patient does have POLST in place, DNA R and selective treatment. He continues to perceive he has adequate quality of life, his ultimate goal is to have end-of-life event at home. Family has been quite supportive, will explore this as needs arise further. Time Spent: 40 minutes with greater than 50% of this done in counseling regarding pain and symptom management, coping, anticipatory guidance.
== END 2019-09-29 12:15 | disposition home or self-care (01) ==
LOC: PC 12:14
PROVIDERS: ATTEND Nurse Practitioner Adult Health
DX: Z51.5 Encounter for palliative care (principal); G89.3 Neoplasm related pain (acute) (chronic); R05 Cough; F41.8 Other specified anxiety disorders; K59.03 Drug induced constipation; T40.2X5A Adverse effect of other opioids, initial encounter; C61 Malignant neoplasm of prostate; C79.51 Secondary malignant neoplasm of bone; C77.2 Secondary and unspecified malignant neoplasm of intra-abdominal lymph nodes; C78.6 Secondary malignant neoplasm of retroperitoneum and peritoneum; Z79.899 Other long term (current) drug therapy; Z79.891 Long term (current) use of opiate analgesic; Z66 Do not resuscitate
CPT/HCPCS: 99215

== ENCOUNTER 2019-10-14 15:57 | Emergency (ER) | payer MEDICARE, OTHER ==
[2019-10-14] MEDS ORDERED: KETOROLAC 30 MG/ML VIAL IVP STA (16:38)
[2019-10-14] MEDS ORDERED: HYDROmorphone 1 MG/ML CARPUJECT IVP STA (16:38)
--- NOTE | 2019-10-14 16:41 | ED Physician Documentation ---
PD HPI BACK PAIN - Stated complaint Stated Complaint: BACK PX - Chief complaint Chief Complaint: Back Pain - History obtained from History obtained from: Patient - History of Present Illness Timing - onset: Other (This is a 78-year-old gentleman with metastatic prostate cancer under chemotherapy. He is also in pain management for bone pain. Last 3 to 4 days he said atraumatic pain in the right low back just above the pelvic brim. Prior to that had a small amount of hematuria which went away. He also has a history of kidney stones. He has been taking his pain medication which includes both morphine and oxycodone for breakthrough pain at increased frequency with uncontrolled pain.) Review of Systems Constitutional: reports: Fatigue. 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 : Incontinence, Chronic bladder infection, Nocturia, Other (Prostate cancer with mets to the bone) HEENT: None, Chronic hearing loss Psych: None Musculoskeletal: Osteoarthritis, Chronic back pain Derm: None - Past Surgical History Past Surgical History: Yes General: Other Ortho: Knee replacement /PERFORMANCE IMPROVEMENT ANALYST: Other Cardiovascular: Other HEENT: Cataracts - Present Medications Home Medications: Ambulatory Orders Medication Instructions Recorded Confirmed Omeprazole 20 mg PO QDAC 10/29/18 09/29/19 Prednisone 10 mg PO DAILY 03/06/19 09/29/19 Travoprost 0.004% Ophth Drops 1 drops EACHEYE QPM 03/06/19 09/29/19 [Travatan Z] polyethylene glycoL 3350 [Miralax] 17 gm PO BID 05/19/19 09/29/19 Oxycodone HCl 20 mg PO Q4H PRN 06/16/19 09/29/19 Albuterol Sulfate [Proair Hfa 2 puffs INH Q4HR PRN 07/28/19 09/29/19 Inhaler] Ondansetron [Ondansetron Odt] 4 mg PO Q6HR PRN #120 tab.rapdis 08/11/19 09/29/19 Morphine Sulfate ER [Ms Contin] 60 mg PO QPM 09/29/19 09/29/19 Senna [Senokot] 1 - 2 tab PO DAILY PRN 09/29/19 09/29/19 Cefdinir 300 mg PO BID #20 capsule 10/14/19 Tamsulosin [Flomax] 0.4 mg PO DAILY #14 capsule 10/14/19 - Allergies Allergies/Adverse Reactions: Allergies Allergy/AdvReac Type Severity Reaction Status Date / Time No Known Drug Allergies Allergy Verified 10/14/19 16:14 - Social History Does the pt smoke?: No Smoking Status: Former smoker Does the pt drink ETOH?: Yes Does the pt have substance abuse?: No - Immunizations Immunizations are current?: Yes - POLST Patient has POLST: Yes POLST Status: DNR PD ED PE NORMAL - Vitals Vital signs reviewed: Yes - General General: Alert and oriented X 3, No acute distress - Abdomen Abdomen: Soft, Non tender - Back Back: No CVA TTP, No spinal TTP, Other (No tenderness of the lumbar spine or musculature of the back. No shingles rash. No deformity.) - Extremities Extremities: Other (The patient has equal and normal Achilles and patellar reflexes bilaterally. Normal sensation in all areas of the legs. Patient denies saddle anesthesia. Normal strength in flexion-extension at the ankles, knees, and flexion of the hips.) - Neuro Neuro: Alert and oriented X 3, Normal speech Results - Vitals Vitals: Vital Signs - 24 hr 10/14/19 16:05 Temperature 37.1 C Heart Rate 100 Respiratory 18 Rate Blood Pressure 138/84 H O2 Saturation 96 Oxygen O2 Source Room air - Labs Labs: Laboratory Tests 10/14/19 10/14/19 10/14/19 16:44 16:50 16:50 WBC 17.0 H RBC 3.36 L Hgb 10.4 L Hct 33.7 L MCV 100.3 H MCH 31.0 MCHC 30.9 L RDW 19.6 H Plt Count 342 MPV 9.0 Neut # (Auto) 14.6 H Lymph # (Auto) 1.1 L Charles # (Auto) 0.8 Eos # (Auto) 0.2 Baso # (Auto) 0.1 Absolute Nucleated RBC 0.02 Nucleated RBC % 0.1 Sodium 135 Potassium 4.2 Chloride 96 L Carbon Dioxide 25 Anion Gap 14.0 H BUN 14 Creatinine 1.3 H Estimated GFR (MDRD) 54 L Glucose 139 H Calcium 9.0 Total Bilirubin 0.3 AST 21 ALT 12 Alkaline Phosphatase 79 Total Protein 7.5 Albumin 3.7 Globulin 3.8 Albumin/Globulin Ratio 1.0 Lipase 23 Urine Color DARK YELLOW Urine Clarity CLOUDY Urine pH 6.0 Ur Specific [place] >=1.030 H Urine Protein >=300 H Urine Glucose (UA) NEGATIVE Urine Ketones NEGATIVE Urine Occult Blood LARGE H Urine Nitrite NEGATIVE Urine Bilirubin NEGATIVE Urine Urobilinogen 0.2 (NORMAL) Ur Leukocyte Esterase TRACE H Urine RBC TNTC H Urine WBC >25 H Ur Squamous Epith Cells NONE SEEN Urine Bacteria None Seen Ur Microscopic Review INDICATED Urine Culture Comments INDICATED - Rads (name of study) CT of the abdomen and pelvis without IV contrast Radiology: EMP read contemporaneously (New mild to moderate right hydronephrosis and hydroureter without stone, nonobstructing 2 mm left kidney stone, multiple blastic skeletal metastases without acute fracture, asymmetric enlargement of the left iliac is muscle is unchanged and could reflect previous old For muscular hemorrhage infection or tumor.) PD MEDICAL DECISION MAKING - ED course ED course: This is a very pleasant 78-year-old gentleman with known metastatic prostate cancer he is seen here by Dr. Faith the oncologist. He is on cabizitaxel currently. Also prednisone and Zofran. He has had his prostate out. More recently his oncologist noted some tumors in his bladder which were removed. I am unsure of the pathology. Now presents with right-sided back pain, more flank pain then bony area. CT shows metastatic disease but also shows hydronephrosis and hydroureter without stone. Could be from tumor or scar tissue. He has a white count of 17,000 but no fevers. Pain was much better after Toradol 30 mg and Dilaudid 1 mg IV. Urinalysis does demonstrate pretty significant signs of inflammation or infection with greater than 25 white cells, trace leukocyte Estrace. He is administered Rocephin IV and I will discussed the case with the on-call physician for [facility]. Note he cannot take fluoroquinolones because he is on high-dose Zofran. Case discussed by phone with Dr. Adal Valverde, urologist identification clerk for his. Agrees with antibiotics, and Flomax. No need for transfer but keep him on antibiotics for 7 to 10-day course pending follow-up with urology. He was given a copy of his CAT scan. Departure - Departure Disposition: 01 Home, Self Care Clinical Impression: Prostate cancer metastatic to bone Hydronephrosis Qualifiers: Hydronephrosis type: other Qualified Code(s): N13.39 - Other hydronephrosis Condition: Good Record reviewed to determine appropriate education?: Yes Instructions: ED UTI Pyelonephritis Male Prescriptions: Cefdinir 300 mg PO BID #20 capsule Tamsulosin [Flomax] 0.4 mg PO DAILY #14 capsule Comments: You were seen today for right flank pain. At the end of our initial evaluation it could have been due to a kidney stone, some other kidney problem, or bony metastases. Your CAT scan showed some swelling of the ureter on the right which is the tube that runs from the kidney to the bladder. And your labs were notable for a white count of 17,000 suggesting infection and some infection in your urine. The case was discussed by phone with Dr. Adal Valverde, he is the urologist identification clerk for yours. He wanted us to put you on some antibiotics which we are doing, he received a gram of IV ceftriaxone while the in the emergency department. Also we are putting you on Flomax which may help with the issue. You should fill the prescription for the antibiotic going forward tomorrow. And also the Flomax which may help with the swelling of the ureter. You should follow-up with your urologist, next available appointment and return if worse, especially if pain is uncontrolled or if you develop fevers. Otherwise continue your current medications.
[2019-10-14 16:56] LABS: BASOPHILS # (AUTO) 0.1 10^3/uL (0.0-0.1); BASOPHILS % (AUTO) 0.6 %; EOSINOPHILS # (AUTO) 0.2 10^3/uL (0.0-0.7); EOSINOPHILS % (AUTO) 0.9 %; HGB - HEMOGLOBIN 10.4 g/dL (14.0-18.0); LYMPHOCYTES # (AUTO) 1.1 10^3/uL (1.5-3.5); LYMPHOCYTES % (AUTO) 6.6 %; MEAN CORPUSCULAR HGB CONC 30.9 g/dL (32.0-36.0); MEAN CORPUSCULAR VOLUME 100.3 fL (80.0-94.0); MONOCYTES # (AUTO) 0.8 10^3/uL (0.0-1.0); MONOCYTES % (AUTO) 4.8 %; NEUTROPHILS # (AUTO) 14.6 10^3/uL (1.5-6.6); PLT - PLATELET COUNT 342 10^3/uL (130-450); RED BLOOD COUNT 3.36 10^6/uL (4.70-6.10); RED CELL DISTRIBUTION WIDTH 19.6 % (12.0-15.0)
[2019-10-14 17:09] LABS: ALBUMIN 3.7 g/dL (3.2-5.5); BILIRUBIN,TOTAL 0.3 mg/dL (0.2-1.0); CREATININE 1.3 mg/dL (0.6-1.2); TOTAL PROTEIN 7.5 g/dL (6.7-8.2)
--- NOTE | 2019-10-14 17:56 | CT Report ---
Reason: R flank/back pain Procedure Date: 10/14/2019 Accession Number: [id number] / [id number] Procedure: CT - Abdomen/Pelvis WO CPT Code: Final Report FULL RESULT: EXAM: CT ABDOMEN AND PELVIS (CT KUB) EXAM DATE: 10/14/2019 05:04 PM. CLINICAL HISTORY: R flank/back pain. COMPARISONS: ABDOMEN/PELVIS W/ 06/23/2019 11:08 AM. TECHNIQUE: Routine axial helical CT imaging was performed through the abdomen and pelvis without IV contrast. Reconstructions: Coronal and sagittal. In accordance with CT protocol optimization, one or more of the following dose reduction techniques were utilized for this exam: automated exposure control, adjustment of mA and/or KV based on patient size, or use of iterative reconstructive technique. FINDINGS: Lung Bases: There is lower lobe airway thickening without consolidative pneumonia. Right Kidney/Ureter: There is mild to moderate right-sided hydronephrosis and hydroureter. No stones visualized. Left Kidney/Ureter: There is a punctate 2 mm nonobstructing left kidney stone. No ureter stone. Other Solid Organs: Noncontrast images of the solid organs are grossly unremarkable. Gallbladder/Bile Ducts: There are tiny gallstones in the gallbladder without CT features of acute cholecystitis. Peritoneal Cavity: There are several scattered diverticula. No mechanical bowel obstruction. No free air. Again demonstrated is asymmetric enlargement of the left iliacus muscle in the pelvis with fat stranding around iliac us in psoas muscle without change. Pelvic Organs: There is a fat-containing left inguinal hernia unchanged. The urinary bladder is empty. No bladder stone. Vasculature: There is moderate calcification of the aorta without aneurysm. Other: There are multiple blastic bone lesions in the pelvis, right femur, sacrum and lumbar spine consistent with metastatic disease. No acute fracture identified. IMPRESSION: 1. New mild to moderate right hydronephrosis and hydroureter without a visualized obstructing stone. Differential diagnosis includes a recently passed ureteral stone versus right vesicoureteral reflux and pyelonephritis. 2. There is a nonobstructing 2 mm left kidney stone. 3. Multiple blastic skeletal metastases without acute fracture. Similar to previous. 4. Asymmetric enlargement of left iliacus muscle is unchanged and could reflect previous old intramuscular hemorrhage, intramuscular infection, or tumor. RADIA
[2019-10-14 18:13] LABS: BILIRUBIN,URINE NEGATIVE (NEGATIVE); GLUCOSE, URINE (UA) NEGATIVE (NEGATIVE); KETONES,URINE (UA) NEGATIVE (NEGATIVE); LEUKOCYTE ESTERASE, URINE TRACE (NEGATIVE); NITRITE,URINE NEGATIVE (NEGATIVE); OCCULT BLOOD,URINE LARGE (NEGATIVE); PROTEIN,URINE >=300 mg/dL (NEGATIVE); UROBILINOGEN,URINE 0.2 (NORMAL) E.U./dL (NORMAL)
[2019-10-14 18:14] LABS: CLARITY,URINE CLOUDY (CLEAR)
[2019-10-14 18:22] LABS: RBC,URINE TNTC /HPF (0-5); SQUAMOUS EPITHELIAL CELL,UR NONE SEEN (<= Few)
[2019-10-14 18:23] LABS: BACTERIA,URINE None Seen /HPF (None Seen)
[2019-10-14] MEDS ORDERED: cefTRIAXone 1 GM VIAL IVP STA (18:30)
[2019-10-14] MEDS ORDERED: SODIUM CHLORIDE 0.9% 1,000 ML IV ONE (18:47)
[2019-10-14] MEDS ORDERED: TAMSULOSIN 0.4 MG CAPSULE PO STA (18:52)
[2019-10-14 20:26] VITALS: BP 140/84
== END 2019-10-14 20:51 | disposition home or self-care (01) ==
LOC: ED 15:57
DX: C61 Malignant neoplasm of prostate (principal); C79.51 Secondary malignant neoplasm of bone; N13.39 Other hydronephrosis; N13.4 Hydroureter; N20.0 Calculus of kidney; I10 Essential (primary) hypertension; Z87.891 Personal history of nicotine dependence; Z66 Do not resuscitate
CPT/HCPCS: 36415; 74176; 80053; 81001; 83690; 85025; 87086; 96361; 96374; 96375; 99284; A9270; J1170; 81003

== ENCOUNTER 2019-10-20 14:40 | Outpatient (CLI) | payer MEDICARE, OTHER ==
--- NOTE | 2019-10-20 17:49 | CONSULTATION NOTE ---
Palliative Care Follow Up - Referral Referring Provider: Dr. Greg Keating Time of Visit: 8670-7255 Referral setting: Home Referral Reason: Pain of neoplastic origin/Met Prostate CA/Pal care - Information Sources Records reviewed: Previous records reviewed History/Review of Systems obtained from: Patient, Family ( Helene) Exam limitations: Clinical condition (patient very CACHIL DEHE;) - History of Present Illness Update Brief HPI Update: This is a rikki 78-year-old gentleman who is a Anabaptist, has metastatic castration resistant prostate cancer, who has had multiple lines of treatment. He is currently on cabazitaxel, on modified dose with Neulasta support and has been tolerating this fairly well. He had been having increasing pain, that developed fairly acutely over for 5 days, including an episode of hematuria. It is thought that most likely these were of kidneys stones, but did end up in the ED on 10/14, diagnosed with polynephritis and placed on cefdinir for 10 days. He was also given tamsulosin to assist with any further stones. Patient reports he has continued to feel weak, has had functional decline, feels somewhat dizzy and has vague under lying nausea with severe taste changes. Patient reports he has been pushing fluids, he has so had a 5 to 7 pound weight loss over the last couple weeks. His other complaint is he has had escalating pain. His pain is mostly located in his right hip groin area more acutely in the right flank with his latest ED visit, but his persistent ongoing pain is in his left buttock cheek and anal area. He reports his bowels have been moving, he did see the oncologist today, concern about possible trending PSA up, patient does understand the seriousness of his illness and most likely on his last treatment line. Patient's right flank pain has improved, still persistent some in his right groin and again most problematic in his buttock anal rectal area. He does not present with any cord compression symptoms, no numbness or tingling other than his chemotherapy-induced numbness in his hands and feet, no change in urinary patterns or difficulty with bowels. He has been waking with pain about 4 5, has been taking an oxycodone 20 mg at that point in time. Patient current regimen is been 60 mg of morphine at bedtime, and oxycodone for a.m., when on awakening 1 mid afternoon and 1 around dinnertime. He is taking a total of the oxycodone 80 mg along with his 60 mg of morphine. Patient had been originally prescribed time-released morphine twice daily, had dropped the a.m. dose because of hallucinations. He reports he is not having any further issues with the morphine, and is willing to retry a more practical approach with 3 times daily dosing of MS Contin 30 mg. Patient does have high anxiety regarding and dying, and transition to hospice. Patient's goals are to continue treatment as long as he is benefiting, and currently feels like he is tolerating this okay. He is quite disappointed with his most acute exacerbation, he is due to see the urologist next week as well as follow-up with oncology to see if he can continue his treatments. His remains quite anxious about what his decline will look like, patient does understand "is coming", and counseling and support given regarding patient's anxieties today. Social History - Living Situation Living arrangement: At home Living Situation: With spouse/s.o. Support System: Patient's Helene does exhibit caregiver fatigue. This is often complicated by patient's difficulty hearing, and her soft voice. She does have her own health problems. They do have the support of their 5 living children, that walk[employer] river through and provide support as needed. His sister Keila who lives in [place], who cares for their 96 year old mother who is still alive, comes over for a visit about every 10 days. They live in a very nice single wide trailer, with their 2 dogs. He does have [employer] so Helene can leave without concern. Do have the support of their muslim community, patient passes the time by doing puzzles. Medications/Allergies - Medications Home Medications: Ambulatory Orders Medication Instructions Recorded Confirmed Omeprazole 20 mg PO QDAC 10/29/18 10/20/19 Prednisone 10 mg PO DAILY 03/06/19 10/20/19 Travoprost 0.004% Ophth Drops 1 drops EACHEYE QPM 03/06/19 10/20/19 [Travatan Z] polyethylene glycoL 3350 [Miralax] 17 gm PO BID 05/19/19 10/20/19 Oxycodone HCl 10 - 20 mg PO Q4H PRN 06/16/19 10/20/19 Albuterol Sulfate [Proair Hfa 2 puffs INH Q4HR PRN 07/28/19 10/20/19 Inhaler] Ondansetron [Ondansetron Odt] 4 mg PO Q6HR PRN #120 tab.rapdis 08/11/19 10/20/19 Morphine Sulfate ER [Ms Contin] 30 mg PO TID 09/29/19 10/20/19 Senna [Senokot] 1 - 2 tab PO DAILY PRN 09/29/19 10/20/19 Cefdinir 300 mg PO BID 10/20/19 10/20/19 Tamsulosin [Flomax] 0.4 mg PO DAILY 10/20/19 10/20/19 - Allergies Allergies/Adverse Reactions: Allergies Allergy/AdvReac Type Severity Reaction Status Date / Time No Known Drug Allergies Allergy Verified 10/20/19 10:00 Review of Systems - Constitutional Constitutional: reports: Fatigue, Weakness (worsening over last 2 weeks), Poor appetite, Weight loss (5-7 pounds this last week) - Eyes Eyes: reports: Vision loss, Corrective lenses - Ears, Nose & Throat Ears, Nose & Throat: reports: Hearing loss, Hearing aids, Nasal congestion, Dry mouth, Other (severe taste changes) - Cardiovascular Cardiovascular: reports: Exertional dyspnea, Decr. exercise tolerance. denies: Chest pain - Respiratory Respiratory: reports: Cough (Am with clear sputum; no change), SOB with exertion. denies: SOB at rest - Gastrointestinal Gastrointestinal: reports: Nausea (vague), Poor appetite, Early satiety. denies: Constipation, Reflux/heartburn - Genitourinary Genitourinary: reports: Frequency, Urgency - Musculoskeletal Musculoskeletal: reports: Back pain, Muscle aches, Stiffness, Limited range of motion - Integumentary Integumentary: reports: Dryness - Neurological Neurological: reports: General weakness, Dizziness, Numbness (CIPN), Memory prob lems (mild), Abnormal gait - Psychiatric Psychiatric: reports: Depression, Anxiety - Hematologic/Lymphatic Hematologic/Lymphatic: reports: Anemia, Recurrent infections (tx for UTI) - All Other Systems All Other Systems: reports: Reviewed and negative Physical Exam - Vital Signs Temperature: 96.6 C Pulse Rate: 88 Respiratory Rate: 18 O2 Saturation: 96 (ra @ rest) Blood Pressure: 108/62 - Physical Exam General Appearance: positive: Alert, Anxious Eyes Bilateral: positive: Normal inspection ENT: positive: Other (white coating on tongue; no buccal patches; denies discomfort just taste changes; high risk candidiasis) Neck: positive: No JVD, Trachea midline Cardiovascular: positive: Regular rate & rhythm Respiratory: positive: No respiratory distress, Diminished in bases, Wheezes (scattered expiratory wheezes), Other (uses inhaler 1-2x day) Abdomen: positive: Non-tender, Soft, Nml bowel sounds. negative: Distended Skin: positive: Pallor, Dryness Extremities: positive: No pedal edema Neurologic/Psychiatric: positive: Oriented x3, Mood/affect nml, Weakness, Flat affect Palliative Care - POLST Patient has POLST: Yes POLST Status: DNR, Selective Treatment Pain: Pain worsening, Location (see HPI) Tiredness/Fatigue: Severe (7-10) Drowsiness/Sedation: Mild (1-3) Nausea: Mild (1-3) Anorexia: Moderate (4-6), Weight loss Dyspnea: Moderate (4-6) Depression: Mild (1-3) Anxiety: Moderate (4-6) Feelings of wellbeing/Perceived Quality of Life: Fair, Acceptable, Worsening Sleep: Variable sleep pattern Constipation: Yes, Opoid induced, Managed Performance Status: Patient does exhibit symptoms of functional decline, and more difficulty getting from sitting to standing, gait slowed, more unsteady. Patient is spending more time sitting or laying in bed. I would put him at a PPS of 50%. He is having more difficulty bathing, dressing is with more effort, is supporting the household and meal prep. - Palliative Care Discussion: Patient does understand the seriousness of his illness, he does understand the palliative nature of his treatment and that this is his last line. He does continue to hope has he is given years for continued quantity as well as quality of life. He is discouraged though as his pain has increased, worried about his numbers, as well as his functional decline. We did discuss in the context to continue to weigh the benefits and burdens of moving forward, also reassured patient at this point in time with no acute decline or process going on currently, that transition to comfort or hospice does not mean imminent decline/. That often patients feel little bit better for period of time as they come off treatment. Helene had much more specific questions about hospice, she did have hospice with her mother, we discussed the benefits as well as the limitations of the hospice benefit. Reviewed again recommendation at point patient transitions to comfort, and no longer treatment that we look at an earlier referral the not so that they can get to know Dheeraj. She does feel like her kids will step up and help, as things change or worsen. She is expecting his sister tomorrow and finds this very supportive and a chance to take a break. Results - Lab Results Lab results reviewed: Yes Lab and Imaging Results: Patient presents with lower numbers for his hemoglobin of 9.7, his white count is falling from 2 13-17.02 today 11.7 going in the right direction. Patient's PCP is demetrio numbers are still pending. 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 He now presents with an exacerbation of his pain, complicated by a recent ED visit 10/14 with diagnosis of polynephritis and right hydro-ureter. Patient's palliative chemotherapy, currently on hold while he recovers. Patient does present with increasing fatigue, some functional decline, as well as escalating pain. Palliative care providing support regarding pain and symptom management, advanced care planning, and anticipatory guidance. Recommendations/Counseling Done: 1. Pain of neoplastic origin. Discussion regarding long-acting versus breakthrough pain dosing, counseling provided. Patient willing to try MS Contin 30 mg 3 times daily, recommended oxycodone 10 mg for breakthrough pain dosing to decrease his sedation, with counseling regarding the understanding of total opioid level with his time-released. Instructions written out, patient will call if any questions, will titrate up accordingly. 2. Constipation. Patient is titrating his bowel program appropriately, denies any further adjustments needed. 3. Fatigue. This is multifactorial in origin, patient feeling somewhat vague nausea, and weak overall, discussed side effects of antibiotics could be contributing to this as well, he has had more taste changes lately with his chemotherapy. He has had decreased intake with early satiety. Recommended increasing his Ensure to 2-3 times a day, during this time. With the hope with finishing antibiotics this will improve. 4. Depression/anxiety. Counseling provided regarding the continuum of care, addressing patient's fears and concerns, normalizing grief process. Counseling provided to and addressing her questions concerns about the end-of-life planning and future hospice. Patient is hopeful to be able to continue treatment at least for some period yet, though does recognize there will be a transition point most likely in the near future. 5. Advanced care planning. Patient does have POLST in place, DNA R and selective treatment. He is feeling discouraged with his current decline and some anxiety regarding his pending numbers. His ultimate goal is to have an end-of-life event at home, family has been quite supportive up to this point in time, feels that they would participate and provide support as needed. Time Spent: 60 minutes with getting 50% of this done and counseling regarding pain and symptom management coping, anticipatory guidance and coordination of care.
== END 2019-10-20 14:41 | disposition home or self-care (01) ==
LOC: PC 14:40
PROVIDERS: ATTEND Nurse Practitioner Adult Health
DX: Z51.5 Encounter for palliative care (principal); G89.3 Neoplasm related pain (acute) (chronic); R53.83 Other fatigue; K59.03 Drug induced constipation; T40.2X5A Adverse effect of other opioids, initial encounter; F41.8 Other specified anxiety disorders; C61 Malignant neoplasm of prostate; C79.51 Secondary malignant neoplasm of bone; Z79.899 Other long term (current) drug therapy; Z79.891 Long term (current) use of opiate analgesic; Z79.52 Long term (current) use of systemic steroids; Z66 Do not resuscitate
CPT/HCPCS: 99350

== ENCOUNTER 2019-11-29 11:40 | Outpatient (CLI) | payer MEDICARE, OTHER ==
--- NOTE | 2019-11-29 17:47 | CONSULTATION NOTE ---
Palliative Care Follow Up - Referral Referring Provider: Dr. Greg Keating Time of Visit: [id number] Referral setting: Other (TELEMEDICINE VISIT) Referral Reason: Pain of neoplastic origin/met prostate CA - Information Sources Records reviewed: Previous records reviewed History/Review of Systems obtained from: Patient, Family ( participated) Exam limitations: No limitations - History of Present Illness Update Brief HPI Update: This is a rikki 78-year-old gentleman who is a Moravian, he has metastatic castration resistant prostate cancer, who has had multiple lines of treatment over several years. He is currently on cabazitaxel with modified dosing, and Neulasta support. He has been actually tolerating this fairly well. Given the coronavirus outbreak, he will be skipping one treatment, to decrease his exposure to the clinic. He is somewhat worried about this, as far as heightened concerns presented today, he has had some weight loss, his pain is fairly well-controlled on his current regimen. He is able to stay at home, and is using appropriate precautions. He presents with no respiratory symptoms, and feels like he is doing fairly well overall.He has had no further symptoms of hematuria, tolerated his round of antibiotics without any significant side effects, as result of his stay at the ED on 10/14. Social History - Living Situation Living arrangement: At home Living Situation: With spouse/s.o. Support System: Patient lives at home with his rikki Helene, who herself is challenged with health problems. They have been self isolating. He is participating in his christian services via [employer], and is in frequent contact with his children and reaches out regularly for socialization with friends and family. Medications/Allergies - Medications Home Medications: Ambulatory Orders Medication Instructions Recorded Confirmed Omeprazole 20 mg PO QDAC 10/29/18 12/02/19 Prednisone 10 mg PO DAILY 03/06/19 12/02/19 Travoprost 0.004% Ophth Drops 1 drops EACHEYE QPM 03/06/19 12/02/19 [Travatan Z] polyethylene glycoL 3350 [Miralax] 17 gm PO BID 05/19/19 12/02/19 Oxycodone HCl 10 - 20 mg PO Q4H PRN 06/16/19 12/02/19 Albuterol Sulfate [Proair Hfa 2 puffs INH Q4HR PRN 07/28/19 12/02/19 Inhaler] Ondansetron [Ondansetron Odt] 4 mg PO Q6HR PRN #120 tab.rapdis 08/11/19 12/02/19 Morphine Sulfate ER [Ms Contin] 30 mg PO BID 09/29/19 12/02/19 Senna [Senokot] 1 - 2 tab PO DAILY PRN 09/29/19 12/02/19 - Allergies Allergies/Adverse Reactions: Allergies Allergy/AdvReac Type Severity Reaction Status Date / Time No Known Drug Allergies Allergy Verified 11/17/19 10:51 Review of Systems - Constitutional Constitutional: reports: Fatigue, Weight loss - Eyes Eyes: reports: Vision loss, Corrective lenses - Ears, Nose & Throat Ears, Nose & Throat: reports: Hearing loss, Hearing aids, Postnasal drainage (with allergies) - Cardiovascular Cardiovascular: reports: Edema (light) - Respiratory Respiratory: reports: SOB with exertion. denies: Cough, SOB at rest - Gastrointestinal Gastrointestinal: reports: Early satiety. denies: Constipation, Nausea - Genitourinary Genitourinary: reports: Frequency. denies: Dysuria, Incontinence - Musculoskeletal Musculoskeletal: reports: Muscle weakness - Integumentary Integumentary: reports: Dryness. denies: Rash - Neurological Neurological: reports: Numbness (peripheral neuropathy) - Psychiatric Psychiatric: reports: Anxiety. denies: Depression - Endocrine Endocrine: reports: Intolerance to cold - Hematologic/Lymphatic Hematologic/Lymphatic: reports: Anemia (10.4), Recurrent infections (recent polynephritis 10/14) - All Other Systems All Other Systems: reports: Reviewed and negative Physical Exam - Physical Exam General Appearance: positive: No acute distress, Alert Eyes Bilateral: positive: Normal inspection ENT: positive: No signs of dehydration Neck: positive: Trachea midline Respiratory: positive: No respiratory distress Skin: positive: Pallor, Dryness Extremities: positive: Other (reported mild edema for examination) Neurologic/Psychiatric: positive: Oriented x3, Mood/affect nml, Flat affect Palliative Care - POLST Patient has POLST: Yes POLST Status: DNR, Selective Treatment Pain: Pain improved (Reports pain is well controlled on his current MS Contin 30 mg twice daily, he rarely wakes up in pain, but if he does he takes oxycodone and is able to go back to sleep. His pain increases with ambulation, but this is more central around his neuropathy, he describes his feet as "balloons", does not feel it is worsened but is limiting for him.) Tiredness/Fatigue: Moderate (4-6) (Patient describes after recovering from infection, his energy level is somewhat improved, he is still quite sedentary b ut able to manage his ADLs.) Drowsiness/Sedation: Mild (1-3) Nausea: None Anorexia: Moderate (4-6), Weight loss (has not weighed recently but feels it has slowed down, decreased intake related mostly to taste changes, early satiety, and little interest. But he reports he is eating) Dyspnea: Mild (1-3) (with activity) Depression: Mild (1-3) Anxiety: Moderate (4-6) (This is related mostly to his concerns and fears about the sw[place] virus, he does understand it would be serious if he got ill.) Feelings of wellbeing/Perceived Quality of Life: Good, Acceptable, No change Sleep: Sleeps well Constipation: Yes, Opoid induced, Managed - Palliative Care Discussion: Patient's concerns sooner focused somewhat on his worries regarding skipping a treatment, we did discuss benefits and burdens given the current situation. Is not only avoiding the clinic but also depressing his immune system further during this peak time. We did discuss through his fears, he does understand he is at high risk for complications, he would not want to be intubated but would most likely need to come to the hospital for management of symptoms given his w belinda's frail status. He does have 27 grandkids and 6-7 great grandkids, is feeling well supported in his isolated state. He is able to use technology and reach out, and has been talking regularly to his christian community. He reports underlying anxiety, but not feeling overwhelmed. 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 His pain control is currently acceptable, he has been staying home in response to coronavirus, his chemotherapy is currently on hold which is causing him increased anxiety. Palliative care providing support regarding pain and symptom management and anticipatory guidance. Recommendations/Counseling Done: 1. Pain of neoplastic origin. Patient reports pain improved has recovered from his polynephritis, is currently on MS Contin 30 mg twice daily, with use of oxycodone may be up to 2 times a day. Patient feels current regimen is working, no adjustments made today. 2. Constipation. Patient is titrating his bowel program appropriately, no adjustments needed. 3. Fatigue. This is multifactorial in origin, he is feeling somewhat better as he is completed antibiotics. He continues with taste changes with decreased caloric intake. He is using his Ensure, did recommend increase his activity as he is quite sedentary. Counseling provided for ways to do this in small short spurts given his concerns for balance. 4. Anxiety. Counseling provided again to address his concerns particular around coronavirus, hold on therapy, patient's goal is to continue treatment for as long as possible weighing the benefits and burdens as he proceeds. 5. Advanced care planning. Patient does have POLST in place, DNA R and selective treatment, would not want intubation. His ultimate goal is to have an end-of-life event at home, though this would be complicated if it was related to the coronavirus, will continue to monitor. This is a documentation of a distant site telemedicine encounter. I conducted this encounter from my office via secure live [id number] video conference with the patient and Helene. Prior to the interview, the risk and benefits of telemedicine were discussed with the patient and verbal consent was obtained. Time Spent: 45 minutes with greater than 50% of this done in counseling regarding pain and symptom management, anticipatory guidance, addressing anxiety and concerns,. Patient will reach out if changes in symptom management or concerns, otherwise plan is to follow-up in 3 to 4 weeks.
== END 2019-11-29 11:41 | disposition home or self-care (01) ==
LOC: PC 11:40
PROVIDERS: ATTEND Nurse Practitioner Adult Health
DX: Z51.5 Encounter for palliative care (principal); G89.3 Neoplasm related pain (acute) (chronic); K59.03 Drug induced constipation; T40.2X5D Adverse effect of other opioids, subsequent encounter; R53.83 Other fatigue; F41.9 Anxiety disorder, unspecified; R63.4 Abnormal weight loss; R63.0 Anorexia; C79.51 Secondary malignant neoplasm of bone; C77.2 Secondary and unspecified malignant neoplasm of intra-abdominal lymph nodes; C78.6 Secondary malignant neoplasm of retroperitoneum and peritoneum; C61 Malignant neoplasm of prostate; Z19.2 Hormone resistant malignancy status; Z79.899 Other long term (current) drug therapy; Z79.52 Long term (current) use of systemic steroids; Z79.891 Long term (current) use of opiate analgesic; Z87.440 Personal history of urinary (tract) infections; Z66 Do not resuscitate

== ENCOUNTER 2019-12-20 10:00 | Outpatient (CLI) | payer MEDICARE, OTHER ==
--- NOTE | 2019-12-20 12:50 | PROVIDER PROGRESS NOTE ---
HPI/Interval History - HPI/Interval History This is a rikki 78-year-old gentleman who is a Sikhism, he has metastatic castration resistant prostate cancer, who has had multiple lines of treatment over several years. He is currently on cabazitaxel with modified dosing, and Neulasta support. He has been actually tolerating this fairly well. Given the coronavirus outbreak, he will be skipping one treatment, to decrease his exposure to the clinic. He is due again next week. His PSA remains elevated, though it did decrease between October and October's treatments. Patient presented last couple days with severe escalating pain, he had doubled his MS Contin to 60 mg twice daily, has been taking 10 mg of oxycodone 1-2 tabs every 3-4 hours with only moderate relief. Reports it is only lasting about 2 to 3 hours at the most. Reports pain is centered still pinpoint in his lower back, there is nothing that makes it better or worse, pills do relieve it some, does not perceive MS Contin is helping. We reviewed again the difference between long-acting and short acting medication, with the goal for the long-acting to make it so does not need as much short acting oxycodone. Patient denies any change in ability to walk, the does report he is quite fatigued and his gait remains somewhat unbalanced. His bowels are moving, does not have any pain or burning with urination, does not attribute any of his symptoms to UTI, he had been treated 10/14. He is quite distressed, his forehead is furloughed, he does appear with some pain behaviors, and irritability. He denies any falls, trauma, or any activity that may have escalated his pain or resulted in pathologic fracture. Patient complains of nausea, does not equate that with eating or any medication. Reports he has had concerns about vomiting. He has not taken any ondansetron. In review of his medications, he is also not been using his omeprazole, and has been on long-term prednisone. Social System Patient lives at home with his rikki Helene, they have been isolating with the [place] [employer] [place]. They have been doing his catholic services online, has been reaching out on a daily basis to his friends and catholic community. Review of Systems - Constitutional Constitutional: reports: Fatigue, Poor appetite, Weight loss. denies: Fever, Chills - Eyes Eyes: reports: Vision loss, Corrective lenses - Ears, Nose & Throat Ears, Nose & Throat: reports: Hearing loss, Hearing aids - Cardiovascular Cardiovascular: reports: Decr. exercise tolerance - Respiratory Respiratory: reports: Cough (loose; mostly noted in am; no change) - Gastrointestinal Gastrointestinal: reports: Nausea (more low grade nausea;), Poor appetite, Early satiety. denies: Constipation (titrating Miralax), Vomiting, Reflux/heartburn - Genitourinary Genitourinary: denies: Dysuria, Hematuria, Flank pain - Musculoskeletal Musculoskeletal: reports: Back pain (worsening), Stiffness, Muscle weakness, Other ( reports gait less steady as day goes on) - Integumentary Integumentary: reports: Dryness - Neurological Neurological: reports: General weakness, Numbness (baseline peripheral neuropathy), Memory problems (no change), Abnormal gait - Psychiatric Psychiatric: reports: Depression, Anxiety - Hematologic/Lymphatic Hematologic/Lymphatic: denies: Recurrent infections - All Other Systems All Other Systems: reports: Reviewed and negative Medications/Allergies - Medications Home Medications: Ambulatory Orders Medication Instructions Recorded Confirmed Omeprazole 20 mg PO BID 10/29/18 12/20/19 Travoprost 0.004% Ophth Drops 1 drops EACHEYE QPM 03/06/19 12/20/19 [Travatan Z] polyethylene glycoL 3350 [Miralax] 17 gm PO BID 05/19/19 12/20/19 Oxycodone HCl 20 mg PO Q3HR PRN 06/16/19 12/20/19 Albuterol Sulfate [Proair Hfa 2 puffs INH Q4HR PRN 07/28/19 12/20/19 Inhaler] Ondansetron [Ondansetron Odt] 4 mg PO Q6HR PRN #120 tab.rapdis 08/11/19 12/20/19 Senna [Senokot] 1 - 2 tab PO DAILY PRN 09/29/19 12/20/19 Morphine Sulfate [Morphine Sulfate 60 mg PO TID 12/20/19 12/20/19 ER] dexAMETHasone [Dexamethasone] 4 mg PO BID 12/20/19 12/20/19 - Allergies Allergies/Adverse Reactions: Allergies Allergy/AdvReac Type Severity Reaction Status Date / Time No Known Drug Allergies Allergy Verified 11/17/19 10:51 Physical Exam - Physical Exam General: Patient appears somewhat sallow, thinner in face, demonstrating pain behaviors of furloughed brow, difficulty moving. ENT: Patient with slight periorbital edema, mucous membranes slightly dry, speech clear. Trachea midline Respiratory:, Patient does have a moist cough, reports clearing secretions. Does not appear in any respiratory distress. Abdomen: Patient without any tenderness, when asked to self palpate. Skin; patient appears slightly sallow in color, noted dryness, Neurologic/psychiatric; oriented x3, depressed mood, irritability, flat affect Musculoskeletal: Patient able to get from sitting to standing, gait appears somewhat imbalanced, moves all extremities. Palliative Care - POLST Patient has POLST: Yes POLST Status: DNR, Selective Treatment Pain: Pain worsening, Location (lower back/pelvic area), Severity (severe) Tiredness/Fatigue: Moderate (4-6) Drowsiness/Sedation: Mild (1-3) Nausea: Moderate (4-6) Anorexia: Moderate (4-6) Dyspnea: Mild (1-3) Depression: Mild (1-3) Anxiety: Moderate (4-6) Feelings of wellbeing/Perceived Quality of Life: Poor, Worsening Sleep: Sleep improved, Variable sleep pattern Constipation: Yes, Opoid induced, Managed Performance Status: Patient has been more sedentary both by the fact he is house bound, as well as his progressive pain. He is able to manage his own ADLs, with the pills appear that he has had some decline in functional status. - Palliative Care Discussion: Patient is quite concerned with his sudden escalation of pain, he remains quite anxious as far as not having received treatment this last month, is due next week. Will reach out and see if Dr. Faith feels it would be of benefit to come this week. He is quite irritable with the pain, both he and his are feeling somewhat vulnerable. Patient does understand the seriousness of his illness, and that he is on his last treatment options, if he does have progressive disease there will be very little to offer after this. Impression and Recommendations - Palliative Care Impression: This is a 79-year-old gentleman with metastatic prostate cancer with mets, who presents with acute on chronic pain of neoplastic origin. Patient's pain is centered on his lower back, does not present with any numbness, change in gait, or signs or symptoms of cord compression at this time, though remains at high risk. Palliative care to continue provide support for pain and symptom management, will escalate his pain medication, as well as add dexamethasone Recommendations/Counseling Done: 1. Pain of neoplastic origin. Patient currently on 60 MS Contin BID over the weekend, will increase to TID. Patient using oxycodone 10 mg up to 90 mg for breakthrough pain yesterday, and so far 40 mg today. Patient denies any trauma, or ability to pinpoint any underlying etiology of change in his pain symptoms. We will go ahead and add dexamethasone 4 mg twice daily given an acute nature, patient to discontinue his prednisone at this point in time. We will also add back his omeprazole 20 mg twice daily. Rx provided to [facility] for MS Contin 60 mg tablets 3 times daily, as well as oxycodone 10 mg number 240 mg. And dexamethasone 4 mg twice daily #60 2.Nausea. Most likely multifactorial, including increasing opioid burden, patient has had weight loss and poor intake. Hopefully will get some relief with the addition of dexamethasone, patient is also reviewed that ondansetron 4 mg can use up to 3 times daily. Patient and acknowledged understanding. We will also possibly improve with the addition of omeprazole. 3. Constipation. Patient currently managing with Arpita lax 1-1/2 capfuls daily, instructed to increase to twice daily, reviewed needing to add senna 8.6 mg 1-2 tabs twice daily. Patient at high risk for ongoing constipation issues, though in the past is mostly had loose stools. 4. Advanced care planning. Patient goals have been to continue treatment for as long as possible, is due for treatment next week. Patient is aware of the seriousness of his illness, patient may be coming up to needing transition to hospice. Patient has high anxiety around and dying, though has a strong john background, this will be a difficult transition for him. Telehealth Visit - TeleMedicine Visit Referring Provider: Dr. Julius Faith Visit Type:: TeleHealth Video Call Patient agrees and consents to this telehealth visit type: Yes Time spent:: 35 minutess Video type:: Doximetry Participants:: Spouse/Significant Other Location of provider:: Home Location of patient:: Home Provider Statement: I spent 100% on the TeleHealth Video Call with the patient with greater than 50% spent counseling the patient and coordination of care.
== END 2019-12-20 10:01 | disposition home or self-care (01) ==
LOC: PC 10:00
PROVIDERS: ATTEND Nurse Practitioner Adult Health
DX: Z51.5 Encounter for palliative care (principal); G89.3 Neoplasm related pain (acute) (chronic); R63.4 Abnormal weight loss; R53.0 Neoplastic (malignant) related fatigue; R11.0 Nausea; R63.0 Anorexia; R53.1 Weakness; F41.9 Anxiety disorder, unspecified; I10 Essential (primary) hypertension; K59.03 Drug induced constipation; T40.2X5D Adverse effect of other opioids, subsequent encounter; R05 Cough; C61 Malignant neoplasm of prostate; C79.9 Secondary malignant neoplasm of unspecified site; Z79.899 Other long term (current) drug therapy; Z79.891 Long term (current) use of opiate analgesic; Z79.52 Long term (current) use of systemic steroids; Z66 Do not resuscitate

== ENCOUNTER 2019-12-29 10:43 | Outpatient (CLI) | payer MEDICARE, OTHER ==
[2019-12-29 10:52] VITALS: BP 113/73
--- NOTE | 2019-12-29 12:40 | CONSULTATION NOTE ---
Palliative Care Follow Up - Referral Referring Provider: Dr. Greg Keating Time of Visit: [id number] [place] [facility] [place] Reason: Pain of neoplastic origin/Met Prostate CA - Information Sources Records reviewed: Previous records reviewed History/Review of Systems obtained from: Patient Exam limitations: No limitations - History of Present Illness Update Brief HPI Update: This is a rikki 78-year-old gentleman who is Jew, with metastatic castration resistant prostate cancer and multiple lines of treatment over several years, he is currently on cabazitaxel with modified dosing, has been off for 6 weeks, and receiving treatment today. His PSA continues to be elevated, today was 255. We had done a tele-med visit on 12/19 for escalating pain. His pain continues to be centered around his lower sacral, rectal area with very little relief. We started him on dexamethasone 4 mg twice daily, and increased his MS Contin to 60 mg 3 times daily. He reports his pain did eventually improve, was able to drop his MS Contin to his current dosing of 60 mg BID, and 3 days ago stopped the p.m. dosing of the dexamethasone. Reports his pain is good right now, he has not needed anything for breakthrough, his appetite has improved as well as his nausea. Patient presents in a good mood, good eye contact, moving without any problems today. Is very grateful his pain is currently controlled, and feels like things overall are better. He does have intermittent shortness of breath, but this is managed with albuterol. And other than some persistent fatigue his symptom burden is well controlled today. 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 Social History - Living Situation Living arrangement: At home Living Situation: With spouse/s.o. Support System: Patient is well supported by his , they live in [place]kki mobile home with several dogs. He has 5 sons who are still living, who check on him frequently. He is well connected into his [employer] community, his mother is still alive and was over last weekend. He feels like he has good social support. Medications/Allergies - Medications Home Medications: Ambulatory Orders Medication Instructions Recorded Confirmed Omeprazole 20 mg PO BID 10/29/18 12/29/19 Travoprost 0.004% Ophth Drops 1 drops EACHEYE QPM 03/06/19 12/29/19 [Travatan Z] polyethylene glycoL 3350 [Miralax] 17 gm PO DAILY MDD bid 05/19/19 12/29/19 Oxycodone HCl 20 mg PO Q3HR PRN 06/16/19 12/29/19 Albuterol Sulfate [Proair Hfa 2 puffs INH Q4HR PRN 07/28/19 12/29/19 Inhaler] Ondansetron [Ondansetron Odt] 4 mg PO Q6HR PRN #120 tab.rapdis 08/11/19 12/29/19 Senna [Senokot] 1 - 2 tab PO DAILY PRN 09/29/19 12/29/19 Morphine Sulfate [Morphine Sulfate 60 mg PO BID 12/20/19 12/29/19 ER] dexAMETHasone [Dexamethasone] 4 mg PO DAILY 12/20/19 12/29/19 - Allergies Allergies/Adverse Reactions: Allergies Allergy/AdvReac Type Severity Reaction Status Date / Time No Known Drug Allergies Allergy Verified 12/29/19 10:50 Review of Systems - Constitutional Constitutional: reports: Fatigue (improved), Weight loss (but good appetite). denies: Fever, Chills - Eyes Eyes: reports: Vision loss, Corrective lenses - Ears, Nose & Throat Ears, Nose & Throat: reports: Hearing loss, Hearing aids, Nasal congestion - Cardiovascular Cardiovascular: reports: Decr. exercise tolerance. denies: Chest pain, Edema, Lightheadedness - Respiratory Respiratory: reports: SOB with exertion. denies: Cough, SOB at rest - Gastrointestinal Gastrointestinal: reports: Good appetite. denies: Constipation, Nausea, Reflux/heartburn - Genitourinary Genitourinary: reports: Frequency - Musculoskeletal Musculoskeletal: reports: Stiffness, Muscle weakness - Integumentary Integumentary: reports: Dryness - Neurological Neurological: reports: General weakness. denies: Dizziness - Psychiatric Psychiatric: reports: Anxiety. denies: Depression - Hematologic/Lymphatic Hematologic/Lymphatic: reports: Anemia - All Other Systems All Other Systems: reports: Reviewed and negative Physical Exam - Vital Signs Pulse Rate: 92 Respiratory Rate: 18 Blood Pressure: 113/73 - Physical Exam General Appearance: positive: Alert Eyes Bilateral: positive: Normal inspection ENT: positive: No signs of dehydration Neck: positive: Trachea midline Respiratory: positive: No respiratory distress Abdomen: positive: Soft Skin: positive: Pallor, Dryness Extremities: positive: No pedal edema Neurologic/Psychiatric: positive: Oriented x3, Mood/affect nml, Flat affect Palliative Care - POLST Patient has POLST: Yes POLST Status: DNR, Selective Treatment Pain: Pain improved, Location (see HPI), Severity (0/10) Tiredness/Fatigue: Moderate (4-6) Drowsiness/Sedation: Mild (1-3) Nausea: Mild (1-3) Anorexia: None Dyspnea: Mild (1-3) Depression: None Anxiety: None Feelings of wellbeing/Perceived Quality of Life: Good, Acceptable, Improved Sleep: Sleep improved, Variable sleep pattern Constipation: Yes, Opoid induced, Managed Performance Status: Patient continues with some lower extremity neuropathy, impacting his balance. He remains somewhat sedentary, but does ambulate around his home. He does get some assistance from his with dressing, but is bathing independently. He has done some cooking, he is quite engaged and feeling somewhat better as far as energy. - Palliative Care Discussion: Patient tentatively asked with elevated PSA, what level is it time to "go to hospice". Patient continuing with treatment currently, did have a longer break this time which could be attributed to his increased numbers. He did have a pain crisis, but this is since been evaluated with the increase in pain meds and use of dexamethasone. He continues to perceive his quality of life is quite good, he would continue treatment as long as this continues. He is quite anxious about transitioning to hospice, but aware it may be in his not too distant future. We did discuss a little bit about what his would do after she is gone, he does feel like he has "good kids" and is not worried about support for her. Results - Lab Results Lab results reviewed: Yes Lab and Imaging Results: Patient does have elevated WBC, this can be attributed to high dosing of steroids. Patient does not present with any signs or symptoms of infection. Impression and Recommendations - Palliative Care Impression: This is a 79-year-old gentleman with metastatic prostate cancer, with mets, including multiple bony mets. His pain today is currently under control, he is much relief with this. He is continuing with treatment, though his PSA is elevated today. Patient perceives his quality of life is still good, and would continue treatment as long as it is of benefit. Palliative care to continue provide support for pain and symptom management and transition to hospice when appropriate Recommendations/Counseling Done: 1. Pain of neoplastic origin. Patient is currently on 60 mg MS twice daily, he had decreased from 3 times daily after 1 week with patient's pain controlled. He is also benefited from the dexamethasone 4 mg twice daily, as decrease that to daily a few days ago with no change in pain levels. He was having some increased difficulty sleeping at night. Instructed to continue with the 4 mg daily for 1 week, and then decrease to half tab=2 mg Daily. Can increase back up if noticed increase in discomfort or pain. Patient currently pleased with his regimen and feels like his pain is at a 0. He has not needed any oxycodone for breakthrough pain and thus is very pleased. 2. Nausea. Most likely this was multifactorial, did respond to dexamethasone, as well as adding omeprazole. 3. Constipation. Patient is currently managing with MiraLAX 17 g daily, had increased to twice daily but now with decrease in opioid load was able to decrease had good bowel movement this morning. Patient does appear to titrate appropriately. 4. Metastatic prostate cancer. Patient continuing with treatment, continues to weigh benefits and burdens moving forward, does present with elevated PSA today though did have a longer 6-week period secondary to COVID-19. This was also held because of his polynephritis on 10/14. 5. Advanced care planning. Patient does understand the seriousness of his illness, ultimate goal is to have end-of-life at home, but would like to continue with treatment for as long as possible. He does perceive it is not impacting his quality of life at this point in time. Anticipatory guidance and counseling provided in response to his questions. Time Spent: 30 minutes with greater than 50% of this done in counseling regarding pain and symptom management, anticipatory guidance, and coordination with oncology team
== END 2019-12-29 10:44 | disposition home or self-care (01) ==
LOC: PC 10:43
PROVIDERS: ATTEND Nurse Practitioner Adult Health
DX: Z51.5 Encounter for palliative care (principal); G89.3 Neoplasm related pain (acute) (chronic); K59.03 Drug induced constipation; T40.2X5D Adverse effect of other opioids, subsequent encounter; R11.0 Nausea; C79.51 Secondary malignant neoplasm of bone; C61 Malignant neoplasm of prostate; Z79.899 Other long term (current) drug therapy; Z79.891 Long term (current) use of opiate analgesic; Z79.52 Long term (current) use of systemic steroids; Z66 Do not resuscitate
CPT/HCPCS: 99214

== ENCOUNTER 2019-12-29 16:13 | Emergency (ER) | payer MEDICARE, OTHER ==
--- NOTE | 2019-12-29 16:24 | ED Physician Documentation ---
PD HPI UPPER EXT INJURY - Stated complaint Stated Complaint: L MIDDLE FINGER LAC - Chief complaint Chief Complaint: Laceration - History obtained from History obtained from: Patient - History of Present Illness Location: Left, Finger (middle) Type of injury: Laceration (with knife tip) Where injury occurred: Home Timing - onset: Today Timing - details: Still present Worsened by: Palpating Associated symptoms: No: Weakness, Numbness Contributing factors: No: Anticoagulated Similar symptoms before: Has not had sx before Recently seen: Not recently seen Review of Systems Skin: reports: Laceration (s) Neurologic: denies: Focal weakness, Numbness, Near syncope PD PAST MEDICAL HISTORY - Past Medical History Cardiovascular: Hypertension Respiratory: Asthma Neuro: CVA, Fainting Endocrine/Autoimmune: None GI: Other, Colon polyps BLOOD TYPER: None : Incontinence, Chronic bladder infection, Nocturia, Other (Prostate cancer with mets to the bone) HEENT: None, Chronic hearing loss Psych: None Musculoskeletal: Osteoarthritis, Chronic back pain Derm: None - Past Surgical History Past Surgical History: Yes General: Other Ortho: Knee replacement /BLOOD TYPER: Other Cardiovascular: Other HEENT: Cataracts - Present Medications Home Medications: Ambulatory Orders Medication Instructions Recorded Confirmed Omeprazole 20 mg PO BID 10/29/18 12/29/19 Travoprost 0.004% Ophth Drops 1 drops EACHEYE QPM 03/06/19 12/29/19 [Travatan Z] polyethylene glycoL 3350 [Miralax] 17 gm PO DAILY MDD bid 05/19/19 12/29/19 Oxycodone HCl 20 mg PO Q3HR PRN 06/16/19 12/29/19 Albuterol Sulfate [Proair Hfa 2 puffs INH Q4HR PRN 07/28/19 12/29/19 Inhaler] Ondansetron [Ondansetron Odt] 4 mg PO Q6HR PRN #120 tab.rapdis 08/11/19 12/29/19 Senna [Senokot] 1 - 2 tab PO DAILY PRN 09/29/19 12/29/19 Morphine Sulfate [Morphine Sulfate 60 mg PO BID 12/20/19 12/29/19 ER] dexAMETHasone [Dexamethasone] 4 mg PO DAILY 12/20/19 12/29/19 - Allergies Allergies/Adverse Reactions: Allergies Allergy/AdvReac Type Severity Reaction Status Date / Time No Known Drug Allergies Allergy Verified 12/29/19 16:22 - Social History Does the pt smoke?: No Smoking Status: Former smoker Does the pt drink ETOH?: Yes Does the pt have substance abuse?: No - Immunizations Immunizations are current?: Yes - POLST Patient has POLST: Yes POLST Status: DNR PD ED PE NORMAL - Vitals Vital signs reviewed: Yes - General General: Alert and oriented X 3, No acute distress, Well developed/nourished - Derm Derm: Normal color, Warm and dry - Extremities Extremities: Other (Left middle finger shows a 1.5 cm diagonal laceration at the distal phalanx along the palmar fat pad. It extends to the fatty tissue and there is some mild bleeding when direct pressure is removed. There is no foreign body noted. It does not extend to the IP joint. He has good flexion and sensation at the finger. There is no involvement of the nailbed.) - Neuro Neuro: Alert and oriented X 3, No motor deficit, No sensory deficit Results - Vitals Vitals: Vital Signs - 24 hr 12/29/19 16:15 Temperature 36.8 C Heart Rate 86 Respiratory 20 Rate Blood Pressure 142/78 H O2 Saturation 97 Oxygen O2 Source Room air Procedures - Laceration (location) left middle finger distal Length in cm: 1.5 Wound type: Linear, Into subcut fat, Clean Neurovascular status: Sensory intact, Motor intact Tendon involvement: Tendon intact Anesthesia: Lidocaine 2% Wound Preparation: Wound explored, To the base. No: FB identified Skin layer closure: Nylon, Running, Size #-0 - enter number (5), Sutures - enter # (6) Other: Patient tolerated well, No complications, Neurovascular intact, Dressing applied, Tetanus booster given Complexity: Simple Departure - Departure Disposition: 01 Home, Self Care Clinical Impression: Finger laceration Qualifiers: Encounter type: initial encounter Finger: middle finger Damage to nail status: without damage Foreign body presence: without foreign body Laterality: left Qualified Code(s): S61.213A - Laceration without foreign body of left middle finger without damage to nail, initial encounter Condition: Stable Record reviewed to determine appropriate education?: Yes Instructions: ED Laceration Hand Follow-Up: Greg Keating MD [Primary Care Provider] - Comments: It is okay to wash and shower. Clean off the wound twice a day with soap and water, or peroxide and water. Apply some antibiotic ointment to it to keep it moist. Also to watch for signs of infection such as purulence, redness or increasing pain. Return to your primary care or the ER at the specified time for suture removal. Suture removal 7 to 8 days. Tylenol if needed for pains. Activity as able based on comfort.
[2019-12-29] MEDS ORDERED: ACETAMINOPHEN 500 MG TABLET PO STA (16:47)
[2019-12-29] MEDS ORDERED: TETANUS/DIPHTHERIA/PERTUSSIS 0.5 ML SYRINGE IM ONE (16:47)
[2019-12-29] MEDS ORDERED: BACITRACIN ZINC OINT 1 PACKET TOP STA (16:47)
[2019-12-29 17:18] VITALS: BP 136/75
== END 2019-12-29 17:18 | disposition home or self-care (01) ==
LOC: ED 16:13
DX: S61.213A Laceration without foreign body of left middle finger without damage to nail, initial encounter (principal); W26.0XXA Contact with knife, initial encounter; Y92.009 Unspecified place in unspecified non-institutional (private) residence as the place of occurrence of the external cause; I10 Essential (primary) hypertension; Z87.891 Personal history of nicotine dependence; Z66 Do not resuscitate
CPT/HCPCS: 12011; 90471; 90715; 99282; 99283; A9270

== ENCOUNTER 2020-01-06 16:40 | Outpatient (CLI) | payer MEDICARE, OTHER ==
--- NOTE | 2020-01-06 18:20 | CONSULTATION NOTE ---
Palliative Care Follow Up - Referral Referring Provider: Dr. Greg Keating Time of Visit: [id number] Referral setting: Home Referral Reason: Laceration left finger/Pain of neoplastic origin/met Prostate CA - Information Sources Records reviewed: Previous records reviewed History/Review of Systems obtained from: Patient, Family ( Helene) Exam limitations: No limitations - History of Present Illness Update Brief HPI Update: This is a rikki 79-year-old gentleman who is a Quaker, with metastatic castration resistant prostate cancer, who is undergone multiple lines of treatment over the last several years. He is currently on cabazitaxel and tolerating well. Patient had had exacerbation of his pain on 12/19, this is continue to improve, and has been able to titrate down off his MS Contin from 60 mg to 3 times daily, did 60 mg twice daily. He has not been needing anything for breakthrough pain. Also has been decreasing his dexamethasone, currently at 4 mg daily, will decrease to half tab, then transition back over to his daily prednisone. Patient did on 12/28 cut his finger requiring ED visit and stitches. Requesting visit for removal of stitches given COVID-19. Patient has been doing fairly well overall, appetite is up, though he continues to lose weight. He also presents today with some left lower extremity swelling in his left leg, over the last 2 to 3 days. There is no erythema, no pain, pulse is good. Patient denies any injury, patient does sit with his feet dangling in recliner. Past medical history includes hypertension, hyperlipidemia, carotid artery occlusion on left, murmur, asthma, history of CVA with right-sided weakness with mild residual related cognitive, GERD, colon polyps, BPH, chronic vision loss, hearing loss with hearing aids, chronic sinusitis, depression, anxiety, osteoarthritis Social History - Living Situation Living arrangement: At home Living Situation: With spouse/s.o. Support System: Patient lives at home with his rikki , and several dogs. He has 5 sons who are still living who check on him frequently, he is well connected is [employer] community. His mother is still alive at 96 and visits every other weeke nd. His reports he got pretty irritable on the high doses of dexamethasone. Medications/Allergies - Medications Home Medications: Ambulatory Orders Medication Instructions Recorded Confirmed Omeprazole 20 mg PO BID 10/29/18 01/07/20 Travoprost 0.004% Ophth Drops 1 drops EACHEYE QPM 03/06/19 01/07/20 [Travatan Z] polyethylene glycoL 3350 [Miralax] 17 gm PO DAILY MDD bid 05/19/19 01/07/20 Oxycodone HCl 20 mg PO Q3HR PRN 06/16/19 01/07/20 Albuterol Sulfate [Proair Hfa 2 puffs INH Q4HR PRN 07/28/19 01/07/20 Inhaler] Ondansetron [Ondansetron Odt] 4 mg PO Q6HR PRN #120 tab.rapdis 08/11/19 01/07/20 Senna [Senokot] 1 - 2 tab PO DAILY PRN 09/29/19 01/07/20 Morphine Sulfate [Morphine Sulfate 60 mg PO BID 12/20/19 01/07/20 ER] dexAMETHasone [Dexamethasone] 2 mg PO DAILY MDD stop in 4 days 12/20/19 01/07/20 resume Pred Prednisone 10 mg PO DAILY MDD after finishes 01/07/20 01/07/20 dex - Allergies Allergies/Adverse Reactions: Allergies Allergy/AdvReac Type Severity Reaction Status Date / Time No Known Drug Allergies Allergy Verified 12/29/19 16:22 Review of Systems - Constitutional Constitutional: reports: Fatigue, Weight loss. denies: Fever, Chills - Eyes Eyes: reports: Vision loss, Corrective lenses - Ears, Nose & Throat Ears, Nose & Throat: reports: Hearing loss, Hearing aids, Nosebleeds - Cardiovascular Cardiovascular: reports: Edema (new left foot), Decr. exercise tolerance - Respiratory Respiratory: reports: Cough (in am), SOB with exertion. denies: SOB at rest - Gastrointestinal Gastrointestinal: reports: Good appetite. denies: Constipation - Genitourinary Genitourinary: reports: Frequency - Musculoskeletal Musculoskeletal: reports: Stiffness, Muscle weakness - Integumentary Integumentary: reports: Dryness, Other (bruising; scratches from dogs) - Neurological Neurological: reports: General weakness, Numbness, Memory problems, Abnormal gait (r/t peripheral neuropathy) - Psychiatric Psychiatric: reports: Anxiety - Hematologic/Lymphatic Hematologic/Lymphatic: reports: Anemia, Bruising - All Other Systems All Other Systems: reports: Reviewed and negative Physical Exam - Vital Signs Temperature: 96.8 C Pulse Rate: 64 Respiratory Rate: 18 O2 Saturation: 96 (ra @ rest) Blood Pressure: 132/74 - Physical Exam General Appearance: positive: No acute distress, Alert Eyes Bilateral: positive: Normal inspection ENT: positive: No signs of dehydration. negative: Oral lesions Neck: positive: Trachea midline Cardiovascular: positive: Regular rate & rhythm Respiratory: positive: No respiratory distress, Diminished in bases. negative: Wheezes, Rales, Rhonchi Abdomen: positive: Non-tender, Soft Skin: positive: Pallor, Dryness, Bruising, Wound (Left forefinger laceration, well approximated, no signs or symptoms of infection. Stitches removed without any difficulty.) Extremities: positive: Pedal edema (New swelling on left lower extremity, 1-2+, mostly localized around ankle area. No redness or erythema, negative Homans sign, both feet are cool to touch. Denies any trauma, any changes. Denies any pain with weightbearing or walking.) Neurologic/Psychiatric: positive: Oriented x3, Mood/affect nml, Weakness, Flat affect Palliative Care - POLST Patient has POLST: Yes POLST Status: DNR, Selective Treatment Pain: Pain improved, Location (rectal/sacral area), Comment (see HPI) Tiredness/Fatigue: Moderate (4-6) Drowsiness/Sedation: Mild (1-3) Nausea: None Anorexia: None Dyspnea: Mild (1-3) Depression: Mild (1-3) Anxiety: Moderate (4-6) Feelings of wellbeing/Perceived Quality of Life: Good, Acceptable, No change Sleep: Sleeps well Constipation: Yes, Opoid induced, Managed Performance Status: Patient is quite sedentary, spends most the time sitting in his recliner, with feet down. He does ambulate short distances around trailer, balance is worsening. He will go out for rides with his when she goes shopping. He is able to manage his own bathing, some assistance with lower extremity dressing. - Palliative Care Discussion: Patient continues to be quite curious about what his ultimate demise will be, we did discuss in the context of metastatic cancer, overall frailty, decreased weight loss, worsening fatigue, decreased energy. High risk for infection related to immunocompromise, and despite being mostly in his soft tissues and bones, could spread to other vital organs. Patient currently tolerating treatment, does have significant anxiety, and is hoping for both continued quality and quantity of life. Does understand the seriousness of his illness, has been treated fci and will continue as long as benefit vs burden weighs in his favor. He does understand limited options at this time for further intervention after this treatment. Results - Lab Results Lab results reviewed: Yes Impression and Recommendations - Palliative Care Impression: This is a 79-year-old gentleman with metastatic prostate cancer with mets, in cluding multiple bony mets and soft tissue to left iliacus muscle. His pain has continued to improve, he presents today though with left lower extremity swelling. His left finger laceration has healed and stitches ready to be removed. Patient continues to perceive quality of life is still good, and continue treatment as long as it is of benefit. Palliative care to continue provide support for pain and symptom management and transition to hospice when appropriate Recommendations/Counseling Done: 1. Pain of neoplastic origin. Patient currently on 60 mg MS Contin twice a day, has not needed further oxycodone for breakthrough pain. He has benefited from dexamethasone, now on taper, will continue on 2 mg for 4 days, then switch back to his baseline prednisone 10 mg daily. Patient is currently pleased with his current regimen. 2. Left forefinger laceration. Area cleansed and stitches removed without difficulty, small Steri-Strips applied and instructions on monitoring for signs and symptoms of infection. 3. Left lower extremity swelling. This is mostly confined to ankle area and calf. Concern for DVT, though no pain redness or erythema. Patient does have known soft tissue swelling/mets to his iliacus muscle, unclear if this is impacting. Compression hose applied, counseled on signs and symptoms of DVT to notify provider or seek emergency evaluation. Instruction on elevation. Suspect some is swelling related to dexamethasone. 4. Metastatic prostate cancer. Patient continue with treatment, continues weigh benefits and burdens is moving forward, has been able to tolerate without difficulty at this point in time. Plans to continue as long as of benefit. 5. Advanced care planning. Patient does understand the seriousness of his illn ess, he perceives his current quality of life is acceptable, and would continue treatment as long as possible. Patient with multiple curiosities regarding end-of-life, attempted to answer questions best I could. Patient would want to have a at end-of-life, suspect his sons would step up and provide support for Helene at that point. Time Spent: 30 minutes with greater than 50% of this done in counseling removal of stitches, and anticipatory guidance.
== END 2020-01-06 16:41 | disposition home or self-care (01) ==
LOC: PC 16:40
PROVIDERS: ATTEND Nurse Practitioner Adult Health
DX: Z51.5 Encounter for palliative care (principal); G89.3 Neoplasm related pain (acute) (chronic); S61.211D Laceration without foreign body of left index finger without damage to nail, subsequent encounter; M79.89 Other specified soft tissue disorders; R53.0 Neoplastic (malignant) related fatigue; R53.1 Weakness; K59.03 Drug induced constipation; T40.2X5D Adverse effect of other opioids, subsequent encounter; I69.351 Hemiplegia and hemiparesis following cerebral infarction affecting right dominant side; C61 Malignant neoplasm of prostate; C79.51 Secondary malignant neoplasm of bone; C79.89 Secondary malignant neoplasm of other specified sites; Z79.899 Other long term (current) drug therapy; Z79.891 Long term (current) use of opiate analgesic; Z79.52 Long term (current) use of systemic steroids; Z66 Do not resuscitate
CPT/HCPCS: 99348

== ENCOUNTER 2020-01-19 18:52 | Outpatient (CLI) | payer MEDICARE, OTHER ==
--- NOTE | 2020-01-19 20:00 | Ultrasound Report ---
Reason: LEG SWELLING Procedure Date: 01/19/2020 Accession Number: [id number] / [id number] Procedure: US - Duplex Ext Veins Left CPT Code: Final Report FULL RESULT: EXAM: LEFT LOWER EXTREMITY VENOUS ULTRASOUND EXAM DATE: 01/19/2020 07:12 PM. CLINICAL HISTORY: LEG SWELLING. COMPARISON: None. TECHNIQUE: Real-time sonographic vascular imaging was performed by the patient care through the lower extremity utilizing both color-flow and Doppler spectral analysis. Multiple customer development representative static images were saved for review. FINDINGS: Common Femoral Vein (CFV): Normal. CFV-GSV Junction: Normal. Profunda Femoral Vein (PFV): Normal. Femoral Vein (FV) Prox: Occlusive thrombus Femoral Vein (FV) Mid: Occlusive thrombus Femoral Vein (FV) Dist: Occlusive thrombus Popliteal Vein: Occlusive thrombus Posterior Tibial Veins: Not well seen, suspected thrombus Peroneal Veins: Not well seen, suspected thrombus Contralateral Side CFV: Normal. Other: None. IMPRESSION: Extensive deep venous thrombosis in the left lower extremity from the femoral vein to the calf. [facility] The call report notification system was initiated by Dr. Roland Gamble at 07:55 PM on 01/19/2020. The above call report findings were discussed with Dr Julius Faith by Dr. Roland Gamble at 07:58 PM on 01/19/2020.
== END 2020-01-19 18:53 | disposition home or self-care (01) ==
LOC: DI 18:52
PROVIDERS: ATTEND Internal Medicine
DX: I82.412 Acute embolism and thrombosis of left femoral vein (principal); I82.432 Acute embolism and thrombosis of left popliteal vein